=== PATIENT | female | born 1945 | race Caucasian/White ===

== ENCOUNTER 2017-03-12 02:10 | Emergency (ER) | payer MEDICARE ==
[2017-03-12 02:19] VITALS: TEMP 96.9
--- NOTE | 2017-03-12 03:18 | ED ---
Recheck HPI - General Chief Complaint: Recheck/Abnormal Lab/Rx Stated Complaint: poss accidental overdose Time Seen by Provider: 03/12/17 02:31 Source: patient, RN notes reviewed Mode of arrival: ambulatory Limitations: no limitations - History of Present Illness Initial Comments: patient is a 71-year-old female presents to the emergency room for evaluation. Patient states she takes nortriptyline 100 mg at night. Patient states she thinks she might have taken double her dose. Patient states about 15 minutes after she realized this, she made herself vomit. Patient states about an hour later she started feeling nauseous with queasiness. Patient states that she does not feel good. Patient denies abdominal pain or chest pain. Patient denies headache. Patient denies fevers or chills. Patient denies taking extra of any of her other medications. - Related Data Home Medications Medication Instructions Recorded Confirmed ALPRAZolam [Xanax] 0.5 mg PO BID PRN 12/01/15 03/12/17 Ergocalciferol [Vitamin D2] 50,000 unit PO Q7D 12/01/15 03/12/17 Estradiol 0.5 mg PO DAILY 12/01/15 03/12/17 Fluticasone/Salmeterol [Advair 1 inhalation PO BID 12/01/15 03/12/17 250-50 Diskus] Levothyroxine Sodium [Synthroid] 112 mcg PO DAILY 12/01/15 03/12/17 Nortriptyline HCl [Pamelor] 100 mg PO HS 12/01/15 03/12/17 Omeprazole 20 mg PO DAILY 12/01/15 03/12/17 Pravastatin Sodium [Pravachol] 20 mg PO DAILY 12/01/15 03/12/17 Primidone [Mysoline] 50 mg PO DAILY 12/01/15 03/12/17 Zafirlukast 20 mg PO BID 12/01/15 03/12/17 busPIRone HCL 15 mg PO BID 12/01/15 03/12/17 lamoTRIgine [LaMICtal] 200 mg PO DAILY 12/01/15 03/12/17 Previous Rx's Medication Instructions Recorded Lidocaine 5% Patch [Lidoderm] 1 patch TOPICAL DAILY #10 patch 12/01/15 Naproxen [Naprosyn] 500 mg PO Q12HR #30 tab 12/01/15 Allergies Allergy/AdvReac Type Severity Reaction Status Date / Time codeine AdvReac Nausea Verified 03/12/17 02:19 Review of Systems ROS Statement: Those systems with pertinent positive or pertinent negative responses have been documented in the HPI. ROS Other: All systems not noted in ROS Statement are negative. Past Medical History Past Medical History: Asthma, GERD/Reflux, Thyroid Disorder History of Any Multi-Drug Resistant Organisms: MRSA Date of last positivie culture/infection: 2012/MRSA MDRO Source:: Lungs Past Surgical History: Hysterectomy, Orthopedic Surgery, Tonsillectomy Additional Past Surgical History / Comment(s): abd sx Past Psychological History: Anxiety, Depression Smoking Status: Never smoker Past Alcohol Use History: None Reported Past Drug Use History: None Reported General Exam - General Exam Comments Initial Comments: sitting in exam room, no acute distress. Limitations: no limitations General appearance: alert, in no apparent distress Head exam: Present: atraumatic, normocephalic, normal inspection Eye exam: Present: normal appearance ENT exam: Present: normal exam Neck exam: Present: normal inspection Respiratory exam: Present: normal lung sounds bilaterally. Absent: respiratory distress Cardiovascular Exam: Present: regular rate, normal rhythm, normal heart sounds Extremities exam: Present: normal inspection Back exam: Present: normal inspection Neurological exam: Present: alert, oriented X3, CN II-XII intact, normal gait Psychiatric exam: Present: normal affect, normal mood Skin exam: Present: warm, dry, intact, normal color. Absent: rash Course Vital Signs 03/12/17 02:15 Temperature 96.9 F L Pulse Rate 84 Respiratory 18 Rate Blood Pressure 135/84 O2 Sat by Pulse 97 Oximetry Medical Decision Making - Medical Decision Making patient is a 71-year-old female presents emergency room for evaluation of possibly taking 1 extra dose of her nortriptyline. No concerning findings noted on lab work. Patient is noted to have urinary tract infection. Patient is already aware of this and currently is on antibiotics at home for it. Patient states she's on day 3 of her antibiotic. Patient states she's not sure what antibiotic she is on. Advised patient to follow-up with primary care provider. Patient states she's feeling better. Return parameters discussed. Case discussed Dr. García. - Lab Data Result diagrams: 03/12/17 03:15 03/12/17 03:15 Lab Results 03/12/17 03/12/17 03/12/17 Range/Units 03:15 03:15 03:15 WBC 8.1 (3.8-10.6) k/uL RBC 5.42 H (3.80-5.40) m/uL Hgb 16.5 H (11.4-16.0) gm/dL Hct 50.4 H (34.0-46.0) % MCV 93.0 (80.0-100.0) fL MCH 30.4 (25.0-35.0) pg MCHC 32.7 (31.0-37.0) g/dL RDW 14.7 (11.5-15.5) % Plt Count 237 (150-450) k/uL Neutrophils % 71 % Lymphocytes % 18 % Monocytes % 6 % Eosinophils % 2 % Basophils % 1 % Neutrophils # 5.8 (1.3-7.7) k/uL Lymphocytes # 1.5 (1.0-4.8) k/uL Monocytes # 0.5 (0-1.0) k/uL Eosinophils # 0.2 (0-0.7) k/uL Basophils # 0.1 (0-0.2) k/uL Sodium 131 L (137-145) mmol/L Potassium 4.5 (3.5-5.1) mmol/L Chloride 98 (98-107) mmol/L Carbon Dioxide 20 L (22-30) mmol/L Anion Gap 13 mmol/L BUN 14 (7-17) mg/dL Creatinine 0.90 (0.52-1.04) mg/dL Est GFR (MDRD) Af Amer >60 (>60 ml/min/1.73 sqM) Est GFR (MDRD) Non-Af >60 (>60 ml/min/1.73 sqM) Glucose 101 H (74-99) mg/dL Calcium 9.5 (8.4-10.2) mg/dL Total Bilirubin 0.7 (0.2-1.3) mg/dL AST 46 H (14-36) U/L ALT 31 (9-52) U/L Alkaline Phosphatase 103 (38-126) U/L Total Creatine Kinase (30-135) U/L CK-MB (CK-2) (0.0-2.4) ng/mL CK-MB (CK-2) Rel Index Troponin I (0.000-0.034) ng/mL Total Protein 7.0 (6.3-8.2) g/dL Albumin 4.5 (3.5-5.0) g/dL Urine Color Urine Appearance (Clear) Urine pH (5.0-8.0) Ur Specific Glen (1.001-1.035) Urine Protein (Negative) Urine Glucose (UA) (Negative) Urine Ketones (Negative) Urine Blood (Negative) Urine Nitrite (Negative) Urine Bilirubin (Negative) Urine Urobilinogen (<2.0) mg/dL Ur Leukocyte Esterase (Negative) Urine WBC (0-5) /hpf Ur Squamous Epith Cells (0-4) /hpf Urine Bacteria (None) /hpf Urine Mucus (None) /hpf Urine Yeast (Budding) (None) /hpf Salicylates <1.0 mg/dL Urine Opiates Screen Detected H (NotDetected) Ur Oxycodone Screen Not Detected (NotDetected) Urine Methadone Screen Not Detected (NotDetected) Ur Propoxyphene Screen Not Detected (NotDetected) Acetaminophen <10.0 ug/mL Ur Barbiturates Screen Detected H (NotDetected) U Tricyclic Antidepress Detected H (NotDetected) Ur Phencyclidine Scrn Not Detected (NotDetected) Ur Amphetamines Screen Not Detected (NotDetected) U Methamphetamines Scrn Not Detected (NotDetected) U Benzodiazepines Scrn Detected H (NotDetected) Urine Cocaine Screen Not Detected (NotDetected) U Marijuana (THC) Screen Not Detected (NotDetected) Serum Alcohol <10 mg/dL 03/12/17 03/12/17 Range/Units 03:15 03:18 WBC (3.8-10.6) k/uL RBC (3.80-5.40) m/uL Hgb (11.4-16.0) gm/dL Hct (34.0-46.0) % MCV (80.0-100.0) fL MCH (25.0-35.0) pg MCHC (31.0-37.0) g/dL RDW (11.5-15.5) % Plt Count (150-450) k/uL Neutrophils % % Lymphocytes % % Monocytes % % Eosinophils % % Basophils % % Neutrophils # (1.3-7.7) k/uL Lymphocytes # (1.0-4.8) k/uL Monocytes # (0-1.0) k/uL Eosinophils # (0-0.7) k/uL Basophils # (0-0.2) k/uL Sodium (137-145) mmol/L Potassium (3.5-5.1) mmol/L Chloride (98-107) mmol/L Carbon Dioxide (22-30) mmol/L Anion Gap mmol/L BUN (7-17) mg/dL Creatinine (0.52-1.04) mg/dL Est GFR (MDRD) Af Amer (>60 ml/min/1.73 sqM) Est GFR (MDRD) Non-Af (>60 ml/min/1.73 sqM) Glucose (74-99) mg/dL Calcium (8.4-10.2) mg/dL Total Bilirubin (0.2-1.3) mg/dL AST (14-36) U/L ALT (9-52) U/L Alkaline Phosphatase (38-126) U/L Total Creatine Kinase 146 H (30-135) U/L CK-MB (CK-2) 6.1 H* (0.0-2.4) ng/mL CK-MB (CK-2) Rel Index 4.2 Troponin I <0.012 (0.000-0.034) ng/mL Total Protein (6.3-8.2) g/dL Albumin (3.5-5.0) g/dL Urine Color Light Yellow Urine Appearance Cloudy H (Clear) Urine pH 6.0 (5.0-8.0) Ur Specific Glen 1.007 (1.001-1.035) Urine Protein Negative (Negative) Urine Glucose (UA) Negative (Negative) Urine Ketones Negative (Negative) Urine Blood Negative (Negative) Urine Nitrite Negative (Negative) Urine Bilirubin Negative (Negative) Urine Urobilinogen <2.0 (<2.0) mg/dL Ur Leukocyte Esterase Large H (Negative) Urine WBC 91 H (0-5) /hpf Ur Squamous Epith Cells 2 (0-4) /hpf Urine Bacteria Rare H (None) /hpf Urine Mucus Rare H (None) /hpf Urine Yeast (Budding) Few H (None) /hpf Salicylates mg/dL Urine Opiates Screen (NotDetected) Ur Oxycodone Screen (NotDetected) Urine Methadone Screen (NotDetected) Ur Propoxyphene Screen (NotDetected) Acetaminophen ug/mL Ur Barbiturates Screen (NotDetected) U Tricyclic Antidepress (NotDetected) Ur Phencyclidine Scrn (NotDetected) Ur Amphetamines Screen (NotDetected) U Methamphetamines Scrn (NotDetected) U Benzodiazepines Scrn (NotDetected) Urine Cocaine Screen (NotDetected) U Marijuana (THC) Screen (NotDetected) Serum Alcohol mg/dL 03/12/17 04:32 normal sinus rhythm, ventricular rate 76 bpm, NV interval 128 ms, QRS duration 100 ms, QT/QTc 428/481 Disposition Clinical Impression: Accidental medication overdose, Urinary tract infection Disposition: HOME SELF-CARE Condition: Good Instructions: Urinary Tract Infection in Women (ED) Additional Instructions: Take antibiotics as directed. Please follow up with primary care provider in 1- 2 days. If any new symptom arises or symptoms worsen, return to ER as soon as possible. Referrals: Donald Coto MD [Primary Care Provider] - 1-2 days Time of Disposition: 04:22
[2017-03-12 03:42] LABS: Appearance,Urine Cloudy (Clear); Bacteria,Urine Rare /hpf; Bilirubin,Urine Negative (Negative); Glucose,Urine (UA) Negative (Negative); Ketones,Urine Negative (Negative); Leukocyte Esterase,Urine Large (Negative); Mucus,Urine Rare /hpf; Nitrite,Urine Negative (Negative); Particle Count 38791; Protein,Urine Negative (Negative); Specific Gravity,Urine 1.007 (1.001-1.035); Squamous Epithelial Cell,Urine 2 /hpf (0-4); UA Billing (MACRO vs. MICRO) MICRO; Urobilinogen,Urine <2.0 mg/dL (<2.0); WBC,Urine 91 /hpf (0-5)
[2017-03-12 03:49] LABS: Basophils # (A) 0.1 k/uL (0-0.2); Basophils % (A) 1 %; CHCM 33.6; Eosinophils # (A) 0.2 k/uL (0-0.7); Eosinophils % (A) 2 %; HCT 50.4 % (34.0-46.0); HDW 2.35; HGB 16.5 gm/dL (11.4-16.0); Luc # (Auto) 0.16; Luc % (Auto) 2; Lymphocytes # (A) 1.5 k/uL (1.0-4.8); Lymphocytes % (A) 18 %; MCH 30.4 pg (25.0-35.0); MCHC 32.7 g/dL (31.0-37.0); Monocytes # (A) 0.5 k/uL (0-1.0); Monocytes % (A) 6 %; Neutrophils # (A) 5.8 k/uL (1.3-7.7); Neutrophils % (A) 71 %; RBC 5.42 m/uL (3.80-5.40); RDW 14.7 % (11.5-15.5); WBC 8.1 k/uL (3.8-10.6); WBC (Perox) 8.03
[2017-03-12 03:57] LABS: Acetaminophen <10.0 ug/mL; Alcohol <10 mg/dL; Anion Gap 13 mmol/L; Calcium 9.5 mg/dL (8.4-10.2); Carbon Dioxide 20 mmol/L (22-30); Chloride 98 mmol/L (98-107); Creatine Kinase 146 U/L (30-135); Glucose 101 mg/dL (74-99); Non-African American GFR(MDRD) >60 (>60 ml/min/1.73 sqM); Salicylate <1.0 mg/dL; Sodium 131 mmol/L (137-145); Total Bilirubin 0.7 mg/dL (0.2-1.3)
[2017-03-12 03:58] LABS: Potassium 4.5 mmol/L (3.5-5.1)
[2017-03-12 03:59] LABS: ALT 31 U/L (9-52); AST 46 U/L (14-36); Alkaline Phosphatase 103 U/L (38-126); Blood Urea Nitrogen 14 mg/dL (7-17)
[2017-03-12 04:09] LABS: Creatine Kinase MB 6.1 ng/mL (0.0-2.4)
[2017-03-12 04:10] LABS: Troponin I <0.012 ng/mL (0.000-0.034)
[2017-03-12] MEDS ORDERED: METOCLOPRAMIDE 5 MG/ML 2 ML VIAL IVP STA (04:22)
[2017-03-12] MEDS: NITROFURANTOIN MONOHYD/M-CRYST 100 MG CAP PO STA ×2 (04:28→04:30)
[2017-03-12 04:46] VITALS: BP 146/78; PULSE 73; RESP 20
== END 2017-03-12 04:37 | disposition home or self-care (01) ==
LOC: EC 02:10
DX: T43.011A Poisoning by tricyclic antidepressants, accidental (unintentional), initial encounter (principal); N39.0 Urinary tract infection, site not specified; K21.9 Gastro-esophageal reflux disease without esophagitis; J45.909 Unspecified asthma, uncomplicated; E07.9 Disorder of thyroid, unspecified; F32.9 Major depressive disorder, single episode, unspecified; F41.9 Anxiety disorder, unspecified; Z79.890 Hormone replacement therapy; Z88.5 Allergy status to narcotic agent; Z79.51 Long term (current) use of inhaled steroids; Z79.899 Other long term (current) drug therapy
CPT/HCPCS: 82075; 36415; 93005; 80053; 82550; 82553; 84484; 85025; 81001; 80306; 83520 ×2; 80320; 99283; 96374; J2765

== ENCOUNTER 2017-04-14 16:28 | Emergency (ER) | payer MEDICARE ==
[2017-04-14] MEDS ORDERED: SODIUM CHLORIDE 0.9% 1,000 ML IV STA (16:54)
[2017-04-14] MEDS ORDERED: LORazepam 2 MG/ML SYRINGE IV STA (16:54)
[2017-04-14 16:56] LABS: Glucose,Whole Blood 110 mg/dL (75-99)
--- NOTE | 2017-04-14 16:57 | ED ---
General Adult HPI - General Chief complaint: Neuro Symptoms/Deficit Stated complaint: Arms numbness Time Seen by Provider: 04/14/17 16:46 Source: patient, RN notes reviewed Mode of arrival: wheelchair Limitations: no limitations - History of Present Illness Initial comments: Patient is a pleasant 71-year-old female presenting to the emergency department feeling funny in her arms and legs. Symptoms have been present for a couple of weeks. Patient feels lightheaded. Patient feels tingling in her arms and legs , more so in the hands and feet. Patient did have 2 episodes where she kind of slid out of bed without acute fall. Patient denies feeling off balance. Patient denies a true spinning type sensation. Patient states she did see her doctor recently who diagnosed her with vertigo. No isolated area of weakness. Patient does feel shaky however this is chronic. No confusion. - Related Data Home Medications Medication Instructions Recorded Confirmed Ergocalciferol [Vitamin D2] 50,000 unit PO FIELDS 12/01/15 04/14/17 Estradiol 0.5 mg PO DAILY 12/01/15 04/14/17 Nortriptyline HCl [Pamelor] 100 mg PO HS 12/01/15 04/14/17 Omeprazole 20 mg PO DAILY 12/01/15 04/14/17 Pravastatin Sodium [Pravachol] 20 mg PO DAILY 12/01/15 04/14/17 Primidone [Mysoline] 50 mg PO BID 12/01/15 04/14/17 Zafirlukast 20 mg PO BID 12/01/15 04/14/17 busPIRone HCL 15 mg PO BID 12/01/15 04/14/17 lamoTRIgine [LaMICtal] 200 mg PO HS 12/01/15 04/14/17 ALPRAZolam [Xanax] 0.5 mg PO QAM 04/14/17 04/14/17 ALPRAZolam [Xanax] 1 mg PO HS 04/14/17 04/14/17 Aspirin EC [Ecotrin Low Dose] 81 mg PO DAILY 04/14/17 04/14/17 Diphenox-Atrop 2.5-0.025 mg 1 tab PO TID PRN 04/14/17 04/14/17 [Lomotil] Levothyroxine Sodium 112 mcg PO DAILY 04/14/17 04/14/17 Meclizine [Antivert] 12.5 mg PO TID PRN 04/14/17 04/14/17 amLODIPine [Norvasc] 2.5 mg PO DAILY 04/14/17 04/14/17 Previous Rx's Medication Instructions Recorded Levothyroxine Sodium 150 mcg PO DAILY #30 tablet 04/14/17 Allergies Allergy/AdvReac Type Severity Reaction Status Date / Time Penicillins Allergy Swelling Verified 04/14/17 17:31 codeine AdvReac Nausea & Verified 04/14/17 17:31 Vomiting Review of Systems ROS Statement: Those systems with pertinent positive or pertinent negative responses have been documented in the HPI. ROS Other: All systems not noted in ROS Statement are negative. Constitutional: Denies: fever Eyes: Denies: eye pain ENT: Denies: ear pain Respiratory: Denies: cough Cardiovascular: Denies: chest pain Endocrine: Denies: fatigue Gastrointestinal: Denies: abdominal pain Genitourinary: Denies: dysuria Musculoskeletal: Denies: back pain Skin: Denies: rash Neurological: Reports: paresthesias. Denies: headache, weakness, confusion Past Medical History Past Medical History: Asthma, GERD/Reflux, Thyroid Disorder History of Any Multi-Drug Resistant Organisms: MRSA Date of last positivie culture/infection: 2012/MRSA MDRO Source:: Lungs Past Surgical History: Hysterectomy, Orthopedic Surgery, Tonsillectomy Additional Past Surgical History / Comment(s): abd sx Past Psychological History: Anxiety, Depression Smoking Status: Never smoker Past Alcohol Use History: None Reported Past Drug Use History: None Reported General Exam Limitations: no limitations General appearance: alert, in no apparent distress Head exam: Present: atraumatic Eye exam: Present: normal appearance, PERRL, EOMI. Absent: nystagmus ENT exam: Present: normal oropharynx Neck exam: Present: normal inspection Respiratory exam: Present: normal lung sounds bilaterally Cardiovascular Exam: Present: regular rate, normal rhythm GI/Abdominal exam: Present: soft. Absent: tenderness Extremities exam: Present: normal inspection Neurological exam: Present: alert, CN II-XII intact. Absent: motor sensory deficit Expanded Patient oriented to: Present: person, place, time Speech: Present: fluid speech Cranial nerves: EOM's Intact: Normal, Facial Sensation: Normal Cerebellar function: Finger to Nose: Normal Sensory exam: Upper Extremity Light Touch: Normal, Lower Extremity Light Touch: Normal Motor strength exam: RUE: 5, LUE: 5, RLE: 5, LLE: 5 Eye Response: (4) open spontaneously Motor Response: (6) obeys commands Verbal Response: (5) oriented Psychiatric exam: Present: normal affect, normal mood Skin exam: Present: normal color Course Vital Signs 04/14/17 04/14/17 04/14/17 16:32 17:29 18:23 Temperature 97.0 F L Pulse Rate 64 60 57 L Respiratory 20 18 18 Rate Blood Pressure 128/60 132/69 150/63 O2 Sat by Pulse 97 98 98 Oximetry - Reevaluation(s) Reevaluation #1: 04/14/17 18:52 Sinus bradycardia 58. LA 202. QRS 98. QT 394. QTC 386. Normal axis. Normal QRS. Nonspecific T waves. EKG Findings - EKG Comments: EKG Findings:: Artifact is present. Regular rhythm. Rate 60. QRS 94. QT 352. QTC 52. Normal axis. Low QRS voltage. Poor R-wave progression. No acute ST change. Medical Decision Making - Medical Decision Making Patient reevaluated and resting comfortably in bed. Symptoms have improved. Patient feels comfortable with discharge. Patient states she actually is on levothyroxine at 112 g daily and did take this morning. Case was discussed in detail with Dr. Coto who does recommend increased to 150 daily and will follow -up. - Lab Data Result diagrams: 04/14/17 17:08 04/14/17 17:08 Lab Results 04/14/17 04/14/17 04/14/17 Range/Units 16:46 17:08 17:08 WBC 5.6 (3.8-10.6) k/uL RBC 4.89 (3.80-5.40) m/uL Hgb 15.3 (11.4-16.0) gm/dL Hct 44.7 (34.0-46.0) % MCV 91.4 (80.0-100.0) fL MCH 31.3 (25.0-35.0) pg MCHC 34.3 (31.0-37.0) g/dL RDW 14.3 (11.5-15.5) % Plt Count 211 (150-450) k/uL Neutrophils % 67 % Lymphocytes % 22 % Monocytes % 5 % Eosinophils % 3 % Basophils % 1 % Neutrophils # 3.8 (1.3-7.7) k/uL Lymphocytes # 1.2 (1.0-4.8) k/uL Monocytes # 0.3 (0-1.0) k/uL Eosinophils # 0.2 (0-0.7) k/uL Basophils # 0.0 (0-0.2) k/uL PT (9.0-12.0) sec INR (<1.2) APTT (22.0-30.0) sec Sodium (137-145) mmol/L Potassium (3.5-5.1) mmol/L Chloride (98-107) mmol/L Carbon Dioxide (22-30) mmol/L Anion Gap mmol/L BUN (7-17) mg/dL Creatinine (0.52-1.04) mg/dL Est GFR (MDRD) Af Amer (>60 ml/min/1.73 sqM) Est GFR (MDRD) Non-Af (>60 ml/min/1.73 sqM) Glucose (74-99) mg/dL POC Glucose (mg/dL) 110 H (75-99) mg/dL POC Glu It Security Engineer ID Emily Hansen Calcium (8.4-10.2) mg/dL Phosphorus (2.5-4.5) mg/dL Magnesium (1.6-2.3) mg/dL Total Bilirubin (0.2-1.3) mg/dL AST (14-36) U/L ALT (9-52) U/L Alkaline Phosphatase (38-126) U/L Total Creatine Kinase 564 H (30-135) U/L CK-MB (CK-2) 17.1 H* (0.0-2.4) ng/mL CK-MB (CK-2) Rel Index 3.0 Troponin I <0.012 (0.000-0.034) ng/mL Total Protein (6.3-8.2) g/dL Albumin (3.5-5.0) g/dL TSH (0.465-4.680) mIU/L Free T4 (0.78-2.19) ng/dL Free T3 pg/mL (2.8-5.3) pg/ml 04/14/17 04/14/17 Range/Units 17:08 17:08 WBC (3.8-10.6) k/uL RBC (3.80-5.40) m/uL Hgb (11.4-16.0) gm/dL Hct (34.0-46.0) % MCV (80.0-100.0) fL MCH (25.0-35.0) pg MCHC (31.0-37.0) g/dL RDW (11.5-15.5) % Plt Count (150-450) k/uL Neutrophils % % Lymphocytes % % Monocytes % % Eosinophils % % Basophils % % Neutrophils # (1.3-7.7) k/uL Lymphocytes # (1.0-4.8) k/uL Monocytes # (0-1.0) k/uL Eosinophils # (0-0.7) k/uL Basophils # (0-0.2) k/uL PT 10.5 (9.0-12.0) sec INR 1.0 (<1.2) APTT 26.8 (22.0-30.0) sec Sodium 131 L (137-145) mmol/L Potassium 3.9 (3.5-5.1) mmol/L Chloride 99 (98-107) mmol/L Carbon Dioxide 22 (22-30) mmol/L Anion Gap 10 mmol/L BUN 8 (7-17) mg/dL Creatinine 0.90 (0.52-1.04) mg/dL Est GFR (MDRD) Af Amer >60 (>60 ml/min/1.73 sqM) Est GFR (MDRD) Non-Af >60 (>60 ml/min/1.73 sqM) Glucose 108 H (74-99) mg/dL POC Glucose (mg/dL) (75-99) mg/dL POC Glu It Security Engineer ID Calcium 9.5 (8.4-10.2) mg/dL Phosphorus 3.3 (2.5-4.5) mg/dL Magnesium 1.8 (1.6-2.3) mg/dL Total Bilirubin 0.4 (0.2-1.3) mg/dL AST 43 H (14-36) U/L ALT 48 (9-52) U/L Alkaline Phosphatase 87 (38-126) U/L Total Creatine Kinase (30-135) U/L CK-MB (CK-2) (0.0-2.4) ng/mL CK-MB (CK-2) Rel Index Troponin I (0.000-0.034) ng/mL Total Protein 6.3 (6.3-8.2) g/dL Albumin 4.2 (3.5-5.0) g/dL TSH >100.000 H (0.465-4.680) mIU/L Free T4 <0.07 L (0.78-2.19) ng/dL Free T3 pg/mL 0.9 L (2.8-5.3) pg/ml - Radiology Data Radiology results: report reviewed (Computed tomography scan of the brain shows no acute process), image reviewed (Chest x-ray shows no acute process) Disposition Clinical Impression: Hypothyroidism, Paresthesias Disposition: HOME SELF-CARE Condition: Stable Instructions: Hypothyroidism (ED), Paresthesia (ED) Additional Instructions: Please follow-up with Dr. Coto in the next couple days for recheck. He will need to have her thyroid levels rechecked in the near future. Return for weakness, confusion, worsening or changing symptoms or other concerns. Prescriptions: Levothyroxine Sodium 150 mcg PO DAILY #30 tablet Referrals: Donald Coto MD [Primary Care Provider] - 1-2 days Time of Disposition: 18:59
[2017-04-14 17:29] VITALS: RESP 18
[2017-04-14 17:38] LABS: Partial Thromboplastin Time 26.8 sec (22.0-30.0); Prothrombin Time 10.5 sec (9.0-12.0)
[2017-04-14 17:48] LABS: ALT 48 U/L (9-52); AST 43 U/L (14-36); Alkaline Phosphatase 87 U/L (38-126); Anion Gap 10 mmol/L; Basophils % (A) 1 %; Blood Urea Nitrogen 8 mg/dL (7-17); CH 30.8; CHCM 33.9; Calcium 9.5 mg/dL (8.4-10.2); Carbon Dioxide 22 mmol/L (22-30); Chloride 99 mmol/L (98-107); Eosinophils # (A) 0.2 k/uL (0-0.7); Eosinophils % (A) 3 %; Glucose 108 mg/dL (74-99); HCT 44.7 % (34.0-46.0); HDW 2.34; HGB 15.3 gm/dL (11.4-16.0); Luc # (Auto) 0.14; Luc % (Auto) 3; Lymphocytes # (A) 1.2 k/uL (1.0-4.8); Lymphocytes % (A) 22 %; MCH 31.3 pg (25.0-35.0); MCHC 34.3 g/dL (31.0-37.0); MCV 91.4 fL (80.0-100.0); Magnesium 1.8 mg/dL (1.6-2.3); Mean Platelet Volume 6.4; Monocytes # (A) 0.3 k/uL (0-1.0); Monocytes % (A) 5 %; Neutrophils # (A) 3.8 k/uL (1.3-7.7); Neutrophils % (A) 67 %; Non-African American GFR(MDRD) >60 (>60 ml/min/1.73 sqM); Phosphorous 3.3 mg/dL (2.5-4.5); Potassium 3.9 mmol/L (3.5-5.1); RBC 4.89 m/uL (3.80-5.40); RDW 14.3 % (11.5-15.5); Sodium 131 mmol/L (137-145); Total Bilirubin 0.4 mg/dL (0.2-1.3); Total Protein 6.3 g/dL (6.3-8.2); WBC 5.6 k/uL (3.8-10.6); WBC (Perox) 5.53
[2017-04-14 17:51] LABS: Creatine Kinase 564 U/L (30-135)
[2017-04-14 18:04] LABS: Troponin I <0.012 ng/mL (0.000-0.034)
[2017-04-14 18:08] LABS: Creatine Kinase MB 17.1 ng/mL (0.0-2.4)
--- NOTE | 2017-04-14 18:35 | CT ---
EXAMINATION TYPE: CT brain wo con DATE OF EXAM: 04/14/2017 COMPARISON: 05/16/2010 HISTORY: Weakness, history of vertigo. CT DLP: 912.30 mGycm. Automated exposure control for dose reduction was used. FINDINGS: There is no acute intracranial hemorrhage, mass effect, or midline shift identified. The v entricles and sulci are within normal limits in size. Prominent CSF spaces over the convexities are again noted. The orbits are intact. The calvarium is unremarkable. The paranasal sinuses and mastoid sinus air cells and middle ear cavities are clear bilaterally. Prom inent cerumen is incidentally noted within the right external auditory canal - the left external clovis tory canal is clear. IMPRESSION: 1. NO ACUTE PROCESS. 2. Prominent right-sided external auditory canal cerumen.
--- NOTE | 2017-04-14 18:49 | XR ---
EXAMINATION TYPE: XR chest 2V DATE OF EXAM: 04/14/2017 COMPARISON: 12/01/2015 HISTORY: Weakness slurred speech arm numbness TECHNIQUE: Frontal and lateral views of the chest are obtained. FINDINGS: There are prominent overlying soft tissues which obscures detailed imaging of the lung pare nchyma. Given that factor, the lungs appear to be clear bilaterally. Pleural spaces are negative. Cardiac silhouette is mildly enlarged, stable in appearance. Mediastinal silhouette and bones and soft tissues are unremarkable. IMPRESSION: NO DEFINITE ACUTE PROCESS.
[2017-04-14] MEDS ORDERED: LEVOTHYROXINE 75 MCG TAB PO ONE (18:57)
[2017-04-14 19:04] VITALS: BP 156/71; PULSE 56; TEMP 97.7
== END 2017-04-14 19:25 | disposition home or self-care (01) ==
LOC: EC 16:28
DX: E03.9 Hypothyroidism, unspecified (principal); R42 Dizziness and giddiness; R25.9 Unspecified abnormal involuntary movements; J45.909 Unspecified asthma, uncomplicated; K21.9 Gastro-esophageal reflux disease without esophagitis; F32.9 Major depressive disorder, single episode, unspecified; F41.9 Anxiety disorder, unspecified; Z79.82 Long term (current) use of aspirin; Z79.899 Other long term (current) drug therapy; Z88.0 Allergy status to penicillin; Z88.5 Allergy status to narcotic agent
CPT/HCPCS: 36415; 93005; 84439; 84481; 80053; 82550; 82553; 83735; 84100; 84443; 84484; 85025; 85610; 85730; 71020; 70450; 99284; 96374; 96361 ×2; J2060

== ENCOUNTER → 2017-05-12 | Outpatient (CLI) | payer MEDICARE ==
--- NOTE | 2017-05-12 15:26 | CT ---
EXAMINATION TYPE: CT abdomen pelvis wo con DATE OF EXAM: 05/12/2017 HISTORY: Left flank pain. CT DLP: 912.40 mGycm. Automated Exposure Control for Dose Reduction was Utilized. TECHNIQUE: CT scan of the abdomen and pelvis is performed without oral and without IV contrast. COMPARISON: CT abdomen and pelvis October 31, 2013 FINDINGS: Within the limitations of a non-contrast study, the following observations are made. LUNG BASES: There is central patchy bibasilar linear scarring redemonstrated. Some pericardial calcif ication right aspect on axial image 5 is redemonstrated. LIVER/GB: Cholecystectomy clips are redemonstrated. PANCREAS: Some increased fat replaced atrophy of pancreas is noted. SPLEEN: No significant abnormality is seen. ADRENALS: No significant abnormality is seen. KIDNEYS: No renal stones or hydronephrosis is evident bilaterally. BOWEL: There is persistent moderate size hiatal hernia. Surgical clips near diaphragmatic hiatus are redemonstrated. No suspicious small or large bowel dilatation is seen. Diverticula in the left and si gmoid colon are redemonstrated. There is no CT evidence for acute diverticulitis. GENITAL ORGANS: Uterus is surgically absent. LYMPH NODES: No greater than 1cm abdominal or pelvic lymph nodes are appreciated. OSSEOUS STRUCTURES: No significant abnormality is seen. OTHER: There is persistent moderate to large size ventral wall hernia or 2 adjacent hernias near umbi licus on axial image 80 containing fat and small mesenteric vessels not significantly changed from pr ior. IMPRESSION: No renal stones or hydronephrosis is seen bilaterally. No significant new finding is seen to account for patient's symptoms.
== END | disposition home or self-care (01) ==
LOC: RADCTMAIN 14:48
PROVIDERS: ATTEND Internal Medicine
DX: R10.9 Unspecified abdominal pain (principal)
CPT/HCPCS: 74176

== ENCOUNTER → 2017-08-11 | Outpatient (CLI) | payer MEDICARE ==
--- NOTE | 2017-08-11 12:52 | XR ---
EXAMINATION TYPE: XR chest 2V DATE OF EXAM: 08/11/2017 COMPARISON: 04/14/2017 TECHNIQUE: PA and lateral views submitted. HISTORY: Weakness FINDINGS: The lungs are clear and there is no pneumothorax, pleural effusion, or focal pneumonia. Linear bird ges in the right upper lobe. There is a large hiatal hernia and surgical clips in the epigastric desmond on. Degenerative change of the spine. IMPRESSION: 1. No acute process. Vague irregular nodular density right upper lobe. Most likely related to scar or atelectasis could be correlated with a short-term follow-up CT of the chest. 2. Large hiatal hernia.
== END | disposition home or self-care (01) ==
LOC: RADXRMAIN 12:23
PROVIDERS: ATTEND Internal Medicine
DX: R91.8 Other nonspecific abnormal finding of lung field (principal); R05 Cough
CPT/HCPCS: 71046

== ENCOUNTER → 2017-09-30 | Outpatient (CLI) | payer MEDICARE ==
--- NOTE | 2017-09-30 14:55 | MM ---
Reason for exam: clinical finding. Last mammogram was performed 1 year and 9 months ago. History: Patient is postmenopausal. Family history of premenopausal breast cancer in sister and premenopausal breast cancer in maternal grandmother. Taking estrogen for 10 years beginning at age 57. Physical Findings: Nurse did not find any significant physical abnormalities on exam. MG Diagnostic Mammo w CAD ELIZABETH Bilateral CC and MLO view(s) were taken. Spot compression MLO, spot compression CC, and ML view(s) were taken of the right breast. Prior study comparison: January 02, 2016, bilateral MG screening mammo w CAD. November 30, 2014, bilateral MG screening mammo w CAD. There are scattered fibroglandular densities. Finding: There are typically benign round calcifications in both breasts. Asymmetric breast tissue in the right upper quadrant is stable from 2016. There is no distinct new lesion. These results were verbally communicated with the patient and result sheet given to the patient on 09/30/17. ASSESSMENT: Benign, BI-RAD 2 RECOMMENDATION: Routine screening mammogram of both breasts in 1 year. Manage on a clinical basis with regard to bilateral nipple discharge.
== END | disposition home or self-care (01) ==
LOC: RADMAMWWP 13:42
PROVIDERS: ATTEND Internal Medicine
DX: N64.52 Nipple discharge (principal)
CPT/HCPCS: 77066

== ENCOUNTER 2018-03-08 01:03 | Emergency (ER) | payer MEDICARE ==
[2018-03-08 01:09] VITALS: RESP 18
[2018-03-08] MEDS ORDERED: SODIUM CHLORIDE 0.9% 1,000 ML IV STA (01:31)
[2018-03-08] MEDS ORDERED: ONDANSETRON 4 MG/2 ML VIAL IVP STA (01:31)
[2018-03-08] MEDS ORDERED: MORPHINE SULFATE 2 MG/ML SYRINGE IVP STA (01:31)
--- NOTE | 2018-03-08 01:48 | ED ---
General Adult HPI - General Chief complaint: Abdominal Pain Stated complaint: Flank Pain Time Seen by Provider: 03/08/18 01:11 Source: patient, EMS, RN notes reviewed Mode of arrival: EMS Limitations: no limitations - History of Present Illness Initial comments: 72-year-old female since to the emergency department for a chief complaint of right lower back pain times 6 hours. Patient states the pain started when she bent down to pick something up. She states that she felt the pain in her right lower back. Patient states she has had similar pain before with urinary tract infections. Patient states she also has history of kidney stones which has felt like this before. Patient denies dysuria or increased frequency of urination. Patient has tried a [place] for pain which has not helped much. Patient states that moving makes the pain worse and laying still makes the pain better. Patient describes the pain as a sharp pain when she moves. Patient has no other complaints at this time including shortness of breath, chest pain, abdominal pain, nausea or vomiting, headache, or visual changes. - Related Data Home Medications Medication Instructions Recorded Confirmed Ergocalciferol [Vitamin D2] 50,000 unit PO FIELDS 12/01/15 04/14/17 Estradiol 0.5 mg PO DAILY 12/01/15 04/14/17 Nortriptyline HCl [Pamelor] 100 mg PO HS 12/01/15 04/14/17 Omeprazole 20 mg PO DAILY 12/01/15 04/14/17 Pravastatin Sodium [Pravachol] 20 mg PO DAILY 12/01/15 04/14/17 Primidone [Mysoline] 50 mg PO BID 12/01/15 04/14/17 Zafirlukast 20 mg PO BID 12/01/15 04/14/17 busPIRone HCL 15 mg PO BID 12/01/15 04/14/17 lamoTRIgine [LaMICtal] 200 mg PO HS 12/01/15 04/14/17 ALPRAZolam [Xanax] 0.5 mg PO QAM 04/14/17 04/14/17 ALPRAZolam [Xanax] 1 mg PO HS 04/14/17 04/14/17 Aspirin EC [Ecotrin Low Dose] 81 mg PO DAILY 04/14/17 04/14/17 Diphenox-Atrop 2.5-0.025 mg 1 tab PO TID PRN 04/14/17 04/14/17 [Lomotil] Levothyroxine Sodium 112 mcg PO DAILY 04/14/17 04/14/17 Meclizine [Antivert] 12.5 mg PO TID PRN 04/14/17 04/14/17 amLODIPine [Norvasc] 2.5 mg PO DAILY 04/14/17 04/14/17 Previous Rx's Medication Instructions Recorded Levothyroxine Sodium 150 mcg PO DAILY #30 tablet 04/14/17 Levofloxacin [Levaquin] 500 mg PO DAILY 7 Days #7 tab 03/08/18 diphenhydrAMINE HCL [Benadryl] 25 mg PO Q6H PRN #20 tab 03/08/18 Allergies Allergy/AdvReac Type Severity Reaction Status Date / Time Penicillins Allergy Swelling Verified 03/08/18 01:09 Review of Systems ROS Statement: Those systems with pertinent positive or pertinent negative responses have been documented in the HPI. ROS Other: All systems not noted in ROS Statement are negative. Past Medical History Past Medical History: Asthma, GERD/Reflux, Thyroid Disorder History of Any Multi-Drug Resistant Organisms: MRSA Date of last positivie culture/infection: 2012/MRSA MDRO Source:: Lungs Past Surgical History: Hysterectomy, Orthopedic Surgery, Tonsillectomy Additional Past Surgical History / Comment(s): abd sx Past Psychological History: Anxiety, Depression Smoking Status: Never smoker Past Alcohol Use History: None Reported Past Drug Use History: None Reported General Exam Limitations: no limitations General appearance: alert, in no apparent distress Head exam: Present: atraumatic, normocephalic, normal inspection Eye exam: Present: normal appearance. Absent: scleral icterus, conjunctival injection ENT exam: Present: normal exam, mucous membranes moist Neck exam: Present: normal inspection, full ROM. Absent: tenderness, meningismus, lymphadenopathy Respiratory exam: Present: normal lung sounds bilaterally. Absent: respiratory distress, wheezes, rales, rhonchi, stridor Cardiovascular Exam: Present: regular rate, normal rhythm, normal heart sounds. Absent: systolic murmur, diastolic murmur, rubs, gallop, clicks GI/Abdominal exam: Present: soft, normal bowel sounds. Absent: distended, tenderness, guarding, rebound, rigid Extremities exam: Present: tenderness (Tenderness to the right lateral hip.), normal capillary refill (Capillary refill less than 2 seconds and pedal pulse 2 + in the right lower extremity). Absent: full ROM (patient has passive flexion of hip to about 90 degrees), joint swelling, calf tenderness (No tenderness in the calf and no redness, swelling, or bruising.) Back exam: Present: tenderness (Tenderness of the right lower back around the SI joint), CVA tenderness (R). Absent: full ROM (Patient has pain with sitting up in bed and is not able to sit up without help), CVA tenderness (L) Neurological exam: Present: alert, oriented X3, CN II-XII intact. Absent: motor sensory deficit (Sensation intact in right lower extremity) Course Vital Signs 03/08/18 03/08/18 03/08/18 01:07 01:23 03:09 Temperature 97.5 F L Pulse Rate 68 66 70 Respiratory 18 18 18 Rate Blood Pressure 136/65 136/64 116/58 O2 Sat by Pulse 96 97 96 Oximetry Medical Decision Making - Medical Decision Making 72-year-old female with a history of urinary tract infections and kidney stones presents to the emergency determine for chief right lower back pain. Patient states that the back pain started when she bent down to pick something up. When she stood up it was worse. On exam movement of the right hip makes the pain worse. Patient has tenderness of the right SI joint area. Neurovasc intact in RLE. CBC and CMP unremarkable. Computed tomography scan shows a new infiltrate and atelectasis at the posterior lung bases compared to old exam. Mild bilateral hydronephrosis. Mild right-sided hydroureter could relate to recently passed stone or nonopaque stone. This appears new compared to old exam. Bony structures unremarkable including right hip. avionics test technician called to state hip would be imaged on CT abd pelvis. Urine also shows mild UTI. Patient states the symptoms are consistent with past urinary tract infection. Patient will be treated with Levaquin to cover her urinary tract infection as well as possible pulmonary infiltrate. Patient denies cough or shortness of breath or fever. Patient likely also experiencing muscular pain from bending over earlier. She is to follow-up with primary care in 1-2 days. Patient aware to return to the emergency Department if she has any worsening symptoms. - Lab Data Result diagrams: 03/08/18 01:44 03/08/18 01:44 Lab Results 03/08/18 03/08/18 03/08/18 Range/Units 01:44 01:44 01:59 WBC 6.0 (3.8-10.6) k/uL RBC 4.85 (3.80-5.40) m/uL Hgb 13.9 (11.4-16.0) gm/dL Hct 43.8 (34.0-46.0) % MCV 90.2 (80.0-100.0) fL MCH 28.7 (25.0-35.0) pg MCHC 31.8 (31.0-37.0) g/dL RDW 13.2 (11.5-15.5) % Plt Count 245 (150-450) k/uL Neutrophils % 55 % Lymphocytes % 28 % Monocytes % 7 % Eosinophils % 6 % Basophils % 1 % Neutrophils # 3.3 (1.3-7.7) k/uL Lymphocytes # 1.7 (1.0-4.8) k/uL Monocytes # 0.4 (0-1.0) k/uL Eosinophils # 0.4 (0-0.7) k/uL Basophils # 0.1 (0-0.2) k/uL Sodium 137 (137-145) mmol/L Potassium 4.2 (3.5-5.1) mmol/L Chloride 109 H (98-107) mmol/L Carbon Dioxide 23 (22-30) mmol/L Anion Gap 5 mmol/L BUN 15 (7-17) mg/dL Creatinine 0.70 (0.52-1.04) mg/dL Est GFR (CKD-EPI)AfAm >90 (>60 ml/min/1.73 sqM) Est GFR (CKD-EPI)NonAf 86 (>60 ml/min/1.73 sqM) Glucose 87 (74-99) mg/dL Calcium 8.8 (8.4-10.2) mg/dL Total Bilirubin 0.3 (0.2-1.3) mg/dL AST 21 (14-36) U/L ALT 44 (9-52) U/L Alkaline Phosphatase 92 (38-126) U/L Total Protein 5.2 L (6.3-8.2) g/dL Albumin 3.4 L (3.5-5.0) g/dL Amylase <30 L (30-110) U/L Lipase <10 L (23-300) U/L Urine Color Yellow Urine Appearance Clear (Clear) Urine pH 5.5 (5.0-8.0) Ur Specific [place] 1.009 (1.001-1.035) Urine Protein Negative (Negative) Urine Glucose (UA) Negative (Negative) Urine Ketones Negative (Negative) Urine Blood Negative (Negative) Urine Nitrite Positive H (Negative) Urine Bilirubin Negative (Negative) Urine Urobilinogen <2.0 (<2.0) mg/dL Ur Leukocyte Esterase Moderate H (Negative) Urine RBC 1 (0-5) /hpf Urine WBC 9 H (0-5) /hpf Urine Bacteria Occasional H (None) /hpf Hyaline Casts 1 (0-2) /lpf Urine Mucus Rare H (None) /hpf Disposition Clinical Impression: Urinary tract infection, Back pain Disposition: HOME SELF-CARE Condition: Good Instructions: Urinary Tract Infection in Women (ED), Back Pain (ED) Additional Instructions: Please take antibiotic as directed. Take Motrin and Tylenol for pain. Please follow-up with primary care in 1-2 days. Return to the emergency department if you have any worsening symptoms including increased pain or fevers. Prescriptions: diphenhydrAMINE HCL [Benadryl] 25 mg PO Q6H PRN #20 tab PRN Reason: Allergic Reaction Levofloxacin [Levaquin] 500 mg PO DAILY 7 Days #7 tab Is patient prescribed a controlled substance at d/c from ED?: No Referrals: Donald Coto MD [Primary Care Provider] - 1-2 days Time of Disposition: 04:08
[2018-03-08 02:08] LABS: Basophils # (A) 0.1 k/uL (0-0.2); Basophils % (A) 1 %; Eosinophils # (A) 0.4 k/uL (0-0.7); Eosinophils % (A) 6 %; HCT 43.8 % (34.0-46.0); HGB 13.9 gm/dL (11.4-16.0); Lymphocytes # (A) 1.7 k/uL (1.0-4.8); Lymphocytes % (A) 28 %; MCH 28.7 pg (25.0-35.0); MCHC 31.8 g/dL (31.0-37.0); MCV 90.2 fL (80.0-100.0); Mean Platelet Volume 6.5; Monocytes # (A) 0.4 k/uL (0-1.0); Monocytes % (A) 7 %; Neutrophils # (A) 3.3 k/uL (1.3-7.7); Neutrophils % (A) 55 %; Platelet Count 245 k/uL (150-450); RBC 4.85 m/uL (3.80-5.40); RDW 13.2 % (11.5-15.5)
[2018-03-08 02:10] LABS: ALT 44 U/L (9-52); AST 21 U/L (14-36); Albumin 3.4 g/dL (3.5-5.0); Alkaline Phosphatase 92 U/L (38-126); Amylase <30 U/L (30-110); Anion Gap 5 mmol/L; Blood Urea Nitrogen 15 mg/dL (7-17); Calcium 8.8 mg/dL (8.4-10.2); Carbon Dioxide 23 mmol/L (22-30); Chloride 109 mmol/L (98-107); Glucose 87 mg/dL (74-99); Lipase <10 U/L (23-300); Potassium 4.2 mmol/L (3.5-5.1); Sodium 137 mmol/L (137-145); Total Bilirubin 0.3 mg/dL (0.2-1.3); Total Protein 5.2 g/dL (6.3-8.2)
[2018-03-08 02:14] LABS: Appearance,Urine Clear (Clear); Bacteria,Urine Occasional /hpf; Bilirubin,Urine Negative (Negative); Blood,Urine Negative (Negative); Color,Urine Yellow; Glucose,Urine (UA) Negative (Negative); Hyaline Casts,Urine 1 /lpf (0-2); Ketones,Urine Negative (Negative); Leukocyte Esterase,Urine Moderate (Negative); Mucus,Urine Rare /hpf; Nitrite,Urine Positive (Negative); PH, Urine 5.5 (5.0-8.0); Protein,Urine Negative (Negative); RBC,Urine 1 /hpf (0-5); Specific Gravity,Urine 1.009 (1.001-1.035); Urobilinogen,Urine <2.0 mg/dL (<2.0); WBC,Urine 9 /hpf (0-5)
[2018-03-08] MEDS ORDERED: METOCLOPRAMIDE 5 MG/ML 2 ML VIAL IVP STA (02:49)
--- NOTE | 2018-03-08 02:52 | CT ---
EXAMINATION TYPE: CT abdomen pelvis wo con DATE OF EXAM: 03/08/2018 COMPARISON: 05/12/2017 HISTORY: RIGHT FLANK PAIN CT DLP: 1186.00 mGycm Automated exposure control for dose reduction was used. TECHNIQUE: Helical acquisition of images was performed from the lung bases through the pelvis. FINDINGS: There is some patchy infiltrate and atelectasis at the lung bases. There is moderate hiatal hernia. T here are clips in the upper abdomen. There is apparent bariatric surgery. Liver shows no focal defect. Bile ducts are not dilated. There is cholecystectomy. Spleen appears nor mal. There is no pancreatic mass. There is mild right-sided hydronephrosis and hydroureter. Bladder distends smoothly. I see no definit e ureteral calculus. There is small umbilical hernia that contains fat. There is no intestinal wall thickening. There are no dilated loops. There is no sign of free air. The re is no ascites. There is mild enlargement of the left renal pelvis but the left ureter is not dilat ed. There is no retroperitoneal adenopathy. I see no definite renal calculus. The bony structures miguel ángel ear intact. IMPRESSION: THERE IS NEW INFILTRATE AND ATELECTASIS AT THE POSTERIOR LUNG BASES COMPARED TO OLD EXAM. MILD BILATERAL HYDRONEPHROSIS. MILD RIGHT-SIDED HYDROURETER COULD RELATE TO RECENTLY PASSED STONE OR NONOPAQUE STONE. THIS APPEARS NEW COMPARED TO OLD EXAM. NO URETERAL CALCULUS IDENTIFIED.
[2018-03-08] MEDS ORDERED: MORPHINE SULFATE 4 MG/ML SYRINGE IVP STA (04:08)
[2018-03-08 04:40] VITALS: BP 145/67; PULSE 65; TEMP 98
== END 2018-03-08 04:37 | disposition home or self-care (01) ==
LOC: EC 01:03
DX: N13.6 Pyonephrosis (principal); K21.9 Gastro-esophageal reflux disease without esophagitis; J45.909 Unspecified asthma, uncomplicated; E07.9 Disorder of thyroid, unspecified; F41.9 Anxiety disorder, unspecified; F32.9 Major depressive disorder, single episode, unspecified; Z86.14 Personal history of Methicillin resistant Staphylococcus aureus infection; Z90.710 Acquired absence of both cervix and uterus; Z98.890 Other specified postprocedural states; Z79.82 Long term (current) use of aspirin; Z79.899 Other long term (current) drug therapy; Z88.0 Allergy status to penicillin
CPT/HCPCS: 36415; 80053; 82150; 83690; 85025; 81001; 87086; 74176; 99285; 96374; 96375 ×2; 96376; 96361; J2270 ×2; J2765; J2405; 87077; 87186

== ENCOUNTER 2018-05-17 07:45 | Emergency (ER) | payer MEDICARE ==
[2018-05-17 07:51] VITALS: RESP 18
[2018-05-17] MEDS ORDERED: ASPIRIN 81 MG PO STA (08:00)
--- NOTE | 2018-05-17 08:11 | ED ---
General Adult HPI <Pj Fowler - Last Filed: 05/17/18 10:52> - General Source: patient, RN notes reviewed Mode of arrival: ambulatory Limitations: no limitations <Zeyad Raman - Last Filed: 05/17/18 12:24> - General Chief complaint: Extremity Injury, Upper Stated complaint: Arm Pain Time Seen by Provider: 05/17/18 07:53 - History of Present Illness Initial comments: Patient 73-year-old female presents emergency room today with a chief complaint of left arm pain that started approximately 2-1/2 hours ago. She states it did wake her up in the middle of night. She states that it was a sharp type pain and now is currently just achy on the left side. She states it is present when she is not moving the arm but does seem to be worse with certain movements at times. Patient does admit that she felt like she was having to take deeper breaths. She denies any chest pain. Denies any injury. She denies any other complaints or symptoms. She states she did take 2 low dose aspirins this morning. Patient denies any recent fever, chills, shortness of breath, chest pain, back pain, abdominal pain, nausea or vomiting, numbness or tingling, headaches or visual changes, or any other complaints. (Zeyad Raman) - Related Data Home Medications Medication Instructions Recorded Confirmed Ergocalciferol [Vitamin D2] 50,000 unit PO FIELDS 12/01/15 05/17/18 Estradiol 0.5 mg PO DAILY 12/01/15 05/17/18 Nortriptyline HCl [Pamelor] 100 mg PO 12/01/15 05/17/18 Omeprazole 20 mg PO BID 12/01/15 05/17/18 Pravastatin Sodium [Pravachol] 20 mg PO DAILY 12/01/15 05/17/18 Primidone [Mysoline] 50 mg PO BID 12/01/15 05/17/18 Zafirlukast 20 mg PO BID 12/01/15 05/17/18 busPIRone HCL 15 mg PO BID 12/01/15 05/17/18 lamoTRIgine [LaMICtal] 200 mg PO 12/01/15 05/17/18 ALPRAZolam [Xanax] 0.5 mg PO QA 04/14/17 05/17/18 ALPRAZolam [Xanax] 1 mg PO HS 04/14/17 05/17/18 Aspirin EC [Ecotrin Low Dose] 81 mg PO DAILY 04/14/17 05/17/18 amLODIPine [Norvasc] 2.5 mg PO DAILY 04/14/17 05/17/18 Multivitamins, Thera [Multivitamin 1 tab PO DAILY 05/17/18 05/17/18 (formulary)] Previous Rx's Medication Instructions Recorded Levothyroxine Sodium 150 mcg PO DAILY #30 tablet 04/14/17 Allergies Allergy/AdvReac Type Severity Reaction Status Date / Time Penicillins Allergy Swelling Verified 05/17/18 08:55 Review of Systems ROS Other: All systems not noted in ROS Statement are negative. <Pj Fowler - Last Filed: 05/17/18 10:52> ROS Other: All systems not noted in ROS Statement are negative. <Zeyad Raman - Last Filed: 05/17/18 12:24> ROS Statement: Those systems with pertinent positive or pertinent negative responses have been documented in the HPI. Past Medical History Past Medical History: Asthma, GERD/Reflux, Thyroid Disorder History of Any Multi-Drug Resistant Organisms: MRSA Date of last positivie culture/infection: 2012/MRSA MDRO Source:: Lungs Past Surgical History: Hysterectomy, Orthopedic Surgery, Tonsillectomy Additional Past Surgical History / Comment(s): abd sx Past Psychological History: Anxiety, Depression Smoking Status: Never smoker Past Alcohol Use History: None Reported Past Drug Use History: None Reported <Zeyad Raman - Last Filed: 05/17/18 12:24> General Exam <Pj Fowler - Last Filed: 05/17/18 10:52> Limitations: no limitations <Zeyad Raman - Last Filed: 05/17/18 12:24> - General Exam Comments Initial Comments: General: The patient is awake and alert, in no distress, and does not appear acutely ill. Eye: Pupils are equal, round and reactive to light. Extra-ocular movements are intact. No nystagmus. There is normal conjunctiva bilaterally. No signs of icterus. Ears, nose, mouth and throat: There are moist mucous membranes and no oral lesions. Neck: The neck is supple, there is no tenderness or JVD. Cardiovascular: There is a regular rate and rhythm. No murmur, rub or gallop is appreciated. Respiratory: Lungs are clear to auscultation, respirations are non-labored, breath sounds are equal. No wheezes, stridor, rales, or rhonchi Musculoskeletal: Normal ROM, no tenderness. No tenderness to the cervical or thoracic spine. Mild tenderness to the posterior aspect of left shoulder. Sensation intact. Strength 5/5. Pulses equal bilaterally 2+. Neurological: A&O x 3. CN II-XII intact, There are no obvious motor or sensory deficits. Coordination appears grossly intact. Speech is normal. Skin: Skin is warm and dry and no rashes or lesions are noted. Psychiatric: Cooperative, appropriate mood & affect, normal judgment. (Zeyad Raman) Course <Pj Fowler - Last Filed: 05/17/18 10:52> <Zeyad Raman - Last Filed: 05/17/18 12:24> Vital Signs 05/17/18 07:48 Temperature 98.0 F Pulse Rate 85 Respiratory 18 Rate Blood Pressure 138/74 O2 Sat by Pulse 96 Oximetry - Reevaluation(s) Reevaluation #1: 05/17/18 10:52 PA supervision: I personally saw and examined the patient. I have reviewed and agree with the PA findings including all diagnostic interpretations treatment plans is written unless otherwise stated. Patient was offered admission she did have atypical left arm pain EKGs were unremarkable however. Patient states she cannot stay. She was offered admission or also offered reevaluation at a time. I did encourage her follow-up with her doctor as soon as she could. I also encouraged her take a baby aspirin every day. She did have some reproducibility to pain in her left upper extremity palpation no neck pain chest lungs nontender to palpation lung sounds are clear. Heart rate was regular. (Pj Fowler) EKG Findings - EKG Comments: EKG Findings:: EKG performed at 0820: Shows a normal sinus rhythm at 69 beats per minute. ME interval 158. QRS 82. QT/QTc 428/458. No acute ST changes. Compared to previous EKG on 04/14/2017. Patient's second EKG was performed on 1114: Shows normal sinus rhythm at 65 bpm. ME interval 174. QRS 82. QT/QTc 432/449. Shows no change from previous. <Zeyad Raman - Last Filed: 10/08/18 12:24> Medical Decision Making - Lab Data Result diagrams: 05/17/18 08:13 05/17/18 08:13 <Pj Fowler - Last Filed: 05/17/18 10:52> - Lab Data Result diagrams: 05/17/18 08:13 05/17/18 08:13 <Zeyad Raman - Last Filed: 05/17/18 12:24> - Medical Decision Making 73-year-old female presenting for left arm pain. Pain is somewhat reproducible on range of motion. Patient reexamined shows no signs of distress she is resting comfortable. She does admit to improvement after aspirin here in emergency room. Patient's EKG first and second showing no changes in no acute ST change. Patient's labs reviewed are negative. Was discussed with patient about admission to the hospital for serial enzymes and cardiology consult. She states she is unable to stand the hospital. She states there is no one at home that we'll be able to let her dogs out and watch them. Patient strongly advised that she should follow-up the family doctor as soon as possible. She is advised that she should return to emergency room if any symptoms increase or worsen. Advised to use aspirin daily. Patient states understanding and is in agreement. (Zeyad Raman) - Lab Data Lab Results 05/17/18 05/17/18 05/17/18 Range/Units 08:13 08:13 08:13 WBC 5.3 (3.8-10.6) k/uL RBC 5.04 (3.80-5.40) m/uL Hgb 15.1 (11.4-16.0) gm/dL Hct 46.1 H (34.0-46.0) % MCV 91.5 (80.0-100.0) fL MCH 29.9 (25.0-35.0) pg MCHC 32.6 (31.0-37.0) g/dL RDW 13.0 (11.5-15.5) % Plt Count 249 (150-450) k/uL Neutrophils % 46 % Lymphocytes % 37 % Monocytes % 6 % Eosinophils % 7 % Basophils % 1 % Neutrophils # 2.4 (1.3-7.7) k/uL Lymphocytes # 2.0 (1.0-4.8) k/uL Monocytes # 0.3 (0-1.0) k/uL Eosinophils # 0.4 (0-0.7) k/uL Basophils # 0.1 (0-0.2) k/uL PT (9.0-12.0) sec INR (<1.2) APTT (22.0-30.0) sec Sodium 139 (137-145) mmol/L Potassium 3.8 (3.5-5.1) mmol/L Chloride 109 H (98-107) mmol/L Carbon Dioxide 24 (22-30) mmol/L Anion Gap 6 mmol/L BUN 12 (7-17) mg/dL Creatinine 0.68 (0.52-1.04) mg/dL Est GFR (CKD-EPI)AfAm >90 (>60 ml/min/1.73 sqM) Est GFR (CKD-EPI)NonAf 86 (>60 ml/min/1.73 sqM) Glucose 105 H (74-99) mg/dL Calcium 9.0 (8.4-10.2) mg/dL Magnesium 1.7 (1.6-2.3) mg/dL Total Bilirubin 0.5 (0.2-1.3) mg/dL AST 18 (14-36) U/L ALT 17 (9-52) U/L Alkaline Phosphatase 95 (38-126) U/L Total Creatine Kinase 49 (30-135) U/L CK-MB (CK-2) 2.7 H (0.0-2.4) ng/mL CK-MB (CK-2) Rel Index 5.5 Troponin I <0.012 (0.000-0.034) ng/mL Total Protein 5.9 L (6.3-8.2) g/dL Albumin 3.5 (3.5-5.0) g/dL 05/17/18 Range/Units 08:13 WBC (3.8-10.6) k/uL RBC (3.80-5.40) m/uL Hgb (11.4-16.0) gm/dL Hct (34.0-46.0) % MCV (80.0-100.0) fL MCH (25.0-35.0) pg MCHC (31.0-37.0) g/dL RDW (11.5-15.5) % Plt Count (150-450) k/uL Neutrophils % % Lymphocytes % % Monocytes % % Eosinophils % % Basophils % % Neutrophils # (1.3-7.7) k/uL Lymphocytes # (1.0-4.8) k/uL Monocytes # (0-1.0) k/uL Eosinophils # (0-0.7) k/uL Basophils # (0-0.2) k/uL PT 10.0 (9.0-12.0) sec INR 1.0 (<1.2) APTT 24.0 (22.0-30.0) sec Sodium (137-145) mmol/L Potassium (3.5-5.1) mmol/L Chloride (98-107) mmol/L Carbon Dioxide (22-30) mmol/L Anion Gap mmol/L BUN (7-17) mg/dL Creatinine (0.52-1.04) mg/dL Est GFR (CKD-EPI)AfAm (>60 ml/min/1.73 sqM) Est GFR (CKD-EPI)NonAf (>60 ml/min/1.73 sqM) Glucose (74-99) mg/dL Calcium (8.4-10.2) mg/dL Magnesium (1.6-2.3) mg/dL Total Bilirubin (0.2-1.3) mg/dL AST (14-36) U/L ALT (9-52) U/L Alkaline Phosphatase (38-126) U/L Total Creatine Kinase (30-135) U/L CK-MB (CK-2) (0.0-2.4) ng/mL CK-MB (CK-2) Rel Index Troponin I (0.000-0.034) ng/mL Total Protein (6.3-8.2) g/dL Albumin (3.5-5.0) g/dL Disposition <Pj Fowler - Last Filed: 05/17/18 10:52> Is patient prescribed a controlled substance at d/c from ED?: No Time of Disposition: 12:24 <Zeyad Raman - Last Filed: 05/17/18 12:24> Clinical Impression: Left arm pain Disposition: HOME SELF-CARE Condition: Good Instructions: Arm Pain (ED) Additional Instructions: Please use aspirin daily as discussed and follow-up the family doctor in the next 1-2 days. Please return here to the emergency room for any symptoms increase worsen or for any other concerns. Referrals: Donald Coto MD [Primary Care Provider] - 1-2 days
[2018-05-17 08:42] LABS: Basophils # (A) 0.1 k/uL (0-0.2); Basophils % (A) 1 %; Eosinophils # (A) 0.4 k/uL (0-0.7); Eosinophils % (A) 7 %; HCT 46.1 % (34.0-46.0); HGB 15.1 gm/dL (11.4-16.0); Lymphocytes % (A) 37 %; MCH 29.9 pg (25.0-35.0); MCHC 32.6 g/dL (31.0-37.0); MCV 91.5 fL (80.0-100.0); Mean Platelet Volume 6.6; Monocytes # (A) 0.3 k/uL (0-1.0); Monocytes % (A) 6 %; Neutrophils # (A) 2.4 k/uL (1.3-7.7); Neutrophils % (A) 46 %; Platelet Count 249 k/uL (150-450); RBC 5.04 m/uL (3.80-5.40); WBC 5.3 k/uL (3.8-10.6)
[2018-05-17 08:49] LABS: ALT 17 U/L (9-52); AST 18 U/L (14-36); Albumin 3.5 g/dL (3.5-5.0); Alkaline Phosphatase 95 U/L (38-126); Anion Gap 6 mmol/L; Blood Urea Nitrogen 12 mg/dL (7-17); Carbon Dioxide 24 mmol/L (22-30); Chloride 109 mmol/L (98-107); Glucose 105 mg/dL (74-99); Magnesium 1.7 mg/dL (1.6-2.3); Potassium 3.8 mmol/L (3.5-5.1); Sodium 139 mmol/L (137-145); Total Bilirubin 0.5 mg/dL (0.2-1.3); Total Protein 5.9 g/dL (6.3-8.2)
--- NOTE | 2018-05-17 08:53 | XR ---
EXAMINATION TYPE: XR chest 2V DATE OF EXAM: 05/17/2018 COMPARISON: 04/19/2018 HISTORY: Right-sided numbness. Asthma. TECHNIQUE: Frontal and lateral views of the chest are obtained. FINDINGS: There is no focal air space opacity, pleural effusion, or pneumothorax seen. The cardiac silhouette size is mildly enlarged. The osseous structures are intact. Slight flattening of the haven phragms on the lateral image suggests underlying COPD. Postsurgical changes of the epigastric region and right upper quadrant are seen. Mild multilevel degenerative changes of the spine are present. IMPRESSION: No acute cardiopulmonary process.
[2018-05-17 09:04] LABS: Creatine Kinase 49 U/L (30-135)
[2018-05-17 09:16] LABS: Creatine Kinase MB 2.7 ng/mL (0.0-2.4); Troponin I <0.012 ng/mL (0.000-0.034)
[2018-05-17 12:40] VITALS: BP 153/72; PULSE 83; TEMP 96.8
== END 2018-05-17 12:40 | disposition home or self-care (01) ==
LOC: EC 07:45
DX: M79.602 Pain in left arm (principal); J45.909 Unspecified asthma, uncomplicated; K21.9 Gastro-esophageal reflux disease without esophagitis; F41.9 Anxiety disorder, unspecified; F32.9 Major depressive disorder, single episode, unspecified; Z86.14 Personal history of Methicillin resistant Staphylococcus aureus infection; Z79.890 Hormone replacement therapy; Z79.82 Long term (current) use of aspirin; Z79.899 Other long term (current) drug therapy; Z88.0 Allergy status to penicillin
CPT/HCPCS: 36415; 71046; 80053; 82550; 82553; 83735; 84484; 85025; 85610; 85730; 93005; 99284

== ENCOUNTER → 2018-05-31 | Outpatient (CLI) | payer MEDICARE ==
--- NOTE | 2018-05-31 12:58 | US ---
EXAMINATION TYPE: US venous doppler duplex LE RT DATE OF EXAM: 05/31/2018 12:35 PM COMPARISON: NONE CLINICAL HISTORY: M79.661 R lower leg pain, R22.41 swelling R leg. SIDE PERFORMED: Right TECHNIQUE: The lower extremity deep venous system is examined utilizing real time linear array sonog jona with graded compression, doppler sonography and color-flow sonography. VESSELS IMAGED: External Iliac Vein (EIV) Common Femoral Vein Deep Femoral Vein Greater Saphenous Vein * Femoral Vein Popliteal Vein Small Saphenous Vein * Proximal Calf Veins (* superficial vessels) Grayscale, color doppler, spectral doppler imaging performed of the deep veins of the right lower ext remity. There is normal flow, compressibility, vascular waveforms. Right Leg: Negative for DVT IMPRESSION: No sonographic evidence of deep venous thrombosis within the right lower extremity.
== END | disposition home or self-care (01) ==
LOC: RADUSWWP 12:07
PROVIDERS: ATTEND Internal Medicine
DX: M79.661 Pain in right lower leg (principal); R22.41 Localized swelling, mass and lump, right lower limb

== ENCOUNTER → 2018-07-09 | Outpatient (CLI) | payer MEDICARE ==
--- NOTE | 2018-07-09 14:15 | XR ---
EXAMINATION TYPE: XR chest 2V DATE OF EXAM: 07/09/2018 COMPARISON: 06/25/2018 HISTORY: Shortness of breath TECHNIQUE: Frontal and lateral views of the chest are obtained. FINDINGS: Scattered senescent parenchymal changes noted. Patchy density left lower lobe may reflect underlying pneumonia. Correlate clinically. Heart size is stable. Mediastinal structures are stable and grossly unremarkable. No evidence for hilar prominence. Degenerative changes dorsal spine. IMPRESSION: 1. Patchy density left lower lobe may reflect underlying pneumonia. Correlate clinically.
--- NOTE | 2018-07-09 14:16 | XR ---
EXAMINATION TYPE: XR Hip Complete RT DATE OF EXAM: 07/09/2018 COMPARISON: NONE HISTORY: Pain TECHNIQUE: 2 views submitted FINDINGS: There is no evidence of erosive change or acute fracture. There is moderate to severe axial narrowing of the joint space. IMPRESSION: 1. No evidence of acute fracture or dislocation. 2. Arthropathy correlate for femoral acetabular impingement.
--- NOTE | 2018-07-09 14:20 | XR ---
EXAMINATION TYPE: XR ribs bilateral DATE OF EXAM: 07/09/2018 COMPARISON: NONE HISTORY: Pain TECHNIQUE: 4 views are submitted FINDINGS: Bilateral consolidation and pleural effusion seen. Surgical clips are noted. No acute displ aced rib fracture arthropathy of the shoulders assessment of the lower rib cage is limited. IMPRESSION: No acute displaced rib fracture as visualized. Bilateral consolidation and pleural effusi ons
== END | disposition home or self-care (01) ==
LOC: RADXRMAIN 13:40
PROVIDERS: ATTEND Internal Medicine
DX: M16.11 Unilateral primary osteoarthritis, right hip (principal); J90 Pleural effusion, not elsewhere classified; R91.8 Other nonspecific abnormal finding of lung field
CPT/HCPCS: 71046; 71110; 73502

== ENCOUNTER → 2018-11-02 | Outpatient (CLI) | payer MEDICARE ==
--- NOTE | 2018-11-04 10:06 | MM ---
Reason for exam: screening (asymptomatic). Last mammogram was performed 1 year and 1 month ago. History: Patient is postmenopausal. Family history of premenopausal breast cancer in sister and premenopausal breast cancer in maternal grandmother. Taking estrogen beginning at age 57. Physical Findings: A clinical breast exam by your physician is recommended on an annual basis and results should be correlated with mammographic findings. MG 3D Screening Mammo W/Cad Bilateral CC and MLO view(s) were taken. XCCL view(s) were taken of the left breast. Prior study comparison: September 30, 2017, bilateral MG diagnostic mammo w CAD [facility]. January 02, 2016, bilateral MG screening mammo w CAD. There are scattered fibroglandular densities. No significant changes when compared with prior studies. ASSESSMENT: Negative, BI-RAD 1 RECOMMENDATION: Routine screening mammogram of both breasts in 1 year.
== END | disposition home or self-care (01) ==
LOC: RADMAMWWP 14:00
PROVIDERS: ATTEND Internal Medicine
DX: Z12.31 Encounter for screening mammogram for malignant neoplasm of breast (principal)
CPT/HCPCS: 77063; 77067

== ENCOUNTER 2018-11-18 00:23 | Inpatient (IN) | payer MEDICARE ==
[2018-11-18] MEDS ORDERED: MORPHINE SULFATE 4 MG/ML SYRINGE IV STA ×2 (01:51→03:53)
[2018-11-18] MEDS ORDERED: ONDANSETRON 4 MG/2 ML VIAL IVP STA ×2 (01:51→03:53)
[2018-11-18] MEDS ORDERED: SODIUM CHLORIDE 0.9% 500 ML 500 ML IV STA (01:51)
--- NOTE | 2018-11-18 02:02 | ED ---
Nausea/Vomiting/Diarrhea HPI - General Chief complaint: Nausea/Vomiting/Diarrhea Stated complaint: Abdominal Pain, vomiting Time Seen by Provider: 11/18/18 01:41 Source: patient Mode of arrival: ambulatory Limitations: no limitations - History of Present Illness Initial comments: This patient is 73-year-old woman who presents to be evaluated for multiple rounds of nausea and vomiting accompanied by epigastric abdominal pain. The patient states that symptoms started proximally 6-7 hours ago. She states that at the time she had just been seated. She indicates the epigastric area and states that the pain feels "like a ball" just sitting there. Symptoms are moderate intensity, constant. She has not noted worsening or relieving factors. Patient is more bothered by the multiple rounds of vomiting and nausea that is going on. She states that she has not seen any blood in the emesis. She states that she has had this couple times before including one time when she had have surgery for "my stomach was upside down." The patient states her last bowel movement was yesterday and was more or less normal. No change in urination. She is not having any chest symptoms. MD complaint: nausea, vomiting, abdominal pain Onset/Timin -: hour(s) Description of Vomiting: food contents Associated Abdominal Pain: Yes Location: epigastric Radiation: none Severity: mild Quality: other (Like a ball) Consistency: constant Improves with: none Worsens with: none Associated Symptoms: nausea/vomiting - Related Data Home Medications Medication Instructions Recorded Confirmed Ergocalciferol [Vitamin D2 50,000 unit PO FIELDS 12/01/15 11/18/18 (DRISDOL)] Estradiol 0.5 mg PO DAILY 12/01/15 11/18/18 Nortriptyline HCl [Pamelor] 100 mg PO HS 12/01/15 11/18/18 Omeprazole 20 mg PO BID 12/01/15 11/18/18 Pravastatin Sodium [Pravachol] 20 mg PO DAILY 12/01/15 11/18/18 Primidone [Mysoline] 50 mg PO BID 12/01/15 11/18/18 Zafirlukast 20 mg PO BID 12/01/15 11/18/18 busPIRone HCL 15 mg PO BID 12/01/15 11/18/18 lamoTRIgine [LaMICtal] 200 mg PO 12/01/15 11/18/18 ALPRAZolam [Xanax] 0.5 mg PO QAM 04/14/17 11/18/18 ALPRAZolam [Xanax] 1 mg PO HS 04/14/17 11/18/18 Aspirin EC [Ecotrin Low Dose] 81 mg PO DAILY 04/14/17 11/18/18 amLODIPine [Norvasc] 2.5 mg PO DAILY 04/14/17 11/18/18 Multivitamins, Thera [Multivitamin 1 tab PO DAILY 05/17/18 11/18/18 (formulary)] Previous Rx's Medication Instructions Recorded Levothyroxine Sodium 150 mcg PO DAILY #30 tablet 04/14/17 Doxycycline [Vibramycin] 100 mg PO BID cap 06/27/18 diphenhydrAMINE [Benadryl] 25 mg PO BID cap 06/27/18 guaiFENesin-Coden 100-10MG/5ML 5 ml PO Q6H PRN #0 ml 06/27/18 [Robitussin AC] predniSONE 10 mg PO DIRECTED #30 tab 06/27/18 Allergies Allergy/AdvReac Type Severity Reaction Status Date / Time Penicillins Allergy Swelling Verified 06/25/18 08:37 Review of Systems ROS Statement: Those systems with pertinent positive or pertinent negative responses have been documented in the HPI. ROS Other: All systems not noted in ROS Statement are negative. Constitutional: Denies: fever, chills Respiratory: Denies: cough, dyspnea Cardiovascular: Denies: chest pain, palpitations, orthopnea Gastrointestinal: Reports: abdominal pain, nausea, vomiting. Denies: diarrhea, melena, hematochezia Genitourinary: Denies: dysuria, frequency, hematuria Musculoskeletal: Denies: back pain Skin: Denies: rash Neurological: Denies: headache, weakness, numbness Past Medical History Past Medical History: Asthma, GERD/Reflux, Hearing Disorder / Deafness, Liver Disease, Osteoarthritis (OA), Pneumonia, Thyroid Disorder Additional Past Medical History / Comment(s): Vertigo, bronchitis, hiatal hernia , IBS, SBO in 2013 thought d/t viral enteritis and had hepatitis at that time thought possibly d/t viral infection, pancreatitis, , arthritis occasional pain in legs/hips, past shingelles History of Any Multi-Drug Resistant Organisms: MRSA Date of last positivie culture/infection: 2013/MRSA MDRO Source:: Lungs Past Surgical History: Cholecystectomy, Hysterectomy, Joint Replacement, Tonsillectomy Additional Past Surgical History / Comment(s): Abdominal surgery for "twisted stomach", sinus surgery, bilateral total knee arthroplasties, colonoscopy, bilateral cataract removals Past Psychological History: Anxiety, Depression Smoking Status: Never smoker - Past Family History Father Additional Family Medical History / Comment(s): Father had heart disease and at the age of 85 yrs. Mother Additional Family Medical History / Comment(s): Mother at the age of 87yrs from either a PA or a stroke-pt unsure. General Exam Limitations: no limitations General appearance: alert, in no apparent distress Head exam: Present: atraumatic, normocephalic Eye exam: Present: normal appearance ENT exam: Present: normal oropharynx Neck exam: Present: normal inspection Respiratory exam: Present: normal lung sounds bilaterally. Absent: respiratory distress, wheezes, rales, rhonchi, stridor Cardiovascular Exam: Present: regular rate, normal rhythm, normal heart sounds. Absent: systolic murmur, diastolic murmur, rubs, gallop GI/Abdominal exam: Present: soft, tenderness (Epigastric). Absent: distended, guarding, rebound, rigid, mass, pulsatile mass, hernia Extremities exam: Present: normal inspection, normal capillary refill. Absent: pedal edema, calf tenderness Back exam: Present: normal inspection. Absent: CVA tenderness (R), CVA tender ness (L) Neurological exam: Present: alert Skin exam: Present: warm, dry, intact, normal color. Absent: rash Course Vital Signs 11/18/18 11/18/18 00:42 04:05 Temperature 97.8 F Pulse Rate 77 64 Respiratory 18 18 Rate Blood Pressure 138/84 124/62 O2 Sat by Pulse 98 97 Oximetry Medical Decision Making - Medical Decision Making Patient is 73-year-old woman with nausea vomiting and abdominal pain. Workup shows that she may have an ileus developing versus early small bowel obstruction. Were not able to control her symptoms well in the emergency department. Case discussed with Dr. Coto, who will admit for further symptom management and also to have consultation with Dr. French. - Lab Data Result diagrams: 11/18/18 02:07 11/18/18 02:07 Lab Results 11/18/18 11/18/18 Range/Units 02:07 02:07 WBC 14.0 H (3.8-10.6) k/uL RBC 6.17 H (3.80-5.40) m/uL Hgb 18.8 H (11.4-16.0) gm/dL Hct 56.3 H (34.0-46.0) % MCV 91.3 (80.0-100.0) fL MCH 30.5 (25.0-35.0) pg MCHC 33.4 (31.0-37.0) g/dL RDW 14.4 (11.5-15.5) % Plt Count 293 (150-450) k/uL Neutrophils % 79 % Lymphocytes % 13 % Monocytes % 6 % Eosinophils % 1 % Basophils % 0 % Neutrophils # 11.0 H (1.3-7.7) k/uL Lymphocytes # 1.9 (1.0-4.8) k/uL Monocytes # 0.8 (0-1.0) k/uL Eosinophils # 0.1 (0-0.7) k/uL Basophils # 0.0 (0-0.2) k/uL Sodium 135 L (137-145) mmol/L Potassium 5.6 H (3.5-5.1) mmol/L Chloride 104 (98-107) mmol/L Carbon Dioxide 20 L (22-30) mmol/L Anion Gap 11 mmol/L BUN 29 H (7-17) mg/dL Creatinine 0.73 (0.52-1.04) mg/dL Est GFR (CKD-EPI)AfAm >90 (>60 ml/min/1.73 sqM) Est GFR (CKD-EPI)NonAf 82 (>60 ml/min/1.73 sqM) Glucose 118 H (74-99) mg/dL Calcium 10.2 (8.4-10.2) mg/dL Total Bilirubin 1.3 (0.2-1.3) mg/dL AST 36 (14-36) U/L ALT 20 (9-52) U/L Alkaline Phosphatase 112 (38-126) U/L Total Protein 7.0 (6.3-8.2) g/dL Albumin 4.5 (3.5-5.0) g/dL Amylase 40 (30-110) U/L Lipase 10 L (23-300) U/L Disposition Clinical Impression: Intractable vomiting with nausea, Abdominal pain Disposition: ADMITTED IP TO THIS HOSP Condition: Fair
[2018-11-18 02:16] LABS: Basophils % (A) 0 %; Eosinophils # (A) 0.1 k/uL (0-0.7); Eosinophils % (A) 1 %; HGB 18.8 gm/dL (11.4-16.0); Lymphocytes # (A) 1.9 k/uL (1.0-4.8); Lymphocytes % (A) 13 %; MCH 30.5 pg (25.0-35.0); MCHC 33.4 g/dL (31.0-37.0); MCV 91.3 fL (80.0-100.0); Mean Platelet Volume 7.5; Monocytes # (A) 0.8 k/uL (0-1.0); Monocytes % (A) 6 %; Neutrophils % (A) 79 %; Platelet Count 293 k/uL (150-450); RBC 6.17 m/uL (3.80-5.40); RDW 14.4 % (11.5-15.5)
[2018-11-18 02:18] LABS: HCT 56.3 % (34.0-46.0)
[2018-11-18 02:24] LABS: Albumin 4.5 g/dL (3.5-5.0); Amylase 40 U/L (30-110); Anion Gap 11 mmol/L; Calcium 10.2 mg/dL (8.4-10.2); Carbon Dioxide 20 mmol/L (22-30); Chloride 104 mmol/L (98-107); Glucose 118 mg/dL (74-99); Lipase 10 U/L (23-300); Sodium 135 mmol/L (137-145); Total Bilirubin 1.3 mg/dL (0.2-1.3)
--- NOTE | 2018-11-18 02:32 | CT ---
EXAM: CT Abdomen and Pelvis Without Intravenous Contrast CLINICAL HISTORY: ITS.REASON CT Reason: Pain TECHNIQUE: Axial computed tomography images of the abdomen and pelvis without intravenous contrast. CTDI is 17 mGy and DLP is 974 mGy-cm. This CT exam was performed using one or more of the following dose reduction techniques: automated exposure control, adjustment of the mA and/or kV according to patient size, and/or use of iterative reconstruction technique. COMPARISON: CT abdomen 03/08/18 FINDINGS: Lung bases: No mass. No consolidation. ABDOMEN: Liver: Unremarkable. Gallbladder and bile ducts: Removed. Pancreas: No ductal dilation. Spleen: Unremarkable. Adrenals: Unremarkable. Kidneys and ureters: No obstructing stones. No hydronephrosis. Stomach and bowel: Mildly distended loops of small bowel with gradual transition into normal bowel in the ileum. Colonic diverticulosis. Large hiatal hernia. Fatty infiltration/lipoma at the ileocecal valve. PELVIS: Appendix: No evidence of appendicitis. Bladder: No stones. Reproductive: Unremarkable. ABDOMEN and PELVIS: Intraperitoneal space: Unremarkable. Bones/joints: No acute fractures. Mild degenerative changes. Soft tissues: Fat containing umbilical hernia. Vasculature: No abdominal aortic aneurysm. Mild atherosclerosis. Lymph nodes: No enlarged lymph nodes. IMPRESSION: 1. Mildly distended loops of small bowel with gradual transition into normal caliber at the ileum. This may represent gastroenteritis versus ileus. 2. Large hiatal hernia. 3. Colonic diverticulosis.
[2018-11-18 02:41] LABS: ALT 20 U/L (9-52); AST 36 U/L (14-36); Alkaline Phosphatase 112 U/L (38-126); Blood Urea Nitrogen 29 mg/dL (7-17); Potassium 5.6 mmol/L (3.5-5.1)
[2018-11-18] MEDS ORDERED: MORPHINE SULFATE 4 MG/ML SYRINGE IV PRN (05:53)
[2018-11-18] MEDS ORDERED: ONDANSETRON 4 MG/2 ML VIAL IVP PRN (05:53)
[2018-11-18] MEDS ORDERED: NALOXONE 0.4 MG/ML 1 ML VIAL IV PRN (05:53)
[2018-11-18] MEDS ORDERED: METOCLOPRAMIDE 5 MG/ML 2 ML VIAL IVP STA (06:04)
[2018-11-18] MEDS: SODIUM CHLORIDE 0.9% 1,000 ML IV SCH ×2 (06:07→16:44)
[2018-11-18 07:27] VITALS: RESP 16
[2018-11-18 12:07] LABS: ALT 117 U/L (9-52); AST 216 U/L (14-36); Albumin 3.6 g/dL (3.5-5.0); Alkaline Phosphatase 91 U/L (38-126); Anion Gap 6 mmol/L; Blood Urea Nitrogen 29 mg/dL (7-17); Carbon Dioxide 26 mmol/L (22-30); Chloride 104 mmol/L (98-107); Glucose 90 mg/dL (74-99); Potassium 4.7 mmol/L (3.5-5.1); Sodium 136 mmol/L (137-145); Total Bilirubin 1.3 mg/dL (0.2-1.3); Total Protein 5.8 g/dL (6.3-8.2)
[2018-11-18] MEDS ORDERED: guaiFENesin-Coden 100-10MG/5ML 10 ML CUP PO PRN (12:19)
--- NOTE | 2018-11-18 12:33 | P.GSCN ---
<Vilma Regalado - Last Filed: 11/18/18 12:32> History of Present Illness Consult date: 11/18/18 Reason for Consult: abdominal pain, vomiting Requesting physician: Ashutosh García History of present illness: CHIEF COMPLAINT: abdominal pain, vomiting HISTORY OF PRESENT ILLNESS: 73-year-old female presented to the emergency room with a chief complaint of abdominal pain, nausea, and vomiting. The patient states her pain started yesterday and is mostly near the epigastric region. She reports nausea and multiple episodes of nonbloody bilious vomiting. She denies diarrhea or constipation. She states it feels "like a ball of popcorn sitting in my stomach". She reports she had a similiar episode happen about 2 weeks ago and required antiemetics prescribed by her PCP. She does report improved pain today but continues to feel nauseous. No emesis since she has been receiving Zofran. She reports a history of hernia repair approximately 16 years ago. Patient does not remember the name of the surgeon or what hospital she had it performed at. 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 PAST MEDICAL HISTORY: See list. PAST SURGICAL HISTORY: See list. SOCIAL HISTORY: No illicit drug use. REVIEW OF SYSTEMS: CONSTITUTIONAL: Denies fever or chills. HEENT: Denies blurred vision, vision changes, or eye pain. Denies hemoptysis CARDIOVASCULAR: Denies chest pain or pressure. RESPIRATORY: No shortness of breath. GASTROINTESTINAL: Refer to HPI for pertinent findings HEMATOLOGIC: Denies bleeding disorders. GENITOURINARY: Denies any blood in urine. SKIN: Denies pruitis. Denies rash. PHYSICAL EXAM: VITAL SIGNS: Reviewed. GENERAL: Well-developed in no acute distress. HEENT: No sclera icterus. Extraocular movements grossly intact. Moist buccal mucosa. Head is atraumatic, normocephalic. ABDOMEN: Soft. Nondistended. Mild tenderness with palpation. Positive bowel sounds. NEUROLOGIC: Alert and oriented. Cranial nerves II through XII grossly intact. IMAGING: CT abdomen and pelvis: Mildly distended loops of small bowel with gradual transition into normal caliber at the ileum. This may represent gastroenteritis versus ileus. Large hiatal hernia. Colonic diverticulosis. ASSESSMENT: 1. Abdominal pain, nausea, vomiting x 1 day 2. Large hiatal hernia 3. History of Buster fundoplication 4. History of hernia repair 5. Diverticulosis, no evidence of acute diverticulitis PLAN: 1. Clear liquids as tolerated 2. Continue antiemetics 3. Continue IV fluids 4. Perform esophagogram. Await results Nurse practitioner note has been reviewed by physician. Signing provider agrees with the documented findings, assessment, and plan of care. 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 History of Any Multi-Drug Resistant Organisms: MRSA Year Discovered:: 2012/MRSA MDRO Source:: Lungs Past Surgical History: Cholecystectomy, Hysterectomy, Joint Replacement, Tonsillectomy Additional Past Surgical History / Comment(s): Recent L elbow lump with drainage, abdominal surgery for "twisted stomach" found during buster fundloplasty, sinus surgery, bilateral total knee arthroplasties, colonoscopy, bilateral cataract removals, past benign tumors removed for RFA and R face- anterior to ear Past Anesthesia/Blood Transfusion Reactions: Motion Sickness Smoking Status: Never smoker - Past Family History Father Additional Family Medical History / Comment(s): Father had heart disease and at the age of 85 yrs. Mother Additional Family Medical History / Comment(s): Mother at the age of 87yrs from either a PR or a stroke-pt unsure. Medications and Allergies Home Medications Medication Instructions Recorded Confirmed Type Ergocalciferol [Vitamin D2 50,000 unit PO FIELDS 12/01/15 11/18/18 History (DRISDOL)] Estradiol 0.5 mg PO DAILY 12/01/15 11/18/18 History Nortriptyline HCl [Pamelor] 100 mg PO HS 12/01/15 11/18/18 History Omeprazole 20 mg PO BID 12/01/15 11/18/18 History Pravastatin Sodium [Pravachol] 20 mg PO DAILY 12/01/15 11/18/18 History Primidone [Mysoline] 50 mg PO BID 12/01/15 11/18/18 History Zafirlukast 20 mg PO BID 12/01/15 11/18/18 History busPIRone HCL 15 mg PO BID 12/01/15 11/18/18 History lamoTRIgine [LaMICtal] 200 mg PO HS 12/01/15 11/18/18 History ALPRAZolam [Xanax] 0.5 mg PO QAM 04/14/17 11/18/18 History ALPRAZolam [Xanax] 1 mg PO HS 04/14/17 11/18/18 History Aspirin EC [Ecotrin Low Dose] 81 mg PO DAILY 04/14/17 11/18/18 History Levothyroxine Sodium 150 mcg PO DAILY #30 tablet 04/14/17 11/18/18 Rx amLODIPine [Norvasc] 2.5 mg PO DAILY 04/14/17 11/18/18 History Multivitamins, Thera [Multivitamin 1 tab PO DAILY 05/17/18 11/18/18 History (formulary)] Doxycycline [Vibramycin] 100 mg PO BID cap 06/27/18 11/18/18 Rx diphenhydrAMINE [Benadryl] 25 mg PO BID cap 06/27/18 11/18/18 Rx guaiFENesin-Coden 100-10MG/5ML 5 ml PO Q6H PRN #0 ml 06/27/18 11/18/18 Rx [Robitussin AC] predniSONE 10 mg PO DIRECTED #30 tab 06/27/18 11/18/18 Rx Allergies Allergy/AdvReac Type Severity Reaction Status Date / Time Penicillins Allergy Swelling Verified 11/18/18 08:34 Surgical - Exam Vital Signs Temp Pulse Resp BP Pulse Ox 97.8 F 77 18 138/84 98 11/18/18 00:42 11/18/18 00:42 11/18/18 00:42 11/18/18 00:42 11/18/18 00:42 Results - Labs 11/18/18 02:07 11/18/18 11:03 Abnormal Lab Results - Last 24 Hours (Table) 11/18/18 11/18/18 11/18/18 Range/Units 02:07 02:07 11:03 WBC 14.0 H (3.8-10.6) k/uL RBC 6.17 H (3.80-5.40) m/uL Hgb 18.8 H (11.4-16.0) gm/dL Hct 56.3 H (34.0-46.0) % Neutrophils # 11.0 H (1.3-7.7) k/uL Sodium 135 L 136 L (137-145) mmol/L Potassium 5.6 H (3.5-5.1) mmol/L Carbon Dioxide 20 L (22-30) mmol/L BUN 29 H 29 H (7-17) mg/dL Glucose 118 H (74-99) mg/dL AST 216 H (14-36) U/L ALT 117 H (9-52) U/L Total Protein 5.8 L (6.3-8.2) g/dL Lipase 10 L (23-300) U/L Diabetes panel 11/18/18 11/18/18 Range/Units 02:07 11:03 Sodium 135 L 136 L (137-145) mmol/L Potassium 5.6 H 4.7 (3.5-5.1) mmol/L Chloride 104 104 (98-107) mmol/L Carbon Dioxide 20 L 26 (22-30) mmol/L BUN 29 H 29 H (7-17) mg/dL Creatinine 0.73 0.70 (0.52-1.04) mg/dL Glucose 118 H 90 (74-99) mg/dL Calcium 10.2 9.0 (8.4-10.2) mg/dL AST 36 216 H (14-36) U/L ALT 20 117 H (9-52) U/L Alkaline Phosphatase 112 91 (38-126) U/L Total Protein 7.0 5.8 L (6.3-8.2) g/dL Albumin 4.5 3.6 (3.5-5.0) g/dL Calcium panel 11/18/18 11/18/18 Range/Units 02:07 11:03 Calcium 10.2 9.0 (8.4-10.2) mg/dL Albumin 4.5 3.6 (3.5-5.0) g/dL Pituitary panel 11/18/18 11/18/18 Range/Units 02:07 11:03 Sodium 135 L 136 L (137-145) mmol/L Potassium 5.6 H 4.7 (3.5-5.1) mmol/L Chloride 104 104 (98-107) mmol/L Carbon Dioxide 20 L 26 (22-30) mmol/L BUN 29 H 29 H (7-17) mg/dL Creatinine 0.73 0.70 (0.52-1.04) mg/dL Glucose 118 H 90 (74-99) mg/dL Calcium 10.2 9.0 (8.4-10.2) mg/dL Adrenal panel 11/18/18 11/18/18 Range/Units 02:07 11:03 Sodium 135 L 136 L (137-145) mmol/L Potassium 5.6 H 4.7 (3.5-5.1) mmol/L Chloride 104 104 (98-107) mmol/L Carbon Dioxide 20 L 26 (22-30) mmol/L BUN 29 H 29 H (7-17) mg/dL Creatinine 0.73 0.70 (0.52-1.04) mg/dL Glucose 118 H 90 (74-99) mg/dL Calcium 10.2 9.0 (8.4-10.2) mg/dL Total Bilirubin 1.3 1.3 (0.2-1.3) mg/dL AST 36 216 H (14-36) U/L ALT 20 117 H (9-52) U/L Alkaline Phosphatase 112 91 (38-126) U/L Total Protein 7.0 5.8 L (6.3-8.2) g/dL Albumin 4.5 3.6 (3.5-5.0) g/dL <Zeyad French - Last Filed: 11/18/18 15:11> History of Present Illness History of present illness: As above. Patient with hiatal hernia that is recurrent in nature. We'll proceed with upper endoscopy to further evaluate the degree of obstruction. Surgical - Exam Vital Signs Temp Pulse Resp BP Pulse Ox 97.8 F 77 18 138/84 98 11/18/18 00:42 11/18/18 00:42 11/18/18 00:42 11/18/18 00:42 11/18/18 00:42 Results - Labs 11/18/18 02:07 11/18/18 11:03 Abnormal Lab Results - Last 24 Hours (Table) 11/18/18 11/18/18 11/18/18 Range/Units 02:07 02:07 11:03 WBC 14.0 H (3.8-10.6) k/uL RBC 6.17 H (3.80-5.40) m/uL Hgb 18.8 H (11.4-16.0) gm/dL Hct 56.3 H (34.0-46.0) % Neutrophils # 11.0 H (1.3-7.7) k/uL Sodium 135 L 136 L (137-145) mmol/L Potassium 5.6 H (3.5-5.1) mmol/L Carbon Dioxide 20 L (22-30) mmol/L BUN 29 H 29 H (7-17) mg/dL Glucose 118 H (74-99) mg/dL AST 216 H (14-36) U/L ALT 117 H (9-52) U/L Total Protein 5.8 L (6.3-8.2) g/dL Lipase 10 L (23-300) U/L Diabetes panel 11/18/18 11/18/18 Range/Units 02:07 11:03 Sodium 135 L 136 L (137-145) mmol/L Potassium 5.6 H 4.7 (3.5-5.1) mmol/L Chloride 104 104 (98-107) mmol/L Carbon Dioxide 20 L 26 (22-30) mmol/L BUN 29 H 29 H (7-17) mg/dL Creatinine 0.73 0.70 (0.52-1.04) mg/dL Glucose 118 H 90 (74-99) mg/dL Calcium 10.2 9.0 (8.4-10.2) mg/dL AST 36 216 H (14-36) U/L ALT 20 117 H (9-52) U/L Alkaline Phosphatase 112 91 (38-126) U/L Total Protein 7.0 5.8 L (6.3-8.2) g/dL Albumin 4.5 3.6 (3.5-5.0) g/dL Calcium panel 11/18/18 11/18/18 Range/Units 02:07 11:03 Calcium 10.2 9.0 (8.4-10.2) mg/dL Albumin 4.5 3.6 (3.5-5.0) g/dL Pituitary panel 11/18/18 11/18/18 Range/Units 02:07 11:03 Sodium 135 L 136 L (137-145) mmol/L Potassium 5.6 H 4.7 (3.5-5.1) mmol/L Chloride 104 104 (98-107) mmol/L Carbon Dioxide 20 L 26 (22-30) mmol/L BUN 29 H 29 H (7-17) mg/dL Creatinine 0.73 0.70 (0.52-1.04) mg/dL Glucose 118 H 90 (74-99) mg/dL Calcium 10.2 9.0 (8.4-10.2) mg/dL Adrenal panel 11/18/18 11/18/18 Range/Units 02:07 11:03 Sodium 135 L 136 L (137-145) mmol/L Potassium 5.6 H 4.7 (3.5-5.1) mmol/L Chloride 104 104 (98-107) mmol/L Carbon Dioxide 20 L 26 (22-30) mmol/L BUN 29 H 29 H (7-17) mg/dL Creatinine 0.73 0.70 (0.52-1.04) mg/dL Glucose 118 H 90 (74-99) mg/dL Calcium 10.2 9.0 (8.4-10.2) mg/dL Total Bilirubin 1.3 1.3 (0.2-1.3) mg/dL AST 36 216 H (14-36) U/L ALT 20 117 H (9-52) U/L Alkaline Phosphatase 112 91 (38-126) U/L Total Protein 7.0 5.8 L (6.3-8.2) g/dL Albumin 4.5 3.6 (3.5-5.0) g/dL
--- NOTE | 2018-11-18 12:35 | P.HPIM ---
History of Present Illness H&P Date: 11/18/18 Chief Complaint: Nausea and vomiting This is a 73-year-old female, with a known history of asthma, hypothyroidism, irritable bowel syndrome, small bowel obstruction, viral hepatitis, anxiety, depression. Patient's had previous surgery on her abdomen due to a twisted stomach as well as a cholecystectomy. Patient reports her nausea and vomiting started yesterday afternoon. She had multiple episodes of vomiting. Mostly bile. Denies any hematemesis. She became concerned and presented to the ER for further evaluation. She had a similar episode a couple weeks ago that did resolve on its own. Patient reports abdominal pain in the center of her stomach. She says it feels like a knot is sitting there. In the ER she received morphine and Zofran. She's had no further episodes of vomiting since around 2:00 in the morning. She had a computed tomography scan of the abdomen and pelvis showing mildly distended loops of small bowel with a gradual transition into normal caliber at the ileum. This may represent a gastroenteritis versus ileus. Also a large hiatal hernia and colonic diverticulosis. Surgical service has been consulted. Patient is scheduled for an upper GI series. She admits to some chills and sweats. But denies any fever. Denies any constipation. She reports having regular bowel movements. Last bowel movement was yesterday. Denies any chest pain or shortness of breath. Denies any burning with urination. White count 14. AST elevated at 216 and ALT 117. Lipase low at 10. Patient does report having an EGD and colonoscopy within the last few years. She reports them as normal. Review of Systems Please refer to HPI otherwise unremarkable Past Medical History Past Medical History: Asthma, GERD/Reflux, Hearing Disorder / Deafness, Hyperlipidemia, Hypertension, Liver Disease, Osteoarthritis (OA), Pneumonia, Thyroid Disorder Additional Past Medical History / Comment(s): Vertigo, bronchitis and pt states she is currently on antibiotic for bronchitis, hiatal hernia, IBS, SBO in 2013 thought d/t viral enteritis and had hepatitis at that time thought possibly d/t viral infection, 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 History of Any Multi-Drug Resistant Organisms: MRSA Date of last positivie culture/infection: 2013/MRSA MDRO Source:: Lungs Past Surgical History: Cholecystectomy, Hysterectomy, Joint Replacement, Tonsillectomy Additional Past Surgical History / Comment(s): Recent L elbow lump with drainage, abdominal surgery for "twisted stomach" found during artie fundloplasty, sinus surgery, bilateral total knee arthroplasties, colonoscopy, bilateral cataract removals, past benign tumors removed for RFA and R face- anterior to ear Past Anesthesia/Blood Transfusion Reactions: Motion Sickness Smoking Status: Never smoker - Past Family History Father Additional Family Medical History / Comment(s): Father had heart disease and at the age of 85 yrs. Mother Additional Family Medical History / Comment(s): Mother at the age of 87yrs from either a OH or a stroke-pt unsure. Medications and Allergies Home Medications Medication Instructions Recorded Confirmed Type Ergocalciferol [Vitamin D2 50,000 unit PO FIELDS 12/01/15 11/18/18 History (DRISDOL)] Estradiol 0.5 mg PO DAILY 12/01/15 11/18/18 History Nortriptyline HCl [Pamelor] 100 mg PO HS 12/01/15 11/18/18 History Omeprazole 20 mg PO BID 12/01/15 11/18/18 History Pravastatin Sodium [Pravachol] 20 mg PO DAILY 12/01/15 11/18/18 History Primidone [Mysoline] 50 mg PO BID 12/01/15 11/18/18 History Zafirlukast 20 mg PO BID 12/01/15 11/18/18 History busPIRone HCL 15 mg PO BID 12/01/15 11/18/18 History lamoTRIgine [LaMICtal] 200 mg PO HS 12/01/15 11/18/18 History ALPRAZolam [Xanax] 0.5 mg PO QAM 04/14/17 11/18/18 History ALPRAZolam [Xanax] 1 mg PO HS 04/14/17 11/18/18 History Aspirin EC [Ecotrin Low Dose] 81 mg PO DAILY 04/14/17 11/18/18 History Levothyroxine Sodium 150 mcg PO DAILY #30 tablet 04/14/17 11/18/18 Rx amLODIPine [Norvasc] 2.5 mg PO DAILY 04/14/17 11/18/18 History Multivitamins, Thera [Multivitamin 1 tab PO DAILY 05/17/18 11/18/18 History (formulary)] Doxycycline [Vibramycin] 100 mg PO BID cap 06/27/18 11/18/18 Rx diphenhydrAMINE [Benadryl] 25 mg PO BID cap 06/27/18 11/18/18 Rx guaiFENesin-Coden 100-10MG/5ML 5 ml PO Q6H PRN #0 ml 06/27/18 11/18/18 Rx [Robitussin AC] predniSONE 10 mg PO DIRECTED #30 tab 06/27/18 11/18/18 Rx Allergies Allergy/AdvReac Type Severity Reaction Status Date / Time Penicillins Allergy Swelling Verified 11/18/18 08:34 Physical Exam Vitals: Vital Signs Temp Pulse Pulse Resp BP BP Pulse Ox 11/18/18 07:24 97.6 F 104 H 16 134/75 98 11/18/18 06:40 97.9 F 69 18 120/50 97 11/18/18 04:05 64 18 124/62 97 11/18/18 00:42 97.8 F 77 18 138/84 98 Intake and Output 11/17/18 11/18/18 11/18/18 22:59 06:59 14:59 Other: Weight 88.451 kg Head normocephalic Neck supple Lungs clear to auscultation bilaterally no wheezing or crackles Heart regular rate and rhythm S1-S2, no rub or gallop Abdomen is soft tender above the umbilicus and just below the epigastric area. nondistended positive bowel sounds no hepatosplenomegaly Extremities no edema Neuro alert and orientated to 3 Results CBC & Chem 7: 11/18/18 02:07 11/18/18 11:03 Labs: Abnormal Lab Results - Last 24 Hours (Table) 11/18/18 11/18/18 11/18/18 Range/Units 02:07 02:07 11:03 WBC 14.0 H (3.8-10.6) k/uL RBC 6.17 H (3.80-5.40) m/uL Hgb 18.8 H (11.4-16.0) gm/dL Hct 56.3 H (34.0-46.0) % Neutrophils # 11.0 H (1.3-7.7) k/uL Sodium 135 L 136 L (137-145) mmol/L Potassium 5.6 H (3.5-5.1) mmol/L Carbon Dioxide 20 L (22-30) mmol/L BUN 29 H 29 H (7-17) mg/dL Glucose 118 H (74-99) mg/dL AST 216 H (14-36) U/L ALT 117 H (9-52) U/L Total Protein 5.8 L (6.3-8.2) g/dL Lipase 10 L (23-300) U/L Thrombosis Risk Factor Assmnt - Choose All That Apply Any of the Below Risk Factors Present?: Yes Each Factor Represents 1 point: Obesity (BMI >25) Other Risk Factors: Yes Each Risk Factor Represents 2 Points: Age 61-74 years Other congenital or acquired thrombophilia - If yes, enter type in comment: No Thrombosis Risk Factor Assessment Total Risk Factor Score: 3 Thrombosis Risk Factor Assessment Level: Moderate Risk Assessment and Plan Assessment: 1. Abdominal pain with nausea and vomiting: Computed tomography scan showing a large hiatal hernia as well as a mildly distended loops of small bowel with gradual transition into normal caliber at the ileum. This may represent gastroenteritis versus ileus. Surgery is on consult. They've ordered an upper GI service for further evaluation. At this time continue with IV fluids, Zofran as needed and IV Protonix. 2. Elevated LFTs: Discontinue patient's statin. Repeat levels in a.m. Patient does report previous history of viral hepatitis. Denies any alcohol use. Gallbladder is removed. Check hepatitis panel 3. History of asthma stable continue with current medications 4. Hypothyroidism 5. Hyperkalemia hemolyzed on first blood work. Repeat potassium normalized 6. History of irritable bowel syndrome 7. History of anxiety and depression GI prophylaxis Protonix and DVT prophylaxis lovenox Time with Patient: Greater than 30 (Greater than 50% of the total time spent in counseling and coordination of care.I performed an examination of the patient and discussed their management with the physician Preschool Disability Teacher. I have reviewed the Physician Preschool Disability Teacher's notes and agree with the documented findings and plan of care)
--- NOTE | 2018-11-18 12:55 | FL ---
EXAMINATION TYPE: FL UGI w esophagus DATE OF EXAM: 11/18/2018 COMPARISON: NONE HISTORY: Pain TECHNIQUE: A single contrast UGI study is performed. Approximately 1.12 minutes of fluoroscopy and a pproximately 18 image submitted. FINDINGS: The patient could only tolerate single contrast upper GI. There appear to be dilation of the esophagu s to the level the GE junction with a large hernia. Compared to be significant constriction of the geremias dy of the stomach at the level the diaphragm. Contrast did pass from the esophagus into the stomach w ith mild delay. As noted above the esophagus appears to be dilated with tertiary contractions. Degree of obstructive suspected. Contrast does pass into the distal gastric body and within the duodenal bu lb and sweep. A fold thickening in the esophagus may be related to degree of esophagitis. Mucosal les ion involving the distal GE junction not excluded. Report called to referring clinician. IMPRESSION: 1. There appears to be a large hiatal hernia with constriction of the junction of the fundus and body of the stomach and appears to result in partial obstructive pattern with the esophagus appearing mar kedly distended. Direct visualization and surgical consultation are suggested.
[2018-11-18] MEDS: ALPRAZolam 0.5 MG TAB PO SCH (13:15)
[2018-11-18] MEDS: amLODIPine 2.5 MG TAB PO SCH (13:15)
[2018-11-18] MEDS: busPIRone HCl 5 MG TAB PO SCH ×2 (13:15→20:57)
[2018-11-18] MEDS: PANTOPRAZOLE 40 MG/10 ML VIAL IVP SCH (13:16)
[2018-11-18] MEDS ORDERED: PROPOFOL 10 MG/ML 20 ML VIAL IV ONE (15:02)
[2018-11-18] MEDS ORDERED: LIDOCAINE 1% INJ 10MG/ML (20 ML MDV) ONE (15:02)
[2018-11-18] MEDS ORDERED: SODIUM CHLORIDE 0.9% 500 ML 500 ML IV ONE (15:09)
--- NOTE | 2018-11-18 16:32 | P.PCN ---
Date of Procedure: 11/18/18 Procedure(s) Performed: Preoperative Dx: Intractable vomiting Postoperative Dx: Recurrent hiatal hernia, gastritis Procedure: EGD with Bx Anesthesia: Sedation Endoscopist: Dr. French Specimens: Antrum Endoscopic Procedure: The patient was on the endoscopy table in the left decubitus position. The Olympus gastroscope was inserted into the oropharynx and passed under direct visualization to the region of the third portion of the duodenum. From that point the scope was slowly withdrawn inspecting all baker rfaces carefully. There were no neoplastic inflammatory or polypoid lesions throughout the duodenum. The pylorus was widely patent. The stomach was carefully inspected. There was mild gastritis present. A biopsy of the antrum took place to rule out H. pylori. Retroflexion revealed a recurrent hiatal hernia. Approximately 15-20% of the stomach was present above the diaphragm. The Z line was present at 36 cm and the diaphragmatic hiatus was present at approximately 40 cm. There was no obstruction to the passage of the scope through that section. The bowel appeared healthy with no evidence of ischemia or Austin's ulcerations. The esophagus was then carefully examined. There were no neoplastic inflammatory or polypoid lesions throughout the visualized esophagus. The patient was then taken to the recovery room in stable condition per anesthesia guidelines. Recommendations: Patient's symptoms possibly on the basis of intermittent volvulus at the site of the recurrent hernia. Options reviewed with the patient and her family. Recommend discharge if tolerating liquids and will arrange tertiary care evaluation for repair recurrent hiatal hernia.
[2018-11-18 19:52] LABS: Appearance,Urine Clear (Clear); Bilirubin,Urine Negative (Negative); Blood,Urine Negative (Negative); Color,Urine Yellow; Glucose,Urine (UA) Negative (Negative); Ketones,Urine Negative (Negative); Leukocyte Esterase,Urine Negative (Negative); Nitrite,Urine Negative (Negative); PH, Urine 6.5 (5.0-8.0); Protein,Urine Negative (Negative); Specific Gravity,Urine 1.009 (1.001-1.035); Urobilinogen,Urine <2.0 mg/dL (<2.0)
[2018-11-18 20:51] LABS: Hepatitis A Antibody IgM Non-Reactive (Non-Reactive); Hepatitis B Core IgM Non-Reactive (Non-Reactive)
[2018-11-18] MEDS: PRIMIDONE 50 MG TAB PO SCH (20:57)
[2018-11-18] MEDS ORDERED: ALPRAZolam 1 MG TAB PO SCH (21:00)
[2018-11-18] MEDS ORDERED: lamoTRIgine 100 MG TAB PO SCH (21:00)
[2018-11-18] MEDS ORDERED: NORTRIPTYLINE 25 MG CAP PO SCH (21:00)
[2018-11-18] MEDS ORDERED: MONTELUKAST 10 MG TAB PO SCH (21:00)
[2018-11-18] MEDS ORDERED: ZOLPIDEM 10 MG TAB PO PRN (21:23)
[2018-11-19] MEDS: SODIUM CHLORIDE 0.9% 1,000 ML IV SCH ×2 (03:09→08:04)
[2018-11-19] MEDS ORDERED: LEVOTHYROXINE 75 MCG TAB PO SCH (06:30)
[2018-11-19 07:23] VITALS: BP 135/76; PULSE 65; TEMP 97.7
[2018-11-19] MEDS: amLODIPine 2.5 MG TAB PO SCH (07:49)
[2018-11-19] MEDS: busPIRone HCl 5 MG TAB PO SCH (07:49)
[2018-11-19] MEDS: ALPRAZolam 0.5 MG TAB PO SCH (07:49)
[2018-11-19] MEDS: PRIMIDONE 50 MG TAB PO SCH (07:49)
[2018-11-19] MEDS: PANTOPRAZOLE 40 MG/10 ML VIAL IVP SCH (07:50)
[2018-11-19 08:32] LABS: ALT 90 U/L (9-52); AST 69 U/L (14-36); Albumin 3.1 g/dL (3.5-5.0); Alkaline Phosphatase 70 U/L (38-126); Anion Gap 4 mmol/L; Blood Urea Nitrogen 16 mg/dL (7-17); Calcium 8.6 mg/dL (8.4-10.2); Carbon Dioxide 23 mmol/L (22-30); Chloride 109 mmol/L (98-107); Glucose 78 mg/dL (74-99); Potassium 4.7 mmol/L (3.5-5.1); Sodium 136 mmol/L (137-145); Total Bilirubin 1.1 mg/dL (0.2-1.3)
[2018-11-19] MEDS ORDERED: ENOXAPARIN 40 MG/0.4 ML SYRINGE SQ SCH (09:00)
[2018-11-19] MEDS ORDERED: ESTRADIOL 0.5 MG TAB PO SCH (09:00)
[2018-11-19] MEDS ORDERED: PRAVASTATIN SODIUM 20 MG TAB PO SCH (09:00)
[2018-11-19] MEDS ORDERED: ASPIRIN 81 MG PO SCH (09:00)
[2018-11-19 11:09] LABS: Basophils # (A) 0.1 k/uL (0-0.2); Basophils % (A) 1 %; Eosinophils # (A) 0.2 k/uL (0-0.7); Eosinophils % (A) 4 %; HCT 47.5 % (34.0-46.0); Lymphocytes % (A) 34 %; MCH 29.7 pg (25.0-35.0); MCHC 31.4 g/dL (31.0-37.0); MCV 94.7 fL (80.0-100.0); Mean Platelet Volume 7.4; Monocytes # (A) 0.4 k/uL (0-1.0); Monocytes % (A) 7 %; Neutrophils # (A) 3.1 k/uL (1.3-7.7); Neutrophils % (A) 52 %; Platelet Count 204 k/uL (150-450); RBC 5.02 m/uL (3.80-5.40); RDW 14.1 % (11.5-15.5)
[2018-11-19 11:29] LABS: HGB 14.9 gm/dL (11.4-16.0)
[2018-11-19] MEDS ORDERED: MULTIVITAMINS, THERA 1 EACH TAB PO SCH (12:00)
--- NOTE | 2018-11-19 14:14 | P.PN ---
<Vilma Regalado - Last Filed: 11/19/18 14:11> Subjective Progress Note Date: 11/19/18 CHIEF COMPLAINT: abdominal pain, vomiting HISTORY OF PRESENT ILLNESS: Patient seen and examined at the bedside. Patient underwent EGD yesterday revealing recurrent hiatal hernia and gastritis. Patient states her nausea has improved. Denies abdominal pain at this time. She is tolerating clear liquid diet. No further episodes of vomiting. Reports BM this morning. PHYSICAL EXAM: VITAL SIGNS: Reviewed. GENERAL: Well-developed in no acute distress. HEENT: No sclera icterus. Extraocular movements grossly intact. Moist buccal mucosa. Head is atraumatic, normocephalic. ABDOMEN: Soft. Nondistended. Nontender. Positive bowel sounds. NEUROLOGIC: Alert and oriented. Cranial nerves II through XII grossly intact. ASSESSMENT: 1. Abdominal pain, nausea, vomiting x 1 day 2. Large hiatal hernia 3. History of Buster fundoplication 4. History of hernia repair 5. Diverticulosis, no evidence of acute diverticulitis PLAN: Patient is stable for discharge home today from a surgical standpoint. Dr. French's office in the process of arranging appointment for evaluation with surgeon at a tertiary center. Dr. French's office will contact the patient with further information. Nurse practitioner note has been reviewed by physician. Signing provider agrees with the documented findings, assessment, and plan of care. Objective - Vital Signs Vital signs: Vital Signs Temp 97.7 F 11/19/18 07:00 Pulse 65 11/19/18 07:00 Resp 16 11/19/18 07:00 BP 135/76 11/19/18 07:00 Pulse Ox 95 11/19/18 07:00 Intake & Output 11/18/18 11/19/18 11/19/18 18:59 06:59 18:59 Intake Total 1186 400 Balance 1186 400 Intake: IV 150 Intake, IV Titration 800 Amount Sodium Chloride 0.9% 1, 800 000 ml @ 100 mls/hr IV . Q10H DANA Rx#:[id number] Oral 236 400 Other: # Voids 1 - Labs CBC & Chem 7: 11/19/18 07:24 11/19/18 07:24 Labs: Abnormal Lab Results - Last 24 Hours (Table) 11/19/18 11/19/18 Range/Units 07:24 07:24 Hct 47.5 H (34.0-46.0) % Sodium 136 L (137-145) mmol/L Chloride 109 H (98-107) mmol/L AST 69 H (14-36) U/L ALT 90 H (9-52) U/L Total Protein 5.0 L (6.3-8.2) g/dL Albumin 3.1 L (3.5-5.0) g/dL <Zeyad French - Last Filed: 11/19/18 15:18> Subjective As above. Patient doing well. Tolerating liquids. We'll make arrangements for tertiary care referral regarding recurrent large hiatal hernia. Objective - Vital Signs Vital signs: Vital Signs Temp 97.7 F 11/19/18 07:00 Pulse 65 11/19/18 07:00 Resp 16 11/19/18 07:00 BP 135/76 11/19/18 07:00 Pulse Ox 95 11/19/18 07:00 Intake & Output 11/18/18 11/19/18 11/19/18 18:59 06:59 18:59 Intake Total 1186 400 Balance 1186 400 Intake: IV 150 Intake, IV Titration 800 Amount Sodium Chloride 0.9% 1, 800 000 ml @ 100 mls/hr IV . Q10H DANA Rx#:[id number] Oral 236 400 Other: # Voids 1 3 - Labs CBC & Chem 7: 11/19/18 07:24 11/19/18 07:24 Labs: Abnormal Lab Results - Last 24 Hours (Table) 11/19/18 11/19/18 Range/Units 07:24 07:24 Hct 47.5 H (34.0-46.0) % Sodium 136 L (137-145) mmol/L Chloride 109 H (98-107) mmol/L AST 69 H (14-36) U/L ALT 90 H (9-52) U/L Total Protein 5.0 L (6.3-8.2) g/dL Albumin 3.1 L (3.5-5.0) g/dL
--- NOTE | 2018-11-19 14:37 | P.DS ---
Providers Date of admission: 11/18/18 05:53 Expected date of discharge: 11/19/18 Attending physician: Donald Coto Consults: 11/18/18 05:58 Consult Physician Urgent Consulting Provider: Zeyad French Consult Reason/Comments: Intractable abdominal pain, vomiting Do you want consulting provider notified?: Yes Primary care physician: Donald Coto [facility] Course: Discharge diagnosis 1. Abdominal pain with nausea and vomiting: Likely secondary to intermittent volvulus at site of recurrent hernia. Patient had EGD with biopsy with Dr. French showing a recurrent hiatal hernia and gastritis. Dr. Elias is recommending that patient follows up with a tertiary care center for this repair of recurrent hiatal hernia. Patient has tolerated diet. She is stable for discharge. Dr. Elias's office will contact patient with information regarding the tertiary care center. Patient will continue Protonix and Zofran as needed for symptoms. At this time patient tolerating diet has had no further episodes of vomiting. 2. Elevated LFTs: Discontinue patient's statin. Repeat levels in a.m. hepatitis panel negative. Patient has had history of cholecystectomy. LFTs trending down with discontinuing the statin 3. History of mild intermittent asthma 4. Hypothyroidism 5. Hyperkalemia hemolyzed on first blood work. Repeat potassium normalized 6. History of irritable bowel syndrome 7. History of anxiety and depression Hospital course This is a 73-year-old female, with a known history of asthma, hypothyroidism, irritable bowel syndrome, small bowel obstruction, viral hepatitis, anxiety, depression. Patient's had previous surgery on her abdomen due to a twisted stomach as well as a cholecystectomy. Patient reports her nausea and vomiting started yesterday afternoon. She had multiple episodes of vomiting. Mostly bile. Denies any hematemesis. She became concerned and presented to the ER for further evaluation. She had a similar episode a couple weeks ago that did resolve on its own. Patient reports abdominal pain in the center of her stomach. She says it feels like a knot is sitting there. In the ER she received morphine and Zofran. She's had no further episodes of vomiting since around 2:00 in the morning. She had a computed tomography scan of the abdomen and pelvis showing mildly distended loops of small bowel with a gradual transit ion into normal caliber at the ileum. This may represent a gastroenteritis versus ileus. Also a large hiatal hernia and colonic diverticulosis. Surgical service has been consulted. Patient is scheduled for an upper GI series. She admits to some chills and sweats. But denies any fever. Denies any constipation. She reports having regular bowel movements. Last bowel movement was yesterday. Denies any chest pain or shortness of breath. Denies any burning with urination. White count 14. AST elevated at 216 and ALT 117. Lipase low at 10. Patient does report having an EGD and colonoscopy within the last few years. She reports them as normal. 11/19/2018 patient is medically stable for discharge. She has been cleared by surgical service. As stated above she will need further workup to be completed in the outpatient setting a tertiary care center for repair of this recurrent hiatal hernia. There are concerns that symptoms are possibly related to an intermittent volvulus at the site of the recurrent hernia per surgical service. Patient is tolerating diet. She is stable for discharge. We'll continue with the Protonix daily and Zofran as needed if symptoms recur. Patient did have elevated LFTs. They are trending down. Hepatitis panel was negative. Her cholesterol medication has been discontinued. We'll have her follow-up in the office in one week for repeat labs and at that time we can discuss if cholesterol medication can be restarted. I performed an examination of the patient and discussed their management with the physician Clinical Data Management Director. I have reviewed the Physician Clinical Data Management Director's notes and agree with the documented findings and plan of care Patient Condition at Discharge: Stable Plan - Discharge Summary Discharge Rx Participant: No New Discharge Prescriptions: New Pantoprazole Sodium [Protonix] 40 mg PO DAILY #30 tablet. Ondansetron HCl [Zofran] 4 mg PO Q8H PRN #21 tablet PRN Reason: Nausea Continue Nortriptyline HCl [Pamelor] 100 mg PO HS busPIRone HCL 15 mg PO BID lamoTRIgine [LaMICtal] 200 mg PO HS Zafirlukast 20 mg PO BID Estradiol 0.5 mg PO DAILY Ergocalciferol [Vitamin D2 (DRISDOL)] 50,000 unit PO FIELDS Primidone [Mysoline] 50 mg PO BID Aspirin EC [Ecotrin Low Dose] 81 mg PO DAILY ALPRAZolam [Xanax] 1 mg PO HS ALPRAZolam [Xanax] 0.5 mg PO QAM amLODIPine [Norvasc] 2.5 mg PO DAILY Levothyroxine Sodium 150 mcg PO DAILY #30 tablet Multivitamins, Thera [Multivitamin (formulary)] 1 tab PO DAILY guaiFENesin-Coden 100-10MG/5ML [Robitussin AC] 5 ml PO Q6H PRN #0 ml PRN Reason: Cough Discontinued Pravastatin Sodium [Pravachol] 20 mg PO DAILY Omeprazole 20 mg PO BID diphenhydrAMINE [Benadryl] 25 mg PO BID cap Doxycycline [Vibramycin] 100 mg PO BID cap predniSONE 10 mg PO DIRECTED #30 tab Discharge Medication List Ergocalciferol [Vitamin D2 (DRISDOL)] 50,000 unit PO FIELDS 12/01/15 [History] Estradiol 0.5 mg PO DAILY 12/01/15 [History] Nortriptyline HCl [Pamelor] 100 mg PO HS 12/01/15 [History] Primidone [Mysoline] 50 mg PO BID 12/01/15 [History] Zafirlukast 20 mg PO BID 12/01/15 [History] busPIRone HCL 15 mg PO BID 12/01/15 [History] lamoTRIgine [LaMICtal] 200 mg PO HS 12/01/15 [History] ALPRAZolam [Xanax] 0.5 mg PO QAM 04/14/17 [History] ALPRAZolam [Xanax] 1 mg PO HS 04/14/17 [History] Aspirin EC [Ecotrin Low Dose] 81 mg PO DAILY 04/14/17 [History] Levothyroxine Sodium 150 mcg PO DAILY #30 tablet 04/14/17 [Rx] amLODIPine [Norvasc] 2.5 mg PO DAILY 04/14/17 [History] Multivitamins, Thera [Multivitamin (formulary)] 1 tab PO DAILY 05/17/18 [History] guaiFENesin-Coden 100-10MG/5ML [Robitussin AC] 5 ml PO Q6H PRN #0 ml 06/27/18 [Rx] Ondansetron HCl [Zofran] 4 mg PO Q8H PRN #21 tablet 11/19/18 [Rx] Pantoprazole Sodium [Protonix] 40 mg PO DAILY #30 tablet.dr 11/19/18 [Rx] Follow up Appointment(s)/Referral(s): Donald Coto MD [Primary Care Provider] - 1 Week Ambulatory/Diagnostic Orders: Comprehensive Metabolic Panel [LAB.AMB] Time Frame: 1 Week, Location: None Selected Activity/Diet/Wound Care/Special Instructions: Diet: bland. small frequent meals Activity: as tolerated Dr. French's office will contact patient regarding information about surgeon in [place] for her hernia surgery
[2018-11-21] MEDS ORDERED: ERGOCALCIFEROL 50,000 UNIT CAP PO SCH (12:00)
== END 2018-11-19 16:31 | disposition home or self-care (01) | DRG 389 ==
LOC: EC 00:23 → 4SSUR 05:53
PROVIDERS: ADMIT Internal Medicine; ATTEND Internal Medicine
PROC: 0DB78ZX Excision of Stomach, Pylorus, Via Natural or Artificial Opening Endoscopic, Diagnostic (ICD-10-PCS; principal; 2018-11-18 14:55)
DX: K56.2 Volvulus (principal); K44.0 Diaphragmatic hernia with obstruction, without gangrene; E03.9 Hypothyroidism, unspecified; E78.5 Hyperlipidemia, unspecified; E87.5 Hyperkalemia; H91.90 Unspecified hearing loss, unspecified ear; I10 Essential (primary) hypertension; J45.20 Mild intermittent asthma, uncomplicated; K21.9 Gastro-esophageal reflux disease without esophagitis; K29.70 Gastritis, unspecified, without bleeding; K57.30 Diverticulosis of large intestine without perforation or abscess without bleeding; K58.9 Irritable bowel syndrome, unspecified; Z79.82 Long term (current) use of aspirin; Z79.890 Hormone replacement therapy; Z79.899 Other long term (current) drug therapy; Z82.3 Family history of stroke; Z82.49 Family history of ischemic heart disease and other diseases of the circulatory system; Z90.710 Acquired absence of both cervix and uterus; Z96.653 Presence of artificial knee joint, bilateral; Z98.42 Cataract extraction status, left eye; Z98.41 Cataract extraction status, right eye; Z86.19 Personal history of other infectious and parasitic diseases; J40 Bronchitis, not specified as acute or chronic; Z88.0 Allergy status to penicillin; R94.5 Abnormal results of liver function studies; T46.6X5A Adverse effect of antihyperlipidemic and antiarteriosclerotic drugs, initial encounter; Z91.81 History of falling; M19.90 Unspecified osteoarthritis, unspecified site; Z87.01 Personal history of pneumonia (recurrent); Z86.14 Personal history of Methicillin resistant Staphylococcus aureus infection; Z79.2 Long term (current) use of antibiotics; Z79.52 Long term (current) use of systemic steroids
CPT/HCPCS: 36415; 43239; 74176; 74240; 80053; 80074; 81003; 82150; 83690; 85025; 88305; 96374; 96375; 96376; 99285

== ENCOUNTER → 2018-12-28 | Outpatient (CLI) | payer MEDICARE | END | disposition home or self-care (01) | LOC: RADNMMAIN 06:46 | PROVIDERS: ATTEND Thoracic Surgery (Cardiothoracic Vascular Surgery) | DX: Z53.9 Procedure and treatment not carried out, unspecified reason (principal) ==

== ENCOUNTER → 2018-12-28 | Outpatient (CLI) | payer MEDICARE | LOC: CPPFTMAIN 12:50 | PROVIDERS: ATTEND Thoracic Surgery (Cardiothoracic Vascular Surgery) | DX: K44.9 Diaphragmatic hernia without obstruction or gangrene (principal) | CPT/HCPCS: 94060; 94726; 94729 ==

== ENCOUNTER → 2019-06-03 | Outpatient (CLI) | payer MEDICARE ==
--- NOTE | 2019-06-03 16:05 | CT ---
EXAMINATION TYPE: CT brain wo con DATE OF EXAM: 06/03/2019 COMPARISON: 04/14/2017 HISTORY: fall. pain and bruising around right eye. CT DLP: 1054.[address] of the brain was performed. The ventricles, basal cisterns and sulci overlying the cerebral convexities demonstrate mild enlargem ent. There is no evidence for intracranial hemorrhage or sulcal effacement. There is decreased attenuation about the periventricular white matter and deep white matter of both c erebral hemispheres, compatible with chronic small vessel ischemia. Differential diagnosis does inclu de demyelination. No mass effects are seen.No midline shift. Osseous calvarium is intact. If symptoms persist consider MRI. IMPRESSION: 1. Age related atrophic and chronic small vessel ischemic change without acute intracranial process s een at this time.
--- NOTE | 2019-06-03 16:08 | CT ---
EXAMINATION TYPE: CT facial bones wo con DATE OF EXAM: 06/03/2019 COMPARISON: None HISTORY: fall. pain and bruising around right eye. CT DLP: [address] of the facial bones was performed in the axial and coronal planes. Bone and soft tissu e window settings are submitted. No significant soft tissue swelling is appreciated. I do not see evidence for displaced facial bone fracture or depressed facial bone fracture. The globes are intact. Since of postsurgical change of the medial maxillary antrectomy and near total ethmoidectomy. Mucosal thickening persists. IMPRESSION: 1. No evidence for depressed or displaced facial bone fracture.
== END | disposition home or self-care (01) ==
LOC: RADCTMAIN 15:31
PROVIDERS: ATTEND Internal Medicine
DX: S09.93XA Unspecified injury of face, initial encounter (principal); I67.82 Cerebral ischemia; G31.1 Senile degeneration of brain, not elsewhere classified
CPT/HCPCS: 70450; 70486

== ENCOUNTER → 2019-07-11 | Outpatient (CLI) | payer MEDICARE ==
--- NOTE | 2019-07-11 22:43 | XR ---
EXAM TYPE: LUMBAR SPINE X RAY SERIES COMPARISON: NONE HISTORY: Pain TECHNIQUE: 3 views are submitted. FINDINGS: Alignment is anatomic. The pedicles are intact. The transverse processes are intact. There is no s pondylolisthesis. Postsurgical change right upper quadrant. Diffuse osteopenia. Vascular calcificati ons noted. There is severe degenerative disc disease at all levels with multilevel severe facet arthr opathy. Suspect foraminal encroachment at L5-S1. IMPRESSION: 1. Severe multilevel degenerative disc disease and facet arthropathy. Foraminal encroachment L5-S1 baker spected recommend MRI. 2. Diffuse osteopenia..
--- NOTE | 2019-07-11 22:47 | XR ---
EXAMINATION TYPE: XR thoracic spine complete DATE OF EXAM: 07/11/2019 COMPARISON: NONE HISTORY: Pain Alignment is anatomic. There is no compression deformities. Vertebral body height and disc interspa freeman narrowed with hypertrophic changes. Suggestion of a hiatal hernia postsurgical changes in the epi gastric region and right upper quadrant of the abdomen. IMPRESSION: 1. Multilevel moderate degenerative disc disease.
== END | disposition home or self-care (01) ==
LOC: RADXRMAIN 16:03
PROVIDERS: ATTEND Internal Medicine
DX: M51.36 Other intervertebral disc degeneration, lumbar region (principal); M46.96 Unspecified inflammatory spondylopathy, lumbar region; M51.34 Other intervertebral disc degeneration, thoracic region
CPT/HCPCS: 72072; 72100

== ENCOUNTER → 2019-07-26 | Outpatient (CLI) | payer MEDICARE ==
--- NOTE | 2019-07-27 07:18 | BD ---
EXAMINATION TYPE: Axial Bone Density DATE OF EXAM: 07/26/2019 COMPARISON: 05/15/2004 bone scan report. CLINICAL HISTORY: Postmenopausal female, disorder of bone. Height: 62.7 IN Weight: 177 LBS FRAX RISK QUESTIONS: RISK FACTORS HISTORY OF: History of Wrist Fracture: YES RT WRIST AGE 48 Active: MODERATE Diet low in dairy products/other sources of calcium: YES Postmenopausal woman: AGE 51 Lost more than 2 inches in height since high school: YES 4" MEDICATIONS: Thyroid Medications: YES Which medication: Levothyroxine How Lon+ YEARS Additional Medications: MULTI VIT, LEVOTHYROXINE, LOW DOSE ASPIRIN, ACCOLATE, NORVASC, PROTONIX, PRIM IDONE, XANAX, BUSPIRONE BUSPAR, LAMOTRIGINE EXAM MEASUREMENTS: Bone mineral densitometry was performed using the ZUGGI System. Bone mineral density as measured about the Lumbar spine is: ----- L1-L4(G/cm2): 1.051 T Score Values are as follows: ----- L2: -1.1 ----- L3: -1.3 ----- L4: -1.5 ----- L1-L4: -1.1 Bone mineral density has: Decreased -12.5% since study of: 05/15/2004 Bone mineral density about the R hip (g/cm2): 0.873 Bone mineral density about the L hip (g/cm2): 0.770 T Score values are as follows: -----R Neck: -1.2 -----L Neck: -1.9 -----R Total: -0.9 -----L Total: -1.2 Bone mineral density has: Decreased -12.1% since study of: 05/15/2004 IMPRESSION: Osteopenia (T Score between -2.5 and -1). There is slightly increased risk of fracture and the patient may be considered for treatment. Re-Screen 2-5 years. NOTE: T-SCORE=SD OF THE YOUNG ADULT MEAN.
== END | disposition home or self-care (01) ==
LOC: RADBDWWP 16:03
PROVIDERS: ATTEND Internal Medicine
DX: M85.80 Other specified disorders of bone density and structure, unspecified site (principal); N95.1 Menopausal and female climacteric states
CPT/HCPCS: 77080

== ENCOUNTER → 2020-02-22 | Outpatient (CLI) | payer MEDICARE ==
--- NOTE | 2020-02-23 11:09 | MM ---
Reason for exam: screening (asymptomatic). Last mammogram was performed 1 year and 4 months ago. History: Patient is postmenopausal. Family history of premenopausal breast cancer in sister and premenopausal breast cancer in maternal grandmother. Taking estrogen beginning at age 57. Physical Findings: A clinical breast exam by your physician is recommended on an annual basis and results should be correlated with mammographic findings. MG 3D Screening Mammo W/Cad Bilateral CC, MLO, and XCCL view(s) were taken. Prior study comparison: November 02, 2018, bilateral MG 3d screening mammo w/cad. September 30, 2017, bilateral MG diagnostic mammo w CAD [facility]. There are scattered fibroglandular densities. Stable scattered benign oil cyst calcifications. No significant changes when compared with prior studies. ASSESSMENT: Negative, BI-RAD 1 RECOMMENDATION: Routine screening mammogram of both breasts in 1 year.
== END | disposition home or self-care (01) ==
LOC: RADMAMWWP 16:17
PROVIDERS: ATTEND Internal Medicine
DX: Z12.31 Encounter for screening mammogram for malignant neoplasm of breast (principal)
CPT/HCPCS: 77063; 77067

== ENCOUNTER 2021-02-08 15:51 | Observation (INO) | payer MEDICARE ==
[2021-02-08] MEDS ORDERED: diphenhydrAMINE 50 MG/ML 1 ML VIAL IVP STA (16:43)
[2021-02-08] MEDS ORDERED: FAMOTIDINE 20 MG/2 ML VIAL IV STA (16:43)
[2021-02-08] MEDS ORDERED: METOCLOPRAMIDE 5 MG/ML 2 ML VIAL IVP STA (16:43)
--- NOTE | 2021-02-08 16:44 | ED ---
Nausea/Vomiting/Diarrhea HPI - General Chief complaint: Nausea/Vomiting/Diarrhea Stated complaint: vomiting Time Seen by Provider: 02/08/21 15:57 Source: patient Mode of arrival: ambulatory Limitations: no limitations - History of Present Illness Initial comments: Stephanie is a very pleasant 75-year-old female who is brought to the emergency department today for evaluation of nausea and vomiting. Patient has a long history of persistent nausea and episodes of vomiting. She is on Zofran daily at home. Patient reports that yesterday evening she became nauseated and throughout the night and this morning she has had vomiting, nonbloody nonbilious. - Related Data Home Medications Medication Instructions Recorded Confirmed Estradiol 0.5 mg PO DAILY 12/01/15 02/08/21 Nortriptyline HCl [Pamelor] 100 mg PO HS 12/01/15 02/08/21 Primidone [Mysoline] 50 mg PO BID 12/01/15 02/08/21 Zafirlukast 20 mg PO BID 12/01/15 02/08/21 busPIRone HCL 15 mg PO BID 12/01/15 02/08/21 lamoTRIgine [LaMICtal] 200 mg PO DAILY 12/01/15 02/08/21 ALPRAZolam [Xanax] 0.5 - 1 mg PO BID PRN 04/14/17 02/08/21 Aspirin EC [Ecotrin Low Dose] 81 mg PO DAILY 04/14/17 02/08/21 amLODIPine [Norvasc] 2.5 mg PO DAILY 04/14/17 02/08/21 Multivitamins, Thera [Multivitamin 1 tab PO DAILY 05/17/18 02/08/21 (formulary)] Diphenoxylate HCl/Atropine 1 tab PO TID PRN 02/08/21 02/08/21 [Lomotil 2.5-0.025 mg Tablet] Levothyroxine Sodium 125 mcg PO DAILY 02/08/21 02/08/21 Pravastatin Sodium [Pravachol] 20 mg PO DAILY 02/08/21 02/08/21 diphenhydrAMINE HCL [Benadryl] 25 mg PO BID PRN 02/08/21 02/08/21 Previous Rx's Medication Instructions Recorded guaiFENesin-Coden 100-10MG/5ML 5 ml PO Q6H PRN #0 ml 06/27/18 [Robitussin AC] Ondansetron HCl [Zofran] 4 mg PO Q8H PRN #21 tablet 11/19/18 Pantoprazole Sodium [Protonix] 40 mg PO DAILY #30 tablet. 11/19/18 Allergies Allergy/AdvReac Type Severity Reaction Status Date / Time Penicillins Allergy Swelling Verified 02/08/21 20:06 Review of Systems ROS Statement: Those systems with pertinent positive or pertinent negative responses have been documented in the HPI. ROS Other: All systems not noted in ROS Statement are negative. Past Medical History Past Medical History: Asthma, GERD/Reflux, Hearing Disorder / Deafness, Hyperlipidemia, Hypertension, Liver Disease, Osteoarthritis (OA), Pneumonia, Thyroid Disorder Additional Past Medical History / Comment(s): Vertigo, bronchitis and pt states she is currently on antibiotic for bronchitis, hiatal hernia, IBS, SBO in 2013 thought d/t viral enteritis and had hepatitis at that time thought possibly d/t viral infection, 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 Mother Additional Family Medical History / Comment(s): Mother at the age of 87yrs from either a [place] or a stroke-pt unsure. General Exam - General Exam Comments Initial Comments: Physical Exam GENERAL: Patient is well-developed and well-nourished. Patient is nontoxic and well-hydrated and is in no distress. HENT: Normocephalic, Atraumatic. EYES: PERRL, EOMI PULMONARY: Unlabored respirations. CARDIOVASCULAR: RRR Warm and well perfused extremities ABDOMEN: Non-distended SKIN: No rashes or bruising : Deferred NEUROLOGIC: Alert and oriented Normal speech Normal gait MUSCULOSKELETAL: Moving all extremities with no apparent injury PSYCHIATRIC: No SI/HI Limitations: no limitations Course Vital Signs 02/08/21 02/08/21 15:52 18:33 Temperature 96.3 F L 97.8 F Pulse Rate 62 75 Respiratory 16 18 Rate Blood Pressure 139/67 135/71 O2 Sat by Pulse 100 96 Oximetry Medical Decision Making - Medical Decision Making The patient was seen and evaluated history is obtained from the patient and review of medical record, pleasant elderly female with persistent nausea and vomiting she was treated with Reglan and Benadryl had transient improvement in her symptoms but then symptoms returned. Patient does not feel comfortable being home at this time. She does feel she did stay in the hospital for medications and fluids. This plan was discussed with her primary care Dr. Coto who accepted the admission. - Lab Data Result diagrams: 02/08/21 18:26 02/08/21 18:26 Lab Results 02/08/21 02/08/21 Range/Units 18:26 18:26 WBC 9.8 (3.8-10.6) k/uL RBC 5.40 (3.80-5.40) m/uL Hgb 17.0 H (11.4-16.0) gm/dL Hct 49.5 H (34.0-46.0) % MCV 91.6 (80.0-100.0) fL MCH 31.5 (25.0-35.0) pg MCHC 34.3 (31.0-37.0) g/dL RDW 13.3 (11.5-15.5) % Plt Count 267 (150-450) k/uL MPV 7.7 Neutrophils % 87 % Lymphocytes % 6 % Monocytes % 5 % Eosinophils % 1 % Basophils % 0 % Neutrophils # 8.6 H (1.3-7.7) k/uL Lymphocytes # 0.6 L (1.0-4.8) k/uL Monocytes # 0.5 (0-1.0) k/uL Eosinophils # 0.1 (0-0.7) k/uL Basophils # 0.0 (0-0.2) k/uL Sodium 132 L (137-145) mmol/L Potassium 6.0 H (3.5-5.1) mmol/L Chloride 100 (98-107) mmol/L Carbon Dioxide 20 L (22-30) mmol/L Anion Gap 12 mmol/L BUN 16 (7-17) mg/dL Creatinine 0.63 (0.52-1.04) mg/dL Est GFR (CKD-EPI)AfAm >90 (>60 ml/min/1.73 sqM) Est GFR (CKD-EPI)NonAf 87 (>60 ml/min/1.73 sqM) Glucose 134 H (74-99) mg/dL Calcium 9.8 (8.4-10.2) mg/dL Total Bilirubin 1.3 (0.2-1.3) mg/dL AST 92 H (14-36) U/L ALT 125 H (4-34) U/L Alkaline Phosphatase 151 H (38-126) U/L Total Protein 7.2 (6.3-8.2) g/dL Albumin 4.8 (3.5-5.0) g/dL Disposition Clinical Impression: Intractable vomiting with nausea, Abdominal pain Disposition: ADMITTED IP TO THIS [facility] Condition: Stable Is patient prescribed a controlled substance at d/c from ED?: No Referrals: Donald Coto MD [Primary Care Provider] - 1-2 days
[2021-02-08 19:02] LABS: Basophils % (A) 0 %; Eosinophils # (A) 0.1 k/uL (0-0.7); Eosinophils % (A) 1 %; HCT 49.5 % (34.0-46.0); Lymphocytes # (A) 0.6 k/uL (1.0-4.8); Lymphocytes % (A) 6 %; MCH 31.5 pg (25.0-35.0); MCHC 34.3 g/dL (31.0-37.0); MCV 91.6 fL (80.0-100.0); Mean Platelet Volume 7.7; Monocytes # (A) 0.5 k/uL (0-1.0); Monocytes % (A) 5 %; Neutrophils # (A) 8.6 k/uL (1.3-7.7); Neutrophils % (A) 87 %; Platelet Count 267 k/uL (150-450); RDW 13.3 % (11.5-15.5); WBC 9.8 k/uL (3.8-10.6)
[2021-02-08 19:14] LABS: ALT 125 U/L (4-34); AST 92 U/L (14-36); African American GFR (CKD) >90 (>60 ml/min/1.73 sqM); Albumin 4.8 g/dL (3.5-5.0); Alkaline Phosphatase 151 U/L (38-126); Anion Gap 12 mmol/L; Blood Urea Nitrogen 16 mg/dL (7-17); Calcium 9.8 mg/dL (8.4-10.2); Carbon Dioxide 20 mmol/L (22-30); Chloride 100 mmol/L (98-107); Glucose 134 mg/dL (74-99); Non-African American GFR(CKD) 87 (>60 ml/min/1.73 sqM); Sodium 132 mmol/L (137-145); Total Bilirubin 1.3 mg/dL (0.2-1.3); Total Protein 7.2 g/dL (6.3-8.2)
[2021-02-08] MEDS ORDERED: ONDANSETRON 4 MG/2 ML VIAL IVP STA (20:09)
[2021-02-08] MEDS ORDERED: SODIUM CHLORIDE 0.9% 1,000 ML IV ONE (20:09)
[2021-02-08] MEDS ORDERED: NALOXONE 0.4 MG/ML 1 ML VIAL IV PRN (20:21)
--- NOTE | 2021-02-08 20:39 | XR ---
EXAMINATION TYPE: XR abdomen acute w cxr DATE OF EXAM: 02/08/2021 COMPARISON: NONE HISTORY: 75-year-old female vomiting and abdominal pain TECHNIQUE: Supine, upright, and left side down lateral decubitus views of the abdomen are obtained. FINDINGS: Heart normal size. Mild interstitial prominence. Surgical clips left upper quadrant. Questi onable tiny nodularity versus nipple shadow at the right base measuring 5 mm. No evidence for free intraperitoneal air. A few small air-fluid levels in the mid and lower abdomen. Cholecystectomy clips. No dilated small geremias wel. No significant stool burden. IMPRESSION: 1. Tiny 5 mm nodular density at the right base, possible summation artifact or nipple shadow. Recomme nd 4-6 week x-ray follow-up to reassess. 2. No evidence for free air or bowel obstruction. 3. There are a few small air-fluid levels in the mid to lower abdomen could represent ileus or enteri tis. No significant stool burden. A
[2021-02-08] MEDS: SODIUM CHLORIDE 0.9% 1,000 ML IV SCH (20:46)
[2021-02-08] MEDS ORDERED: ALPRAZolam 0.5 MG TAB PO PRN (22:16)
[2021-02-08] MEDS ORDERED: ONDANSETRON 4 MG TAB PO PRN (22:16)
[2021-02-08] MEDS ORDERED: DIPHENOX-ATROP 2.5-0.025 MG 1 EACH TAB PO PRN (22:16)
[2021-02-08] MEDS ORDERED: SODIUM POLYSTYRENE SULFONATE 15 GM/60 ML BOTTLE PO STA (22:29)
[2021-02-08 22:57] LABS: Amylase 63 U/L (30-110); Lipase 19 U/L (23-300)
[2021-02-09 02:49] LABS: Amorphous Sediment,Urine Rare /hpf; Appearance,Urine Cloudy (Clear); Bacteria,Urine Occasional /hpf; Bilirubin,Urine Negative (Negative); Blood,Urine Moderate (Negative); Color,Urine Yellow; Glucose,Urine (UA) Negative (Negative); Ketones,Urine Negative (Negative); Leukocyte Esterase,Urine Moderate (Negative); Mucus,Urine Rare /hpf; Nitrite,Urine Negative (Negative); Protein,Urine Negative (Negative); RBC,Urine 4 /hpf (0-5); Specific Gravity,Urine 1.015 (1.001-1.035); Squamous Epithelial Cell,Urine 2 /hpf (0-4); WBC,Urine 64 /hpf (0-5)
[2021-02-09] MEDS: ONDANSETRON 4 MG/2 ML VIAL IVP PRN ×3 (02:51→22:15)
[2021-02-09] MEDS: SODIUM CHLORIDE 0.9% 1,000 ML IV SCH ×3 (04:48→20:38)
[2021-02-09 05:47] LABS: Glucose,Whole Blood 83 mg/dL (75-99)
[2021-02-09] MEDS: LEVOTHYROXINE 125 MCG TAB PO SCH (06:06)
[2021-02-09] MEDS: busPIRone HCl 5 MG TAB PO SCH ×2 (08:00→20:36)
[2021-02-09] MEDS: lamoTRIgine 100 MG TAB PO SCH (08:00)
[2021-02-09] MEDS: amLODIPine 2.5 MG TAB PO SCH (08:00)
[2021-02-09] MEDS: PRIMIDONE 50 MG TAB PO SCH ×2 (08:00→20:36)
[2021-02-09] MEDS: MULTIVITAMINS, THERA 1 EACH TAB PO SCH (08:00)
[2021-02-09] MEDS: PANTOPRAZOLE 40 MG TABLET PO SCH (08:00)
[2021-02-09] MEDS: ASPIRIN 81 MG PO SCH (08:00)
[2021-02-09] MEDS ORDERED: PRAVASTATIN SODIUM 20 MG TAB PO SCH (09:00)
[2021-02-09 09:19] LABS: Basophils # (A) 0.07 X 10*3/uL (0.00-0.10); Basophils % (A) 0.8 %; Eosinophils % (A) 3.4 %; HCT 44.6 % (37.2-46.3); HGB 14.5 g/dL (12.0-15.0); Lymphocytes # (A) 2.47 X 10*3/uL (0.90-5.00); Lymphocytes % (A) 28.1 %; MCH 30.3 pg (27.0-32.0); MCHC 32.5 g/dL (32.0-37.0); MCV 93.1 fL (80.0-97.0); Mean Platelet Volume 9.3 fL (9.5-12.2); Monocytes # (A) 0.73 X 10*3/uL (0.20-1.00); Monocytes % (A) 8.3 %; Neutrophils # (A) 5.21 X 10*3/uL (1.80-7.70); Neutrophils % (A) 59.2 %; Platelet Count 250 X 10*3/uL (140-440); RBC 4.79 X 10*6/uL (4.10-5.20); RDW 13.6 % (11.5-14.5)
[2021-02-09 10:17] LABS: African American GFR (CKD) 102.6 (60.0-200.0); Albumin 3.8 g/dL (3.80-4.90); Albumin/Globulin Ratio 2.38 (1.60-3.17); Anion Gap 8.7 mmol/L (4.00-12.00); BUN/Creat Ratio 23.33 Ratio (12.00-20.00); Calcium 8.1 mg/dL (8.7-10.3); Carbon Dioxide 22.3 mmol/L (21.6-31.8); Globulin 1.6 g/dL (1.6-3.3); Non-African American GFR(CKD) 88.5 (60.0-200.0); Potassium 4.3 mmol/L (3.5-5.5); Total Bilirubin 0.7 mg/dL (0.3-1.2); Total Protein 5.4 g/dL (6.2-8.2)
[2021-02-09] MEDS: guaiFENesin-Coden 100-10MG/5ML 10 ML CUP PO PRN (12:00)
--- NOTE | 2021-02-09 13:15 | P.HPIM ---
History of Present Illness H&P Date: 02/08/21 Chief Complaint: nausea Stephanie Estevez, is a 75 year old female who presented to [facility] emergency room with a chief complaint of nausea and vomiting He was evaluated in the emergency room vital examination on presentation revealed a temperature of 96.3 pulse 62 respirations 16 blood pressure 139/67 pulse ox 100% on room air Laboratory data reveals a white blood count of 9.8 hemoglobin 17.0 platelet count 267 sodium 132 potassium 6.0 chloride 100 CO2 20 BUN 16 creatinine 0.63 liver enzymes were elevated with AST at 92 a LT 125 and alkaline phosphatase 151 Testing in the emergency room revealed acute abdominal series revealed no evidence of free air or bowel obstruction there are few small air-fluid levels in the mid and lower abdomen that could represent ileus or enteritis Patient was admitted to medical floor for further evaluation and treatment Past medical history is significant for history of hiatal hernia with previous gastric surgery, patient is followed by Dr. French and a surgeon at [facility], previous history of pneumonia, previous history of osteoarthritis, history of hypothyroidism, history of transient ischemic attack, and history of vitamin D deficiency On review of systems at this time she denies any complaints there is no fever or chills no headache or dizziness no chest pain no shortness of breath no palpitation no cough no nausea or vomiting no abdominal pain no diarrhea no bl ood in the stools no burning with urination no frequency or urgency and no hematuria, there is no weakness or numbness in any of the extremities no change in vision speech or gait. 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 She uses no assistive devices. She drives. Smoking Status: Never smoker Past Alcohol Use History: None Reported Past Drug Use History: None Reported - Past Family History Father Additional Family Medical History / Comment(s): Father had heart disease and at the age of 85 yrs. Mother Additional Family Medical History / Comment(s): Mother at the age of 87yrs from either a [place] or a stroke-pt unsure. Medications and Allergies Home Medications Medication Instructions Recorded Confirmed Type Estradiol 0.5 mg PO DAILY 12/01/15 02/08/21 History Nortriptyline HCl [Pamelor] 100 mg PO HS 12/01/15 02/08/21 History Primidone [Mysoline] 50 mg PO BID 12/01/15 02/08/21 History Zafirlukast 20 mg PO BID 12/01/15 02/08/21 History busPIRone HCL 15 mg PO BID 12/01/15 02/08/21 History lamoTRIgine [LaMICtal] 200 mg PO DAILY 12/01/15 02/08/21 History ALPRAZolam [Xanax] 0.5 - 1 mg PO BID PRN 04/14/17 02/08/21 History Aspirin EC [Ecotrin Low Dose] 81 mg PO DAILY 04/14/17 02/08/21 History amLODIPine [Norvasc] 2.5 mg PO DAILY 04/14/17 02/08/21 History Multivitamins, Thera [Multivitamin 1 tab PO DAILY 05/17/18 02/08/21 History (formulary)] guaiFENesin-Coden 100-10MG/5ML 5 ml PO Q6H PRN #0 ml 06/27/18 02/08/21 Rx [Robitussin AC] Ondansetron HCl [Zofran] 4 mg PO Q8H PRN #21 tablet 11/19/18 02/08/21 Rx Pantoprazole Sodium [Protonix] 40 mg PO DAILY #30 tablet. 11/19/18 02/08/21 Rx Diphenoxylate HCl/Atropine 1 tab PO TID PRN 02/08/21 02/08/21 History [Lomotil 2.5-0.025 mg Tablet] Levothyroxine Sodium 125 mcg PO DAILY 02/08/21 02/08/21 History Pravastatin Sodium [Pravachol] 20 mg PO DAILY 02/08/21 02/08/21 History diphenhydrAMINE HCL [Benadryl] 25 mg PO BID PRN 02/08/21 02/08/21 History Allergies Allergy/AdvReac Type Severity Reaction Status Date / Time Penicillins Allergy Swelling Verified 02/08/21 20:06 Physical Exam Vitals: Vital Signs Temp Pulse Pulse Resp BP BP Pulse Ox 02/08/21 21:30 98.0 F 74 16 136/69 98 02/08/21 20:00 98.6 F 78 18 150/71 96 02/08/21 19:00 77 16 149/72 02/08/21 18:33 97.8 F 75 18 135/71 96 02/08/21 15:52 96.3 F L 62 16 139/67 100 Intake and Output 02/08/21 02/08/21 02/08/21 06:59 14:59 22:59 Other: Weight 77.111 kg In general patient is alert and oriented x 3 in no distress HEENT head normocephalic and atraumatic Neck is supple no JVD no goiter no lymphadenopathy no carotid bruit Chest examination is clear to auscultation no crackles no wheezing Cardiac exam reveals regular heart sounds S1 and S2 no gallops no murmurs Abdomen is soft nontender no organomegaly with normal bowel sounds Extremity exam reveals no edema no cyanosis or clubbing Neurological examination reveals no gross focal deficits Results CBC & Chem 7: 02/09/21 05:35 02/09/21 05:35 Labs: Abnormal Lab Results - Last 24 Hours (Table) 02/08/21 02/08/21 Range/Units 18:26 18:26 Hgb 17.0 H (11.4-16.0) gm/dL Hct 49.5 H (34.0-46.0) % Neutrophils # 8.6 H (1.3-7.7) k/uL Lymphocytes # 0.6 L (1.0-4.8) k/uL Sodium 132 L (137-145) mmol/L Potassium 6.0 H (3.5-5.1) mmol/L Carbon Dioxide 20 L (22-30) mmol/L Glucose 134 H (74-99) mg/dL AST 92 H (14-36) U/L ALT 125 H (4-34) U/L Alkaline Phosphatase 151 H (38-126) U/L Thrombosis Risk Factor Assmnt - Choose All That Apply Each Factor Represents 1 point: Obesity (BMI >25) Other Risk Factors: Yes Each Risk Factor Represents 2 Points: Age 61-74 years Other congenital or acquired thrombophilia - If yes, enter type in comment: No Thrombosis Risk Factor Assessment Total Risk Factor Score: 3 Thrombosis Risk Factor Assessment Level: Moderate Risk Assessment and Plan Plan: 1. Episodes of nausea and vomiting that started 1 day prior to admission, patient has chronic nausea related to hiatal hernia, however this episode was worse than usual, patient also had vomiting 2. Electrolyte imbalance with hyponatremia and hyperkalemia, correcting, patient is receiving IV fluid she received 1 dose of Kayexalate 15 g by mouth 3. Elevated liver enzymes, cause is not clear, at this time will hold pravastatin, will check abdomen ultrasound and monitor liver enzymes 4. Evidence of urinary tract infection patient will be started on IV Levaquin, awaiting urine culture results 6. Underlying history of hyperlipidemia, will check fasting lipid profile, at this time will hold pravastatin due to elevated liver enzymes 7. Underlying history of hypothyroidism Will resume levothyroxine 125 g daily 8. History of chronic tremor maintained on Mysoline continue For DVT prophylaxis we will use subcu Lovenox For GI prophylaxis patient is on Protonix Gastroenterology consultation was requested, however there is no gastroenterology coverage this weekend Further treatment plan will depend on testing results and clinical course At this time we are waiting for abdomen ultrasound and urine culture results
--- NOTE | 2021-02-09 13:18 | P.PN ---
Subjective Progress Note Date: 02/09/21 Stephanie Estevez, is a 75 year old female who presented to [facility] emergency room with a chief complaint of nausea and vomiting He was evaluated in the emergency room vital examination on presentation revealed a temperature of 96.3 pulse 62 respirations 16 blood pressure 139/67 pulse ox 100% on room air Laboratory data reveals a white blood count of 9.8 hemoglobin 17.0 platelet count 267 sodium 132 potassium 6.0 chloride 100 CO2 20 BUN 16 creatinine 0.63 liver enzymes were elevated with AST at 92 a LT 125 and alkaline phosphatase 151 Testing in the emergency room revealed acute abdominal series revealed no evidence of free air or bowel obstruction there are few small air-fluid levels in the mid and lower abdomen that could represent ileus or enteritis Patient was admitted to medical floor for further evaluation and treatment Past medical history is significant for history of hiatal hernia with previous gastric surgery, patient is followed by Dr. French and a surgeon at [facility], previous history of pneumonia, previous history of osteoarthritis, history of hypothyroidism, history of transient ischemic attack, and history of vitamin D deficiency On review of systems at this time she denies any complaints there is no fever or chills no headache or dizziness no chest pain no shortness of breath no palpitation no cough no nausea or vomiting no abdominal pain no diarrhea no blood in the stools no burning with urination no frequency or urgency and no hematuria, there is no weakness or numbness in any of the extremities no change in vision speech or gait. On 02/09/2021 patient was seen and examined on the medical floor, she is alert and oriented 3 in no apparent distress, she is still having some nausea but no vomiting, otherwise she denies any complaints at this time there is no fever or chills no headache or dizziness no chest pain no shortness of breath no cough no vomiting no abdominal pain no diarrhea no blood in the stools no burning with urination no frequency or urgency and no hematuria, no weakness or numbness in any of the extremities no change in vision speech or gait. Patient had an abdominal ultrasound this morning results are still pending, she will be started on cardiac diet, urine analysis revealed evidence of urinary tract infection will be started on IV Levaquin, liver enzymes are still elevated but improved since yesterday, electrolyte imbalance improved since yesterday. Objective - Vital Signs Vital signs: Vital Signs Temp 98 F 02/09/21 07:00 Pulse 58 L 02/09/21 07:00 Resp 17 02/09/21 07:00 BP 124/71 02/09/21 07:00 Pulse Ox 97 02/09/21 07:00 Intake & Output 02/08/21 02/09/21 02/09/21 18:59 06:59 18:59 Intake Total 720 Output Total 3 Balance 717 Weight 77.111 kg 77.111 kg Intake: Oral 720 Output: Urine 3 Other: # Voids 1 # Bowel Movements 1 - Exam In general patient is alert and oriented x 3 in no distress HEENT head normocephalic and atraumatic Neck is supple no JVD no goiter no lymphadenopathy no carotid bruit Chest examination is clear to auscultation no crackles no wheezing Cardiac exam reveals regular heart sounds S1 and S2 no gallops no murmurs Abdomen is soft nontender no organomegaly with normal bowel sounds Extremity exam reveals no edema no cyanosis or clubbing Neurological examination reveals no gross focal deficits - Labs CBC & Chem 7: 02/09/21 05:35 02/09/21 05:35 Labs: Abnormal Lab Results - Last 24 Hours (Table) 02/08/21 02/08/21 02/08/21 Range/Units 18:26 18:26 18:26 Hgb 17.0 H (11.4-16.0) gm/dL Hct 49.5 H (34.0-46.0) % MPV (9.5-12.2) fL Neutrophils # 8.6 H (1.3-7.7) k/uL Lymphocytes # 0.6 L (1.0-4.8) k/uL Sodium 132 L (137-145) mmol/L Potassium 6.0 H (3.5-5.1) mmol/L Carbon Dioxide 20 L (22-30) mmol/L BUN/Creatinine Ratio (12.00-20.00) Ratio Glucose 134 H (74-99) mg/dL Calcium (8.7-10.3) mg/dL AST 92 H (14-36) U/L ALT 125 H (4-34) U/L Alkaline Phosphatase 151 H (38-126) U/L Total Protein (6.2-8.2) g/dL Cholesterol (0-200) mg/dL HDL Cholesterol (40.0-60.0) mg/dL Lipase 19 L (23-300) U/L Urine Appearance (Clear) Urine Blood (Negative) Ur Leukocyte Esterase (Negative) Urine WBC (0-5) /hpf Amorphous Sediment (None) /hpf Urine Bacteria (None) /hpf Urine Mucus (None) /hpf 02/08/21 02/09/21 02/09/21 Range/Units 23:59 05:35 05:35 Hgb (11.4-16.0) gm/dL Hct (34.0-46.0) % MPV 9.3 L (9.5-12.2) fL Neutrophils # (1.3-7.7) k/uL Lymphocytes # (1.0-4.8) k/uL Sodium (137-145) mmol/L Potassium (3.5-5.1) mmol/L Carbon Dioxide (22-30) mmol/L BUN/Creatinine Ratio 23.33 H (12.00-20.00) Ratio Glucose (74-99) mg/dL Calcium 8.1 L (8.7-10.3) mg/dL AST 41 H (14-36) U/L ALT 89 H (4-34) U/L Alkaline Phosphatase (38-126) U/L Total Protein 5.4 L (6.2-8.2) g/dL Cholesterol 204 H (0-200) mg/dL HDL Cholesterol 102.0 H (40.0-60.0) mg/dL Lipase (23-300) U/L Urine Appearance Cloudy H (Clear) Urine Blood Moderate H (Negative) Ur Leukocyte Esterase Moderate H (Negative) Urine WBC 64 H (0-5) /hpf Amorphous Sediment Rare H (None) /hpf Urine Bacteria Occasional H (None) /hpf Urine Mucus Rare H (None) /hpf Assessment and Plan Plan: 1. Episodes of nausea and vomiting that started 1 day prior to admission, patient has chronic nausea related to hiatal hernia, however this episode was worse than usual, patient also had vomiting 2. Electrolyte imbalance with hyponatremia and hyperkalemia, correcting, patient is receiving IV fluid she received 1 dose of Kayexalate 15 g by mouth 3. Elevated liver enzymes, cause is not clear, at this time will hold pravastatin, will check abdomen ultrasound and monitor liver enzymes 4. Evidence of urinary tract infection patient will be started on IV Levaquin, awaiting urine culture results 6. Underlying history of hyperlipidemia, will check fasting lipid profile, at this time will hold pravastatin due to elevated liver enzymes 7. Underlying history of hypothyroidism Will resume levothyroxine 125 g daily 8. History of chronic tremor maintained on Mysoline continue For DVT prophylaxis we will use subcu Lovenox For GI prophylaxis patient is on Protonix Gastroenterology consultation was requested, however there is no gastroenterology coverage this weekend Further treatment plan will depend on testing results and clinical course At this time we are waiting for abdomen ultrasound and urine culture results
--- NOTE | 2021-02-09 13:25 | P.PN ---
Progress Note - Text Progress Note Date: 02/09/21 The patient has complaints of nausea. She is thirsty though wishes to try clear liquids. On exam her vital signs are stable. Abdomen soft. Improving nausea. Patient will try clear liquids.
[2021-02-09] MEDS: ENOXAPARIN 40 MG/0.4 ML SYRINGE SQ SCH (14:03)
[2021-02-09] MEDS: LEVOFLOXACIN 500MG-D5W PMX 500 MG in DEXTROSE/WATER 1 100ML.BAG IVPB SCH (14:03)
[2021-02-09] MEDS: diphenhydrAMINE 25 MG CAP PO PRN (14:06)
--- NOTE | 2021-02-09 15:53 | US ---
EXAMINATION TYPE: US abdomen complete DATE OF EXAM: 02/09/2021 COMPARISON: CT 11/18/2018 CLINICAL HISTORY: 75-year-old female nausea, elevated liver enzymes. TECHNIQUE: Multiple sonographic images of the abdomen are obtained. FINDINGS: EXAM MEASUREMENTS: Liver Length: 13.1 cm Gallbladder: Surgically absent CBD: 1.3 cm Spleen: 9.8 cm Right Kidney: 9.7 x 4.7 x 4.4 cm Left Kidney: 10.2 x 4.9 x 5.4 cm Pancreas: Obscured by bowel gas Liver: only imaged intercostally, intrahepatic dilatation of ducts noted at the hilum. Gallbladder: Surgically absent CBD: dilated at 1.3 cm (versus 1.0 cm in 2016) Spleen: wnl Kidneys: No hydronephrosis. Upper IVC: wnl Abd Aorta: not seen proximally, otherwise wnl IMPRESSION: Bile duct is dilated at 1.3 cm versus 1.0 cm in 2016. This may in part relate to cholecystectomy stat us. Further correlation with alkaline phosphatase and bilirubin levels is recommended.
[2021-02-09] MEDS: MONTELUKAST 10 MG TAB PO SCH (20:36)
[2021-02-09] MEDS: NORTRIPTYLINE 25 MG CAP PO SCH (20:37)
[2021-02-09] MEDS ORDERED: diphenhydrAMINE 25 MG CAP PO PRN (21:18)
[2021-02-10] MEDS: ZOLPIDEM 10 MG TAB PO SCH ×2 (00:03→23:42)
[2021-02-10] MEDS: guaiFENesin-Coden 100-10MG/5ML 10 ML CUP PO PRN ×2 (00:11→08:21)
[2021-02-10] MEDS: LEVOTHYROXINE 125 MCG TAB PO SCH ×2 (05:55→08:14)
[2021-02-10] MEDS: SODIUM CHLORIDE 0.9% 1,000 ML IV SCH ×3 (05:56→23:42)
[2021-02-10] MEDS: busPIRone HCl 5 MG TAB PO SCH ×2 (08:13→23:42)
[2021-02-10] MEDS: ASPIRIN 81 MG PO SCH (08:13)
[2021-02-10] MEDS: PANTOPRAZOLE 40 MG TABLET PO SCH (08:13)
[2021-02-10] MEDS: amLODIPine 2.5 MG TAB PO SCH (08:13)
[2021-02-10] MEDS: MULTIVITAMINS, THERA 1 EACH TAB PO SCH (08:14)
[2021-02-10] MEDS: PRIMIDONE 50 MG TAB PO SCH ×2 (08:14→23:42)
[2021-02-10] MEDS: lamoTRIgine 100 MG TAB PO SCH (08:14)
[2021-02-10] MEDS: ENOXAPARIN 40 MG/0.4 ML SYRINGE SQ SCH (08:15)
[2021-02-10 09:31] LABS: Basophils # (A) 0.07 X 10*3/uL (0.00-0.10); Basophils % (A) 1.5 %; Eosinophils # (A) 0.34 X 10*3/uL (0.04-0.35); Eosinophils % (A) 7.2 %; HCT 40.8 % (37.2-46.3); Lymphocytes # (A) 1.46 X 10*3/uL (0.90-5.00); Lymphocytes % (A) 30.8 %; MCH 30.3 pg (27.0-32.0); MCHC 31.9 g/dL (32.0-37.0); MCV 95.1 fL (80.0-97.0); Mean Platelet Volume 9.3 fL (9.5-12.2); Monocytes # (A) 0.48 X 10*3/uL (0.20-1.00); Monocytes % (A) 10.1 %; Neutrophils # (A) 2.38 X 10*3/uL (1.80-7.70); Neutrophils % (A) 50.2 %; Platelet Count 196 X 10*3/uL (140-440); RBC 4.29 X 10*6/uL (4.10-5.20); RDW 13.8 % (11.5-14.5); WBC 4.74 X 10*3/uL (4.50-10.00)
--- NOTE | 2021-02-10 09:47 | P.PN ---
Subjective Progress Note Date: 02/10/21 Stephanie Estevez, is a 75 year old female who presented to [facility] emergency room with a chief complaint of nausea and vomiting He was evaluated in the emergency room vital examination on presentation revealed a temperature of 96.3 pulse 62 respirations 16 blood pressure 139/67 pulse ox 100% on room air Laboratory data reveals a white blood count of 9.8 hemoglobin 17.0 platelet count 267 sodium 132 potassium 6.0 chloride 100 CO2 20 BUN 16 creatinine 0.63 liver enzymes were elevated with AST at 92 a LT 125 and alkaline phosphatase 151 Testing in the emergency room revealed acute abdominal series revealed no evidence of free air or bowel obstruction there are few small air-fluid levels in the mid and lower abdomen that could represent ileus or enteritis Patient was admitted to medical floor for further evaluation and treatment Past medical history is significant for history of hiatal hernia with previous gastric surgery, patient is followed by Dr. French and a surgeon at [facility], previous history of pneumonia, previous history of osteoarthritis, history of hypothyroidism, history of transient ischemic attack, and history of vitamin D deficiency On review of systems at this time she denies any complaints there is no fever or chills no headache or dizziness no chest pain no shortness of breath no palpitation no cough no nausea or vomiting no abdominal pain no diarrhea no blood in the stools no burning with urination no frequency or urgency and no hematuria, there is no weakness or numbness in any of the extremities no change in vision speech or gait. On 02/09/2021 patient was seen and examined on the medical floor, she is alert and oriented 3 in no apparent distress, she is still having some nausea but no vomiting, otherwise she denies any complaints at this time there is no fever or chills no headache or dizziness no chest pain no shortness of breath no cough no vomiting no abdominal pain no diarrhea no blood in the stools no burning with urination no frequency or urgency and no hematuria, no weakness or numbness in any of the extremities no change in vision speech or gait. Patient had an abdominal ultrasound this morning results are still pending, she will be started on cardiac diet, urine analysis revealed evidence of urinary tract infection will be started on IV Levaquin, liver enzymes are still elevated but improved since yesterday, electrolyte imbalance improved since yesterday. On 02/10/2021 she is alert and oriented 3. Patient reports that she has improved. Patient has had no further episodes throughout the night of nausea and vomiting. Patient has been maintained on clear liquid diet but requesting increase in diet to assess how she does. Will advance patient to heart healthy diet. Repeat labs currently pending. At this time patient denies chest pain or shortness of breath. Patient denies nausea vomiting or diarrhea. Patient denies any urinary burning or frequency. Patient remains on IV Levaquin urine culture pending Objective - Vital Signs Vital signs: Vital Signs Temp 97.8 F 02/10/21 07:00 Pulse 58 L 02/10/21 07:00 Resp 16 02/10/21 07:00 BP 158/81 02/10/21 07:00 Pulse Ox 96 02/10/21 07:00 Intake & Output 02/09/21 02/10/21 02/10/21 18:59 06:59 18:59 Intake Total 910 Output Total 2 Balance 910 -2 Intake: Intake, IV Titration 910 Amount Sodium Chloride 0.9% 1, 910 000 ml @ 130 mls/hr IV . [id number] [facility] Rx#:[id number] Output: Urine 2 Other: Voiding Method Toilet # Voids 1 - Exam In general patient is alert and oriented x 3 in no distress HEENT head normocephalic and atraumatic Neck is supple no JVD no goiter no lymphadenopathy no carotid bruit Chest examination is clear to auscultation no crackles no wheezing Cardiac exam reveals regular heart sounds S1 and S2 no gallops no murmurs Abdomen is soft nontender no organomegaly with normal bowel sounds Extremity exam reveals no edema no cyanosis or clubbing Neurological examination reveals no gross focal deficits - Labs CBC & Chem 7: 02/10/21 05:56 02/09/21 05:35 Labs: Abnormal Lab Results - Last 24 Hours (Table) 02/09/21 02/10/21 Range/Units 05:35 05:56 MCHC 31.9 L (32.0-37.0) g/dL MPV 9.3 L (9.5-12.2) fL BUN/Creatinine Ratio 23.33 H (12.00-20.00) Ratio Calcium 8.1 L (8.7-10.3) mg/dL AST 41 H (13-35) U/L ALT 89 H (8-44) U/L Total Protein 5.4 L (6.2-8.2) g/dL Cholesterol 204 H (0-200) mg/dL HDL Cholesterol 102.0 H (40.0-60.0) mg/dL Microbiology - Last 24 Hours (Table) 02/09/21 13:50 Urine Culture - Preliminary Urine,Clean Catch Assessment and Plan Plan: 1. Episodes of nausea and vomiting that started 1 day prior to admission, patient has chronic nausea related to hiatal hernia, however this episode was worse than usual, patient also had vomiting 2. Electrolyte imbalance with hyponatremia and hyperkalemia, correcting, patient is receiving IV fluid she received 1 dose of Kayexalate 15 g by mouth 3. Elevated liver enzymes, cause is not clear, at this time will hold prava statin, will check abdomen ultrasound and monitor liver enzymes 4. Evidence of urinary tract infection patient will be started on IV Levaquin, awaiting urine culture results 6. Underlying history of hyperlipidemia, will check fasting lipid profile, at this time will hold pravastatin due to elevated liver enzymes 7. Underlying history of hypothyroidism Will resume levothyroxine 125 g daily 8. History of chronic tremor maintained on Mysoline continue For DVT prophylaxis we will use subcu Lovenox For GI prophylaxis patient is on Protonix Gastroenterology consultation was requested, however there is no gastroenterology coverage this weekend Diet advance to heart healthy diet. Will assess over the next 24-48 hours how patient tolerates diet At this time we are waiting for abdomen ultrasound and urine culture results
[2021-02-10 09:57] LABS: African American GFR (CKD) 102.6 (60.0-200.0); Albumin 3.3 g/dL (3.80-4.90); Albumin/Globulin Ratio 2.36 (1.60-3.17); BUN/Creat Ratio 13.33 Ratio (12.00-20.00); Calcium 7.9 mg/dL (8.7-10.3); Globulin 1.4 g/dL (1.6-3.3); Non-African American GFR(CKD) 88.5 (60.0-200.0); Potassium 3.7 mmol/L (3.5-5.5); Total Bilirubin 0.5 mg/dL (0.3-1.2); Total Protein 4.7 g/dL (6.2-8.2)
[2021-02-10] MEDS: ONDANSETRON 4 MG/2 ML VIAL IVP PRN (11:04)
[2021-02-10] MEDS: diphenhydrAMINE 25 MG CAP PO PRN (13:52)
[2021-02-10] MEDS: LEVOFLOXACIN 500MG-D5W PMX 500 MG in DEXTROSE/WATER 1 100ML.BAG IVPB SCH (14:03)
[2021-02-10] MEDS ORDERED: ZOLPIDEM 10 MG TAB PO SCH (21:00)
[2021-02-10] MEDS: NORTRIPTYLINE 25 MG CAP PO SCH (23:41)
[2021-02-10] MEDS: MONTELUKAST 10 MG TAB PO SCH (23:42)
[2021-02-11] MEDS: SODIUM CHLORIDE 0.9% 1,000 ML IV SCH ×2 (03:09→08:57)
[2021-02-11 07:24] VITALS: BP 148/73; PULSE 63; RESP 18; TEMP 97.8
[2021-02-11] MEDS: PANTOPRAZOLE 40 MG TABLET PO SCH (08:52)
[2021-02-11] MEDS: busPIRone HCl 5 MG TAB PO SCH (08:53)
[2021-02-11] MEDS: ASPIRIN 81 MG PO SCH (08:54)
[2021-02-11] MEDS: lamoTRIgine 100 MG TAB PO SCH (08:55)
[2021-02-11] MEDS: MULTIVITAMINS, THERA 1 EACH TAB PO SCH (08:55)
[2021-02-11] MEDS: PRIMIDONE 50 MG TAB PO SCH (08:55)
[2021-02-11] MEDS: amLODIPine 2.5 MG TAB PO SCH (08:55)
[2021-02-11] MEDS: ENOXAPARIN 40 MG/0.4 ML SYRINGE SQ SCH (08:56)
[2021-02-11 09:23] LABS: Basophils # (A) 0.06 X 10*3/uL (0.00-0.10); Basophils % (A) 1.2 %; Eosinophils # (A) 0.28 X 10*3/uL (0.04-0.35); Eosinophils % (A) 5.5 %; HCT 44.2 % (37.2-46.3); HGB 14.1 g/dL (12.0-15.0); Lymphocytes # (A) 1.63 X 10*3/uL (0.90-5.00); Lymphocytes % (A) 31.8 %; MCH 30.1 pg (27.0-32.0); MCHC 31.9 g/dL (32.0-37.0); MCV 94.2 fL (80.0-97.0); Mean Platelet Volume 9.3 fL (9.5-12.2); Monocytes # (A) 0.48 X 10*3/uL (0.20-1.00); Monocytes % (A) 9.4 %; Neutrophils # (A) 2.67 X 10*3/uL (1.80-7.70); Neutrophils % (A) 51.9 %; Platelet Count 190 X 10*3/uL (140-440); RBC 4.69 X 10*6/uL (4.10-5.20); RDW 13.5 % (11.5-14.5); WBC 5.13 X 10*3/uL (4.50-10.00)
[2021-02-11 09:26] LABS: African American GFR (CKD) 97.5 (60.0-200.0); Albumin 3.8 g/dL (3.80-4.90); Albumin/Globulin Ratio 2.11 (1.60-3.17); Anion Gap 11.6 mmol/L (4.00-12.00); BUN/Creat Ratio 14.29 Ratio (12.00-20.00); Calcium 8.7 mg/dL (8.7-10.3); Carbon Dioxide 18.4 mmol/L (21.6-31.8); Globulin 1.8 g/dL (1.6-3.3); Non-African American GFR(CKD) 84.2 (60.0-200.0); Potassium 3.9 mmol/L (3.5-5.5); Total Bilirubin 0.4 mg/dL (0.3-1.2); Total Protein 5.6 g/dL (6.2-8.2)
[2021-02-11] MEDS ORDERED: LEVOFLOXACIN 500 MG TAB PO SCH (12:00)
--- NOTE | 2021-02-11 12:30 | P.CONS ---
History of Present Illness - Reason for Consult Consult date: 02/11/21 Nausea and vomiting Requesting physician: Donald Coto - Chief Complaint Nausea and vomiting - History of Present Illness 75-year-old female with medical history significant for hiatal hernia with prior gastric surgery, hypothyroidism, vitamin D deficiency, prior TIA and prior pneumonia who presented to the hospital with symptoms of intractable nausea and vomiting. X-ray of the abdomen on presentation negative for any acute intra- abdominal process with possible ileus or enteritis. Patient reports long- standing history of nausea and follows up with Dr. Arce at [facility]. Previously the patient had EGD on 11/[address] joe of the surgical service with findings of gastritis and a large hiatal hernia with 15- 20% of the patient's stomach above the diaphragm. She reports developing symptoms after eating chocolate. Previously she was on a different PPI but had been switched to Protonix therapy. Since presentation symptoms have improved greatly. No further nausea or vomiting. She is tolerating her diet. She doesn't history of irritable bowel syndrome diarrhea predominant but reports that she has not been having bowel movements which she attributes to her decreased oral intake. She is passing flatus. Review of Systems REVIEW OF SYSTEMS: CONSTITUTIONAL: Denies any fevers, chills, weight change or fatigue. CARDIOVASCULAR: Denies any chest pain, palpitations high or low blood pressures RESPIRATORY: Denies any shortness of breath, hemoptysis or cough. GENITOURINARY: No dysuria or hematuria. MUSCULOSKELETAL: No weakness reported. SKIN: Denies any new rashes or lesions, jaundice or pallor. PSYCHIATRIC: Denies any depression or anxiety. NEUROLOGY: Denies headache, denies any new focal deficits. EARS/NOSE/THROAT: No recent hearing change, congestion, nasal discharge or sore throat. EYES: No pain in eyes, discharge or change in vision. GASTROINTESTINAL: As per HPI. 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 She uses no assistive devices. She drives. Smoking Status: Never smoker Past Alcohol Use History: None Reported Past Drug Use History: None Reported - Past Family History Father Additional Family Medical History / Comment(s): Father had heart disease and at the age of 85 yrs. Mother Additional Family Medical History / Comment(s): Mother at the age of 87yrs from either a [place] or a stroke-pt unsure. Medications and Allergies Home Medications Medication Instructions Recorded Confirmed Type Estradiol 0.5 mg PO DAILY 12/01/15 02/08/21 History Nortriptyline HCl [Pamelor] 100 mg PO HS 12/01/15 02/08/21 History Primidone [Mysoline] 50 mg PO BID 12/01/15 02/08/21 History Zafirlukast 20 mg PO BID 12/01/15 02/08/21 History busPIRone HCL 15 mg PO BID 12/01/15 02/08/21 History lamoTRIgine [LaMICtal] 200 mg PO DAILY 12/01/15 02/08/21 History ALPRAZolam [Xanax] 0.5 - 1 mg PO BID PRN 04/14/17 02/08/21 History Aspirin EC [Ecotrin Low Dose] 81 mg PO DAILY 04/14/17 02/08/21 History amLODIPine [Norvasc] 2.5 mg PO DAILY 04/14/17 02/08/21 History Multivitamins, Thera [Multivitamin 1 tab PO DAILY 05/17/18 02/08/21 History (formulary)] guaiFENesin-Coden 100-10MG/5ML 5 ml PO Q6H PRN #0 ml 06/27/18 02/08/21 Rx [Robitussin AC] Ondansetron HCl [Zofran] 4 mg PO Q8H PRN #21 tablet 11/19/18 02/08/21 Rx Pantoprazole Sodium [Protonix] 40 mg PO DAILY #30 tablet. 11/19/18 02/08/21 Rx Diphenoxylate HCl/Atropine 1 tab PO TID PRN 02/08/21 02/08/21 History [Lomotil 2.5-0.025 mg Tablet] Levothyroxine Sodium 125 mcg PO DAILY 02/08/21 02/08/21 History Pravastatin Sodium [Pravachol] 20 mg PO DAILY 02/08/21 02/08/21 History diphenhydrAMINE HCL [Benadryl] 25 mg PO BID PRN 02/08/21 02/08/21 History Allergies Allergy/AdvReac Type Severity Reaction Status Date / Time Penicillins Allergy Swelling Verified 02/08/21 20:06 Physical Exam Vitals: Vital Signs Temp Pulse Resp BP Pulse Ox 02/11/21 07:00 97.8 F 63 18 148/73 95 02/11/21 02:00 98.0 F 62 17 147/80 98 02/10/21 20:00 97.9 F 64 18 135/76 96 02/10/21 14:19 98.0 F 60 18 129/66 98 Intake and Output 02/10/21 02/11/21 02/11/21 22:59 06:59 14:59 Intake Total 540 240 Balance 540 240 Intake: Oral 540 240 Other: Voiding Method Toilet Toilet # Voids 1 1 On physical examination, patient appears comfortable in no apparent distress. HEAD: Normocephalic, atraumatic. EYES: No scleral icterus. No conjunctival injection. MOUTH: No lesions, tongue midline. NECK: Trachea midline, no gross abnormalities. CHEST: Clear to auscultation with no wheezing or rhonchi appreciated. HEART: Regular rate and rhythm. ABDOMEN: Soft, obese. Bowel sounds are positive. No organomegaly. No guarding or rigidity. EXTREMITIES: No pedal edema. SKIN: No rashes, no jaundice. NEUROLOGIC: Alert and oriented x3. No focal deficits. Results CBC & Chem 7: 02/11/21 04:38 02/11/21 04:38 Labs: Abnormal Lab Results - Last 24 Hours (Table) 02/11/21 02/11/21 Range/Units 04:38 04:38 MCHC 31.9 L (32.0-37.0) g/dL MPV 9.3 L (9.5-12.2) fL Chloride 110 H (96-109) mmol/L Carbon Dioxide 18.4 L (21.6-31.8) mmol/L AST 39 H (13-35) U/L ALT 65 H (8-44) U/L Alkaline Phosphatase 134 H (41-126) U/L Total Protein 5.6 L (6.2-8.2) g/dL Microbiology - Last 24 Hours (Table) 02/09/21 13:50 Urine Culture - Preliminary Urine,Clean Catch Gram Neg Bacilli US - abdomen: report reviewed (Ultrasound of the abdomen with 1.3 cm CBD and evidence of prior cholecystectomy.) Assessment and Plan (1) Intractable vomiting with nausea Narrative/Plan: 75-year-old female with multiple medical comorbidities including irritable bowel syndrome diarrhea predominant, hiatal hernia and GERD who presented with intractable nausea and vomiting. Patient treated for urinary tract infection. Currently on Protonix daily at home. She reports symptoms beginning after eating chocolate. Last EGD in 11/2018 with gastritis and large hiatal hernia noted. Overall symptomatically improving. Unclear etiology, may be related to gastroenteritis, uncontrolled reflux, urinary tract infection or other etiology. Current Visit: Yes Status: Acute Code(s): R11.2 - NAUSEA WITH VOMITING, UNSPECIFIED SNOMED Code(s): 295008248 (2) Abdominal pain Current Visit: Yes Status: Acute Code(s): R10.9 - UNSPECIFIED ABDOMINAL PAIN SNOMED Code(s): 45540044 (3) Hiatal hernia Current Visit: Yes Status: Acute Code(s): K44.9 - DIAPHRAGMATIC HERNIA WITHOUT OBSTRUCTION OR GANGRENE SNOMED Code(s): 09487574 Plan: Supportive care Okay for diet as tolerated Continue Protonix Continue antiemetics as needed No plans for endoscopic evaluation at this time Follow-up with [facility] as previously scheduled Ultrasound of the abdomen reviewed Thank you for allowing us to participate in the care of the patient
--- NOTE | 2021-02-11 12:39 | P.PN ---
Progress Note - Text Progress Note Date: 02/11/21 The patient is resting comfortably bed. She is talking to her family were performed. She states that her nausea is improved. She denies any significant abdominal pain. On exam vitals are stable. End soft. Resolving ileus. Patient will be dense by the medical service
--- NOTE | 2021-02-11 13:48 | P.DS ---
Providers Date of admission: 02/08/21 20:21 Expected date of discharge: 02/11/21 Attending physician: Donald Coto Consults: 02/08/21 22:19 Consult Physician Routine Consulting Provider: Jenelle Major Consult Reason/Comments: nausea Do you want consulting provider notified?: Yes Primary care physician: [facility] Course: Diagnoses on discharge: 1. Episodes of nausea and vomiting that started 1 day prior to admission, patient has chronic nausea related to hiatal hernia, however this episode was worse than usual, patient also had vomiting. 2. Electrolyte imbalance with hyponatremia and hyperkalemia, correcting, patient is receiving IV fluid she received 1 dose of Kayexalate 15 g by mouth 3. Elevated liver enzymes, cause is not clear, at this time will hold pravastatin, will check abdomen ultrasound and monitor liver enzymes, liver enzymes improved after discontinuation of Pravachol 4. Evidence of urinary tract infection patient will be started on IV Levaquin, awaiting urine culture results, urine culture results positive for E. coli sensitive to all antibiotics 6. Underlying history of hyperlipidemia, will check fasting lipid profile, at this time will hold pravastatin due to elevated liver enzymes 7. Underlying history of hypothyroidism Will resume levothyroxine 125 g daily 8. History of chronic tremor maintained on Mysoline continue Hospital course : Stephanie Estevez, is a 75 year old female who presented to [facility] emergency room with a chief complaint of nausea and vomiting He was evaluated in the emergency room vital examination on presentation revealed a temperature of 96.3 pulse 62 respirations 16 blood pressure 139/67 pulse ox 100% on room air Laboratory data reveals a white blood count of 9.8 hemoglobin 17.0 platelet count 267 sodium 132 potassium 6.0 chloride 100 CO2 20 BUN 16 creatinine 0.63 liver enzymes were elevated with AST at 92 a LT 125 and alkaline phosphatase 151 Testing in the emergency room revealed acute abdominal series revealed no evidence of free air or bowel obstruction there are few small air-fluid levels in the mid and lower abdomen that could represent ileus or enteritis Patient was admitted to medical floor for further evaluation and treatment Past medical history is significant for history of hiatal hernia with previous gastric surgery, patient is followed by Dr. French and a surgeon at [facility], previous history of pneumonia, previous history of osteoarthritis, history of hypothyroidism, history of transient ischemic attack, and history of vitamin D deficiency On review of systems at this time she denies any complaints there is no fever or chills no headache or dizziness no chest pain no shortness of breath no palpitation no cough no nausea or vomiting no abdominal pain no diarrhea no blood in the stools no burning with urination no frequency or urgency and no hematuria, there is no weakness or numbness in any of the extremities no change in vision speech or gait. On 02/09/2021 patient was seen and examined on the medical floor, she is alert and oriented 3 in no apparent distress, she is still having some nausea but no vomiting, otherwise she denies any complaints at this time there is no fever or chills no headache or dizziness no chest pain no shortness of breath no cough no vomiting no abdominal pain no diarrhea no blood in the stools no burning with urination no frequency or urgency and no hematuria, no weakness or numbness in any of the extremities no change in vision speech or gait. Patient had an abdominal ultrasound this morning results are still pending, she will be started on cardiac diet, urine analysis revealed evidence of urinary tract infection will be started on IV Levaquin, liver enzymes are still elevated but improved since yesterday, electrolyte imbalance improved since yesterday. On 02/10/2021 she is alert and oriented 3. Patient reports that she has improved. Patient has had no further episodes throughout the night of nausea and vomiting. Patient has been maintained on clear liquid diet but requesting increase in diet to assess how she does. Will advance patient to heart healthy diet. Repeat labs currently pending. At this time patient denies chest pain or shortness of breath. Patient denies nausea vomiting or diarrhea. Patient denies any urinary burning or frequency. Patient remains on IV Levaquin urine culture pending On 02/11/2021 Patient was seen and examined on the medical floor, he is alert and oriented x 3 in no distress, he denies any complaints there is no fever or chills no headache or dizziness no chest pain no shortness of breath no palpitation no cough no nausea or vomiting no abdominal pain no diarrhea no blood in the stools no burning with urination no frequency or urgency and no hematuria, there is no weakness or numbness in any of the extremities no change in vision speech or gait. Patient is improving she will be discharged to home today she was told to discontinue taking Pravachol at this time she will also be given a prescription for Levaquin 500 mg once daily for 5 more days she will be followed in our office within one week for further evaluation and treatment Patient Condition at Discharge: Stable Plan - Discharge Summary New Discharge Prescriptions: New Levofloxacin [Levaquin] 500 mg PO Q24H tab Continue Nortriptyline HCl [Pamelor] 100 mg PO HS busPIRone HCL 15 mg PO BID lamoTRIgine [LaMICtal] 200 mg PO DAILY Zafirlukast 20 mg PO BID Estradiol 0.5 mg PO DAILY Primidone [Mysoline] 50 mg PO BID Aspirin EC [Ecotrin Low Dose] 81 mg PO DAILY ALPRAZolam [Xanax] 0.5 - 1 mg PO BID PRN PRN Reason: Anxiety amLODIPine [Norvasc] 2.5 mg PO DAILY Multivitamins, Thera [Multivitamin (formulary)] 1 tab PO DAILY guaiFENesin-Coden 100-10MG/5ML [Robitussin AC] 5 ml PO Q6H PRN #0 ml PRN Reason: Cough Pantoprazole Sodium [Protonix] 40 mg PO DAILY #30 tablet. Ondansetron HCl [Zofran] 4 mg PO Q8H PRN #21 tablet PRN Reason: Nausea Diphenoxylate HCl/Atropine [Lomotil 2.5-0.025 mg Tablet] 1 tab PO TID PRN PRN Reason: Diarrhea Levothyroxine Sodium 125 mcg PO DAILY diphenhydrAMINE HCL [Benadryl] 25 mg PO BID PRN PRN Reason: W/ANTIBIOTICS Discontinued Pravastatin Sodium [Pravachol] 20 mg PO DAILY Discharge Medication List Estradiol 0.5 mg PO DAILY 12/01/15 [History] Nortriptyline HCl [Pamelor] 100 mg PO HS 12/01/15 [History] Primidone [Mysoline] 50 mg PO BID 12/01/15 [History] Zafirlukast 20 mg PO BID 12/01/15 [History] busPIRone HCL 15 mg PO BID 12/01/15 [History] lamoTRIgine [LaMICtal] 200 mg PO DAILY 12/01/15 [History] ALPRAZolam [Xanax] 0.5 - 1 mg PO BID PRN 04/14/17 [History] Aspirin EC [Ecotrin Low Dose] 81 mg PO DAILY 04/14/17 [History] amLODIPine [Norvasc] 2.5 mg PO DAILY 04/14/17 [History] Multivitamins, Thera [Multivitamin (formulary)] 1 tab PO DAILY 05/17/18 [History] guaiFENesin-Coden 100-10MG/5ML [Robitussin AC] 5 ml PO Q6H PRN #0 ml 06/27/18 [Rx] Ondansetron HCl [Zofran] 4 mg PO Q8H PRN #21 tablet 11/19/18 [Rx] Pantoprazole Sodium [Protonix] 40 mg PO DAILY #30 tablet. 11/19/18 [Rx] Diphenoxylate HCl/Atropine [Lomotil 2.5-0.025 mg Tablet] 1 tab PO TID PRN 02/08/21 [History] Levothyroxine Sodium 125 mcg PO DAILY 02/08/21 [History] diphenhydrAMINE HCL [Benadryl] 25 mg PO BID PRN 02/08/21 [History] Levofloxacin [Levaquin] 500 mg PO Q24H tab 02/11/21 [Rx] Follow up Appointment(s)/Referral(s): Donald Coto MD [Primary Care Provider] - 1-2 days (Please call tomorrow and set up an appointment with Dr. Coto. ) Patient Instructions/Handouts: Acute Nausea and Vomiting (DC)
== END 2021-02-11 13:50 | disposition home or self-care (01) ==
LOC: EC 15:51 → 6NMEDSUR 20:21
PROVIDERS: ADMIT Internal Medicine; ATTEND Internal Medicine
DX: K44.9 Diaphragmatic hernia without obstruction or gangrene (principal); E78.5 Hyperlipidemia, unspecified; E87.1 Hypo-osmolality and hyponatremia; E87.5 Hyperkalemia; N39.0 Urinary tract infection, site not specified; B96.20 Unspecified Escherichia coli [E. coli] as the cause of diseases classified elsewhere; E03.9 Hypothyroidism, unspecified; R25.1 Tremor, unspecified; E55.9 Vitamin D deficiency, unspecified; K56.7 Ileus, unspecified; K75.9 Inflammatory liver disease, unspecified; M19.90 Unspecified osteoarthritis, unspecified site; I10 Essential (primary) hypertension; J45.909 Unspecified asthma, uncomplicated; K21.9 Gastro-esophageal reflux disease without esophagitis; K58.0 Irritable bowel syndrome with diarrhea; Z79.82 Long term (current) use of aspirin; Z79.890 Hormone replacement therapy; Z79.899 Other long term (current) drug therapy; Z88.0 Allergy status to penicillin; Z98.41 Cataract extraction status, right eye; Z98.42 Cataract extraction status, left eye; F32.9 Major depressive disorder, single episode, unspecified; F41.9 Anxiety disorder, unspecified; H91.90 Unspecified hearing loss, unspecified ear; Z90.710 Acquired absence of both cervix and uterus; Z96.653 Presence of artificial knee joint, bilateral; Z87.01 Personal history of pneumonia (recurrent); Z90.49 Acquired absence of other specified parts of digestive tract; Z86.73 Personal history of transient ischemic attack (TIA), and cerebral infarction without residual deficits; Z87.19 Personal history of other diseases of the digestive system; Z98.84 Bariatric surgery status; Z86.14 Personal history of Methicillin resistant Staphylococcus aureus infection; Z86.19 Personal history of other infectious and parasitic diseases; Z82.3 Family history of stroke; Z82.49 Family history of ischemic heart disease and other diseases of the circulatory system
CPT/HCPCS: 96376 ×2; 96361 ×3; 96365; 96366; 96372 ×3; 96375 ×2; 99285; 36415; 80061; 80053 ×4; 82150; 83690; 85025 ×4; 81001; 87086; 87077; 87186; 74022; 76700; G0378 ×5; J1200; J2765; J2405 ×3; J1956 ×2; J1650 ×3

== ENCOUNTER → 2021-03-19 | Outpatient (CLI) | payer MEDICARE ==
--- NOTE | 2021-03-21 11:29 | MM ---
Reason for exam: screening (asymptomatic). Last mammogram was performed 1 year and 1 month ago. History: Patient is postmenopausal. Family history of premenopausal breast cancer in sister and premenopausal breast cancer in maternal grandmother. Taking estrogen beginning at age 57. Physical Findings: A clinical breast exam by your physician is recommended on an annual basis and results should be correlated with mammographic findings. MG 3D Screening Mammo W/Cad Bilateral CC and MLO view(s) were taken. Prior study comparison: February 22, 2020, bilateral MG 3d screening mammo w/cad. November 02, 2018, bilateral MG 3d screening mammo w/cad. There are scattered fibroglandular densities. No significant changes when compared with prior studies. ASSESSMENT: Benign, BI-RAD 2 RECOMMENDATION: Routine screening mammogram of both breasts in 1 year.
== END | disposition home or self-care (01) ==
LOC: RADMAMWWP 14:07
PROVIDERS: ATTEND Internal Medicine
DX: Z12.31 Encounter for screening mammogram for malignant neoplasm of breast (principal); Z78.0 Asymptomatic menopausal state; Z80.3 Family history of malignant neoplasm of breast; Z79.818 Long term (current) use of other agents affecting estrogen receptors and estrogen levels
CPT/HCPCS: 77063; 77067

== ENCOUNTER 2021-04-11 03:29 | Observation (INO) | payer MEDICARE ==
[2021-04-11] MEDS ORDERED: ONDANSETRON 4 MG/2 ML VIAL IVP STA (03:38)
[2021-04-11] MEDS ORDERED: MORPHINE SULFATE 4 MG/ML SYRINGE IV STA (03:38)
[2021-04-11] MEDS ORDERED: SODIUM CHLORIDE 0.9% 1,000 ML IV STA (03:38)
--- NOTE | 2021-04-11 03:38 | ED ---
Nausea/Vomiting/Diarrhea HPI - General Chief complaint: Nausea/Vomiting/Diarrhea Stated complaint: Vomiting Time Seen by Provider: 04/11/21 03:32 Source: patient, RN notes reviewed, old records reviewed Mode of arrival: ambulatory Limitations: no limitations - History of Present Illness Initial comments: This is a 75-year-old female to the ER for evaluation of abdominal pain. Patient has history of surgery for hiatal hernia. Patient has history of severe reflux versus tenseness as well as nausea actively Tyler vomiting. Patient is presenting with nausea vomiting tonight. Her hiatal hernia with no pain. Patient does not need anything for pain. No fevers. No other complaints. MD complaint: nausea, abdominal pain -: days(s) Description of Vomiting: food contents Description of Diarrhea: water Associated Abdominal Pain: Yes Location: diffuse Radiation: none Severity: moderate Quality: cramping Consistency: constant Improves with: none Worsens with: none Context: other (none) Associated Symptoms: nausea/vomiting - Related Data Home Medications Medication Instructions Recorded Confirmed Estradiol 0.5 mg PO DAILY 12/01/15 04/11/21 Nortriptyline HCl [Pamelor] 100 mg PO HS 12/01/15 04/11/21 Primidone [Mysoline] 50 mg PO BID 12/01/15 04/11/21 Zafirlukast 20 mg PO BID 12/01/15 04/11/21 busPIRone HCL 15 mg PO BID 12/01/15 04/11/21 lamoTRIgine [LaMICtal] 200 mg PO DAILY 12/01/15 04/11/21 ALPRAZolam [Xanax] 0.5 - 1 mg PO BID PRN 04/14/17 04/11/21 Aspirin EC [Ecotrin Low Dose] 81 mg PO DAILY 04/14/17 04/11/21 amLODIPine [Norvasc] 2.5 mg PO DAILY 04/14/17 04/11/21 Multivitamins, Thera [Multivitamin 1 tab PO DAILY 05/17/18 04/11/21 (formulary)] Diphenoxylate HCl/Atropine 1 tab PO TID PRN 02/08/21 04/11/21 [Lomotil 2.5-0.025 mg Tablet] Levothyroxine Sodium 125 mcg PO DAILY 02/08/21 04/11/21 diphenhydrAMINE HCL [Benadryl] 25 mg PO BID PRN 02/08/21 04/11/21 Zolpidem Tartrate [Ambien] 10 mg PO HS PRN 04/11/21 04/11/21 Previous Rx's Medication Instructions Recorded guaiFENesin-Coden 100-10MG/5ML 5 ml PO Q6H PRN #0 ml 06/27/18 [Robitussin AC] Ondansetron HCl [Zofran] 4 mg PO Q8H PRN #21 tablet 11/19/18 Pantoprazole Sodium [Protonix] 40 mg PO DAILY #30 tablet. 11/19/18 Allergies Allergy/AdvReac Type Severity Reaction Status Date / Time Penicillins Allergy Swelling Verified 04/11/21 07:44 Review of Systems ROS Statement: Those systems with pertinent positive or pertinent negative responses have been documented in the HPI. ROS Other: All systems not noted in ROS Statement are negative. 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 Mother Additional Family Medical History / Comment(s): Mother at the age of 87yrs from either a NE or a stroke-pt unsure. General Exam Limitations: no limitations General appearance: alert, in no apparent distress Head exam: Present: atraumatic, normocephalic, normal inspection Eye exam: Present: normal appearance, PERRL, EOMI. Absent: scleral icterus, conjunctival injection, periorbital swelling ENT exam: Present: normal exam, mucous membranes moist Neck exam: Present: normal inspection. Absent: tenderness, meningismus, lymp hadenopathy Respiratory exam: Present: normal lung sounds bilaterally. Absent: respiratory distress, wheezes, rales, rhonchi, stridor Cardiovascular Exam: Present: regular rate, normal rhythm, normal heart sounds. Absent: systolic murmur, diastolic murmur, rubs, gallop, clicks GI/Abdominal exam: Present: soft, normal bowel sounds. Absent: distended, tenderness, guarding, rebound, rigid Extremities exam: Present: normal inspection, full ROM, normal capillary refill. Absent: tenderness, pedal edema, joint swelling, calf tenderness Back exam: Present: normal inspection Neurological exam: Present: alert, oriented X3, CN II-XII intact Psychiatric exam: Present: normal affect, normal mood Skin exam: Present: warm, dry, intact, normal color. Absent: rash Course Vital Signs 04/11/21 04/11/21 04/11/21 03:32 08:14 11:00 Temperature 98 F 98 F Pulse Rate 62 55 L 63 Respiratory 18 18 16 Rate Blood Pressure 131/65 137/61 147/62 O2 Sat by Pulse 97 98 95 Oximetry 04/11/21 12:14 Temperature 98 F Pulse Rate 63 Respiratory 16 Rate Blood Pressure 147/62 O2 Sat by Pulse 95 Oximetry - Reevaluation(s) Reevaluation #1: 04/11/21 04:27 Medical records reviewed Reevaluation #2: 04/11/21 Patient's pain is significantly improved here in the ER Patient informed results and questions answered Upon discharge patient doesn't fill comfortable going home secondary to persistent nausea - Consultations Consultation #1: Spoke with Dr. Coto who agrees to admit this patient Medical Decision Making - Medical Decision Making 75 female to the emergency department for evaluation of significant nausea vomiting chest pain. Patient will be admitted for symptom management hydration - Lab Data Result diagrams: 04/11/21 03:45 04/11/21 03:45 Lab Results 04/11/21 04/11/21 04/11/21 Range/Units 03:45 03:45 03:45 WBC 6.4 (3.8-10.6) k/uL RBC 4.99 (3.80-5.40) m/uL Hgb 15.9 (11.4-16.0) gm/dL Hct 47.2 H (34.0-46.0) % MCV 94.6 (80.0-100.0) fL MCH 31.9 (25.0-35.0) pg MCHC 33.7 (31.0-37.0) g/dL RDW 13.6 (11.5-15.5) % Plt Count 250 (150-450) k/uL MPV 7.0 Neutrophils % 70 % Lymphocytes % 19 % Monocytes % 5 % Eosinophils % 2 % Basophils % 1 % Neutrophils # 4.5 (1.3-7.7) k/uL Lymphocytes # 1.2 (1.0-4.8) k/uL Monocytes # 0.3 (0-1.0) k/uL Eosinophils # 0.1 (0-0.7) k/uL Basophils # 0.0 (0-0.2) k/uL Sodium 130 L (137-145) mmol/L Potassium 4.5 (3.5-5.1) mmol/L Chloride 103 (98-107) mmol/L Carbon Dioxide 19 L (22-30) mmol/L Anion Gap 8 mmol/L BUN 25 H (7-17) mg/dL Creatinine 0.74 (0.52-1.04) mg/dL Est GFR (CKD-EPI)AfAm >90 (>60 ml/min/1.73 sqM) Est GFR (CKD-EPI)NonAf 80 (>60 ml/min/1.73 sqM) Glucose 131 H (74-99) mg/dL Plasma Lactic Acid Ramiro (0.7-2.0) mmol/L Calcium 9.4 (8.4-10.2) mg/dL Phosphorus 4.0 (2.5-4.5) mg/dL Magnesium 1.8 (1.6-2.3) mg/dL Total Bilirubin 1.0 (0.2-1.3) mg/dL AST 370 H (14-36) U/L ALT 140 H (4-34) U/L Alkaline Phosphatase 183 H (38-126) U/L Troponin I (0.000-0.034) ng/mL Total Protein 6.4 (6.3-8.2) g/dL Albumin 4.2 (3.5-5.0) g/dL Lipase 17 L (23-300) U/L Urine Color Yellow Urine Appearance Cloudy H (Clear) Urine pH 5.5 (5.0-8.0) Ur Specific Ozone 1.028 (1.001-1.035) Urine Protein 1+ H (Negative) Urine Glucose (UA) Negative (Negative) Urine Ketones Trace H (Negative) Urine Blood Negative (Negative) Urine Nitrite Negative (Negative) Urine Bilirubin Negative (Negative) Urine Urobilinogen 2.0 (<2.0) mg/dL Ur Leukocyte Esterase Trace H (Negative) Urine RBC 5 (0-5) /hpf Urine WBC 3 (0-5) /hpf Ur Squamous Epith Cells 17 H (0-4) /hpf Urine Bacteria Moderate H (None) /hpf Hyaline Casts 25 H (0-2) /lpf Urine Mucus Many H (None) /hpf 04/11/21 04/11/21 Range/Units 03:45 03:45 WBC (3.8-10.6) k/uL RBC (3.80-5.40) m/uL Hgb (11.4-16.0) gm/dL Hct (34.0-46.0) % MCV (80.0-100.0) fL MCH (25.0-35.0) pg MCHC (31.0-37.0) g/dL RDW (11.5-15.5) % Plt Count (150-450) k/uL MPV Neutrophils % % Lymphocytes % % Monocytes % % Eosinophils % % Basophils % % Neutrophils # (1.3-7.7) k/uL Lymphocytes # (1.0-4.8) k/uL Monocytes # (0-1.0) k/uL Eosinophils # (0-0.7) k/uL Basophils # (0-0.2) k/uL Sodium (137-145) mmol/L Potassium (3.5-5.1) mmol/L Chloride (98-107) mmol/L Carbon Dioxide (22-30) mmol/L Anion Gap mmol/L BUN (7-17) mg/dL Creatinine (0.52-1.04) mg/dL Est GFR (CKD-EPI)AfAm (>60 ml/min/1.73 sqM) Est GFR (CKD-EPI)NonAf (>60 ml/min/1.73 sqM) Glucose (74-99) mg/dL Plasma Lactic Acid Ramiro 0.7 (0.7-2.0) mmol/L Calcium (8.4-10.2) mg/dL Phosphorus (2.5-4.5) mg/dL Magnesium (1.6-2.3) mg/dL Total Bilirubin (0.2-1.3) mg/dL AST (14-36) U/L ALT (4-34) U/L Alkaline Phosphatase (38-126) U/L Troponin I <0.012 (0.000-0.034) ng/mL Total Protein (6.3-8.2) g/dL Albumin (3.5-5.0) g/dL Lipase (23-300) U/L Urine Color Urine Appearance (Clear) Urine pH (5.0-8.0) Ur Specific Ozone (1.001-1.035) Urine Protein (Negative) Urine Glucose (UA) (Negative) Urine Ketones (Negative) Urine Blood (Negative) Urine Nitrite (Negative) Urine Bilirubin (Negative) Urine Urobilinogen (<2.0) mg/dL Ur Leukocyte Esterase (Negative) Urine RBC (0-5) /hpf Urine WBC (0-5) /hpf Ur Squamous Epith Cells (0-4) /hpf Urine Bacteria (None) /hpf Hyaline Casts (0-2) /lpf Urine Mucus (None) /hpf - EKG Data -: EKG Interpreted by Me (PG shows sinus bradycardia 59 SD 136 QRS 90 QTC 455) Disposition Clinical Impression: Intractable vomiting with nausea, Hiatal hernia Disposition: ADMITTED IP TO THIS HOSP Condition: Fair Is patient prescribed a controlled substance at d/c from ED?: No
[2021-04-11 03:58] LABS: Basophils % (A) 1 %; Eosinophils # (A) 0.1 k/uL (0-0.7); Eosinophils % (A) 2 %; HCT 47.2 % (34.0-46.0); HGB 15.9 gm/dL (11.4-16.0); Lymphocytes # (A) 1.2 k/uL (1.0-4.8); Lymphocytes % (A) 19 %; MCH 31.9 pg (25.0-35.0); MCHC 33.7 g/dL (31.0-37.0); MCV 94.6 fL (80.0-100.0); Monocytes # (A) 0.3 k/uL (0-1.0); Monocytes % (A) 5 %; Neutrophils # (A) 4.5 k/uL (1.3-7.7); Neutrophils % (A) 70 %; Platelet Count 250 k/uL (150-450); RBC 4.99 m/uL (3.80-5.40); RDW 13.6 % (11.5-15.5); WBC 6.4 k/uL (3.8-10.6)
[2021-04-11] MEDS ORDERED: FAMOTIDINE 20 MG/2 ML VIAL IV STA (04:29)
[2021-04-11] MEDS ORDERED: METOCLOPRAMIDE 5 MG/ML 2 ML VIAL IVP STA (04:29)
[2021-04-11] MEDS ORDERED: diphenhydrAMINE 50 MG/ML 1 ML VIAL IVP STA (04:29)
[2021-04-11 04:40] LABS: ALT 140 U/L (4-34); AST 370 U/L (14-36); African American GFR (CKD) >90 (>60 ml/min/1.73 sqM); Albumin 4.2 g/dL (3.5-5.0); Alkaline Phosphatase 183 U/L (38-126); Anion Gap 8 mmol/L; Blood Urea Nitrogen 25 mg/dL (7-17); Calcium 9.4 mg/dL (8.4-10.2); Carbon Dioxide 19 mmol/L (22-30); Chloride 103 mmol/L (98-107); Glucose 131 mg/dL (74-99); Lipase 17 U/L (23-300); Magnesium 1.8 mg/dL (1.6-2.3); Non-African American GFR(CKD) 80 (>60 ml/min/1.73 sqM); Potassium 4.5 mmol/L (3.5-5.1); Sodium 130 mmol/L (137-145); Total Protein 6.4 g/dL (6.3-8.2)
[2021-04-11] MEDS ORDERED: PROCHLORPERAZINE INJ 10 MG/2 ML VIAL IVP STA (05:23)
[2021-04-11 06:10] LABS: Appearance,Urine Cloudy (Clear); Bacteria,Urine Moderate /hpf; Bilirubin,Urine Negative (Negative); Blood,Urine Negative (Negative); Color,Urine Yellow; Glucose,Urine (UA) Negative (Negative); Hyaline Casts,Urine 25 /lpf (0-2); Ketones,Urine Trace (Negative); Leukocyte Esterase,Urine Trace (Negative); Mucus,Urine Many /hpf; Nitrite,Urine Negative (Negative); PH, Urine 5.5 (5.0-8.0); Protein,Urine 1+ (Negative); RBC,Urine 5 /hpf (0-5); Specific Gravity,Urine 1.028 (1.001-1.035); Squamous Epithelial Cell,Urine 17 /hpf (0-4); WBC,Urine 3 /hpf (0-5)
--- NOTE | 2021-04-11 06:10 | XR ---
EXAMINATION TYPE: XR chest 1V portable DATE OF EXAM: 04/11/2021 COMPARISON: February 08, 2021 HISTORY: Nausea and vomiting TECHNIQUE: FINDINGS: Heart is normal. Lungs are clear of consolidation. There are no hilar masses. Thoracic aort a is intact. There is no pleural effusion. There is no heart failure. There is 4 mm granuloma in the right lower lobe. IMPRESSION: No active cardiopulmonary disease. No change.
[2021-04-11] MEDS ORDERED: NALOXONE 0.4 MG/ML 1 ML VIAL IV PRN (07:06)
[2021-04-11] MEDS ORDERED: MORPHINE SULFATE 4 MG/ML SYRINGE IV PRN (07:06)
[2021-04-11] MEDS: ONDANSETRON 4 MG/2 ML VIAL IVP PRN ×2 (08:18→18:28)
[2021-04-11] MEDS: PANTOPRAZOLE 40 MG/10 ML VIAL IV SCH (08:19)
[2021-04-11] MEDS: DEXTROSE 5%-0.45% NACL 1,000 ML IV SCH ×2 (09:49→21:13)
[2021-04-11] MEDS ORDERED: ONDANSETRON 4 MG TAB PO PRN (10:56)
[2021-04-11] MEDS ORDERED: guaiFENesin-Coden 100-10MG/5ML 10 ML CUP PO PRN (10:56)
[2021-04-11] MEDS ORDERED: ALPRAZolam 0.5 MG TAB PO PRN (10:56)
[2021-04-11] MEDS ORDERED: diphenhydrAMINE 25 MG CAP PO PRN (10:56)
[2021-04-11] MEDS ORDERED: DIPHENOX-ATROP 2.5-0.025 MG 1 EACH TAB PO PRN (10:56)
[2021-04-11] MEDS: amLODIPine 2.5 MG TAB PO SCH (12:09)
[2021-04-11] MEDS: ASPIRIN 81 MG PO SCH (12:09)
--- NOTE | 2021-04-11 13:05 | US ---
EXAMINATION TYPE: US abdomen complete DATE OF EXAM: 04/11/2021 COMPARISON: NONE CLINICAL HISTORY: vomiting, elevated liver enzymes. vomiting, h.o stomach surgery where that "twisted it upside down", has episodes of vomiting that are increasing, h/o cholecystectomy and hiatal hernia EXAM MEASUREMENTS: Liver Length: 16.5 cm Gallbladder Wall: Surgically absent CBD: 1.4 cm Spleen: not seen Right Kidney: 8.2 x 3.4 x 4.3 cm Left Kidney: 10.0 x 4.5 x 4.7 cm *overlying bowel gas obscured area Pancreas: not seen Liver: limited assessment, unable to image left lobe due to gas, intercostal images of right lobe ap pear wnl Gallbladder: Surgically absent Evidence for sonographic Cronin's sign: no CBD: dilated with no focal obstruction, 1.3cm in February 2021 Spleen: not seen Right Kidney: smaller in size Left Kidney: wnl Upper IVC: wnl Abd Aorta: epigastric area completely gassed out. IMPRESSION: 1. Normal abdomen ultrasound as visualized. 2. There is limitation due to bowel gas and body habitus
[2021-04-11] MEDS: lamoTRIgine 100 MG TAB PO SCH (13:16)
[2021-04-11] MEDS: MONTELUKAST 10 MG TAB PO SCH (21:15)
[2021-04-11] MEDS: PRIMIDONE 50 MG TAB PO SCH (21:16)
[2021-04-11] MEDS: busPIRone HCl 5 MG TAB PO SCH (21:17)
[2021-04-11] MEDS: NORTRIPTYLINE 25 MG CAP PO SCH (21:18)
[2021-04-11] MEDS: ZOLPIDEM 10 MG TAB PO PRN (23:30)
[2021-04-12] MEDS: LEVOTHYROXINE 125 MCG TAB PO SCH (05:36)
[2021-04-12] MEDS: ONDANSETRON 4 MG/2 ML VIAL IVP PRN ×2 (05:36→20:29)
[2021-04-12 09:00] LABS: ALT 123 U/L (4-34); AST 117 U/L (14-36); African American GFR (CKD) >90 (>60 ml/min/1.73 sqM); Albumin 3.9 g/dL (3.5-5.0); Albumin/Globulin Ratio 1.7; Alkaline Phosphatase 127 U/L (38-126); Anion Gap 6 mmol/L; Blood Urea Nitrogen 7 mg/dL (7-17); Calcium 9.2 mg/dL (8.4-10.2); Carbon Dioxide 22 mmol/L (22-30); Chloride 107 mmol/L (98-107); Globulin 2.3 g/dL; Glucose 109 mg/dL (74-99); Magnesium 1.8 mg/dL (1.6-2.3); Non-African American GFR(CKD) 89 (>60 ml/min/1.73 sqM); Phosphorus 3.1 mg/dL (2.5-4.5); Sodium 135 mmol/L (137-145); Total Bilirubin 0.7 mg/dL (0.2-1.3); Total Protein 6.2 g/dL (6.3-8.2)
[2021-04-12] MEDS ORDERED: PANTOPRAZOLE 40 MG TABLET PO SCH (09:00)
[2021-04-12 09:01] LABS: Potassium 4.9 mmol/L (3.5-5.1)
[2021-04-12] MEDS: PANTOPRAZOLE 40 MG/10 ML VIAL IV SCH (09:01)
[2021-04-12] MEDS: lamoTRIgine 100 MG TAB PO SCH (09:02)
[2021-04-12] MEDS: ASPIRIN 81 MG PO SCH (09:02)
[2021-04-12] MEDS: busPIRone HCl 5 MG TAB PO SCH ×2 (09:02→20:27)
[2021-04-12] MEDS: MULTIVITAMINS, THERA 1 EACH TAB PO SCH (09:02)
[2021-04-12] MEDS: PRIMIDONE 50 MG TAB PO SCH ×2 (09:02→20:30)
[2021-04-12] MEDS: amLODIPine 2.5 MG TAB PO SCH (09:03)
[2021-04-12 09:42] LABS: Basophils # (A) 0.06 X 10*3/uL (0.00-0.10); Basophils % (A) 1.4 %; Eosinophils # (A) 0.34 X 10*3/uL (0.04-0.35); Eosinophils % (A) 7.8 %; HCT 42.3 % (37.2-46.3); HGB 13.8 g/dL (12.0-15.0); Lymphocytes # (A) 1.53 X 10*3/uL (0.90-5.00); Lymphocytes % (A) 35.3 %; MCH 30.6 pg (27.0-32.0); MCHC 32.6 g/dL (32.0-37.0); MCV 93.8 fL (80.0-97.0); Monocytes # (A) 0.41 X 10*3/uL (0.20-1.00); Monocytes % (A) 9.4 %; Neutrophils % (A) 46.1 %; Platelet Count 298 X 10*3/uL (140-440); RBC 4.51 X 10*6/uL (4.10-5.20); RDW 13.1 % (11.5-14.5); WBC 4.34 X 10*3/uL (4.50-10.00)
--- NOTE | 2021-04-12 10:14 | P.HPIM ---
History of Present Illness H&P Date: 04/11/21 Stephanie Estevez, he is a 75-year-old female who presented to [facility] emergency room with a chief complaint of abdominal pain nausea and vomiting He was evaluated in the emergency room vital examination on presentation revealed a temperature of 98 pulse 62 respiration 18 blood pressure 131/65 pulse ox 97% on room air Laboratory data revealed a white blood count of 6.4 hemoglobin 15.9 platelet count 250 sodium 130 potassium 4.5 chloride 103 CO2 19 BUN 25 creatinine 0.74 T was elevated at 370 ALT 140 and alkaline phosphatase 183 Testing in the emergency room revealed chest x-ray revealed no active cardiopulmonary disease, EKG revealed sinus bradycardia with nonspecific ST and T wave abnormalities. Patient was admitted to medical floor for further evaluation and treatment, abdominal ultrasound was requested to due to elevated liver enzymes. Past medical history is significant for history of hiatal hernia was previous surgery, history of hypertension, history of hyperlipidemia, history of hypothyroidism, and history of depression with anxiety Review of Systems please refer to HPI otherwise unremarkable Past Medical History Past Medical History: Asthma, GERD/Reflux, Hearing Disorder / Deafness, Hyperlipidemia, Hypertension, Liver Disease, Osteoarthritis (OA), Pneumonia, Thyroid Disorder Additional Past Medical History / Comment(s): Vertigo, bronchitis , hiatal h ernia, IBS, SBO in 2013 thought d/t viral enteritis and had hepatitis at that time thought possibly d/t viral infection, 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 Mother Additional Family Medical History / Comment(s): Mother at the age of 87yrs from either a [place] or a stroke-pt unsure. Medications and Allergies Home Medications Medication Instructions Recorded Confirmed Type Estradiol 0.5 mg PO DAILY 12/01/15 04/11/21 History Nortriptyline HCl [Pamelor] 100 mg PO HS 12/01/15 04/11/21 History Primidone [Mysoline] 50 mg PO BID 12/01/15 04/11/21 History Zafirlukast 20 mg PO BID 12/01/15 04/11/21 History busPIRone HCL 15 mg PO BID 12/01/15 04/11/21 History lamoTRIgine [LaMICtal] 200 mg PO DAILY 12/01/15 04/11/21 History ALPRAZolam [Xanax] 0.5 - 1 mg PO BID PRN 04/14/17 04/11/21 History Aspirin EC [Ecotrin Low Dose] 81 mg PO DAILY 04/14/17 04/11/21 History amLODIPine [Norvasc] 2.5 mg PO DAILY 04/14/17 04/11/21 History Multivitamins, Thera [Multivitamin 1 tab PO DAILY 05/17/18 04/11/21 History (formulary)] guaiFENesin-Coden 100-10MG/5ML 5 ml PO Q6H PRN #0 ml 06/27/18 04/11/21 Rx [Robitussin AC] Ondansetron HCl [Zofran] 4 mg PO Q8H PRN #21 tablet 11/19/18 04/11/21 Rx Pantoprazole Sodium [Protonix] 40 mg PO DAILY #30 tablet. 11/19/18 04/11/21 Rx Diphenoxylate HCl/Atropine 1 tab PO TID PRN 02/08/21 04/11/21 History [Lomotil 2.5-0.025 mg Tablet] Levothyroxine Sodium 125 mcg PO DAILY 02/08/21 04/11/21 History diphenhydrAMINE HCL [Benadryl] 25 mg PO BID PRN 02/08/21 04/11/21 History Zolpidem Tartrate [Ambien] 10 mg PO HS PRN 04/11/21 04/11/21 History Allergies Allergy/AdvReac Type Severity Reaction Status Date / Time Penicillins Allergy Swelling Verified 04/11/21 07:44 Physical Exam Vitals: Vital Signs Temp Pulse Pulse Resp BP BP Pulse Ox 04/11/21 12:54 97.6 F 60 18 148/77 97 04/11/21 12:14 98 F 63 16 147/62 95 04/11/21 11:00 63 16 147/62 95 04/11/21 08:14 98 F 55 L 18 137/61 98 04/11/21 03:32 98 F 62 18 131/65 97 Intake and Output 04/10/21 04/11/21 04/11/21 22:59 06:59 14:59 Other: Weight 77.111 kg In general patient is alert and oriented x 3 in no distress HEENT head normocephalic and atraumatic Neck is supple no JVD no goiter no lymphadenopathy no carotid bruit Chest examination is clear to auscultation no crackles no wheezing Cardiac exam reveals regular heart sounds S1 and S2 no gallops no murmurs Abdomen is soft nontender no organomegaly with normal bowel sounds Extremity exam reveals no edema no cyanosis or clubbing Neurological examination reveals no gross focal deficits Results CBC & Chem 7: 04/12/21 06:43 04/12/21 07:51 Labs: Abnormal Lab Results - Last 24 Hours (Table) 04/11/21 04/11/21 04/11/21 Range/Units 03:45 03:45 03:45 Hct 47.2 H (34.0-46.0) % Sodium 130 L (137-145) mmol/L Carbon Dioxide 19 L (22-30) mmol/L BUN 25 H (7-17) mg/dL Glucose 131 H (74-99) mg/dL AST 370 H (14-36) U/L ALT 140 H (4-34) U/L Alkaline Phosphatase 183 H (38-126) U/L Lipase 17 L (23-300) U/L Urine Appearance Cloudy H (Clear) Urine Protein 1+ H (Negative) Urine Ketones Trace H (Negative) Ur Leukocyte Esterase Trace H (Negative) Ur Squamous Epith Cells 17 H (0-4) /hpf Urine Bacteria Moderate H (None) /hpf Hyaline Casts 25 H (0-2) /lpf Urine Mucus Many H (None) /hpf Assessment and Plan Plan: Abdominal pain nausea and vomiting Known history of hiatal hernia, with history of surgery in the past Elevated liver enzymes including AST ALT and alkaline phosphatase Urination tract infection. Patient started on Cipro. Urine culture ordered Underlying history of hypertension Underlying history of hyperlipidemia Underlying history of asthma Underlying history of hypothyroidism Mild dehydration was elevated BUN to 25 At this time patient is admitted to medical floor Abdomen ultrasound was ordered to assess cause of elevated liver enzymes Symptomatic treatment for abdominal pain nausea and vomiting Will consult Dr. French patient is well known to him
--- NOTE | 2021-04-12 10:16 | P.PN ---
Subjective Progress Note Date: 04/12/21 Stephanie Estevez, jennyfer is a 75-year-old female who presented to [facility] emergency room with a chief complaint of abdominal pain nausea and vomiting He was evaluated in the emergency room vital examination on presentation revealed a temperature of 98 pulse 62 respiration 18 blood pressure 131/65 pulse ox 97% on room air Laboratory data revealed a white blood count of 6.4 hemoglobin 15.9 platelet count 250 sodium 130 potassium 4.5 chloride 103 CO2 19 BUN 25 creatinine 0.74 AST was elevated at 370 ALT 140 and alkaline phosphatase 183 Testing in the emergency room revealed chest x-ray revealed no active cardiopulmonary disease, EKG revealed sinus bradycardia with nonspecific ST and T wave abnormalities. Patient was admitted to medical floor for further evaluation and treatment, abdominal ultrasound was requested to due to elevated liver enzymes. Past medical history is significant for history of hiatal hernia was previous surgery, history of hypertension, history of hyperlipidemia, history of hypothyroidism, and history of depression with anxiety On 04/12/2021 patient's alert and oriented 3. Patient reports slight improvement with nausea and vomiting. Liver enzymes are trending down. Veronica clear liquid diet. GI service is consulted. Patient denies any chest pain or shortness of breath. Patient denies any further episodes of nausea vomiting or diarrhea. Patient denies any urinary burning or frequency. Objective - Vital Signs Vital signs: Vital Signs Temp 98.4 F 04/12/21 08:59 Pulse 56 L 04/12/21 08:59 Resp 18 04/12/21 08:59 BP 122/67 04/12/21 08:59 Pulse Ox 95 04/12/21 08:59 Intake & Output 04/11/21 04/12/21 04/12/21 18:59 06:59 18:59 Weight 77.111 kg Other: Voiding Method Toilet Toilet # Voids 1 3 - Exam In general patient is alert and oriented x 3 in no distress HEENT head normocephalic and atraumatic Neck is supple no JVD no goiter no lymphadenopathy no carotid bruit Chest examination is clear to auscultation no crackles no wheezing Cardiac exam reveals regular heart sounds S1 and S2 no gallops no murmurs Abdomen is soft nontender no organomegaly with normal bowel sounds Extremity exam reveals no edema no cyanosis or clubbing Neurological examination reveals no gross focal deficits - Labs CBC & Chem 7: 04/12/21 06:43 04/12/21 07:51 Labs: Abnormal Lab Results - Last 24 Hours (Table) 04/12/21 04/12/21 Range/Units 06:43 07:51 WBC 4.34 L (4.50-10.00) X 10*3/uL Sodium 135 L (137-145) mmol/L Glucose 109 H (74-99) mg/dL AST 117 H (14-36) U/L ALT 123 H (4-34) U/L Alkaline Phosphatase 127 H (38-126) U/L Total Protein 6.2 L (6.3-8.2) g/dL Assessment and Plan Plan: Abdominal pain nausea and vomiting Known history of hiatal hernia, with history of surgery in the past Elevated liver enzymes including AST ALT and alkaline phosphatase Urination tract infection. Patient started on Cipro. Urine culture ordered Underlying history of hypertension Underlying history of hyperlipidemia Underlying history of asthma Underlying history of hypothyroidism Mild dehydration was elevated BUN to 25 At this time patient is admitted to medical floor Abdomen ultrasound completed showing normal abdomen ultrasound Symptomatic treatment for abdominal pain nausea and vomiting Will consult Dr. French patient is well known to him
[2021-04-12] MEDS: DEXTROSE 5%-0.45% NACL 1,000 ML IV SCH (13:25)
[2021-04-12] MEDS: MONTELUKAST 10 MG TAB PO SCH (20:30)
[2021-04-12] MEDS: CIPROFLOXACIN HCL 250 MG TAB PO SCH (20:30)
[2021-04-12] MEDS: NORTRIPTYLINE 25 MG CAP PO SCH (20:30)
[2021-04-12 21:18] VITALS: RESP 18
[2021-04-13] MEDS: ZOLPIDEM 10 MG TAB PO PRN (00:46)
[2021-04-13] MEDS: DEXTROSE 5%-0.45% NACL 1,000 ML IV SCH (01:02)
[2021-04-13] MEDS: LEVOTHYROXINE 125 MCG TAB PO SCH (06:06)
[2021-04-13] MEDS: lamoTRIgine 100 MG TAB PO SCH (07:20)
[2021-04-13] MEDS: MULTIVITAMINS, THERA 1 EACH TAB PO SCH (07:20)
[2021-04-13] MEDS: amLODIPine 2.5 MG TAB PO SCH (07:20)
[2021-04-13] MEDS: CIPROFLOXACIN HCL 250 MG TAB PO SCH (07:20)
[2021-04-13] MEDS: busPIRone HCl 5 MG TAB PO SCH (07:20)
[2021-04-13] MEDS: PRIMIDONE 50 MG TAB PO SCH (07:21)
[2021-04-13] MEDS: ASPIRIN 81 MG PO SCH (07:21)
[2021-04-13] MEDS: PANTOPRAZOLE 40 MG/10 ML VIAL IV SCH (07:24)
[2021-04-13 08:45] VITALS: BP 134/67; PULSE 51; TEMP 97.5
[2021-04-13 08:54] LABS: Basophils # (A) 0.06 X 10*3/uL (0.00-0.10); Basophils % (A) 1.2 %; Eosinophils # (A) 0.29 X 10*3/uL (0.04-0.35); Eosinophils % (A) 5.9 %; HCT 43.6 % (37.2-46.3); HGB 14.1 g/dL (12.0-15.0); Lymphocytes # (A) 1.68 X 10*3/uL (0.90-5.00); Lymphocytes % (A) 34.2 %; MCH 30.3 pg (27.0-32.0); MCHC 32.3 g/dL (32.0-37.0); MCV 93.8 fL (80.0-97.0); Mean Platelet Volume 9.5 fL (9.5-12.2); Monocytes # (A) 0.44 X 10*3/uL (0.20-1.00); Neutrophils # (A) 2.42 X 10*3/uL (1.80-7.70); Neutrophils % (A) 49.3 %; Platelet Count 247 X 10*3/uL (140-440); RBC 4.65 X 10*6/uL (4.10-5.20); RDW 13.2 % (11.5-14.5); WBC 4.91 X 10*3/uL (4.50-10.00)
--- NOTE | 2021-04-13 12:17 | P.DS ---
Providers Date of admission: 04/11/21 07:06 Expected date of discharge: 04/13/21 Attending physician: Donald Coto Consults: 04/12/21 10:10 Consult Physician Routine Consulting Provider: Jenelle Major Consult Reason/Comments: Elevated liver enzymes Do you want consulting provider notified?: Yes Primary care physician: Donald [facility] Course: Diagnosis on discharge: Abdominal pain nausea and vomiting Known history of hiatal hernia, with history of surgery in the past Elevated liver enzymes including AST ALT and alkaline phosphatase Urination tract infection. Patient started on Cipro. Urine culture ordered, patient was given a prescription for Cipro at the time of discharge Underlying history of hypertension Underlying history of hyperlipidemia Underlying history of asthma Underlying history of hypothyroidism Mild dehydration was elevated BUN to 25 Hospital course: Stephanie Estevez, he is a 75-year-old female who presented to [facility] emergency room with a chief complaint of abdominal pain nausea and vomiting He was evaluated in the emergency room vital examination on presentation revealed a temperature of 98 pulse 62 respiration 18 blood pressure 131/65 pulse ox 97% on room air Laboratory data revealed a white blood count of 6.4 hemoglobin 15.9 platelet count 250 sodium 130 potassium 4.5 chloride 103 CO2 19 BUN 25 creatinine 0.74 AST was elevated at 370 ALT 140 and alkaline phosphatase 183 Testing in the emergency room revealed chest x-ray revealed no active cardiopulmonary disease, EKG revealed sinus bradycardia with nonspecific ST and T wave abnormalities. Patient was admitted to medical floor for further evaluation and treatment, abdominal ultrasound was requested to due to elevated liver enzymes. Past medical history is significant for history of hiatal hernia was previous surgery, history of hypertension, history of hyperlipidemia, history of hypothyroidism, and history of depression with anxiety On 04/12/2021 patient's alert and oriented 3. Patient reports slight improvement with nausea and vomiting. Liver enzymes are trending down. Veronica clear liquid diet. GI service is consulted. Patient denies any chest pain or shortness of breath. Patient denies any further episodes of nausea vomiting or diarrhea. Patient denies any urinary burning or frequency. On 04/13/2021, patient was seen and examined on the medical floor, she is alert and oriented 3 in no apparent distress, there is no fever or chills no headache or dizziness, no chest pain no shortness of breath no cough, nausea improved, there is no vomiting no abdominal pain no diarrhea no blood in the stools, and no urinary symptoms. Patient improved and is able to tolerate diet well, liver enzymes are trending down. At this time will discharge patient to home, will follow in the office in 2-3 days for further evaluation and treatment. Patient Condition at Discharge: Fair Plan - Discharge Summary Discharge Rx Participant: No New Discharge Prescriptions: New Ciprofloxacin HCl [Cipro] 250 mg PO BID tab Continue Nortriptyline HCl [Pamelor] 100 mg PO HS busPIRone HCL 15 mg PO BID lamoTRIgine [LaMICtal] 200 mg PO DAILY Zafirlukast 20 mg PO BID Estradiol 0.5 mg PO DAILY Primidone [Mysoline] 50 mg PO BID Aspirin EC [Ecotrin Low Dose] 81 mg PO DAILY ALPRAZolam [Xanax] 0.5 - 1 mg PO BID PRN PRN Reason: Anxiety amLODIPine [Norvasc] 2.5 mg PO DAILY Multivitamins, Thera [Multivitamin (formulary)] 1 tab PO DAILY guaiFENesin-Coden 100-10MG/5ML [Robitussin AC] 5 ml PO Q6H PRN #0 ml PRN Reason: Cough Pantoprazole Sodium [Protonix] 40 mg PO DAILY #30 tablet. Ondansetron HCl [Zofran] 4 mg PO Q8H PRN #21 tablet PRN Reason: Nausea Diphenoxylate HCl/Atropine [Lomotil 2.5-0.025 mg Tablet] 1 tab PO TID PRN PRN Reason: Diarrhea Zolpidem Tartrate [Ambien] 10 mg PO HS PRN PRN Reason: Insomnia Levothyroxine Sodium 125 mcg PO DAILY diphenhydrAMINE HCL [Benadryl] 25 mg PO BID PRN PRN Reason: W/ANTIBIOTICS Discharge Medication List Estradiol 0.5 mg PO DAILY 12/01/15 [History] Nortriptyline HCl [Pamelor] 100 mg PO HS 12/01/15 [History] Primidone [Mysoline] 50 mg PO BID 12/01/15 [History] Zafirlukast 20 mg PO BID 12/01/15 [History] busPIRone HCL 15 mg PO BID 12/01/15 [History] lamoTRIgine [LaMICtal] 200 mg PO DAILY 12/01/15 [History] ALPRAZolam [Xanax] 0.5 - 1 mg PO BID PRN 04/14/17 [History] Aspirin EC [Ecotrin Low Dose] 81 mg PO DAILY 04/14/17 [History] amLODIPine [Norvasc] 2.5 mg PO DAILY 04/14/17 [History] Multivitamins, Thera [Multivitamin (formulary)] 1 tab PO DAILY 05/17/18 [History] guaiFENesin-Coden 100-10MG/5ML [Robitussin AC] 5 ml PO Q6H PRN #0 ml 06/27/18 [Rx] Ondansetron HCl [Zofran] 4 mg PO Q8H PRN #21 tablet 11/19/18 [Rx] Pantoprazole Sodium [Protonix] 40 mg PO DAILY #30 tablet.dr 11/19/18 [Rx] Diphenoxylate HCl/Atropine [Lomotil 2.5-0.025 mg Tablet] 1 tab PO TID PRN 02/08/21 [History] Levothyroxine Sodium 125 mcg PO DAILY 02/08/21 [History] diphenhydrAMINE HCL [Benadryl] 25 mg PO BID PRN 02/08/21 [History] Zolpidem Tartrate [Ambien] 10 mg PO HS PRN 04/11/21 [History] Ciprofloxacin HCl [Cipro] 250 mg PO BID tab 04/13/21 [Rx] Follow up Appointment(s)/Referral(s): Donald Coto MD [Primary Care Provider] - 1-2 days Patient Instructions/Handouts: Acute Nausea and Vomiting (ED)
[2021-04-13 13:54] LABS: Albumin 4.1 g/dL (3.80-4.90); Albumin/Globulin Ratio 2.93 (1.60-3.17); Anion Gap 11.3 mmol/L (4.00-12.00); BUN/Creat Ratio 12.5 Ratio (12.00-20.00); Calcium 9.1 mg/dL (8.7-10.3); Carbon Dioxide 22.7 mmol/L (21.6-31.8); Globulin 1.4 g/dL (1.6-3.3); Non-African American GFR(CKD) 71.6 (60.0-200.0); Potassium 4.2 mmol/L (3.5-5.5); Total Bilirubin 0.4 mg/dL (0.3-1.2); Total Protein 5.5 g/dL (6.2-8.2)
== END 2021-04-13 13:09 | disposition home or self-care (01) ==
LOC: EC 03:29 → 6NMEDSUR 07:06
PROVIDERS: ADMIT Internal Medicine; ATTEND Internal Medicine
DX: R11.2 Nausea with vomiting, unspecified (principal); K44.9 Diaphragmatic hernia without obstruction or gangrene; R74.8 Abnormal levels of other serum enzymes; I10 Essential (primary) hypertension; E78.5 Hyperlipidemia, unspecified; J45.909 Unspecified asthma, uncomplicated; E03.9 Hypothyroidism, unspecified; E86.0 Dehydration; F41.8 Other specified anxiety disorders; H91.90 Unspecified hearing loss, unspecified ear; Z79.82 Long term (current) use of aspirin; Z79.890 Hormone replacement therapy; Z79.899 Other long term (current) drug therapy; Z88.0 Allergy status to penicillin; Z87.01 Personal history of pneumonia (recurrent); Z86.14 Personal history of Methicillin resistant Staphylococcus aureus infection; K21.9 Gastro-esophageal reflux disease without esophagitis; K58.9 Irritable bowel syndrome, unspecified; K75.9 Inflammatory liver disease, unspecified; M19.90 Unspecified osteoarthritis, unspecified site; Z90.710 Acquired absence of both cervix and uterus; Z98.41 Cataract extraction status, right eye; Z98.42 Cataract extraction status, left eye; Z96.653 Presence of artificial knee joint, bilateral; Z90.49 Acquired absence of other specified parts of digestive tract; Z87.19 Personal history of other diseases of the digestive system; Z82.3 Family history of stroke; Z82.49 Family history of ischemic heart disease and other diseases of the circulatory system
CPT/HCPCS: 99285; 96376 ×3; 96361 ×3; 96374; 96375; 36415; 93005; 80053 ×3; 83605; 83690; 83735 ×2; 84100 ×2; 84484; 85025 ×3; 81001; 87086; 71045; 76700; G0378 ×3; J1200; J0780; J2765; J2405 ×2; C9113 ×2

== ENCOUNTER 2022-05-03 02:43 | Emergency (ER) | payer MEDICARE ==
[2022-05-03] MEDS ORDERED: dexAMETHasone 2 MG TAB PO STA (03:12)
--- NOTE | 2022-05-03 03:30 | ED ---
General Adult HPI - General Chief complaint: Upper Respiratory Infection Stated complaint: SOB Time Seen by Provider: 05/03/22 03:06 Source: patient Mode of arrival: ambulatory Limitations: no limitations - History of Present Illness Initial comments: This patient is a 77-year-old woman who presents to have evaluation for cough and shortness of breath. She states the symptoms have been getting worse over past 2 days. She did have positive COVID-19 test. The patient states that cough is nonproductive. There is no chest pain. -: days(s) Consistency: constant Improves with: none Worsens with: none Associated Symptoms: cough, shortness of breath Treatments Prior to Arrival: none - Related Data Home Medications Medication Instructions Recorded Confirmed Nortriptyline HCl [Pamelor] 100 mg PO HS 12/01/15 04/11/21 Primidone [Mysoline] 50 mg PO BID 12/01/15 04/11/21 Zafirlukast 20 mg PO BID 12/01/15 04/11/21 busPIRone HCL 15 mg PO BID 12/01/15 04/11/21 estradioL [Estradiol] 0.5 mg PO DAILY 12/01/15 04/11/21 lamoTRIgine [LaMICtal] 200 mg PO DAILY 12/01/15 04/11/21 ALPRAZolam [Xanax] 0.5 - 1 mg PO BID PRN 04/14/17 04/11/21 Aspirin EC [Ecotrin Low Dose] 81 mg PO DAILY 04/14/17 04/11/21 amLODIPine [Norvasc] 2.5 mg PO DAILY 04/14/17 04/11/21 Multivitamins, Thera [Multivitamin 1 tab PO DAILY 05/17/18 04/11/21 (formulary)] Diphenoxylate HCl/Atropine 1 tab PO TID PRN 02/08/21 04/11/21 [Lomotil 2.5-0.025 mg Tablet] Levothyroxine Sodium 125 mcg PO DAILY 02/08/21 04/11/21 diphenhydrAMINE HCL [Benadryl] 25 mg PO BID PRN 02/08/21 04/11/21 Zolpidem Tartrate [Ambien] 10 mg PO HS PRN 04/11/21 04/11/21 Previous Rx's Medication Instructions Recorded guaiFENesin-Coden 100-10MG/5ML 5 ml PO Q6H PRN #0 ml 06/27/18 [Robitussin AC] Pantoprazole Sodium [Protonix] 40 mg PO DAILY #30 tablet. 11/19/18 ondansetron HCL [Zofran] 4 mg PO Q8H PRN #21 tablet 11/19/18 Ciprofloxacin HCl [Cipro] 250 mg PO BID tab 04/13/21 Allergies Allergy/AdvReac Type Severity Reaction Status Date / Time Penicillins Allergy Swelling Verified 05/03/22 02:52 Review of Systems ROS Statement: Those systems with pertinent positive or pertinent negative responses have been documented in the HPI. ROS Other: All systems not noted in ROS Statement are negative. Constitutional: Reports: fever, chills. Denies: weakness ENT: Reports: congestion. Denies: throat pain Respiratory: Reports: cough, dyspnea. Denies: hemoptysis Cardiovascular: Denies: chest pain, palpitations, orthopnea, edema, syncope Gastrointestinal: Denies: abdominal pain, vomiting, diarrhea Genitourinary: Denies: dysuria, hematuria Musculoskeletal: Denies: back pain Skin: Denies: rash Neurological: Denies: headache, weakness Past Medical History Past Medical History: Asthma, GERD/Reflux, Hearing Disorder / Deafness, Hyperlipidemia, Hypertension, Liver Disease, Osteoarthritis (OA), Pneumonia, Thyroid Disorder Additional Past Medical History / Comment(s): Vertigo, bronchitis , hiatal hernia, IBS, SBO in 2013 thought d/t viral enteritis and had hepatitis at that time thought possibly d/t viral infection, stomeach "flipped" and corrected dur ing Artie surgery, pancreatitis, , arthritis occasional pain in legs/hips, past shingelles, fall in June 2018 and had kidney bruised and L elbow lump recently drained. 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 Mother Additional Family Medical History / Comment(s): Mother at the age of 87yrs from either a [place] or a stroke-pt unsure. General Exam Limitations: no limitations General appearance: alert, in no apparent distress Head exam: Present: atraumatic, normocephalic Eye exam: Present: normal appearance. Absent: scleral icterus, conjunctival injection Neck exam: Present: normal inspection Respiratory exam: Present: rales. Absent: respiratory distress, wheezes, rhonchi, accessory muscle use Cardiovascular Exam: Present: regular rate, normal rhythm, normal heart sounds. Absent: systolic murmur, diastolic murmur, rubs, gallop GI/Abdominal exam: Present: soft. Absent: distended, tenderness, guarding, rebound, rigid, mass Extremities exam: Present: normal inspection, normal capillary refill. Absent: pedal edema, calf tenderness Back exam: Present: normal inspection Neurological exam: Present: alert Skin exam: Present: warm, dry, intact, normal color. Absent: rash Course Vital Signs 05/03/22 05/03/22 05/03/22 02:51 03:05 06:26 Temperature 97.8 F 98.7 F Pulse Rate 63 78 Respiratory 20 24 20 Rate Blood Pressure 150/86 132/74 O2 Sat by Pulse 94 L 97 Oximetry Medical Decision Making - Medical Decision Making Patient is 77-year-old woman here to have evaluation after positive Covid test. On reevaluation she is offered admission, but the patient feeling better and would like to go home with outpatient course of medication. Discussed appropriate further care and follow-up as well as return parameters. - Lab Data Result diagrams: 05/03/22 03:16 05/03/22 03:16 Lab Results 05/03/22 05/03/22 05/03/22 Range/Units 03:16 03:16 03:16 WBC 5.8 (3.8-10.6) k/uL RBC 4.52 (3.80-5.40) m/uL Hgb 13.8 (11.4-16.0) gm/dL Hct 42.0 (34.0-46.0) % MCV 92.8 (80.0-100.0) fL MCH 30.5 (25.0-35.0) pg MCHC 32.9 (31.0-37.0) g/dL RDW 13.7 (11.5-15.5) % Plt Count 232 (150-450) k/uL MPV 8.0 Neutrophils % 51 % Lymphocytes % 31 % Monocytes % 7 % Eosinophils % 8 % Basophils % 1 % Neutrophils # 3.0 (1.3-7.7) k/uL Lymphocytes # 1.8 (1.0-4.8) k/uL Monocytes # 0.4 (0-1.0) k/uL Eosinophils # 0.5 (0-0.7) k/uL Basophils # 0.1 (0-0.2) k/uL PT 9.7 (9.0-12.0) sec INR 0.9 (<1.2) APTT 23.6 (22.0-30.0) sec D-Dimer 0.37 (<0.60) mg/L FEU Sodium 136 L (137-145) mmol/L Potassium 4.2 (3.5-5.1) mmol/L Chloride 103 (98-107) mmol/L Carbon Dioxide 21 L (22-30) mmol/L Anion Gap 12 mmol/L BUN 17 (7-17) mg/dL Creatinine 0.70 (0.52-1.04) mg/dL Est GFR (CKD-EPI)AfAm >90 (>60 ml/min/1.73 sqM) Est GFR (CKD-EPI)NonAf 83 (>60 ml/min/1.73 sqM) Glucose 143 H (74-99) mg/dL Plasma Lactic Acid Ramiro (0.7-2.0) mmol/L Calcium 8.9 (8.4-10.2) mg/dL Total Bilirubin 0.2 (0.2-1.3) mg/dL AST 23 (14-36) U/L ALT 15 (4-34) U/L Alkaline Phosphatase 124 (38-126) U/L Troponin I (0.000-0.034) ng/mL NT-Pro-B Natriuret Pep pg/mL Total Protein 5.9 L (6.3-8.2) g/dL Albumin 4.0 (3.5-5.0) g/dL 05/03/22 05/03/22 05/03/22 Range/Units 03:16 03:16 03:16 WBC (3.8-10.6) k/uL RBC (3.80-5.40) m/uL Hgb (11.4-16.0) gm/dL Hct (34.0-46.0) % MCV (80.0-100.0) fL MCH (25.0-35.0) pg MCHC (31.0-37.0) g/dL RDW (11.5-15.5) % Plt Count (150-450) k/uL MPV Neutrophils % % Lymphocytes % % Monocytes % % Eosinophils % % Basophils % % Neutrophils # (1.3-7.7) k/uL Lymphocytes # (1.0-4.8) k/uL Monocytes # (0-1.0) k/uL Eosinophils # (0-0.7) k/uL Basophils # (0-0.2) k/uL PT (9.0-12.0) sec INR (<1.2) APTT (22.0-30.0) sec D-Dimer (<0.60) mg/L FEU Sodium (137-145) mmol/L Potassium (3.5-5.1) mmol/L Chloride (98-107) mmol/L Carbon Dioxide (22-30) mmol/L Anion Gap mmol/L BUN (7-17) mg/dL Creatinine (0.52-1.04) mg/dL Est GFR (CKD-EPI)AfAm (>60 ml/min/1.73 sqM) Est GFR (CKD-EPI)NonAf (>60 ml/min/1.73 sqM) Glucose (74-99) mg/dL Plasma Lactic Acid Ramiro 1.5 (0.7-2.0) mmol/L Calcium (8.4-10.2) mg/dL Total Bilirubin (0.2-1.3) mg/dL AST (14-36) U/L ALT (4-34) U/L Alkaline Phosphatase (38-126) U/L Troponin I <0.012 (0.000-0.034) ng/mL NT-Pro-B Natriuret Pep 88 pg/mL Total Protein (6.3-8.2) g/dL Albumin (3.5-5.0) g/dL Disposition Clinical Impression: COVID-19 Disposition: HOME SELF-CARE Condition: Good Instructions (If sedation given, give patient instructions): COVID-19 (Coronavirus Disease 2019) (ED) Is patient prescribed a controlled substance at d/c from ED?: No Referrals: Donald Coto MD [Primary Care Provider] - 1-2 days
[2022-05-03 03:35] LABS: Basophils # (A) 0.1 k/uL (0-0.2); Basophils % (A) 1 %; Eosinophils # (A) 0.5 k/uL (0-0.7); Eosinophils % (A) 8 %; HGB 13.8 gm/dL (11.4-16.0); Lymphocytes # (A) 1.8 k/uL (1.0-4.8); Lymphocytes % (A) 31 %; MCH 30.5 pg (25.0-35.0); MCHC 32.9 g/dL (31.0-37.0); MCV 92.8 fL (80.0-100.0); Monocytes # (A) 0.4 k/uL (0-1.0); Monocytes % (A) 7 %; Neutrophils % (A) 51 %; Platelet Count 232 k/uL (150-450); RBC 4.52 m/uL (3.80-5.40); RDW 13.7 % (11.5-15.5); WBC 5.8 k/uL (3.8-10.6)
[2022-05-03 03:41] LABS: INR 0.9 (<1.2); Partial Thromboplastin Time 23.6 sec (22.0-30.0); Prothrombin Time 9.7 sec (9.0-12.0)
[2022-05-03 03:45] LABS: ALT 15 U/L (4-34); AST 23 U/L (14-36); African American GFR (CKD) >90 (>60 ml/min/1.73 sqM); Alkaline Phosphatase 124 U/L (38-126); Anion Gap 12 mmol/L; Blood Urea Nitrogen 17 mg/dL (7-17); Calcium 8.9 mg/dL (8.4-10.2); Carbon Dioxide 21 mmol/L (22-30); Chloride 103 mmol/L (98-107); Glucose 143 mg/dL (74-99); Non-African American GFR(CKD) 83 (>60 ml/min/1.73 sqM); Potassium 4.2 mmol/L (3.5-5.1); Sodium 136 mmol/L (137-145); Total Bilirubin 0.2 mg/dL (0.2-1.3); Total Protein 5.9 g/dL (6.3-8.2)
--- NOTE | 2022-05-03 04:12 | XR ---
EXAMINATION TYPE: XR chest 1V portable DATE OF EXAM: 05/03/2022 COMPARISON: 04/11/2021 HISTORY: Short of breath TECHNIQUE: Single view FINDINGS: There is no heart failure nor confluent pneumonic infiltrate. There is slight blunting left costophrenic angle. There are chest leads. Heart size is normal. There are no hilar masses. IMPRESSION: There is some mild pleural reaction lateral left lung base without change. Normal heart
[2022-05-03] MEDS ORDERED: ALBUTEROL HFA INHALER INHALATION STA (04:59)
[2022-05-03 06:32] VITALS: BP 132/74; PULSE 78; RESP 20; TEMP 98.7
== END 2022-05-03 06:31 | disposition home or self-care (01) ==
LOC: EC 02:43
DX: U07.1 COVID-19 (principal); I10 Essential (primary) hypertension; J45.909 Unspecified asthma, uncomplicated; K21.9 Gastro-esophageal reflux disease without esophagitis; E78.5 Hyperlipidemia, unspecified; E07.9 Disorder of thyroid, unspecified; Z79.899 Other long term (current) drug therapy; Z79.890 Hormone replacement therapy; Z88.0 Allergy status to penicillin
CPT/HCPCS: 36415; 94640; 93005; 85379; 83880; 80053; 83605; 84484; 85025; 85610; 85730; 71045; 99285; J8540

== ENCOUNTER 2022-05-03 15:09 | Emergency (ER) | payer MEDICARE ==
[2022-05-03 15:25] VITALS: RESP 16
--- NOTE | 2022-05-03 15:48 | ED ---
General Adult HPI - General Chief complaint: Altered Mental Status Stated complaint: AMS Time Seen by Provider: 05/03/22 15:19 Source: patient Mode of arrival: EMS Limitations: no limitations - History of Present Illness Initial comments: Dictation was produced using [employer] dictation software. please excuse any grammatical, word or spelling errors. Chief Complaint: 77-year-old female presents emergency department for altered mental status History of Present Illness: This 69-year-old female she was seen in the emergency department earlier today. She was seen for chief complaint of cough and shortness of breath. Patient tested positive for COVID-19 recently. Patient had full workup done with normal labs. Patient was discharged home with instructions to follow-up with primary care doctor. Patient is allegedly sent back to the emergency department. EMS was called by patient's daughter. Patient states she felt confused and reports visual hallucinations of her daughter. She states that she was talking to what she thought was her daughter and became upset when she didn't get a response. Shortly after she realized th at she wasn't there. Patient has no complaints at this time. Patient has any numbness and paresthesias. The ROS documented in this emergency department record has been reviewed and confirmed by me. Those systems with pertinent positive or negative responses have been documented in the HPI. All other systems are other negative and/or noncontributory. PHYSICAL EXAM: General Impression: Alert and oriented x4/4, not in acute distress HEENT: Normocephalic atraumatic, extra-ocular movements intact, pupils equal and reactive to light bilaterally, mucous membranes moist. Cardiovascular: Heart regular rate and rhythm Chest: Able to complete full sentences, no retractions, no tachypnea Abdomen: abdomen soft, non-tender, non-distended, no organomegaly Musculoskeletal: Pulses present and equal in all extremities, no peripheral edema Motor: no focal deficits noted Neurological: CN II-XII grossly intact, no focal motor or sensory deficits noted Skin: Intact with no visualized rashes Psych: Normal affect and mood ED course: 69-year-old female presents emergency department for altered mental status. Patient is recently diagnosed with COVID-19. She was seen in the emergency department for cough and shortness of breath earlier today. She was discharge back to home in stable medical condition. Family member called EMS for episodes of confusion. As upon arrival are within acceptable limits. Patient's well-appearing. She is alert and 104. Neurologic symptoms unremarkable. Patient not showing any signs of altered mental status. More history obtained from nurses received report from family reports that patient has been having visual hallucinations. Is described as patient having conversations with people that aren't there. Chart review was performed from recent ER visit. She had normal labs. Patient's anal 4 not showing any signs of delirium at the moment she is completely coherent. Computed tomography scan of brain is unremarkable urinalysis is negative. Patient observed in emergency department for approximately 2 hours reevaluated bedside at 5:15 PM found to be stable medical condition. Disposition options were discussed with patient and she is agreeable for discharge back to home. Patient likely having some mild encephalopathy from COVID-19. Nonetheless she does appear to be stable. Advised follow-up with primary care doctor. - Related Data Home Medications Medication Instructions Recorded Confirmed Nortriptyline HCl [Pamelor] 100 mg PO HS 12/01/15 04/11/21 Primidone [Mysoline] 50 mg PO BID 12/01/15 04/11/21 Zafirlukast 20 mg PO BID 12/01/15 04/11/21 busPIRone HCL 15 mg PO BID 12/01/15 04/11/21 estradioL [Estradiol] 0.5 mg PO DAILY 12/01/15 04/11/21 lamoTRIgine [LaMICtal] 200 mg PO DAILY 12/01/15 04/11/21 ALPRAZolam [Xanax] 0.5 - 1 mg PO BID PRN 04/14/17 04/11/21 Aspirin EC [Ecotrin Low Dose] 81 mg PO DAILY 04/14/17 04/11/21 amLODIPine [Norvasc] 2.5 mg PO DAILY 04/14/17 04/11/21 Multivitamins, Thera [Multivitamin 1 tab PO DAILY 05/17/18 04/11/21 (formulary)] Diphenoxylate HCl/Atropine 1 tab PO TID PRN 02/08/21 04/11/21 [Lomotil 2.5-0.025 mg Tablet] Levothyroxine Sodium 125 mcg PO DAILY 02/08/21 04/11/21 diphenhydrAMINE HCL [Benadryl] 25 mg PO BID PRN 02/08/21 04/11/21 Zolpidem Tartrate [Ambien] 10 mg PO HS PRN 04/11/21 04/11/21 Previous Rx's Medication Instructions Recorded guaiFENesin-Coden 100-10MG/5ML 5 ml PO Q6H PRN #0 ml 06/27/18 [Robitussin AC] Pantoprazole Sodium [Protonix] 40 mg PO DAILY #30 tablet. 11/19/18 ondansetron HCL [Zofran] 4 mg PO Q8H PRN #21 tablet 11/19/18 Ciprofloxacin HCl [Cipro] 250 mg PO BID tab 04/13/21 Allergies Allergy/AdvReac Type Severity Reaction Status Date / Time Penicillins Allergy Swelling Verified 05/03/22 02:52 Review of Systems ROS Statement: Those systems with pertinent positive or pertinent negative responses have been documented in the HPI. ROS Other: All systems not noted in ROS Statement are negative. 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 Mother Additional Family Medical History / Comment(s): Mother at the age of 87yrs from either a [place] or a stroke-pt unsure. General Exam Limitations: no limitations Course Vital Signs 05/03/22 05/03/22 15:21 16:05 Temperature 98.9 F Pulse Rate 73 68 Respiratory 16 16 Rate Blood Pressure 145/68 145/68 O2 Sat by Pulse 95 98 Oximetry Medical Decision Making - Lab Data Lab Results 05/03/22 05/03/22 Range/Units 15:54 16:08 Urine Color Light Yellow Urine Appearance Clear (Clear) Urine pH 6.5 (5.0-8.0) Ur Specific [place] 1.011 (1.001-1.035) Urine Protein Negative (Negative) Urine Glucose (UA) Negative (Negative) Urine Ketones Negative (Negative) Urine Blood Trace H (Negative) Urine Nitrite Negative (Negative) Urine Bilirubin Negative (Negative) Urine Urobilinogen <2.0 (<2.0) mg/dL Ur Leukocyte Esterase Negative (Negative) Urine RBC 3 (0-5) /hpf Urine WBC 1 (0-5) /hpf Ur Squamous Epith Cells 3 (0-4) /hpf Urine Bacteria Occasional H (None) /hpf Urine Mucus Rare H (None) /hpf Coronavirus (PCR) Detected A (Not Detectd) Disposition Clinical Impression: Hallucination Disposition: HOME SELF-CARE Condition: Good Instructions (If sedation given, give patient instructions): Hallucinations (ED) Is patient prescribed a controlled substance at d/c from ED?: No Referrals: Donald Coto MD [Primary Care Provider] - 1-2 days Time of Disposition: 17:11
[2022-05-03 16:20] LABS: Appearance,Urine Clear (Clear); Bacteria,Urine Occasional /hpf; Bilirubin,Urine Negative (Negative); Blood,Urine Trace (Negative); Color,Urine Light Yellow; Glucose,Urine (UA) Negative (Negative); Ketones,Urine Negative (Negative); Leukocyte Esterase,Urine Negative (Negative); Mucus,Urine Rare /hpf; Nitrite,Urine Negative (Negative); PH, Urine 6.5 (5.0-8.0); Protein,Urine Negative (Negative); RBC,Urine 3 /hpf (0-5); Specific Gravity,Urine 1.011 (1.001-1.035); Squamous Epithelial Cell,Urine 3 /hpf (0-4); Urobilinogen,Urine <2.0 mg/dL (<2.0); WBC,Urine 1 /hpf (0-5)
--- NOTE | 2022-05-03 16:34 | CT ---
EXAMINATION TYPE: CT brain wo con DATE OF EXAM: 05/03/2022 COMPARISON: 06/03/2019 HISTORY: Hx Covid, experiencing confusion, seeing people that aren't there CT DLP: 1123.4 mGycm Automated exposure control for dose reduction was used. Ventricles of normal size. There is cerebral cortical atrophy. There is no mass effect or midline madhu ft. No sign of intracranial hemorrhage. The calvarium is intact. There is fairly normal aeration of t he mastoid sinuses. There is previous maxillary sinus surgery. IMPRESSION: Negative unenhanced head CT scan. No change. There is cerebral atrophy appropriate for age.
[2022-05-03 17:28] VITALS: TEMP 98.6
[2022-05-03 17:42] VITALS: BP 120/80; PULSE 65
== END 2022-05-03 17:42 | disposition home or self-care (01) ==
LOC: EC 15:09
DX: R44.1 Visual hallucinations (principal); R41.0 Disorientation, unspecified; U07.1 COVID-19; J45.909 Unspecified asthma, uncomplicated; E78.5 Hyperlipidemia, unspecified; I10 Essential (primary) hypertension; M19.90 Unspecified osteoarthritis, unspecified site; E07.9 Disorder of thyroid, unspecified; Z79.890 Hormone replacement therapy; Z79.899 Other long term (current) drug therapy; Z88.0 Allergy status to penicillin
CPT/HCPCS: 70450; 81001; 87635; 99285

== ENCOUNTER → 2022-07-23 | Outpatient (CLI) | payer MEDICARE ==
--- NOTE | 2022-07-24 13:16 | MM ---
Reason for Exam: Screening (asymptomatic). Last mammogram was performed 1 year(s) and 4 month(s) ago. Patient History: Menarche at age 11. First Full-Term at age 18. Left ovary removed at age 53. Right ovary removed at age 53. Hysterectomy at age 53. Postmenopausal. Currently using Estrogen, starting at age 57. Maternal grandmother had breast cancer. Sister had breast cancer. Risk Values: [place] 5 year model risk: 3.2%. NCI Lifetime model risk: 5.7%. Prior Study Comparison: 11/02/2018 Bilateral Screening Mammogram, [facility]. 02/22/2020 Bilateral Screening Mammogram, [facility]. 03/19/2021 Bilateral Screening Mammogram, [facility]. Tissue Density: There are scattered fibroglandular densities. Findings: Analyzed By CAD. Pattern appears symmetrical and stable. Benign spherical calcifications are present bilaterally. Focal asymmetries within the mid right breast. No suspicious groups of microcalcifications, spiculated or lobular masses, architectural distortion or other secondary signs of malignancy are mammographically apparent. Overall Assessment: Benign, BI-RAD 2 Management: Screening Mammogram of both breasts in 1 year. A negative mammogram report should not preclude additional follow up of suspicious palpable abnormalities. Patient should continue monthly self breast exam. A clinical breast exam by your physician is recommended on an annual basis and results should be correlated with mammographic findings. Electronically signed and approved by: Jose Armando Alvarado D.O. Radiologis
== END | disposition home or self-care (01) ==
LOC: RADMAMWWP 15:02
PROVIDERS: ATTEND Internal Medicine
DX: Z12.31 Encounter for screening mammogram for malignant neoplasm of breast (principal); Z78.0 Asymptomatic menopausal state; Z80.3 Family history of malignant neoplasm of breast
CPT/HCPCS: 77063; 77067

== ENCOUNTER 2022-12-25 13:34 | Emergency (ER) | payer MEDICARE ==
[2022-12-25 13:56] VITALS: TEMP 98.2
[2022-12-25 14:31] LABS: Basophils # (A) 0.1 k/uL (0-0.2); Basophils % (A) 2 %; Eosinophils # (A) 0.3 k/uL (0-0.7); Eosinophils % (A) 8 %; HCT 46.9 % (34.0-46.0); HGB 15.3 gm/dL (11.4-16.0); Lymphocytes # (A) 1.1 k/uL (1.0-4.8); Lymphocytes % (A) 30 %; MCH 30.3 pg (25.0-35.0); MCHC 32.6 g/dL (31.0-37.0); MCV 93.1 fL (80.0-100.0); Monocytes # (A) 0.2 k/uL (0-1.0); Monocytes % (A) 6 %; Neutrophils # (A) 1.9 k/uL (1.3-7.7); Neutrophils % (A) 52 %; Platelet Count 271 k/uL (150-450); RBC 5.04 m/uL (3.80-5.40); RDW 12.9 % (11.5-15.5); WBC 3.7 k/uL (3.8-10.6)
[2022-12-25 14:40] LABS: Albumin 3.8 g/dL (3.5-5.0); Calcium 8.7 mg/dL (8.4-10.2); Potassium 4.2 mmol/L (3.5-5.1); Total Bilirubin 0.5 mg/dL (0.2-1.3); Total Protein 5.9 g/dL (6.3-8.2)
--- NOTE | 2022-12-25 14:59 | ED ---
General Adult HPI - General Source: patient, family, RN notes reviewed Mode of arrival: wheelchair <Cassandra,Laura - Last Filed: 12/25/22 14:52> - General Source: RN notes reviewed, old records reviewed Limitations: no limitations - History of Present Illness -: unknown (Awoke with symptoms) Location: chest, left, upper extremity Radiation: non-radiation Severity scale (1-10): 3 Consistency: constant Improves with: none Worsens with: none Associated Symptoms: denies other symptoms <Germán Brandt - Last Filed: 12/25/22 16:57> - General Chief complaint: Extremity Injury, Upper Stated complaint: Painful, achy left arm Time Seen by Provider: 12/25/22 14:52 - History of Present Illness Initial comments: Patient is a 77-year-old female presenting to the emergency room for further evaluation of left lower arm numbness and tingling which has since resolved. She reports that she woke up during the night to severe pain in her left arm which began just above her elbow and radiated all the way to her fingertips she states that the pain changed over time to a prickliness and has now resolved. She states that at the time of the pain and prickliness the symptom was not affected by movement or elevation. She states that she took an aspirin to relieve her symptoms which was effective. At the time of the event and at this time she denies any chest pain, shortness of breath, abdominal pain, nausea, vomiting, lower extremity swelling, diaphoresis or headache. She does have a history of vertigo and took a meclizine consequently she is unsure if she would have developed any dizziness. She reports a significant family history for cardiovascular disease. (Jinny Trujillo) This is a 77-year-old female to the emergency department for evaluation of left arm numbness and tingling that she woke up with today. Patient was concern for cardiac issue and cardiac disease a strong family history of heart disease and that is why she presents to the ER with persistent and strong family history of heart disease, currently feeling well (Germán Brandt) - Related Data Home Medications Medication Instructions Recorded Confirmed Nortriptyline HCl [Pamelor] 100 mg PO HS 12/01/15 04/11/21 Primidone [Mysoline] 50 mg PO BID 12/01/15 04/11/21 Zafirlukast 20 mg PO BID 12/01/15 04/11/21 busPIRone HCL 15 mg PO BID 12/01/15 04/11/21 estradioL [Estradiol] 0.5 mg PO DAILY 12/01/15 04/11/21 lamoTRIgine [LaMICtal] 200 mg PO DAILY 12/01/15 04/11/21 ALPRAZolam [Xanax] 0.5 - 1 mg PO BID PRN 04/14/17 04/11/21 Aspirin EC [Ecotrin Low Dose] 81 mg PO DAILY 04/14/17 04/11/21 amLODIPine [Norvasc] 2.5 mg PO DAILY 04/14/17 04/11/21 Multivitamins, Thera [Multivitamin 1 tab PO DAILY 05/17/18 04/11/21 (formulary)] Diphenoxylate HCl/Atropine 1 tab PO TID PRN 02/08/21 04/11/21 [Lomotil 2.5-0.025 mg Tablet] Levothyroxine Sodium 125 mcg PO DAILY 02/08/21 04/11/21 diphenhydrAMINE HCL [Benadryl] 25 mg PO BID PRN 02/08/21 04/11/21 Zolpidem Tartrate [Ambien] 10 mg PO HS PRN 04/11/21 04/11/21 Previous Rx's Medication Instructions Recorded guaiFENesin-Coden 100-10MG/5ML 5 ml PO Q6H PRN #0 ml 06/27/18 [Robitussin AC] Pantoprazole Sodium [Protonix] 40 mg PO DAILY #30 tablet. 11/19/18 ondansetron HCL [Zofran] 4 mg PO Q8H PRN #21 tablet 11/19/18 Ciprofloxacin HCl [Cipro] 250 mg PO BID tab 04/13/21 Allergies Allergy/AdvReac Type Severity Reaction Status Date / Time Penicillins Allergy Swelling Verified 12/25/22 13:56 Review of Systems ROS Other: All systems not noted in ROS Statement are negative. <Jinny Trujillo - Last Filed: 12/25/22 14:52> ROS Other: All systems not noted in ROS Statement are negative. <Germán Brandt - Last Filed: 12/25/22 16:57> ROS Statement: Those systems with pertinent positive or pertinent negative responses have been documented in the HPI. Past Medical History Past Medical History: Asthma, GERD/Reflux, Hearing Disorder / Deafness, Hyperlipidemia, Hypertension, Liver Disease, Osteoarthritis (OA), Pneumonia, Thyroid Disorder Additional Past Medical History / Comment(s): Vertigo, bronchitis , hiatal h ernia, IBS, SBO in 2013 thought d/t viral enteritis and had hepatitis at that time thought possibly d/t viral infection, 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 Mother Additional Family Medical History / Comment(s): Mother at the age of 87yrs from either a [place] or a stroke-pt unsure. <Jinny Trujillo - Last Filed: 12/25/22 14:52> General Exam <Jinny Trujillo - Last Filed: 12/25/22 14:52> General appearance: alert, in no apparent distress Head exam: Present: atraumatic, normocephalic, normal inspection Eye exam: Present: normal appearance, PERRL, EOMI. Absent: scleral icterus, conjunctival injection, periorbital swelling ENT exam: Present: normal exam, mucous membranes moist Neck exam: Present: normal inspection. Absent: tenderness, meningismus, lymphadenopathy Respiratory exam: Present: normal lung sounds bilaterally. Absent: respiratory distress, wheezes, rales, rhonchi, stridor Cardiovascular Exam: Present: regular rate, normal rhythm, normal heart sounds. Absent: systolic murmur, diastolic murmur, rubs, gallop, clicks GI/Abdominal exam: Present: soft, normal bowel sounds. Absent: distended, tenderness, guarding, rebound, rigid Extremities exam: Present: normal inspection, full ROM, normal capillary refill. Absent: tenderness, pedal edema, joint swelling, calf tenderness Back exam: Present: normal inspection Neurological exam: Present: alert, oriented X3, CN II-XII intact Psychiatric exam: Present: normal affect, normal mood Skin exam: Present: warm, dry, intact, normal color. Absent: rash <Germán Brandt - Last Filed: 12/25/22 16:57> - General Exam Comments Initial Comments: Visual Physical Exam Vital signs reviewed General: Well-appearing, nontoxic, no acute distress. Head: Normocephalic, atraumatic Eyes: PERRLA, EOMI ENT: Airway patent Chest: Nonlabored breathing Skin: No visual rash, normal skin tone Neuro: Alert and oriented 3 Musculoskeletal/extremities: No gross abnormalities. Left arm full range of motion. Normal sensation. +2 radial pulse. (Jinny Trujillo) Course <Germán Brandt - Last Filed: 12/25/22 16:57> Vital Signs 12/25/22 13:52 Temperature 98.2 F Pulse Rate 79 Respiratory 18 Rate Blood Pressure 117/64 O2 Sat by Pulse 97 Oximetry - Reevaluation(s) Reevaluation #1: 12/25/22 16:55 Medical record is reviewed (Germán Brandt) Reevaluation #2: 12/25/22 16:55 Patient symptoms remain resolved (Germán Brandt) Reevaluation #3: 12/25/22 16:55 Patient informed results questions answered (Germán Brandt) Reevaluation #4: 12/25/22 16:55 Was pt. sent in by a medical professional or institution? @ -no Did you speak to anyone other than the patient for history? @ -no Did you review nursing and triage notes? @ -agree Were old charts reviewed? @ -no Differential Diagnosis? @ -prior EKG interpreted by me (3pts min.)? @ -yes X-rays interpreted by me (1pt min.)? @ -No CT interpreted by me (1pt min.)? @ -no U/S interpreted by me (1pt. min.)? @ -no What testing was considered but not performed? (CT, X-rays, U/S, labs)? Why? @ -no What meds were considered but not given? Why? @ -no Did you discuss the management of the patient with other professionals? @ -no Did you reconcile home meds? @ -no Was smoking cessation discussed for >3mins.? @ -no Was critical care preformed (if so, how long)? @ -no Were there social determinants of health that impacted care today? How? (Homelessness, low income, unemployed, alcoholism, drug addiction, transportation, low edu. Level, literacy, decrease access to med. care, care home, rehab)? @ -no Was there de-escalation of care discussed even if they declined? (Discuss DNR or withdrawal of care, Hospice)? @ -no What co-morbidities impacted this encounter? (DM, HTN, Smoking, COPD, CAD, Cancer, CVA, Hep., AIDS, mental health diagnosis, sleep apnea, morbid obesity)? @ -no Was patient admitted / discharged? @ -dc Undiagnosed new problem with uncertain prognosis? @ -no Drug Therapy requiring intensive monitoring for toxicity (Heparin, Nitro, Insulin, Cardizem)? @ -no Were any procedures done? @ -no Diagnosis/symptom? @ -Chest pain rule out, left arm paresthesia Acute, or Chronic, or Acute on Chronic? @ -acute Uncomplicated (without systemic symptoms) or Complicated (systemic symptoms)? @ -no Side effects of treatment? @ -no Exacerbation, Progression, or Severe Exacerbation] @ - Poses a threat to life or bodily function? @ -no (Germán Brandt) Reevaluation #5: 12/25/22 16:55 Differential Chest Pain: Stable Angina, Unstable Angina, STEMI, NSTEMI Aortic Dissection, Pneumothorax, Musculoskeletal, Esophageal Spasm GERD, Cholecystitis, Pancreatitis, Zoster, this is not meant to be an all-inclusive list. (Germán Brandt) Medical Decision Making - Lab Data Result diagrams: 12/25/22 14:07 12/25/22 14:07 <Cassandra,Laura - Last Filed: 12/25/22 14:52> - Lab Data Result diagrams: 12/25/22 14:07 12/25/22 14:07 - Radiology Data Radiology results: image reviewed <Germán Brandt - Last Filed: 12/25/22 16:57> - Medical Decision Making 77 female to the emergency department with left arm paresthesia and anxiety concern for heart disease. Patient currently feels well and can be discharged home testing here in the ER is normal (Germán Brandt) - Lab Data Lab Results 12/25/22 12/25/22 12/25/22 Range/Units 14:07 14:07 14:07 WBC 3.7 L (3.8-10.6) k/uL RBC 5.04 (3.80-5.40) m/uL Hgb 15.3 (11.4-16.0) gm/dL Hct 46.9 H (34.0-46.0) % MCV 93.1 (80.0-100.0) fL MCH 30.3 (25.0-35.0) pg MCHC 32.6 (31.0-37.0) g/dL RDW 12.9 (11.5-15.5) % Plt Count 271 (150-450) k/uL MPV 7.0 Neutrophils % 52 % Lymphocytes % 30 % Monocytes % 6 % Eosinophils % 8 % Basophils % 2 % Neutrophils # 1.9 (1.3-7.7) k/uL Lymphocytes # 1.1 (1.0-4.8) k/uL Monocytes # 0.2 (0-1.0) k/uL Eosinophils # 0.3 (0-0.7) k/uL Basophils # 0.1 (0-0.2) k/uL Sodium 135 L (137-145) mmol/L Potassium 4.2 (3.5-5.1) mmol/L Chloride 104 (98-107) mmol/L Carbon Dioxide 21 L (22-30) mmol/L Anion Gap 10 mmol/L BUN 13 (7-17) mg/dL Creatinine 0.82 (0.52-1.04) mg/dL Est GFR (CKD-EPI)AfAm 79 (>60 ml/min/1.73 sqM) Est GFR (CKD-EPI)NonAf 69 (>60 ml/min/1.73 sqM) Glucose 112 H (74-99) mg/dL Calcium 8.7 (8.4-10.2) mg/dL Total Bilirubin 0.5 (0.2-1.3) mg/dL AST 24 (14-36) U/L ALT 21 (4-34) U/L Alkaline Phosphatase 115 (38-126) U/L Troponin I <0.012 (0.000-0.034) ng/mL Total Protein 5.9 L (6.3-8.2) g/dL Albumin 3.8 (3.5-5.0) g/dL TSH (0.465-4.680) mIU/L Free T4 (0.78-2.19) ng/dL 12/25/22 Range/Units 14:56 WBC (3.8-10.6) k/uL RBC (3.80-5.40) m/uL Hgb (11.4-16.0) gm/dL Hct (34.0-46.0) % MCV (80.0-100.0) fL MCH (25.0-35.0) pg MCHC (31.0-37.0) g/dL RDW (11.5-15.5) % Plt Count (150-450) k/uL MPV Neutrophils % % Lymphocytes % % Monocytes % % Eosinophils % % Basophils % % Neutrophils # (1.3-7.7) k/uL Lymphocytes # (1.0-4.8) k/uL Monocytes # (0-1.0) k/uL Eosinophils # (0-0.7) k/uL Basophils # (0-0.2) k/uL Sodium (137-145) mmol/L Potassium (3.5-5.1) mmol/L Chloride (98-107) mmol/L Carbon Dioxide (22-30) mmol/L Anion Gap mmol/L BUN (7-17) mg/dL Creatinine (0.52-1.04) mg/dL Est GFR (CKD-EPI)AfAm (>60 ml/min/1.73 sqM) Est GFR (CKD-EPI)NonAf (>60 ml/min/1.73 sqM) Glucose (74-99) mg/dL Calcium (8.4-10.2) mg/dL Total Bilirubin (0.2-1.3) mg/dL AST (14-36) U/L ALT (4-34) U/L Alkaline Phosphatase (38-126) U/L Troponin I (0.000-0.034) ng/mL Total Protein (6.3-8.2) g/dL Albumin (3.5-5.0) g/dL TSH <0.015 L (0.465-4.680) mIU/L Free T4 2.02 (0.78-2.19) ng/dL Disposition <Jinny Trujillo - Last Filed: 12/25/22 14:52> Is patient prescribed a controlled substance at d/c from ED?: No Time of Disposition: 16:45 <Germán Brandt - Last Filed: 12/25/22 16:57> Clinical Impression: Arm paresthesia, left, Atypical chest pain Disposition: HOME SELF-CARE Condition: Good Instructions (If sedation given, give patient instructions): Paresthesia (ED) Referrals: Curt Gallego MD [STAFF PHYSICIAN] - 1-2 days
[2022-12-25 16:13] LABS: T4, Free (Free Thyroxine) 2.02 ng/dL (0.78-2.19)
[2022-12-25 17:06] VITALS: BP 106/69; PULSE 66; RESP 16
== END 2022-12-25 17:06 | disposition home or self-care (01) ==
LOC: EC 13:34
DX: R20.2 Paresthesia of skin (principal); R07.89 Other chest pain; I10 Essential (primary) hypertension; E78.5 Hyperlipidemia, unspecified; F32.A Depression, unspecified; F41.9 Anxiety disorder, unspecified; J45.909 Unspecified asthma, uncomplicated; K21.9 Gastro-esophageal reflux disease without esophagitis; M19.90 Unspecified osteoarthritis, unspecified site; Z79.82 Long term (current) use of aspirin; Z79.899 Other long term (current) drug therapy; Z88.0 Allergy status to penicillin; Z90.49 Acquired absence of other specified parts of digestive tract
CPT/HCPCS: 36415; 80053; 84439; 84443; 84484; 85025; 93005; 99283

== ENCOUNTER 2023-05-23 17:09 | Observation (INO) | payer MEDICARE ==
[2023-05-23] MEDS ORDERED: IPRATROPIUM-ALBUTEROL 3 ML NEB INHALATION STA ×2 (18:03→20:20)
[2023-05-23] MEDS ORDERED: methylPREDNISolone SOD SUCCI 125 MG/2 ML VIAL IV STA (18:03)
--- NOTE | 2023-05-23 19:08 | ED ---
General Adult HPI - General Chief complaint: Shortness of Breath Stated complaint: Cough Time Seen by Provider: 05/23/23 17:50 Source: patient Mode of arrival: ambulatory Limitations: no limitations - History of Present Illness Initial comments: 78-year-old female presenting with chief complaint of cough and difficulty breathing. Patient was diagnosed with bronchitis over a week ago, she finished her course of doxycycline and steroids about 4 days ago. She states that 2 days ago her cough and shortness of breath began worsening. She states that at times she has some chest discomfort from coughing. She takes albuterol at home as needed. She has never been a smoker. No lower extremity swelling. No palpitations. No lightheadedness. No weakness. - Related Data Home Medications Medication Instructions Recorded Confirmed Nortriptyline HCl [Pamelor] 100 mg PO HS 12/01/15 05/23/23 Primidone [Mysoline] 50 mg PO TID 12/01/15 05/23/23 Zafirlukast 20 mg PO BID 12/01/15 05/23/23 busPIRone HCL 15 mg PO BID 12/01/15 05/23/23 estradioL [Estradiol] 0.5 mg PO DAILY 12/01/15 05/23/23 lamoTRIgine [LaMICtal] 200 mg PO DAILY 12/01/15 05/23/23 ALPRAZolam [Xanax] 1 mg PO HS 04/14/17 05/23/23 Aspirin EC [Ecotrin Low Dose] 81 mg PO DAILY 04/14/17 05/23/23 amLODIPine [Norvasc] 2.5 mg PO DAILY 04/14/17 05/23/23 Multivitamins, Thera [Multivitamin 1 tab PO DAILY 05/17/18 05/23/23 (formulary)] Diphenoxylate HCl/Atropine 1 tab PO TID PRN 02/08/21 05/23/23 [Lomotil 2.5-0.025 mg Tablet] Zolpidem Tartrate [Ambien] 10 mg PO HS PRN 04/11/21 05/23/23 ALPRAZolam [Xanax] 0.5 mg PO DAILY 05/23/23 05/23/23 Albuterol Sulfate [Albuterol 1 - 2 puff PO RT-Q4H PRN 05/23/23 05/23/23 Sulfate Hfa] Cetirizine HCl [Zyrtec] 10 mg PO DAILY 05/23/23 05/23/23 Ergocalciferol (Vitamin D2) 1,250 mcg PO WEEKLY 05/23/23 05/23/23 [Drisdol (50,000 Iu)] Levothyroxine Sodium [Synthroid] 112 mcg PO DAILY 05/23/23 05/23/23 Pantoprazole Sodium [Protonix] 20 mg PO BID 05/23/23 05/23/23 guaiFENesin-Coden 100-10MG/5ML 10 ml PO Q4H PRN 05/23/23 05/23/23 [Robitussin AC] ondansetron HCL [Zofran] 4 mg PO BID PRN 05/23/23 05/23/23 Allergies Allergy/AdvReac Type Severity Reaction Status Date / Time Penicillins Allergy Facial Verified 05/23/23 20:57 Swelling Review of Systems ROS Statement: Those systems with pertinent positive or pertinent negative responses have been documented in the HPI. ROS Other: All systems not noted in ROS Statement are negative. 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 Mother Additional Family Medical History / Comment(s): Mother at the age of 87yrs from either a RI or a stroke-pt unsure. General Exam Limitations: no limitations General appearance: alert, in no apparent distress Head exam: Present: atraumatic, normocephalic, normal inspection Eye exam: Present: normal appearance, EOMI Neck exam: Present: normal inspection, full ROM Respiratory exam: Present: wheezes. Absent: respiratory distress, rales, rhonchi, stridor Cardiovascular Exam: Present: regular rate, normal rhythm, normal heart sounds. Absent: systolic murmur, diastolic murmur, rubs, gallop, clicks Extremities exam: Absent: pedal edema Neurological exam: Present: alert, oriented X3 Psychiatric exam: Present: normal affect, normal mood Skin exam: Present: warm, dry, intact, normal color. Absent: rash Course Vital Signs 05/23/23 05/23/23 05/23/23 17:20 18:27 18:36 Temperature 98.3 F Pulse Rate 75 80 84 Respiratory 18 Rate Blood Pressure 131/56 O2 Sat by Pulse 96 Oximetry 05/23/23 05/23/23 05/23/23 21:00 22:41 22:52 Temperature Pulse Rate 71 80 83 Respiratory 16 Rate Blood Pressure 145/59 O2 Sat by Pulse 97 Oximetry 05/23/23 22:59 Temperature Pulse Rate 80 Respiratory 20 Rate Blood Pressure 161/76 O2 Sat by Pulse 98 Oximetry Medical Decision Making - Medical Decision Making Was pt. sent in by a medical professional or institution (, PA, RESIDENTIAL FINISH CARPENTER, urgent care, hospital, or fpc...) When possible be specific @ -No Did you speak to anyone other than the patient for history (EMS, parent, family, police, friend...)? What history was obtained from this source @ -No Did you review nursing and triage notes (agree or disagree)? Why? @ -I reviewed and agree with nursing and triage notes Were old charts reviewed (outside hosp., previous admission, EMS record, old EKG, old radiological studies, urgent care reports/EKG's, fpc records)? Report findings @ -No old charts were reviewed Differential Diagnosis (chest pain, altered mental status, abdominal pain women, abdominal pain men, vaginal bleeding, weakness, fever, dyspnea, syncope, headache, dizziness, GI bleed, back pain, seizure, CVA, palpatations, mental health, musculoskeletal)? @ -MDM Differential Dyspnea: Coronary syndrome, arrhythmia, tamponade, asthma, COPD, pulmonary embolism, pneumonia, pneumothorax, pulmonary effusion, anaphylaxis, diabetic ketoacidosis, flailed chest, pulmonary contusion, diaphragmatic rupture, anemia, neuromuscular this is not meant to be an all-inclusive list. EKG interpreted by me (3pts min.). @ -As above X-rays interpreted by me (1pt min.). @ -None done CT interpreted by me (1pt min.). @ -None done U/S interpreted by me (1pt. min.). @ -None done What testing was considered but not performed or refused? (CT, X-rays, U/S, labs)? Why? @ -None What meds were considered but not given or refused? Why? @ -None Did you discuss the management of the patient with other professionals (florin lala i.e. , PA, RESIDENTIAL FINISH CARPENTER, lab, RT, psych nurse, social scientist, die caster, teacher, commissioned police officer, comp field case manager)? Give summary @ -I spoke with Dr. Coto who accepted admission Was smoking cessation discussed for >3mins.? @ -No Was critical care preformed (if so, how long)? @ -No Were there social determinants of health that impacted care today? How? (Homelessness, low income, unemployed, alcoholism, drug addiction, transportation, low edu. Level, literacy, decrease access to med. care, halfway, rehab)? @ -No Was there de-escalation of care discussed even if they declined (Discuss DNR or withdrawal of care, Hospice)? DNR status @ -No What co-morbidities impacted this encounter? (DM, HTN, Smoking, COPD, CAD, Cancer, CVA, ARF, Chemo, Hep., AIDS, mental health diagnosis, sleep apnea, morbid obesity)? @ -Asthma Was patient admitted / discharged? Hospital course, mention meds given and route, prescriptions, significant lab abnormalities, going to OR and other pertinent info. @ -78-year-old female with cough and shortness of breath. Symptoms have been ongoing for a few weeks. On physical examination there are diffuse inspiratory next 3 wheezes heard on auscultation. Lab work shows no leukocytosis or anemia. Negative troponin and BMP. Chest x-ray is clear and she is negative for Covid, influenza, RSV. Patient still wheezing after 2 nebs and Solu-Medrol, she'll be admitted for asthma exacerbation. She is agreeable with this plan. I discussed this case with my attending Dr. Mcgrath Undiagnosed new problem with uncertain prognosis? @ -No Drug Therapy requiring intensive monitoring for toxicity (Heparin, Nitro, Insulin, Cardizem)? @ -No Were any procedures done? @ -No Diagnosis/symptom? @ -Asthma exacerbation Acute, or Chronic, or Acute on Chronic? @ -Acute Uncomplicated (without systemic symptoms) or Complicated (systemic symptoms)? @ -Complicated Side effects of treatment? @ -No Exacerbation, Progression, or Severe Exacerbation? @ -Exacerbation Poses a threat to life or bodily function? How? (Chest pain, USA, RI, pneumonia, PE, COPD, DKA, ARF, appy, cholecystitis, CVA, Diverticulitis, Homicidal, Suic idal, threat to staff... and all critical care pts) @ -yes - Lab Data Result diagrams: 05/23/23 19:10 05/23/23 19:10 Lab Results 05/23/23 05/23/23 05/23/23 Range/Units 19:10 19:10 19:10 WBC 4.8 (3.8-10.6) k/uL RBC 4.92 (3.80-5.40) m/uL Hgb 15.0 (11.4-16.0) gm/dL Hct 45.5 (34.0-46.0) % MCV 92.5 (80.0-100.0) fL MCH 30.4 (25.0-35.0) pg MCHC 32.9 (31.0-37.0) g/dL RDW 13.2 (11.5-15.5) % Plt Count 171 (150-450) k/uL MPV 8.2 Neutrophils % 56 % Lymphocytes % 26 % Monocytes % 7 % Eosinophils % 8 % Basophils % 0 % Neutrophils # 2.7 (1.3-7.7) k/uL Lymphocytes # 1.2 (1.0-4.8) k/uL Monocytes # 0.3 (0-1.0) k/uL Eosinophils # 0.4 (0-0.7) k/uL Basophils # 0.0 (0-0.2) k/uL PT 10.2 (10.0-12.5) sec INR 0.9 (<1.2) APTT 21.2 L (22.0-30.0) sec Sodium 138 (137-145) mmol/L Potassium 4.0 (3.5-5.1) mmol/L Chloride 106 (98-107) mmol/L Carbon Dioxide 25 (22-30) mmol/L Anion Gap 7 mmol/L BUN 8 (7-17) mg/dL Creatinine 0.66 (0.52-1.04) mg/dL Est GFR (CKD-EPI)AfAm >90 (>60 ml/min/1.73 sqM) Est GFR (CKD-EPI)NonAf 84 (>60 ml/min/1.73 sqM) Glucose 98 (74-99) mg/dL Calcium 9.2 (8.4-10.2) mg/dL Total Bilirubin 0.5 (0.2-1.3) mg/dL AST 22 (14-36) U/L ALT 16 (4-34) U/L Alkaline Phosphatase 108 (38-126) U/L Troponin I (0.000-0.034) ng/mL NT-Pro-B Natriuret Pep 442 pg/mL Total Protein 5.9 L (6.3-8.2) g/dL Albumin 3.7 (3.5-5.0) g/dL 05/23/23 Range/Units 19:10 WBC (3.8-10.6) k/uL RBC (3.80-5.40) m/uL Hgb (11.4-16.0) gm/dL Hct (34.0-46.0) % MCV (80.0-100.0) fL MCH (25.0-35.0) pg MCHC (31.0-37.0) g/dL RDW (11.5-15.5) % Plt Count (150-450) k/uL MPV Neutrophils % % Lymphocytes % % Monocytes % % Eosinophils % % Basophils % % Neutrophils # (1.3-7.7) k/uL Lymphocytes # (1.0-4.8) k/uL Monocytes # (0-1.0) k/uL Eosinophils # (0-0.7) k/uL Basophils # (0-0.2) k/uL PT (10.0-12.5) sec INR (<1.2) APTT (22.0-30.0) sec Sodium (137-145) mmol/L Potassium (3.5-5.1) mmol/L Chloride (98-107) mmol/L Carbon Dioxide (22-30) mmol/L Anion Gap mmol/L BUN (7-17) mg/dL Creatinine (0.52-1.04) mg/dL Est GFR (CKD-EPI)AfAm (>60 ml/min/1.73 sqM) Est GFR (CKD-EPI)NonAf (>60 ml/min/1.73 sqM) Glucose (74-99) mg/dL Calcium (8.4-10.2) mg/dL Total Bilirubin (0.2-1.3) mg/dL AST (14-36) U/L ALT (4-34) U/L Alkaline Phosphatase (38-126) U/L Troponin I <0.012 (0.000-0.034) ng/mL NT-Pro-B Natriuret Pep pg/mL Total Protein (6.3-8.2) g/dL Albumin (3.5-5.0) g/dL Disposition Clinical Impression: Acute asthma exacerbation Disposition: ADMITTED IP TO THIS HOSP Condition: Fair Time of Disposition: 20:20
[2023-05-23 19:26] LABS: Basophils % (A) 0 %; Eosinophils # (A) 0.4 k/uL (0-0.7); Eosinophils % (A) 8 %; HCT 45.5 % (34.0-46.0); Lymphocytes # (A) 1.2 k/uL (1.0-4.8); Lymphocytes % (A) 26 %; MCH 30.4 pg (25.0-35.0); MCHC 32.9 g/dL (31.0-37.0); MCV 92.5 fL (80.0-100.0); Mean Platelet Volume 8.2; Monocytes # (A) 0.3 k/uL (0-1.0); Monocytes % (A) 7 %; Neutrophils # (A) 2.7 k/uL (1.3-7.7); Neutrophils % (A) 56 %; Platelet Count 171 k/uL (150-450); RBC 4.92 m/uL (3.80-5.40); RDW 13.2 % (11.5-15.5); WBC 4.8 k/uL (3.8-10.6)
[2023-05-23 19:35] LABS: ALT 16 U/L (4-34); AST 22 U/L (14-36); African American GFR (CKD) >90 (>60 ml/min/1.73 sqM); Albumin 3.7 g/dL (3.5-5.0); Alkaline Phosphatase 108 U/L (38-126); Anion Gap 7 mmol/L; Blood Urea Nitrogen 8 mg/dL (7-17); Calcium 9.2 mg/dL (8.4-10.2); Carbon Dioxide 25 mmol/L (22-30); Chloride 106 mmol/L (98-107); Glucose 98 mg/dL (74-99); Non-African American GFR(CKD) 84 (>60 ml/min/1.73 sqM); Sodium 138 mmol/L (137-145); Total Bilirubin 0.5 mg/dL (0.2-1.3); Total Protein 5.9 g/dL (6.3-8.2)
--- NOTE | 2023-05-23 19:35 | XR ---
EXAMINATION TYPE: XR chest 2V DATE OF EXAM: 05/23/2023 7:28 PM CLINICAL INDICATION:Female, 78 years old with history of difficulty breathing. COMPARISON: Chest radiograph 10/30/2022 TECHNIQUE: XR chest 2V Frontal and lateral views of the chest. FINDINGS: Lungs/Pleura: Bibasilar subsegmental atelectasis is identified. No evidence of pleural effusion or pn eumothorax. Pulmonary vascularity: Unremarkable. Heart/mediastinum: Cardiomediastinal silhouette is unremarkable. Musculoskeletal: No acute osseous pathology. Other findings: Postsurgical clips are noted in the left upper quadrant. IMPRESSION: No acute cardiopulmonary disease/process.
[2023-05-23 19:44] LABS: NT-Pro-B-Type Natriuretic Pept 442 pg/mL
[2023-05-23 19:46] LABS: INR 0.9 (<1.2); Prothrombin Time 10.2 sec (10.0-12.5)
[2023-05-23 19:59] LABS: Partial Thromboplastin Time 21.2 sec (22.0-30.0)
[2023-05-23] MEDS ORDERED: NALOXONE 0.4 MG/ML 1 ML VIAL IVP PRN (20:18)
[2023-05-23] MEDS ORDERED: IPRATROPIUM-ALBUTEROL 3 ML NEB INHALATION PRN (20:18)
[2023-05-23] MEDS: SODIUM CHLORIDE 0.9% 1,000 ML IV SCH (20:58)
[2023-05-23] MEDS ORDERED: ALPRAZolam 1 MG TAB PO SCH (23:45)
[2023-05-23] MEDS ORDERED: ZOLPIDEM 5 MG TAB PO PRN (23:53)
[2023-05-24] MEDS ORDERED: NORTRIPTYLINE 25 MG CAP PO SCH
[2023-05-24] MEDS ORDERED: guaiFENesin-Coden 100-10MG/5ML 10 ML CUP PO PRN (00:07)
[2023-05-24] MEDS: methylPREDNISolone SOD SUCCI 125 MG/2 ML VIAL IV SCH ×2 (00:50→06:45)
[2023-05-24] MEDS: busPIRone HCl 5 MG TAB PO SCH ×2 (00:51→09:21)
[2023-05-24] MEDS: PRIMIDONE 50 MG TAB PO SCH ×2 (00:51→10:08)
[2023-05-24] MEDS ORDERED: LEVOTHYROXINE 112 MCG TAB PO SCH (06:30)
[2023-05-24 08:12] VITALS: RESP 17
[2023-05-24] MEDS ORDERED: PANTOPRAZOLE 40 MG TABLET PO SCH (09:00)
[2023-05-24] MEDS ORDERED: ALPRAZolam 0.5 MG TAB PO SCH (09:00)
[2023-05-24] MEDS ORDERED: amLODIPine 2.5 MG TAB PO SCH (09:00)
[2023-05-24] MEDS ORDERED: lamoTRIgine 100 MG TAB PO SCH (09:00)
[2023-05-24] MEDS ORDERED: DIPHENOX-ATROP 2.5-0.025 MG 1 EACH TAB PO PRN (09:24)
[2023-05-24] MEDS ORDERED: ONDANSETRON 4 MG TAB PO PRN (09:24)
[2023-05-24] MEDS ORDERED: ALBUTEROL HFA INHALER INHALATION PRN (09:24)
[2023-05-24] MEDS: IPRATROPIUM-ALBUTEROL 3 ML NEB INHALATION SCH ×2 (09:27→12:37)
--- NOTE | 2023-05-24 09:28 | P.HPIM ---
History of Present Illness H&P Date: 05/24/23 Stephanie Estevez, is a 78-year-old female who presented to [facility] emergency room with a chief complaint of worsening shortness of breath and cough She was evaluated in the emergency room vital examination on presentation revealed a temperature of 98.3 pulse 75 respiration 18 blood pressure 131/56 pulse ox 96% on room air Laboratory data revealed a white blood count of 4.8 hemoglobin 15.0 platelet count 171 sodium 138 potassium 4.0 chloride 106 CO2 25 BUN 8 creatinine 0.66 influenza A and B RSV and COVID-19 testing were all negative Testing in the emergency room revealed chest x-ray revealed no evidence of acute infiltrate, EKG revealed normal sinus rhythm. Preliminary diagnosis was acute asthma exacerbation patient was started on IV Solu-Medrol and inhaled bronchodilators. Patient was admitted to medical floor for further evaluation and treatment Past Medical History Past Medical History: Asthma, GERD/Reflux, Hearing Disorder / Deafness, Hyperlipidemia, Hypertension, Liver Disease, Osteoarthritis (OA), Pneumonia, Thyroid Disorder Additional Past Medical History / Comment(s): Vertigo, bronchitis , hiatal hernia, IBS, SBO in 2013 thought d/t viral enteritis and had hepatitis at that time thought possibly d/t viral infection, 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 Mother Additional Family Medical History / Comment(s): Mother at the age of 87yrs from either a [place] or a stroke-pt unsure. Medications and Allergies Home Medications Medication Instructions Recorded Confirmed Type Nortriptyline HCl [Pamelor] 100 mg PO HS 12/01/15 05/23/23 History Primidone [Mysoline] 50 mg PO TID 12/01/15 05/23/23 History Zafirlukast 20 mg PO BID 12/01/15 05/23/23 History busPIRone HCL 15 mg PO BID 12/01/15 05/23/23 History estradioL [Estradiol] 0.5 mg PO DAILY 12/01/15 05/23/23 History lamoTRIgine [LaMICtal] 200 mg PO DAILY 12/01/15 05/23/23 History ALPRAZolam [Xanax] 1 mg PO HS 04/14/17 05/23/23 History Aspirin EC [Ecotrin Low Dose] 81 mg PO DAILY 04/14/17 05/23/23 History amLODIPine [Norvasc] 2.5 mg PO DAILY 04/14/17 05/23/23 History Multivitamins, Thera [Multivitamin 1 tab PO DAILY 05/17/18 05/23/23 History (formulary)] Diphenoxylate HCl/Atropine 1 tab PO TID PRN 02/08/21 05/23/23 History [Lomotil 2.5-0.025 mg Tablet] Zolpidem Tartrate [Ambien] 10 mg PO HS PRN 04/11/21 05/23/23 History ALPRAZolam [Xanax] 0.5 mg PO DAILY 05/23/23 05/23/23 History Albuterol Sulfate [Albuterol 1 - 2 puff PO RT-Q4H PRN 05/23/23 05/23/23 History Sulfate Hfa] Cetirizine HCl [Zyrtec] 10 mg PO DAILY 05/23/23 05/23/23 History Ergocalciferol (Vitamin D2) 1,250 mcg PO WEEKLY 05/23/23 05/23/23 History [Drisdol (50,000 Iu)] Levothyroxine Sodium [Synthroid] 112 mcg PO DAILY 05/23/23 05/23/23 History Pantoprazole Sodium [Protonix] 20 mg PO BID 05/23/23 05/23/23 History guaiFENesin-Coden 100-10MG/5ML 10 ml PO Q4H PRN 05/23/23 05/23/23 History [Robitussin AC] ondansetron HCL [Zofran] 4 mg PO BID PRN 05/23/23 05/23/23 History Allergies Allergy/AdvReac Type Severity Reaction Status Date / Time Penicillins Allergy Facial Verified 05/23/23 20:57 Swelling Physical Exam Vitals: Vital Signs Temp Pulse Pulse Resp BP BP Pulse Ox 05/24/23 07:55 97.4 F L 69 17 148/71 97 05/23/23 22:59 80 20 161/76 98 05/23/23 22:52 83 05/23/23 22:41 80 05/23/23 21:00 71 16 145/59 97 05/23/23 18:36 84 05/23/23 18:27 80 05/23/23 17:20 98.3 F 75 18 131/56 96 Intake and Output 05/23/23 05/24/23 05/24/23 22:59 06:59 14:59 Other: Weight 77.111 kg In general patient is alert and oriented x 3 in no distress HEENT head normocephalic and atraumatic Neck is supple no JVD no goiter no lymphadenopathy no carotid bruit Chest examination is clear to auscultation no crackles no wheezing Cardiac exam reveals regular heart sounds S1 and S2 no gallops no murmurs Abdomen is soft nontender no organomegaly with normal bowel sounds Extremity exam reveals no edema no cyanosis or clubbing Neurological examination reveals no gross focal deficits Results CBC & Chem 7: 05/23/23 19:10 05/23/23 19:10 Labs: Abnormal Lab Results - Last 24 Hours (Table) 05/23/23 05/23/23 Range/Units 19:10 19:10 APTT 21.2 L (22.0-30.0) sec Total Protein 5.9 L (6.3-8.2) g/dL Assessment and Plan Plan: Acute asthma exacerbation Acute purulent bronchitis but no evidence of pneumonia on chest x-ray Underlying history of hypertension Underlying history of chronic diarrhea Underlying history of hypothyroidism Underlying history of anxiety disorder Underlying history of gastroesophageal reflux disease Underlying history of essential tremor Previous history of stroke At this time patient was seen and examined on the medical floor She was started on IV Solu-Medrol and inhaled bronchodilators and has been improving No antibiotics were given in the emergency room, no need for antibiotics in view of normal chest x-ray Will follow closely
[2023-05-24] MEDS ORDERED: ASPIRIN 81 MG PO SCH (09:30)
[2023-05-24] MEDS ORDERED: MULTIVITAMINS, THERA 1 EACH TAB PO SCH (09:30)
[2023-05-24] MEDS ORDERED: LORATADINE 10 MG TAB PO SCH (09:30)
--- NOTE | 2023-05-24 09:38 | P.DS ---
Providers Date of admission: 05/23/23 20:09 Expected date of discharge: 05/24/23 Attending physician: Donald Coto Primary care physician: Donald Coto [facility] Course: Diagnosis on discharge: Acute asthma exacerbation Acute purulent bronchitis but no evidence of pneumonia on chest x-ray Underlying history of hypertension Underlying history of chronic diarrhea Underlying history of hypothyroidism Underlying history of anxiety disorder Underlying history of gastroesophageal reflux disease Underlying history of essential tremor Previous history of stroke Hospital course: Stephanie Estevez, is a 78-year-old female who presented to [facility] emergency room with a chief complaint of worsening shortness of breath and cough She was evaluated in the emergency room vital examination on presentation revealed a temperature of 98.3 pulse 75 respiration 18 blood pressure 131/56 pulse ox 96% on room air Laboratory data revealed a white blood count of 4.8 hemoglobin 15.0 platelet count 171 sodium 138 potassium 4.0 chloride 106 CO2 25 BUN 8 creatinine 0.66 influenza A and B RSV and COVID-19 testing were all negative Testing in the emergency room revealed chest x-ray revealed no evidence of acute infiltrate, EKG revealed normal sinus rhythm. Preliminary diagnosis was acute asthma exacerbation patient was started on IV Solu-Medrol and inhaled bronchodilators. Patient was admitted to medical floor for further evaluation and treatment On 05/24/2023 patient was seen and examined on the medical floor she is alert and oriented 3 in no apparent distress there is no fever or chills no headache or dizziness no chest pain, shortness of breath and cough has improved significantly, there is no nausea or vomiting no abdominal pain no diarrhea and no urinary symptoms. Patient improved she is ready to go home she was given a prescription for prednisone taper, she will be followed in our office within 1 week. Patient Condition at Discharge: Fair Plan - Discharge Summary New Discharge Prescriptions: New predniSONE 10 mg PO DIRECTED 12 Days #30 tab Continue Nortriptyline HCl [Pamelor] 100 mg PO HS busPIRone HCL 15 mg PO BID lamoTRIgine [LaMICtal] 200 mg PO DAILY Zafirlukast 20 mg PO BID estradioL [Estradiol] 0.5 mg PO DAILY Primidone [Mysoline] 50 mg PO TID Aspirin EC [Ecotrin Low Dose] 81 mg PO DAILY ALPRAZolam [Xanax] 1 mg PO HS amLODIPine [Norvasc] 2.5 mg PO DAILY Multivitamins, Thera [Multivitamin (formulary)] 1 tab PO DAILY Diphenoxylate HCl/Atropine [Lomotil 2.5-0.025 mg Tablet] 1 tab PO TID PRN PRN Reason: Diarrhea Zolpidem Tartrate [Ambien] 10 mg PO HS PRN PRN Reason: Insomnia Ergocalciferol (Vitamin D2) [Drisdol (50,000 Iu)] 1,250 mcg PO WEEKLY Pantoprazole Sodium [Protonix] 20 mg PO BID Cetirizine HCl [Zyrtec] 10 mg PO DAILY ALPRAZolam [Xanax] 0.5 mg PO DAILY guaiFENesin-Coden 100-10MG/5ML [Robitussin AC] 10 ml PO Q4H PRN PRN Reason: Cough Levothyroxine Sodium [Synthroid] 112 mcg PO DAILY ondansetron HCL [Zofran] 4 mg PO BID PRN PRN Reason: Nausea Albuterol Sulfate [Albuterol Sulfate Hfa] 1 - 2 puff PO RT-Q4H PRN PRN Reason: Shortness Of Breath Discharge Medication List Nortriptyline HCl [Pamelor] 100 mg PO HS 12/01/15 [History] Primidone [Mysoline] 50 mg PO TID 12/01/15 [History] Zafirlukast 20 mg PO BID 12/01/15 [History] busPIRone HCL 15 mg PO BID 12/01/15 [History] estradioL [Estradiol] 0.5 mg PO DAILY 12/01/15 [History] lamoTRIgine [LaMICtal] 200 mg PO DAILY 12/01/15 [History] ALPRAZolam [Xanax] 1 mg PO HS 04/14/17 [History] Aspirin EC [Ecotrin Low Dose] 81 mg PO DAILY 04/14/17 [History] amLODIPine [Norvasc] 2.5 mg PO DAILY 04/14/17 [History] Multivitamins, Thera [Multivitamin (formulary)] 1 tab PO DAILY 05/17/18 [History] Diphenoxylate HCl/Atropine [Lomotil 2.5-0.025 mg Tablet] 1 tab PO TID PRN 02/08/21 [History] Zolpidem Tartrate [Ambien] 10 mg PO HS PRN 04/11/21 [History] ALPRAZolam [Xanax] 0.5 mg PO DAILY 05/23/23 [History] Albuterol Sulfate [Albuterol Sulfate Hfa] 1 - 2 puff PO RT-Q4H PRN 05/23/23 [History] Cetirizine HCl [Zyrtec] 10 mg PO DAILY 05/23/23 [History] Ergocalciferol (Vitamin D2) [Drisdol (50,000 Iu)] 1,250 mcg PO WEEKLY 05/23/23 [History] Levothyroxine Sodium [Synthroid] 112 mcg PO DAILY 05/23/23 [History] Pantoprazole Sodium [Protonix] 20 mg PO BID 05/23/23 [History] guaiFENesin-Coden 100-10MG/5ML [Robitussin AC] 10 ml PO Q4H PRN 05/23/23 [History] ondansetron HCL [Zofran] 4 mg PO BID PRN 05/23/23 [History] predniSONE 10 mg PO DIRECTED 12 Days #30 tab 05/24/23 [Rx] Follow up Appointment(s)/Referral(s): Donald Coto MD [Primary Care Provider] - 1-2 days
[2023-05-24] MEDS: SODIUM CHLORIDE 0.9% 1,000 ML IV SCH (10:08)
[2023-05-24 14:52] VITALS: BP 121/63; PULSE 77; TEMP 97.9
[2023-05-24] MEDS ORDERED: MONTELUKAST 10 MG TAB PO SCH (21:00)
[2023-05-31] MEDS ORDERED: ERGOCALCIFEROL 1,250 MCG (50,000 IU) CAPSULE PO SCH (09:00)
== END 2023-05-24 15:34 | disposition home or self-care (01) ==
LOC: EC 17:09 → 6NMEDSUR 20:09
PROVIDERS: ADMIT Internal Medicine; ATTEND Internal Medicine
DX: J45.901 Unspecified asthma with (acute) exacerbation (principal); J20.9 Acute bronchitis, unspecified; I10 Essential (primary) hypertension; E78.5 Hyperlipidemia, unspecified; K21.9 Gastro-esophageal reflux disease without esophagitis; M19.90 Unspecified osteoarthritis, unspecified site; K75.9 Inflammatory liver disease, unspecified; K44.9 Diaphragmatic hernia without obstruction or gangrene; K58.9 Irritable bowel syndrome, unspecified; E03.9 Hypothyroidism, unspecified; G25.0 Essential tremor; H91.90 Unspecified hearing loss, unspecified ear; Z11.52 Encounter for screening for COVID-19; F32.A Depression, unspecified; F41.9 Anxiety disorder, unspecified; Z79.82 Long term (current) use of aspirin; Z79.890 Hormone replacement therapy; Z79.899 Other long term (current) drug therapy; Z88.0 Allergy status to penicillin; Z86.14 Personal history of Methicillin resistant Staphylococcus aureus infection; Z87.01 Personal history of pneumonia (recurrent); Z87.19 Personal history of other diseases of the digestive system; Z86.73 Personal history of transient ischemic attack (TIA), and cerebral infarction without residual deficits; Z86.19 Personal history of other infectious and parasitic diseases; Z90.49 Acquired absence of other specified parts of digestive tract; Z90.710 Acquired absence of both cervix and uterus; Z96.653 Presence of artificial knee joint, bilateral; Z98.42 Cataract extraction status, left eye; Z98.41 Cataract extraction status, right eye; Z98.890 Other specified postprocedural states; Z82.49 Family history of ischemic heart disease and other diseases of the circulatory system
CPT/HCPCS: 96376 ×2; 96374; 99285; 36415; 94640 ×3; 93005; 83880; 80053; 84484; 85025; 85610; 85730; 87636; 71046; G0378 ×2; J2930 ×2

== ENCOUNTER 2023-07-30 03:49 | Emergency (ER) | payer MEDICARE ==
[2023-07-30 04:40] VITALS: RESP 18
--- NOTE | 2023-07-30 04:55 | ED ---
General Adult HPI - General Source: EMS Mode of arrival: EMS <Abraham Rizo - Last Filed: 07/30/23 07:06> - General Source: EMS, RN notes reviewed, old records reviewed, Caregiver Mode of arrival: EMS Limitations: no limitations - History of Present Illness -: hour(s) Radiation: non-radiation Consistency: constant Improves with: none Worsens with: none Associated Symptoms: weakness Treatments Prior to Arrival: none <Germán Brandt - Last Filed: 07/30/23 08:48> - General Chief complaint: Fall Stated complaint: Fell R shoulder pain Time Seen by Provider: 07/30/23 04:11 - History of Present Illness Initial comments: Dictation was produced using [employer] dictation software. please excuse any grammatical, word or spelling errors. Chief Complaint: 78-year-old female presents emergency Department with right shoulder pain after fall History of Present Illness: Patient 78-year-old female she is been dealing with frequent bouts of vertigo and dizziness. Patient states she woke up with the development of the night to get some water. She starts to feel dizzy already. States that would've she stands up she feels like the room is spinning. Today she stood up quickly and fell to the ground landing on her right shoulder. She states she did hit her head but denies any loss of consciousness. Patient has any dizziness at the bedside. Her only complaint is right shoulder pain. She does not take any anticoagulation medications. Denies any recent medications but states she's been treated for bronchitis recently. The ROS documented in this emergency department record has been reviewed and confirmed by me. Those systems with pertinent positive or negative responses have been documented in the HPI. All other systems are other negative and/or noncontributory. (Abraham Rizo) This is a 78-year-old male DF for evaluation of weakness right shoulder pain and a fall. Dizziness occurring last night is persistent here in the emergency department although improved, patient denies chest pain or headache. (Germán Brandt) - Related Data Home Medications Medication Instructions Recorded Confirmed Nortriptyline HCl [Pamelor] 100 mg PO HS 12/01/15 05/23/23 Primidone [Mysoline] 50 mg PO TID 12/01/15 05/23/23 Zafirlukast 20 mg PO BID 12/01/15 05/23/23 busPIRone HCL 15 mg PO BID 12/01/15 05/23/23 estradioL [Estradiol] 0.5 mg PO DAILY 12/01/15 05/23/23 lamoTRIgine [LaMICtal] 200 mg PO DAILY 12/01/15 05/23/23 ALPRAZolam [Xanax] 1 mg PO HS 04/14/17 05/23/23 Aspirin EC [Ecotrin Low Dose] 81 mg PO DAILY 04/14/17 05/23/23 amLODIPine [Norvasc] 2.5 mg PO DAILY 04/14/17 05/23/23 Multivitamins, Thera [Multivitamin 1 tab PO DAILY 05/17/18 05/23/23 (formulary)] Diphenoxylate HCl/Atropine 1 tab PO TID PRN 02/08/21 05/23/23 [Lomotil 2.5-0.025 mg Tablet] Zolpidem Tartrate [Ambien] 10 mg PO HS PRN 04/11/21 05/23/23 ALPRAZolam [Xanax] 0.5 mg PO DAILY 05/23/23 05/23/23 Albuterol Sulfate [Albuterol 1 - 2 puff PO RT-Q4H PRN 05/23/23 05/23/23 Sulfate Hfa] Cetirizine HCl [Zyrtec] 10 mg PO DAILY 05/23/23 05/23/23 Ergocalciferol (Vitamin D2) 1,250 mcg PO WEEKLY 05/23/23 05/23/23 [Drisdol (50,000 Iu)] Levothyroxine Sodium [Synthroid] 112 mcg PO DAILY 05/23/23 05/23/23 Pantoprazole Sodium [Protonix] 20 mg PO BID 05/23/23 05/23/23 guaiFENesin-Coden 100-10MG/5ML 10 ml PO Q4H PRN 05/23/23 05/23/23 [Robitussin AC] ondansetron HCL [Zofran] 4 mg PO BID PRN 05/23/23 05/23/23 Previous Rx's Medication Instructions Recorded predniSONE 10 mg PO DIRECTED 12 Days #30 05/24/23 tab Allergies Allergy/AdvReac Type Severity Reaction Status Date / Time Penicillins Allergy Facial Verified 05/23/23 20:57 Swelling Review of Systems ROS Other: All systems not noted in ROS Statement are negative. <Abraham Rizo - Last Filed: 07/30/23 07:06> ROS Other: All systems not noted in ROS Statement are negative. <KarlyGermán Rip - Last Filed: 07/30/23 08:48> ROS Statement: Those systems with pertinent positive or pertinent negative responses have been documented in the HPI. 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 Mother Additional Family Medical History / Comment(s): Mother at the age of 87yrs from either a RI or a stroke-pt unsure. <Abraham Rizo - Last Filed: 07/30/23 07:06> General Exam <Abraham Rizo - Last Filed: 07/30/23 07:06> General appearance: alert, in no apparent distress Head exam: Present: atraumatic, normocephalic, normal inspection Eye exam: Present: normal appearance, PERRL, EOMI. Absent: scleral icterus, conjunctival injection, periorbital swelling ENT exam: Present: normal exam, mucous membranes moist Neck exam: Present: normal inspection. Absent: tenderness, meningismus, lymphadenopathy Respiratory exam: Present: normal lung sounds bilaterally. Absent: respiratory distress, wheezes, rales, rhonchi, stridor Cardiovascular Exam: Present: regular rate, normal rhythm, normal heart sounds. Absent: systolic murmur, diastolic murmur, rubs, gallop, clicks GI/Abdominal exam: Present: soft, normal bowel sounds. Absent: distended, tenderness, guarding, rebound, rigid Extremities exam: Present: normal inspection, full ROM, normal capillary refill. Absent: tenderness, pedal edema, joint swelling, calf tenderness Back exam: Present: normal inspection Neurological exam: Present: alert, oriented X3, CN II-XII intact Psychiatric exam: Present: normal affect, normal mood Skin exam: Present: warm, dry, intact, normal color. Absent: rash <Germán Brandt - Last Filed: 07/30/23 08:48> - General Exam Comments Initial Comments: PHYSICAL EXAM: General Impression: Alert and oriented x3, not in acute distress HEENT: Normocephalic atraumatic, extra-ocular movements intact, pupils equal and reactive to light bilaterally, mucous membranes moist. Cardiovascular: Heart regular rate and rhythm Chest: Able to complete full sentences, no retractions, no tachypnea Abdomen: abdomen soft, non-tender, non-distended, no organomegaly Musculoskeletal: Pulses present and equal in all extremities, no peripheral edema Motor: no focal deficits noted Neurological: CN II-XII grossly intact, no focal motor or sensory deficits noted Skin: Intact with no visualized rashes Psych: Normal affect and mood Right shoulder: Palpatory tenderness to the proximal humerus (Abraham Rizo) Course <Germán Brandt - Last Filed: 07/30/23 08:48> Vital Signs 07/30/23 07/30/23 04:21 07:30 Temperature 97.6 F 98.2 F Pulse Rate 62 64 Respiratory 18 18 Rate Blood Pressure 98/71 121/79 O2 Sat by Pulse 99 97 Oximetry - Reevaluation(s) Reevaluation #1: 07/30/23 07:47 Record is reviewed (Germán Brandt) Reevaluation #2: 07/30/23 07:47 Symptoms are improved (Germán Brandt) Reevaluation #3: 07/30/23 07:48 Patient symptoms are improving here in the ER (Germán Brandt) Reevaluation #4: 07/30/23 07:47 Was pt. sent in by a medical professional or institution ([facility], [employer], urgent care, hospital, or long-term...) When possible be specific @ -no Did you speak to anyone other than the patient for history (EMS, parent, family, police, friend...)? What history was obtained from this source @ -no Did you review nursing and triage notes (agree or disagree)? Why? @ -agree Are old charts reviewed (outside hosp., previous admission, EMS record, old EKG, old radiological studies, urgent care reports/EKG's, long-term records)? Report findings @ -yes Differential Diagnosis (chest pain, altered mental status, abdominal pain women, abdominal pain men, vaginal bleeding, weakness, fever, dyspnea, syncope, headache, dizziness, GI bleed, back pain, seizure, CVA, palpatations, mental health, musculoskeletal)? @ -prior EKG interpreted by me (3pts min.). @ -yes X-rays interpreted by me (1pt min.). @ -yes CT interpreted by me (1pt min.). @ -no U/S interpreted by me (1pt. min.). @ -no What testing was considered but not performed or refused? (CT, X-rays, U/S, labs)? Why? @ -none What meds were considered but not given or refused? Why? @ -none Did you discuss the management of the patient with other professionals (professionals i.e. [facility], [employer], lab, RT, psych nurse, social welfare administrator, business librarian, teacher, nursing officer, telehealth case manager)? Give summary @ -no Was smoking cessation discussed for >3mins.? @ -no Was critical care preformed (if so, how long)? @ -no Were there social determinants of health that impacted care today? How? (H omelessness, low income, unemployed, alcoholism, drug addiction, transportation, low edu. Level, literacy, decrease access to med. care, nursing home, rehab)? @ -none Was there de-escalation of care discussed even if they declined (Discuss DNR or withdrawal of care, Hospice)? DNR status @ -no What co-morbidities impacted this encounter? (DM, HTN, Smoking, COPD, CAD, Cancer, CVA, ARF, Chemo, Hep., AIDS, mental health diagnosis, sleep apnea, morbid obesity)? @ -none Was patient admitted / discharged? Hospital course, mention meds given and route, prescriptions, significant lab abnormalities, going to OR and other pertinent info. @ - Undiagnosed new problem with uncertain prognosis? @ -no Drug Therapy requiring intensive monitoring for toxicity (Heparin, Nitro, Insulin, Cardizem)? @ -no Were any procedures done? @ -no Diagnosis/symptom? @ - Acute, or Chronic, or Acute on Chronic? @ -Acute Uncomplicated (without systemic symptoms) or Complicated (systemic symptoms)? @ -Complicated Side effects of treatment? @ -no Exacerbation, Progression, or Severe Exacerbation? @ -exacerbation Poses a threat to life or bodily function? How? (Chest pain, USA, RI, pneumonia, PE, COPD, DKA, ARF, appy, cholecystitis, CVA, Diverticulitis, Homicidal, Suicidal, threat to staff... and all critical care pts) @ -yes (Germán Brandt) Reevaluation #5: 07/30/23 07:48 Differential Dizziness: Benign paroxysmal positional Vertigo, Menieres disease, otitis media, acoustic neuroma, vertebrobasilar insufficiency, cerebellar stroke, encephalitis, hypovolemic, arrhythmia, coronary artery syndrome, anemia, this is not meant to be an all-inclusive list (Germán Brandt) EKG Findings - EKG Comments: EKG Findings:: My EKG interpretation: Ventricular rate 61, sinus rhythm,. 199, QRS 70, QTc T3 92. No NH prolongation, no QTC prolongation, no ST or T-wave changes noted. EKG compared to 05/23/2023 showing no changes. Overall, this EKG is unremarkable <Abraham Rizo - Last Filed: 07/30/23 07:06> Medical Decision Making - Lab Data Result diagrams: 07/30/23 05:50 <Abraham Rizo - Last Filed: 07/30/23 07:06> - Lab Data Result diagrams: 07/30/23 05:50 07/30/23 05:50 - Radiology Data Radiology results: report reviewed (CT brain C-spine chest x-ray and shoulder x- ray are negative for acute disease or traumatic injury), image reviewed <Germán Brandt - Last Filed: 07/30/23 08:48> - Medical Decision Making Was pt. sent in by a medical professional or institution (, PA, [employer], urgent care, hospital, or long-term...) When possible be specific @ -No Did you speak to anyone other than the patient for history (EMS, parent, family, police, friend...)? What history was obtained from this source @ -No Did you review nursing and triage notes (agree or disagree)? Why? @ -I reviewed and agree with nursing and triage notes Were old charts reviewed (outside hosp., previous admission, EMS record, old EKG, old radiological studies, urgent care reports/EKG's, long-term records)? Report findings @ -No old charts were reviewed Differential Diagnosis (chest pain, altered mental status, abdominal pain women, abdominal pain men, vaginal bleeding, musculoskeletal, weakness, fever, dyspnea, syncope, headache, dizziness, GI bleed, back pain, seizure, CVA, palpatations, mental health)? @ -Differential Weakness: Hypoglycemia, shock, sepsis, hyponatremia, anemia, infection, RI, ETOH, adverse medicine reaction, overdose, stroke, this is not meant to be an all-inclusive list. EKG interpreted by me (3pts min.). @ -As above X-rays interpreted by me (1pt min.). @ -Shoulder x-ray shows no humerus fractures or before meals joint abnormalities. No shoulder dislocation CT interpreted by me (1pt min.). @ -None done U/S interpreted by me (1pt. min.). @ -None done What testing was considered but not performed or refused? (CT, X-rays, U/S, labs)? Why? @ -None What meds were considered but not given or refused? Why? @ -None Did you discuss the management of the patient with other professionals (professionals i.e. , PA, SK[employer]CH MAKER, lab, RT, psych nurse, social welfare administrator, business librarian, teacher, nursing officer, telehealth case manager)? Give summary @ -No Was smoking cessation discussed for >3mins.? @ -No Was critical care preformed (if so, how long)? @ -No Were there social determinants of health that impacted care today? How? (Homelessness, low income, unemployed, alcoholism, drug addiction, transportation, low edu. Level, literacy, decrease access to med. care, nursing home, rehab)? @ -No Was there de-escalation of care discussed even if they declined (Discuss DNR or withdrawal of care, Hospice)? DNR status @ -No What co-morbidities impacted this encounter? (DM, HTN, Smoking, COPD, CAD, Cancer, CVA, ARF, Chemo, Hep., AIDS, mental health diagnosis, sleep apnea, morbid obesity)? @ -None Was patient admitted / discharged? Hospital course, mention meds given and route, prescriptions, significant lab abnormalities, going to OR and other [facility] [place] info. @ -28-year-old female presents emergency department after fall. It is unclear whether patient syncopized. She does not have a history of cardiac disease. Vital signs upon arrival shows blood pressure 90/71, rest vital signs within acceptable limits. Patient complaining of shoulder pain. No other acute complaints at the bedside. Shoulder x-ray shows no acute processes. Computed tomography scan of the brain shows no traumatic issues. Pending lab studies and final radiology read. Reevaluated at bedside at 6:50 AM she is coughing states that she is diagnosis of bronchitis number she denies ever having had any chest x-rays for this diagnosis. Chest x-ray ordered. Patient's be signed out to oncoming physician, Dr. Brandt at 7 AM for follow-up of pending images and lab studies. (Abraham Rizo) 78 female to the emergency department after fall. Patient states she did not pass out she has no chest pain or shortness of breath does have right shoulder pain. Pain is well-controlled here in the ER, she thinks symptoms may be g etting worse to her bronchitis diagnosis which she is receiving treatment for. At this time patient can be discharged home she feels well (Germán Brandt - Lab Data Lab Results 07/30/23 07/30/23 07/30/23 Range/Units 05:50 05:50 05:50 WBC 4.5 (3.8-10.6) k/uL RBC 4.54 (3.80-5.40) m/uL Hgb 13.9 (11.4-16.0) gm/dL Hct 43.3 (34.0-46.0) % MCV 95.5 (80.0-100.0) fL MCH 30.5 (25.0-35.0) pg MCHC 32.0 (31.0-37.0) g/dL RDW 13.7 (11.5-15.5) % Plt Count 237 (150-450) k/uL MPV 7.9 Neutrophils % 61 % Lymphocytes % 18 % Monocytes % 8 % Eosinophils % 8 % Basophils % 1 % Neutrophils # 2.8 (1.3-7.7) k/uL Lymphocytes # 0.8 L (1.0-4.8) k/uL Monocytes # 0.4 (0-1.0) k/uL Eosinophils # 0.4 (0-0.7) k/uL Basophils # 0.0 (0-0.2) k/uL Sodium 132 L (137-145) mmol/L Potassium 4.4 (3.5-5.1) mmol/L Chloride 99 (98-107) mmol/L Carbon Dioxide 25 (22-30) mmol/L Anion Gap 8 mmol/L BUN 16 (7-17) mg/dL Creatinine 0.85 (0.52-1.04) mg/dL Est GFR (CKD-EPI)AfAm 76 (>60 ml/min/1.73 sqM) Est GFR (CKD-EPI)NonAf 66 (>60 ml/min/1.73 sqM) Glucose 83 (74-99) mg/dL Calcium 8.8 (8.4-10.2) mg/dL Total Bilirubin 0.7 (0.2-1.3) mg/dL AST 131 H (14-36) U/L ALT 63 H (4-34) U/L Alkaline Phosphatase 152 H (38-126) U/L Total Protein 6.0 L (6.3-8.2) g/dL Albumin 3.6 (3.5-5.0) g/dL Influenza Type A (PCR) Not Detected (Not Detectd) Influenza Type B (PCR) Not Detected (Not Detectd) RSV (PCR) Not Detected (Not Detectd) SARS-CoV-2 (PCR) Not Detected (Not Detectd) Disposition <Abraham Rizo - Last Filed: 07/30/23 07:06> Is patient prescribed a controlled substance at d/c from ED?: No Time of Disposition: 08:45 <Germán Brandt - Last Filed: 07/30/23 08:48> Clinical Impression: Fall, Bronchitis, Right shoulder pain, Weakness Disposition: HOME SELF-CARE Condition: Good Instructions (If sedation given, give patient instructions): Fall Prevention for Older Adults (ED), Shoulder Pain (ED) Referrals: Donald Coto MD [Primary Care Provider] - 1-2 days
[2023-07-30] MEDS ORDERED: SODIUM CHLORIDE 0.9% 1,000 ML IV STA (06:24)
[2023-07-30 06:42] LABS: Basophils % (A) 1 %; Eosinophils # (A) 0.4 k/uL (0-0.7); Eosinophils % (A) 8 %; HCT 43.3 % (34.0-46.0); HGB 13.9 gm/dL (11.4-16.0); Lymphocytes # (A) 0.8 k/uL (1.0-4.8); Lymphocytes % (A) 18 %; MCH 30.5 pg (25.0-35.0); MCV 95.5 fL (80.0-100.0); Mean Platelet Volume 7.9; Monocytes # (A) 0.4 k/uL (0-1.0); Monocytes % (A) 8 %; Neutrophils # (A) 2.8 k/uL (1.3-7.7); Neutrophils % (A) 61 %; Platelet Count 237 k/uL (150-450); RBC 4.54 m/uL (3.80-5.40); RDW 13.7 % (11.5-15.5); WBC 4.5 k/uL (3.8-10.6)
[2023-07-30 07:11] LABS: ALT 63 U/L (4-34); African American GFR (CKD) 76 (>60 ml/min/1.73 sqM); Albumin 3.6 g/dL (3.5-5.0); Anion Gap 8 mmol/L; Blood Urea Nitrogen 16 mg/dL (7-17); Calcium 8.8 mg/dL (8.4-10.2); Carbon Dioxide 25 mmol/L (22-30); Chloride 99 mmol/L (98-107); Glucose 83 mg/dL (74-99); Non-African American GFR(CKD) 66 (>60 ml/min/1.73 sqM); Sodium 132 mmol/L (137-145); Total Bilirubin 0.7 mg/dL (0.2-1.3)
[2023-07-30 07:29] LABS: AST 131 U/L (14-36); Alkaline Phosphatase 152 U/L (38-126); Potassium 4.4 mmol/L (3.5-5.1)
--- NOTE | 2023-07-30 07:32 | XR ---
EXAMINATION TYPE: XR chest 2V DATE OF EXAM: 07/30/2023 COMPARISON: 05/23/2023 HISTORY: 78-year-old female with coughing TECHNIQUE: PA and lateral views FINDINGS: Heart limits of normal in size. Mild hyperinflation mild interstitial prominence is unchanged. Some s urgical clips in the left upper quadrant. There is an air-fluid level seen at the os terminate chest in the expected region of the esophagus. IMPRESSION: 1. Borderline heart size and chronic appearing changes, possible underlying COPD. 2. An air-fluid level at the posterior mid chest in the expected region of the esophagus. Correlate f or significant gastroesophageal reflux, esophageal dysmotility, or distal stricture with fluid accumu lating in the esophagus.
--- NOTE | 2023-07-30 07:43 | CT ---
EXAMINATION TYPE: CT brain wo con DATE OF EXAM: 07/30/2023 COMPARISON: 05/03/2022 HISTORY: 78-year-old female with pain after fall TECHNIQUE: Examination was done in axial plane without intravenous contrast. Coronal and sagittal r econstructions performed. CT DLP: 1212.4 mGycm Automated exposure control for dose reduction was used. FINDINGS: There is no evidence of acute intracranial hemorrhage, acute ischemic changes, mass, mass-effect, or extra-axial fluid collection. There is no effacement of cerebral sulci or basal subarachnoid cister ns. There is no hydrocephalus. There is no midline shift. Salazar-white matter distinction is preserv ed. Efas-wu-antkhtjz volume loss overlying the bilateral cerebral convexities is unchanged. Evidence of prior FESS with residual scattered mild mucosal thickening throughout the paranasal sinus es. Mastoid air cells are well pneumatized. Orbits and globes are intact. IMPRESSION: Similar cerebral cortical atrophy. No acute intracranial abnormality seen.
--- NOTE | 2023-07-30 07:53 | XR ---
EXAMINATION TYPE: XR shoulder complete 3 views RT DATE OF EXAM: 07/30/2023 Comparison: 01/26/2015 Clinical History: 78-year-old female with pain after fall Findings: Severe degenerative joint space narrowing and moderate marginal spurring at the acromioclavicular edd nt with capsular atrophy, progressed from 2014. There is bony sclerosis at the greater tuberosity. Mi ld degenerative spurring glenohumeral joint. No acute fracture, subluxation, dislocation seen. Impression: 1. Moderate to severe AC joint OA, progressed from 2014. 2. Bony changes of the greater tuberosity suggests chronic rotator cuff tendinopathy. 3. Mild degenerative spurring has developed at the glenohumeral joint. 4. No acute osseous abnormality seen.
[2023-07-30 08:17] VITALS: PULSE 64
[2023-07-30] MEDS ORDERED: KETOROLAC 15 MG/ML 1 ML VIAL IVP STA (08:46)
[2023-07-30] MEDS ORDERED: traMADol 50 MG STARTER PACK 3 TAB BTL PO STA (08:46)
[2023-07-30] MEDS ORDERED: IBUPROFEN 600 MG STARTER PACK 4 TAB BTL PO STA (08:46)
[2023-07-30] MEDS ORDERED: traMADol 50 MG TAB PO STA (08:46)
[2023-07-30] MEDS ORDERED: KETOROLAC 15 MG/ML 1 ML VIAL IM STA (08:51)
[2023-07-30 09:14] VITALS: BP 144/73; TEMP 97.2
== END 2023-07-30 09:06 | disposition home or self-care (01) ==
LOC: EC 03:49
DX: J40 Bronchitis, not specified as acute or chronic (principal); M19.011 Primary osteoarthritis, right shoulder; R53.1 Weakness; K21.9 Gastro-esophageal reflux disease without esophagitis; I10 Essential (primary) hypertension; E07.9 Disorder of thyroid, unspecified; F41.9 Anxiety disorder, unspecified; F32.A Depression, unspecified; Z79.890 Hormone replacement therapy; Z79.899 Other long term (current) drug therapy; Z79.82 Long term (current) use of aspirin; Z88.0 Allergy status to penicillin; Z20.822 Contact with and (suspected) exposure to COVID-19
CPT/HCPCS: 36415; 93005; 80053; 85025; 87636; 73030; 71046; 70450; 99285; 96372; J1885

== ENCOUNTER 2023-07-31 07:20 | Emergency (ER) | payer MEDICARE ==
[2023-07-31] MEDS ORDERED: ASPIRIN 81 MG PO STA (07:39)
[2023-07-31] MEDS ORDERED: MORPHINE SULFATE 2 MG/ML SYRINGE IVP STA (07:40)
[2023-07-31] MEDS ORDERED: KETOROLAC 15 MG/ML 1 ML VIAL IVP STA (07:40)
[2023-07-31] MEDS ORDERED: SODIUM CHLORIDE 0.9% 1,000 ML IV STA (07:42)
--- NOTE | 2023-07-31 07:50 | ED ---
General Adult HPI - General Chief complaint: Extremity Injury, Upper Stated complaint: Pain in right arm Time Seen by Provider: 07/31/23 07:31 Source: patient, RN notes reviewed, old records reviewed Mode of arrival: ambulatory Limitations: no limitations - History of Present Illness Initial comments: Patient is a 78-year-old female who presents emergency Department complaining of left-sided pain. Patient's past medical history remarkable for hyperlipidemia, hypertension, asthma. Patient states she fell yesterday and injured her right shoulder. Was evaluated here and discharged home after negative workup. Had a brain CT at that time as well as chest x-ray and right shoulder x-ray all which were unremarkable. Presents today over concern for sudden onset left shoulder pain and numbness which and progressed to left-sided chest pain. Worse with movements of the left arm as well as torso. Worse on palpation over the left side of the chest with radiation along the ribs spaces towards her spine. No flail chest. Clear breath sounds bilaterally. Denies any nausea or vomiting. His no other acute complaints at this time. Presents for further evaluation at this time. - Related Data Home Medications Medication Instructions Recorded Confirmed Nortriptyline HCl [Pamelor] 100 mg PO HS 12/01/15 05/23/23 Primidone [Mysoline] 50 mg PO TID 12/01/15 05/23/23 Zafirlukast 20 mg PO BID 12/01/15 05/23/23 busPIRone HCL 15 mg PO BID 12/01/15 05/23/23 estradioL [Estradiol] 0.5 mg PO DAILY 12/01/15 05/23/23 lamoTRIgine [LaMICtal] 200 mg PO DAILY 12/01/15 05/23/23 ALPRAZolam [Xanax] 1 mg PO HS 04/14/17 05/23/23 Aspirin EC [Ecotrin Low Dose] 81 mg PO DAILY 04/14/17 05/23/23 amLODIPine [Norvasc] 2.5 mg PO DAILY 04/14/17 05/23/23 Multivitamins, Thera [Multivitamin 1 tab PO DAILY 05/17/18 05/23/23 (formulary)] Diphenoxylate HCl/Atropine 1 tab PO TID PRN 02/08/21 05/23/23 [Lomotil 2.5-0.025 mg Tablet] Zolpidem Tartrate [Ambien] 10 mg PO HS PRN 04/11/21 05/23/23 ALPRAZolam [Xanax] 0.5 mg PO DAILY 05/23/23 05/23/23 Albuterol Sulfate [Albuterol 1 - 2 puff PO RT-Q4H PRN 05/23/23 05/23/23 Sulfate Hfa] Cetirizine HCl [Zyrtec] 10 mg PO DAILY 05/23/23 05/23/23 Ergocalciferol (Vitamin D2) 1,250 mcg PO WEEKLY 05/23/23 05/23/23 [Drisdol (50,000 Iu)] Levothyroxine Sodium [Synthroid] 112 mcg PO DAILY 05/23/23 05/23/23 Pantoprazole Sodium [Protonix] 20 mg PO BID 05/23/23 05/23/23 guaiFENesin-Coden 100-10MG/5ML 10 ml PO Q4H PRN 05/23/23 05/23/23 [Robitussin AC] ondansetron HCL [Zofran] 4 mg PO BID PRN 05/23/23 05/23/23 Previous Rx's Medication Instructions Recorded predniSONE 10 mg PO DIRECTED 12 Days #30 05/24/23 tab Lidocaine 5% Patch [Lidoderm 5% 1 patch TOPICAL DAILY PRN 14 Days 07/31/23 Patch] #14 patch Allergies Allergy/AdvReac Type Severity Reaction Status Date / Time Penicillins Allergy Facial Verified 07/31/23 07:26 Swelling Review of Systems ROS Statement: Those systems with pertinent positive or pertinent negative responses have been documented in the HPI. Review of Systems: CONST: Denies fever EYES: Denies blurry vision ENT: Denies nasal congestion C/V: Denies Chest pain RESP: Denies shortness of breath GI: Denies abdominal pain : Denies dysuria SKIN: Denies rash. MSK: Endorses left rib pain, shoulder pain NEURO: Denies headache ROS Other: All systems not noted in ROS Statement are negative. 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 Mother Additional Family Medical History / Comment(s): Mother at the age of 87yrs from either a [place] or a stroke-pt unsure. General Exam - General Exam Comments Initial Comments: General: Appears in mild to moderate distress secondary to pain. HEAD: Normal with no signs of head trauma. EYES: PERRLA, EOMI, conjunctiva normal, no discharge. Pupils are 3 mm and equal bilaterally. ENT: Hearing grossly intact, normal oropharynx. RESPIRATORY: Clear breath sounds bilaterally. No wheezes, rales, or rhonchi. C/V: Regular rate and rhythm. S1 and S2 auscultated, no edema, peripheral pulses 2+ and intact throughout ABD: Abd is soft, nontender, nondistended EXT: Normal range of motion, no obvious deformity. Patient has tenderness palpation over the left-sided ribs along the ribs into the axilla. Also has some mild midline thoracic spine tenderness as well. Patient also has some left shoulder tenderness to palpation as well. No obvious deformities. Neurovascularly intact throughout. SKIN: No rashes or lesions observed on exposed skin. NEURO: Alert and oriented x 4. Cranial nerves II-XII intact. No focal sensory or strength deficits. Limitations: no limitations Course Vital Signs 12/22/23 12/22/23 12/22/23 07:23 09:09 09:10 Temperature 98 F 97.6 F Pulse Rate 57 L 64 Pulse Rate [ 64 Pulse Oximetery ] Respiratory 20 18 Rate Blood Pressure 112/63 164/71 O2 Sat by Pulse 97 98 Oximetry 07/31/23 07/31/23 12:00 13:56 Temperature 98 F 97.8 F Pulse Rate 67 65 Pulse Rate [ Pulse Oximetery ] Respiratory 18 18 Rate Blood Pressure 145/87 131/78 O2 Sat by Pulse 98 98 Oximetry Medical Decision Making - Medical Decision Making Was pt. sent in by a medical professional or institution (, PA, BLENDING OPERATOR, urgent care, hospital, or detention...) When possible be specific @ -No Did you speak to anyone other than the patient for history (EMS, parent, family, police, friend...)? What history was obtained from this source @ -No Did you review nursing and triage notes (agree or disagree)? Why? @ -I reviewed and agree with nursing and triage notes Were old charts reviewed (outside hosp., previous admission, EMS record, old EKG, old radiological studies, urgent care reports/EKG's, detention records)? Report findings @ -Old charts reviewed Differential Diagnosis (chest pain, altered mental status, abdominal pain women, abdominal pain men, vaginal bleeding, weakness, fever, dyspnea, syncope, headache, dizziness, GI bleed, back pain, seizure, CVA, palpatations, mental health, musculoskeletal)? @ -Differential Musculoskeletal Muscular strain, contusion, ligament sprain, fracture, arthritis, septic arthritis, bursitis, cellulitis, muscle spasm, nerve compression, DVT, arterial occlusion, herpes zoster, electrolyte abnormality, tumor.... This is not meant to be in all inclusive listDifferential Chest Pain: Stable Angina, Unstable Angina, STEMI, NSTEMI Aortic Dissection, Pneumothorax, Musculoskeletal, Esophageal Spasm GERD, Cholecystitis, Pancreatitis, Zoster, this is not meant to be an all-inclusive list. EKG interpreted by me (3pts min.). @ -As above X-rays interpreted by me (1pt min.). @ -Chest x-ray, shoulder x-ray showed no obvious acute cardio pulmonary process. CT interpreted by me (1pt min.). @ -CT PE, CT C-spine, CT thoracic spine shows no obvious acute process. Chronic degenerative changes in the spine. U/S interpreted by me (1pt. min.). @ -None done What testing was considered but not performed or refused? (CT, X-rays, U/S, labs)? Why? @ -None What meds were considered but not given or refused? Why? @ -None Did you discuss the management of the patient with other professionals (professionals i.e. DrGary, PA, BLENDING OPERATOR, lab, RT, psych nurse, social and human services assistant, grain unloader machine, teacher, chief sustainability officer, heel caser)? Give summary @ -No Was smoking cessation discussed for >3mins.? @ -No Was critical care preformed (if so, how long)? @ -No Were there social determinants of health that impacted care today? How? (Homelessness, low income, unemployed, alcoholism, drug addiction, transportation, low edu. Level, literacy, decrease access to med. care, senior care, rehab)? @ -No Was there de-escalation of care discussed even if they declined (Discuss DNR or withdrawal of care, Hospice)? DNR status @ -No What co-morbidities impacted this encounter? (DM, HTN, Smoking, COPD, CAD, Cancer, CVA, ARF, Chemo, Hep., AIDS, mental health diagnosis, sleep apnea, morbid obesity)? @ -None Was patient admitted / discharged? Hospital course, mention meds given and route, prescriptions, significant lab abnormalities, going to OR and other pertinent info. @ -Patient is a 78-year-old female presents emergency Department complaining of left-sided chest pain and left upper extremity pain. Appears to be chest wall pain as it is worse with palpation and with movements of the torso as well as the left arm. It began when she woke up. Was evaluated for right shoulder pain after fall yesterday. Presents for reevaluation at this time. Yesterday the fall was from standing, did not lose consciousness, and CT brain and workup are unremarkable. As stated above, appears to be chest wall pain. We will work patient up for cardiac disease but also for possible injury from the fall was undiagnosed. Patient was in agreement this plan. She states she originally did not have any pain on the left side. We will obtain EKG, CT of the chest, spine, as well as a left shoulder x-ray. She'll be given aspirin, IV morphine, Toradol, as well as a 1 L fluid bolus. Patient was in agreement this plan. EKG is unchanged and shows no obvious signs of acute ischemic process.Patient's imaging unremarkable. Patient's laboratory studies are remarkable for 2 negative troponins. On reevaluation, I discussed results with the patient. She is feeling improved following analgesia medications. I did offer admission for chest pain however she would like to go home. We both agreed is likely chest wall pain or muscle strain. She'll be given another prescription for starter pack Tylenol 3. She is discharged home at this time strict return precautions. I instructed the patient to follow up with their PCP in the next 1-3 days. I explained that the patient should return to the emergency department if they experience any worsening symptoms. Strict return precautions were discussed with the patient. The patient expressed understanding of these instructions. I an swered all questions that the patient had. The patient was discharged home in good condition with their prescriptions and follow up information. Undiagnosed new problem with uncertain prognosis? @ -No Drug Therapy requiring intensive monitoring for toxicity (Heparin, Nitro, Insulin, Cardizem)? @ -No Were any procedures done? @ -No Diagnosis/symptom? @ -Chest wall pain, Muscle strain Acute, or Chronic, or Acute on Chronic? @ -Acute Uncomplicated (without systemic symptoms) or Complicated (systemic symptoms)? @ -Uncomplicated Side effects of treatment? @ -none Exacerbation, Progression, or Severe Exacerbation] @ -no Poses a threat to life or bodily function? @ -Unlikely - Lab Data Result diagrams: 07/31/23 07:34 07/31/23 09:54 Lab Results 07/31/23 07/31/23 07/31/23 Range/Units 07:34 07:34 07:34 WBC 5.4 (3.8-10.6) k/uL RBC 4.60 (3.80-5.40) m/uL Hgb 14.2 (11.4-16.0) gm/dL Hct 43.6 (34.0-46.0) % MCV 94.7 (80.0-100.0) fL MCH 30.9 (25.0-35.0) pg MCHC 32.7 (31.0-37.0) g/dL RDW 13.8 (11.5-15.5) % Plt Count 254 (150-450) k/uL MPV 7.5 Neutrophils % 54 % Lymphocytes % 24 % Monocytes % 7 % Eosinophils % 11 % Basophils % 1 % Neutrophils # 2.9 (1.3-7.7) k/uL Lymphocytes # 1.3 (1.0-4.8) k/uL Monocytes # 0.4 (0-1.0) k/uL Eosinophils # 0.6 (0-0.7) k/uL Basophils # 0.0 (0-0.2) k/uL PT 10.5 (10.0-12.5) sec INR 1.0 (<1.2) APTT 25.2 (22.0-30.0) sec Sodium (137-145) mmol/L Potassium (3.5-5.1) mmol/L Chloride (98-107) mmol/L Carbon Dioxide (22-30) mmol/L Anion Gap mmol/L BUN (7-17) mg/dL Creatinine (0.52-1.04) mg/dL Est GFR (CKD-EPI)AfAm (>60 ml/min/1.73 sqM) Est GFR (CKD-EPI)NonAf (>60 ml/min/1.73 sqM) Glucose (74-99) mg/dL Calcium (8.4-10.2) mg/dL Magnesium (1.6-2.3) mg/dL Total Bilirubin (0.2-1.3) mg/dL AST (14-36) U/L ALT (4-34) U/L Alkaline Phosphatase (38-126) U/L Troponin I 0.013 (0.000-0.034) ng/mL Total Protein (6.3-8.2) g/dL Albumin (3.5-5.0) g/dL Lipase (23-300) U/L 07/31/23 07/31/23 Range/Units 09:54 11:13 WBC (3.8-10.6) k/uL RBC (3.80-5.40) m/uL Hgb (11.4-16.0) gm/dL Hct (34.0-46.0) % MCV (80.0-100.0) fL MCH (25.0-35.0) pg MCHC (31.0-37.0) g/dL RDW (11.5-15.5) % Plt Count (150-450) k/uL MPV Neutrophils % % Lymphocytes % % Monocytes % % Eosinophils % % Basophils % % Neutrophils # (1.3-7.7) k/uL Lymphocytes # (1.0-4.8) k/uL Monocytes # (0-1.0) k/uL Eosinophils # (0-0.7) k/uL Basophils # (0-0.2) k/uL PT (10.0-12.5) sec INR (<1.2) APTT (22.0-30.0) sec Sodium 132 L (137-145) mmol/L Potassium 4.3 (3.5-5.1) mmol/L Chloride 103 (98-107) mmol/L Carbon Dioxide 21 L (22-30) mmol/L Anion Gap 8 mmol/L BUN 12 (7-17) mg/dL Creatinine 0.74 (0.52-1.04) mg/dL Est GFR (CKD-EPI)AfAm 90 (>60 ml/min/1.73 sqM) Est GFR (CKD-EPI)NonAf 78 (>60 ml/min/1.73 sqM) Glucose 93 (74-99) mg/dL Calcium 8.4 (8.4-10.2) mg/dL Magnesium 1.7 (1.6-2.3) mg/dL Total Bilirubin 0.6 (0.2-1.3) mg/dL AST 49 H (14-36) U/L ALT 38 H (4-34) U/L Alkaline Phosphatase 125 (38-126) U/L Troponin I <0.012 (0.000-0.034) ng/mL Total Protein 5.5 L (6.3-8.2) g/dL Albumin 3.3 L (3.5-5.0) g/dL Lipase 18 L (23-300) U/L - EKG Data -: EKG Interpreted by Me EKG Comments: 12-lead Electrocardiogram Interpretation Note EKG was reviewed and interpreted by myself. 12-lead ECG performed at 0734 is interpreted by me as revealing normal sinus rhythm with an incomplete right bundle-branch block at a rate of 72 beats per minute. Right axis deviation. W[place] interval is 191 ms, QRS duration 72 ms, QTc is 410 ms.. There were no ST or T wave abnormalities to suggest myocardial ischemia or injury. R wave progression across the precordium was satisfactory. By my interpretation this EKG is non- diagnostic for acute ischemia. When compared with EKG from July 30, no significant change. Disposition Clinical Impression: Muscle strain, Chest wall pain Disposition: HOME SELF-CARE Condition: Good Instructions (If sedation given, give patient instructions): Chest Wall Pain (ED) Prescriptions: Lidocaine 5% Patch [Lidoderm 5% Patch] 1 patch TOPICAL DAILY PRN 14 Days #14 patch PRN Reason: Pain Is patient prescribed a controlled substance at d/c from ED?: No Referrals: Donald Coto MD [Primary Care Provider] - 1-2 days Time of Disposition: 13:25
[2023-07-31 08:02] LABS: Basophils % (A) 1 %; Eosinophils # (A) 0.6 k/uL (0-0.7); Eosinophils % (A) 11 %; HCT 43.6 % (34.0-46.0); HGB 14.2 gm/dL (11.4-16.0); Lymphocytes # (A) 1.3 k/uL (1.0-4.8); Lymphocytes % (A) 24 %; MCH 30.9 pg (25.0-35.0); MCHC 32.7 g/dL (31.0-37.0); MCV 94.7 fL (80.0-100.0); Mean Platelet Volume 7.5; Monocytes # (A) 0.4 k/uL (0-1.0); Monocytes % (A) 7 %; Neutrophils # (A) 2.9 k/uL (1.3-7.7); Neutrophils % (A) 54 %; Platelet Count 254 k/uL (150-450); RDW 13.8 % (11.5-15.5); WBC 5.4 k/uL (3.8-10.6)
[2023-07-31 08:22] LABS: Partial Thromboplastin Time 25.2 sec (22.0-30.0); Prothrombin Time 10.5 sec (10.0-12.5)
--- NOTE | 2023-07-31 08:47 | XR ---
EXAMINATION TYPE: XR shoulder complete LT DATE OF EXAM: 07/31/2023 8:43 AM CLINICAL INDICATION:Female, 78 years old with history of pain; PHH COMPARISON: None TECHNIQUE: XR shoulder complete LT; shoulder was examined in AP, internally rotated and scapular Y p rojections. FINDINGS: No evidence of acute osseous pathology, joint dislocation, or soft tissue swelling. The remaining po rtions of the visualized chest are unremarkable. Degeneration changes of the coracoclavicular joint. IMPRESSION: 1. No acute osseous pathology. 2. Mild left AC joint osteoarthrosis.
--- NOTE | 2023-07-31 08:51 | XR ---
EXAMINATION TYPE: XR chest 2V DATE OF EXAM: 07/31/2023 8:43 AM CLINICAL INDICATION:Female, 78 years old with history of Chest Pain; COMPARISON: Chest radiographs from 07/30/2023. TECHNIQUE: XR chest 2V Frontal and lateral views of the chest. FINDINGS: Lungs/Pleura: There is no evidence of pleural effusion, focal consolidation, or pneumothorax. Pulmonary vascularity: Unremarkable. Heart/mediastinum: Cardiomediastinal silhouette is enlarged and stable. Musculoskeletal: No acute osseous pathology. Postsurgical changes gastroesophageal junction. IMPRESSION: 1. No acute cardiopulmonary disease/process. 2. Stable cardiomegaly.
[2023-07-31 09:15] VITALS: RESP 18
--- NOTE | 2023-07-31 09:25 | CT ---
EXAMINATION TYPE: CT cervical spine wo con CT DLP: 421.1 mGycm, Automated exposure control for dose reduction was used. DATE OF EXAM: 07/31/2023 9:18 AM COMPARISON: None. CLINICAL INDICATION:Female, 78 years old with history of pain; PHH, Fall TECHNIQUE: Axial CT images from the skull base to the inferior aspect of T2 we obtained without intra venous contrast. Coronal and sagittal reformatted images were also reviewed. Contrast used: (if blank None) Oral contrast used: (if blank None) FINDINGS: Fracture: None. Osseous structures: Multilevel degenerative disc disease changes with endplate spurring and disc oste ophyte complex's. Vertebral alignment: Alignment within normal limits. Spinal canal/Neural Foramina: Disc osteophyte complexes at C4 C5 C6 with at least mild spinal canal s tenosis. No evidence for significant neural foraminal stenosis. Neck soft tissues: Prevertebral soft tissues are within normal limits. Other: The airway is patent. The lung apices are clear. IMPRESSION: 1. No evidence of cervical spine fracture. 2. Moderate multilevel degenerative disc disease.
--- NOTE | 2023-07-31 10:03 | CT ---
EXAMINATION TYPE: CT thoracic spine wo con CT DLP: 944.2 mGycm, Automated exposure control for dose reduction was used. DATE OF EXAM: 07/31/2023 9:19 AM COMPARISON: None. CLINICAL INDICATION:Female, 78 years old with history of pain; PHH, Fall TECHNIQUE: Axial images of the thoracic spine were obtained without contrast. Coronal and sagittal re formats were performed. 3-D reformats of the bones were created on a separate workstation and submitt ed for review. FINDINGS: Multilevel disc degeneration changes throughout the spine with disc space narrowing, osteop hyte formation is demonstrated and facet joint arthropathy. No evidence for significant spinal canal neural foraminal stenosis. There is preserved heights of the vertebral bodies. No evidence for verteb ral body fracture. There is slightly increased kyphosis noted throughout the spine. IMPRESSION: No evidence of fracture. Multilevel moderate degeneration changes without evidence for significant sp inal canal or neural foraminal stenosis
--- NOTE | 2023-07-31 10:03 | CT ---
EXAMINATION TYPE: CT chest angio for PE DATE OF EXAM: 07/31/2023 COMPARISON: None HISTORY: 78-year-old female chest pain, Pain Lt arm, fall TECHNIQUE: Contiguous axial scanning of the chest performed with IV Contrast, patient injected with 1 00 mL of Isovue 370. Coronal and sagittal MIP reconstructions performed. CT DLP: 442.7 mGycm Automated exposure control for dose reduction was used. FINDINGS: The heart is borderline enlarged without pericardial effusion. No flattening of the interventricular septum or reflux of contrast into the hepatic veins. LAD and circumflex coronary artery calcification s are present. Aorta normal caliber with mild atherosclerotic arch calcifications and conventional arch vessel branc ange anatomy. There is suboptimal contrast bolus with enhancement on the 174 Hounsfield units. Large caliber to the main right and left pulmonary arteries measuring up to 2.7 cm. No large central pulmonary embolus is seen. No definite lobar branch pulmonary embolus. Lobar, segmental, and more distal arterial branche s are limited due to nondiagnostic due to the degree of contrast enhancement and breathing motion. No thoracic lymphadenopathy by CT size criteria. Prominent patchy bibasilar opacities probably reflecting atelectasis. Slightly greater on the right s danyel. Clinical correlation to exclude an early infiltrate here. No pleural effusion. There is a moderate size hiatal hernia with postsurgical change noted at the GE junction. Additional surgical material left upper quadrant. Bones: Moderate degenerative disc disease lower thoracic spine. No osseous destructive process. IMPRESSION: 1. SUBOPTIMAL CONTRAST BOLUS AND BREATHING MOTION. NO LARGE CENTRAL PULMONARY EMBOLUS. LOBAR, SEGMENT AL, AND SUBSEGMENTAL BRANCHES ARE VERY LIMITED TO NONDIAGNOSTIC. NO DEFINITE EMBOLUS IN THE LOBAR BRA NCHES. UNABLE TO ADEQUATELY ASSESS FOR EMBOLI IN MANY OF THE SEGMENTAL AND SMALLER BRANCHES BASED ON THIS EXAM. 2. BORDERLINE CARDIOMEGALY. CORONARY ARTERY CALCIFICATIONS. PULMONARY ARTERIAL HYPERTENSION. 3. PATCHY BIBASILAR OPACITIES, RIGHT GREATER THAN LEFT PROBABLY REPRESENTING ATELECTASIS. CORRELATE W ITH SYMPTOMS TO EXCLUDE AN EARLY INFILTRATE AT THE RIGHT BASE. 4. MODERATE SIZED HIATAL HERNIA WITH POST SURGICAL CHANGE AT THE GE JUNCTION. CLINICALLY CORRELATE FO R POSSIBLE RECURRENT HERNIA AFTER PRIOR REPAIR.
[2023-07-31 10:12] LABS: ALT 38 U/L (4-34); AST 49 U/L (14-36); African American GFR (CKD) 90 (>60 ml/min/1.73 sqM); Albumin 3.3 g/dL (3.5-5.0); Alkaline Phosphatase 125 U/L (38-126); Anion Gap 8 mmol/L; Blood Urea Nitrogen 12 mg/dL (7-17); Calcium 8.4 mg/dL (8.4-10.2); Carbon Dioxide 21 mmol/L (22-30); Chloride 103 mmol/L (98-107); Glucose 93 mg/dL (74-99); Lipase 18 U/L (23-300); Magnesium 1.7 mg/dL (1.6-2.3); Non-African American GFR(CKD) 78 (>60 ml/min/1.73 sqM); Potassium 4.3 mmol/L (3.5-5.1); Sodium 132 mmol/L (137-145); Total Bilirubin 0.6 mg/dL (0.2-1.3); Total Protein 5.5 g/dL (6.3-8.2)
[2023-07-31] MEDS ORDERED: CYCLOBENZAPRINE 5 MG TAB PO STA (10:44)
[2023-07-31] MEDS ORDERED: Acetaminophen-Codeine 300-30mg TAB PO STA (10:44)
[2023-07-31] MEDS ORDERED: LIDOCAINE 4% PATCH TOPICAL STA (10:44)
[2023-07-31] MEDS ORDERED: ACET/COD 300 MG/30 MG STARTER PACK 6 TAB BTL PO STA (13:33)
[2023-07-31 14:16] VITALS: BP 131/78; PULSE 65; TEMP 97.8
== END 2023-07-31 13:57 | disposition home or self-care (01) ==
LOC: EC 07:20
DX: S46.911A Strain of unspecified muscle, fascia and tendon at shoulder and upper arm level, right arm, initial encounter (principal); I45.10 Unspecified right bundle-branch block; J45.909 Unspecified asthma, uncomplicated; K21.9 Gastro-esophageal reflux disease without esophagitis; E07.9 Disorder of thyroid, unspecified; I10 Essential (primary) hypertension; F41.9 Anxiety disorder, unspecified; F32.A Depression, unspecified; Z79.890 Hormone replacement therapy; Z79.899 Other long term (current) drug therapy; Z88.0 Allergy status to penicillin; W19.XXXA Unspecified fall, initial encounter
CPT/HCPCS: 96361 ×2; 96374 ×2; 96375 ×2; 99285 ×2; 36415; 93005; 80053; 83690; 83735; 84484; 85025; 85610; 85730; 73030; 71046; 72128; 72125; 71275; J2270; J1885; Q9967

== ENCOUNTER 2023-08-06 02:15 | Emergency (ER) | payer MEDICARE ==
[2023-08-06 03:03] VITALS: RESP 18
--- NOTE | 2023-08-06 07:41 | XR ---
EXAMINATION TYPE: XR ribs RT w pa chest xray, 5 views DATE OF EXAM: 08/06/2023 COMPARISON: 07/31/2023 HISTORY: 78-year-old female with multiple falls, right-sided injury, pain FINDINGS: The heart is borderline enlarged. Tortuous/ectatic thoracic aorta. Patient slightly rotated towards t he right. Mild patchy density at the periphery of the right base. No appreciable pneumothorax. No siz able pleural effusion. Surgical clips in the upper abdomen. There are nondisplaced to minimally displaced fractures of the right lateral fifth, sixth, and sevent h ribs. IMPRESSION: 1. Nondisplaced to minimally displaced fractures of the right lateral fifth, sixth, and seventh ribs. 2. Some underlying patchy atelectasis, possible trace effusion at the right base.
[2023-08-06] MEDS ORDERED: IBUPROFEN 800 MG TAB PO STA (09:23)
[2023-08-06] MEDS ORDERED: LIDOCAINE 4% PATCH TOPICAL ONE (09:23)
--- NOTE | 2023-08-06 09:50 | ED ---
General Adult HPI - General Chief complaint: Fall Stated complaint: Fall, rib pain Time Seen by Provider: 08/06/23 08:42 Source: family, RN notes reviewed Mode of arrival: wheelchair Limitations: no limitations - History of Present Illness Initial comments: 78-year-old female with no significant past medical history presents to the emergency department with a chief complaint of multiple falls. She reports multiple falls over the last 3 days. She denies hitting her head or loss of consciousness. She denies anticoagulant use. She is complaining of right upper rib pain. It is tender to touch. She has been taking Osseo sparingly at home. She denies any chest pain, dizziness or lightheadedness, chest pain nausea vomiting, abdominal pain. - Related Data Home Medications Medication Instructions Recorded Confirmed Nortriptyline HCl [Pamelor] 100 mg PO HS 12/01/15 05/23/23 Primidone [Mysoline] 50 mg PO TID 12/01/15 05/23/23 Zafirlukast 20 mg PO BID 12/01/15 05/23/23 busPIRone HCL 15 mg PO BID 12/01/15 05/23/23 estradioL [Estradiol] 0.5 mg PO DAILY 12/01/15 05/23/23 lamoTRIgine [LaMICtal] 200 mg PO DAILY 12/01/15 05/23/23 ALPRAZolam [Xanax] 1 mg PO HS 04/14/17 05/23/23 Aspirin EC [Ecotrin Low Dose] 81 mg PO DAILY 04/14/17 05/23/23 amLODIPine [Norvasc] 2.5 mg PO DAILY 04/14/17 05/23/23 Multivitamins, Thera [Multivitamin 1 tab PO DAILY 05/17/18 05/23/23 (formulary)] Diphenoxylate HCl/Atropine 1 tab PO TID PRN 02/08/21 05/23/23 [Lomotil 2.5-0.025 mg Tablet] Zolpidem Tartrate [Ambien] 10 mg PO HS PRN 04/11/21 05/23/23 ALPRAZolam [Xanax] 0.5 mg PO DAILY 05/23/23 05/23/23 Albuterol Sulfate [Albuterol 1 - 2 puff PO RT-Q4H PRN 05/23/23 05/23/23 Sulfate Hfa] Cetirizine HCl [Zyrtec] 10 mg PO DAILY 05/23/23 05/23/23 Ergocalciferol (Vitamin D2) 1,250 mcg PO WEEKLY 05/23/23 05/23/23 [Drisdol (50,000 Iu)] Levothyroxine Sodium [Synthroid] 112 mcg PO DAILY 05/23/23 05/23/23 Pantoprazole Sodium [Protonix] 20 mg PO BID 05/23/23 05/23/23 guaiFENesin-Coden 100-10MG/5ML 10 ml PO Q4H PRN 05/23/23 05/23/23 [Robitussin AC] ondansetron HCL [Zofran] 4 mg PO BID PRN 05/23/23 05/23/23 Previous Rx's Medication Instructions Recorded predniSONE 10 mg PO DIRECTED 12 Days #30 05/24/23 tab Lidocaine 5% Patch [Lidoderm 5% 1 patch TOPICAL DAILY PRN 14 Days 07/31/23 Patch] #14 patch HYDROcodone/APAP 5-325MG [Osseo 1 tab PO Q6HR PRN 3 Days #12 tab 08/06/23 5-325] Ibuprofen [Motrin] 800 mg PO Q6HR #30 tab 08/06/23 Allergies Allergy/AdvReac Type Severity Reaction Status Date / Time Penicillins Allergy Facial Verified 08/06/23 02:56 Swelling Review of Systems ROS Statement: Those systems with pertinent positive or pertinent negative responses have been documented in the HPI. ROS Other: All systems not noted in ROS Statement are negative. 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 History of Any Multi-Drug Resistant Organisms: MRSA Date of last positivie culture/infection: 2012/MRSA MDRO Source:: Lungs Past Surgical History: Cholecystectomy, Hysterectomy, Joint Replacement, Tonsillectomy Additional Past Surgical History / Comment(s): Recent L elbow lump with drainage, abdominal surgery for "twisted stomach" found during buster fundlop lasty, sinus surgery, bilateral total knee arthroplasties, colonoscopy, bilateral cataract removals, past benign tumors removed for RFA and R face- anterior to ear Past Anesthesia/Blood Transfusion Reactions: Motion Sickness Past Psychological History: Anxiety, Depression Smoking Status: Never smoker Past Alcohol Use History: None Reported Past Drug Use History: None Reported - Past Family History Father Additional Family Medical History / Comment(s): Father had heart disease and at the age of 85 yrs. Mother Additional Family Medical History / Comment(s): Mother at the age of 87yrs from either a MA or a stroke-pt unsure. General Exam - General Exam Comments Initial Comments: General: Alert, in no acute distress Head: atraumatic normocephalic. Eyes PERRL, EOMI intact, mucous membranes moist Respiratory: Lungs clear to auscultation bilaterally chest: Right upper flank with mild ecchymosis. No crepitus. Equal chest rise bilaterally Cardiovascular: Rate regular rate and rhythm Abdominal: Soft without guarding or rebound Extremities: Normal inspection with full range of motion and normal capillary refill Neuroogic: alert and oriented 3, CN II-XII intact, able to ambulate with steady gait Skin: warm dry and intact with normal color Limitations: no limitations Course Vital Signs 08/06/23 08/06/23 08/06/23 02:54 09:42 10:56 Temperature 97.9 F 98.1 F 98 F Pulse Rate 68 61 64 Respiratory 18 18 18 Rate Blood Pressure 126/74 167/78 142/81 O2 Sat by Pulse 96 100 100 Oximetry - Reevaluation(s) Reevaluation #1: 08/06/23 10:32 patient reevaluated and updated on results. Patient was offered admission in order to receive placement however she declined. Patient is requesting pain management and to be discharge home. Medical Decision Making - Medical Decision Making Was pt. sent in by a medical professional or institution (, PA, GRID MOLDER, urgent care, hospital, or long term...) When possible be specific @ -[No] Did you speak to anyone other than the patient for history (EMS, parent, family, police, friend...)? What history was obtained from this source @ -[No] Did you review nursing and triage notes (agree or disagree)? Why? @ -[I reviewed and agree with nursing and triage notes] Were old charts reviewed (outside hosp., previous admission, EMS record, old EKG, old radiological studies, urgent care reports/EKG's, long term records)? Report findings @ -[No old charts were reviewed] Differential Diagnosis (chest pain, altered mental status, abdominal pain women, abdominal pain men, vaginal bleeding, weakness, fever, dyspnea, syncope, headache, dizziness, GI bleed, back pain, seizure, CVA, palpatations, mental health, musculoskeletal)? @ -[not applicable] EKG interpreted by me (3pts min.). @ -[As above] X-rays interpreted by me (1pt min.). @ Right rib x-ray reveals fractures of ribs 5, 6 and 7. No evidence of pneumothorax. CT interpreted by me (1pt min.). @ -[None done] U/S interpreted by me (1pt. min.). @ -[None done] What testing was considered but not performed or refused? (CT, X-rays, U/S, labs)? Why? @ -[None] What meds were considered but not given or refused? Why? @ -[None] Did you discuss the management of the patient with other professionals (professionals i.e. , PA, GRID MOLDER, lab, RT, psych nurse, medical social worker, highway design engineer, teacher, affirmative action officer, employment case manager)? Give summary @ -[No] Was smoking cessation discussed for >3mins.? @ -[No] Was critical care preformed (if so, how long)? @ -[No] Were there social determinants of health that impacted care today? How? (Homelessness, low income, unemployed, alcoholism, drug addiction, transportation, low edu. Level, literacy, decrease access to med. care, alf, rehab)? @ -[No] Was there de-escalation of care discussed even if they declined (Discuss DNR or withdrawal of care, Hospice)? DNR status @ -[No] What co-morbidities impacted this encounter? (DM, HTN, Smoking, COPD, CAD, Cancer, CVA, ARF, Chemo, Hep., AIDS, mental health diagnosis, sleep apnea, morbid obesity)? @ -[None] Was patient admitted / discharged? Hospital course, mention meds given and route, prescriptions, significant lab abnormalities, going to OR and other pertinent info. @ -Discharged. This is a pleasant 78-year-old female who presents the emergency department with right rib pain and fall. Patient had a thorough history and physical exam performed. There is a small area of ecchymosis to the right upper flank. There is no crepitus noted. There is equal chest rise bilaterally. Audible lung sounds equal bilateral. Patient was offered admission in order to receive placement to rehab facility however she declined. Patient provided Motrin, and Lidoderm patches and prescription for Osseo. Notified that Stephanie employment case manager would be reaching out in regards to providing resources for setting up home care. Patient and patient's family member agreeable to this plan. They are agreeable with the plan for discharge at this time. Patient discharged in stable condition. Return precautions discussed at length. Case is discussed with , ED attending who agrees with plan of care Undiagnosed new problem with uncertain prognosis? @ -[No] Drug Therapy requiring intensive monitoring for toxicity (Heparin, Nitro, Insulin, Cardizem)? @ -[No] Were any procedures done? @ -[No] Diagnosis/symptom? @ -Fall - Fractures of 5th, 6th, 7th ribs Acute, or Chronic, or Acute on Chronic? @ -Acute Uncomplicated (without systemic symptoms) or Complicated (systemic symptoms)? @ -Uncomplicated Side effects of treatment? @ -[No] Exacerbation, Progression, or Severe Exacerbation? @ -[No] Poses a threat to life or bodily function? How? (Chest pain, USA, MA, pneumonia, PE, COPD, DKA, ARF, appy, cholecystitis, CVA, Diverticulitis, Homicidal, Suicidal, threat to staff... and all critical care pts) @ -Low likelihood Disposition Clinical Impression: Fall, Rib fractures Disposition: HOME SELF-CARE Condition: Stable Instructions (If sedation given, give patient instructions): Rib Fracture (ED), Fall Prevention for Older Adults (ED) Additional Instructions: Monitor symptoms closely Return if worsening pain or symptoms Prescriptions: Ibuprofen [Motrin] 800 mg PO Q6HR #30 tab HYDROcodone/APAP 5-325MG [Osseo 5-325] 1 tab PO Q6HR PRN 3 Days #12 tab PRN Reason: Pain Is patient prescribed a controlled substance at d/c from ED?: No [facility] - 1-2 days Kiko Scanlon DO [Doctor of Osteopathic Medicine] - 1-2 days Donald Coto MD [Primary Care Provider] - 1-2 days Time of Disposition: 09:50
[2023-08-06 11:02] VITALS: BP 142/81; PULSE 64; TEMP 98
== END 2023-08-06 13:21 | disposition home or self-care (01) ==
LOC: EC 02:15
DX: S22.41XA Multiple fractures of ribs, right side, initial encounter for closed fracture (principal); J45.909 Unspecified asthma, uncomplicated; K21.9 Gastro-esophageal reflux disease without esophagitis; E78.5 Hyperlipidemia, unspecified; M19.90 Unspecified osteoarthritis, unspecified site; I10 Essential (primary) hypertension; E07.9 Disorder of thyroid, unspecified; F41.9 Anxiety disorder, unspecified; F32.A Depression, unspecified; Z79.82 Long term (current) use of aspirin; Z79.890 Hormone replacement therapy; Z79.899 Other long term (current) drug therapy; Z88.0 Allergy status to penicillin; W18.30XA Fall on same level, unspecified, initial encounter
CPT/HCPCS: 99284

== ENCOUNTER → 2023-12-07 | Outpatient (CLI) | payer MEDICARE ==
--- NOTE | 2023-12-09 10:15 | MM ---
Reason for Exam: Screening (asymptomatic). Last mammogram was performed 1 year(s) and 4 month(s) ago. Patient History: Menarche at age 11. First Full-Term at age 18. Left ovary removed at age 53. Right ovary removed at age 53. Hysterectomy at age 53. Postmenopausal. Currently using Estrogen, starting at age 57. Maternal grandmother had breast cancer. Sister had breast cancer. Risk Values: Madison 5 year model risk: 3.1%. NCI Lifetime model risk: 5.2%. Prior Study Comparison: 02/22/2020 Bilateral Screening Mammogram, [facility]. 03/19/2021 Bilateral Screening Mammogram, [facility]. 07/23/2022 Bilateral MG 3D screening mammo w/cad, [facility]. Tissue Density: The breasts are almost entirely fatty. Findings: Analyzed By CAD. Right breast: There is no suspicious group of microcalcifications or new suspicious mass. Benign-appearing calcifications right breast. Left breast: There is no suspicious group of microcalcifications or new suspicious mass. Benign-appearing calcifications left breast. Overall Assessment: Benign, BI-RAD 2 Management: Screening Mammogram of both breasts in [address] [facility] will attempt to contact patient to return for supplemental views and ultrasound if indicated. Patient should continue monthly self-breast exams. A clinical breast exam by your physician is recommended on an annual basis. This exam should not preclude additional follow-up of suspicious palpable abnormalities. Note on Madison scores and lifetime risk: 1. A Madison score greater than 3% is considered moderate risk. If this is the case, consider specialist referral to assess eligibility for a risk reducing agent. 2. If overall lifetime risk for the development of breast cancer is 20% or higher, the patient may qualify for future screening with alternating mammogram and breast MRI. Electronically signed and approved by: Pj Olvera DO
== END | disposition home or self-care (01) ==
LOC: RADMAMWWP 16:07
PROVIDERS: ATTEND Internal Medicine
DX: Z12.31 Encounter for screening mammogram for malignant neoplasm of breast (principal); Z78.0 Asymptomatic menopausal state; Z80.3 Family history of malignant neoplasm of breast
CPT/HCPCS: 77063; 77067

== ENCOUNTER 2024-02-21 03:50 | Inpatient (IN) | payer MEDICARE ==
--- NOTE | 2024-02-21 04:19 | ED ---
Fall HPI - General Chief Complaint: Fall Stated Complaint: Fall Time Seen by Provider: 02/21/24 03:51 Source: patient, EMS Mode of arrival: EMS - History of Present Illness Initial Comments: Dictation was produced using [employer] dictation software. please excuse any grammatical, word or spelling errors. Chief Complaint: 78-year-old female presents after fall History of Present Illness: Patient 78-year-old debilitated female presents emergency department after fall. Patient lives by herself. She fell and could not get up. Patient states she was with her walker when she lost her balance and tripped. Patient states that she hurt her thighs bilaterally. She states she did hit her head. Patient is with chronic vertigo. EMS was called patient was brought to the ER after patient was able to call her daughter. Patient fell approximately an hour and half prior to arrival. The ROS documented in this emergency department record has been reviewed and confirmed by me. Those systems with pertinent positive or negative responses have been documented in the HPI. All other systems are other negative and/or noncontributory. - Related Data Home Medications Medication Instructions Recorded Confirmed Nortriptyline HCl [Pamelor] 100 mg PO HS 12/01/15 02/21/24 Primidone [Mysoline] 50 mg PO TID 12/01/15 02/21/24 Zafirlukast 20 mg PO BID 12/01/15 02/21/24 busPIRone HCL 15 mg PO BID 12/01/15 02/21/24 estradioL [Estradiol] 0.5 mg PO DAILY 12/01/15 02/21/24 lamoTRIgine [LaMICtal] 200 mg PO DAILY 12/01/15 02/21/24 ALPRAZolam [Xanax] 0.5 - 1 mg PO BID PRN 04/14/17 02/21/24 amLODIPine [Norvasc] 2.5 mg PO DAILY 04/14/17 02/21/24 Diphenoxylate HCl/Atropine 1 tab PO TID PRN 02/08/21 02/21/24 [Lomotil 2.5-0.025 mg Tablet] Albuterol Sulfate [Albuterol 2 puff PO RT-Q4H PRN 05/23/23 02/21/24 Sulfate Hfa] Ergocalciferol (Vitamin D2) 1,250 mcg PO WEEKLY 05/23/23 02/21/24 [Drisdol (50,000 Iu)] Levothyroxine Sodium [Synthroid] 112 mcg PO DAILY 05/23/23 02/21/24 guaiFENesin-Coden 100-10MG/5ML 10 ml PO Q4H PRN 05/23/23 02/21/24 [Robitussin AC] ondansetron HCL [Zofran] 4 mg PO TID 05/23/23 02/21/24 Acyclovir 400 mg PO BID 02/21/24 02/21/24 Fluticasone/Umeclidin/Vilanter 1 puff INHALATION RT-DAILY 02/21/24 02/21/24 [Trelegy Ellipta 200-62.5-25] Montelukast [Singulair] 10 mg PO HS 02/21/24 02/21/24 cefUROXime axetiL [Ceftin] 500 mg PO BID 02/21/24 02/21/24 Allergies Allergy/AdvReac Type Severity Reaction Status Date / Time Penicillins Allergy Facial Verified 02/21/24 04:01 Swelling Review of Systems ROS Statement: Those systems with pertinent positive or pertinent negative responses have been documented in the HPI. ROS Other: All systems not noted in ROS Statement are negative. 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 History of Any Multi-Drug Resistant Organisms: MRSA Date of last positivie culture/infection: 2012/MRSA MDRO Source:: Lungs Past Surgical History: Cholecystectomy, Hysterectomy, Joint Replacement, Tonsillectomy Additional Past Surgical History / Comment(s): Recent L elbow lump with vlema stephen, abdominal surgery for "twisted stomach" found during artie fundloplasty, sinus surgery, bilateral total knee arthroplasties, colonoscopy, bilateral cataract removals, past benign tumors removed for RFA and R face- anterior to ear Past Anesthesia/Blood Transfusion Reactions: Motion Sickness Past Psychological History: Anxiety, Depression Smoking Status: Never smoker Past Alcohol Use History: None Reported Past Drug Use History: None Reported - Past Family History Father Additional Family Medical History / Comment(s): Father had heart disease and at the age of 85 yrs. Mother Additional Family Medical History / Comment(s): Mother at the age of 87yrs from either a MA or a stroke-pt unsure. General Exam - General Exam Comments Initial Comments: PHYSICAL EXAM: General Impression: Alert and oriented x3, not in acute distress HEENT: Normocephalic atraumatic, extra-ocular movements intact, pupils equal and reactive to light bilaterally, mucous membranes moist. Cardiovascular: Heart regular rate and rhythm Chest: Able to complete full sentences, no retractions, no tachypnea Abdomen: abdomen soft, non-tender, non-distended, no organomegaly Musculoskeletal: Pulses present and equal in all extremities, no peripheral edema Motor: no focal deficits noted Neurological: CN II-XII grossly intact, no focal motor or sensory deficits noted Skin: Intact with no visualized rashes Psych: Normal affect and mood Limitations: no limitations Course Vital Signs 02/21/24 02/21/24 02/21/24 03:50 05:02 06:53 Temperature 97.7 F Pulse Rate 57 L 54 L 51 L Respiratory 16 18 18 Rate Blood Pressure 102/80 118/56 102/51 O2 Sat by Pulse 92 L 95 96 Oximetry 02/21/24 07:59 Temperature Pulse Rate 50 L Respiratory 18 Rate Blood Pressure 95/51 O2 Sat by Pulse 94 L Oximetry Medical Decision Making - Medical Decision Making My EKG interpretation: Ventricular rate 64, difficult to interpret rhythm due to significant artifact. QRS 110, QTc 445. Overall this EKG is nonspecific Was pt. sent in by a medical professional or institution (, PA, CARGO BROKER, urgent care, hospital, or alf...) When possible be specific @ -No Did you speak to anyone other than the patient for history (EMS, parent, family, police, friend...)? What history was obtained from this source @ -No Did you review nursing and triage notes (agree or disagree)? Why? @ -I reviewed and agree with nursing and triage notes Were old charts reviewed (outside hosp., previous admission, EMS record, old EKG, old radiological studies, urgent care reports/EKG's, alf records)? Report findings @ -No old charts were reviewed Differential Diagnosis (chest pain, altered mental status, abdominal pain women, abdominal pain men, vaginal bleeding, musculoskeletal, weakness, fever, dyspnea, syncope, headache, dizziness, GI bleed, back pain, seizure, CVA, palp atations, mental health)? @ -Syncope, mechanical fall, facial fracture, EKG interpreted by me (3pts min.). @ -See above X-rays interpreted by me (1pt min.). @ -Pelvis x-ray unremarkable. Bilateral knee x-rays are negative, chest x-ray is shows some pulmonary vascular congestion CT interpreted by me (1pt min.). @ -CT scan of the head and C-spine shows no acute processes U/S interpreted by me (1pt. min.). @ -None done What testing was considered but not performed or refused? (CT, X-rays, U/S, labs)? Why? @ -None What meds were considered but not given or refused? Why? @ -None Was smoking cessation discussed for >3mins.? @ -No Were there social determinants of health that impacted care today? How? (Homelessness, low income, unemployed, alcoholism, drug addiction, transportation, low edu. Level, literacy, decrease access to med. care, [facility], rehab)? @ -No Was there de-escalation of care discussed even if they declined (Discuss DNR or withdrawal of care, Hospice)? DNR status @ -No What co-morbidities impacted this encounter? (DM, HTN, Smoking, COPD, CAD, Cancer, CVA, ARF, Chemo, Hep., AIDS, mental health diagnosis, sleep apnea, morbid obesity)? @ -None Was patient admitted / discharged? Hospital course, mention meds given and route, prescriptions, significant lab abnormalities, going to OR and other pertinent info. @ -78-year-old female presents emergency department after fall. Patient history present illness consistent with mechanical fall. She is mildly debilitated and requires significant assistance with her activities of daily living at baseline. Vital signs upon arrival are within acceptable limits. Laboratory evaluation obtained. CBC unremarkable. Metabolic panel shows derangement with sodium 124, anion gap acidosis of 17 with elevated renal function likely secondary to dehydration. Patient given Reglan for reported symptoms of acute on chronic vertigo. Pending radiology reads per patient imaging studies. Did you discuss the management of the patient with other professionals (professionals i.e. , PA, CARGO BROKER, lab, RT, psych nurse, social worker school, production supervisor off shift, teacher, police officer crime prevention, disease case manager rn)? Give summary @ -Case discussed with hospitalist Dr. Coto for admission Was critical care preformed (if so, how long)? @ -No Undiagnosed new problem with uncertain prognosis? @ -No Drug Therapy requiring intensive monitoring for toxicity (Heparin, Nitro, Insulin, Cardizem)? @ -No Were any procedures done? @ -No Diagnosis/symptom? Acute, or Chronic, or Acute on Chronic? Uncomplicated (without systemic symptoms) or Complicated (systemic symptoms)? @ -Fall, hyponatremia Side effects of treatment? @ -No Exacerbation, Progression, or Severe Exacerbation? @ -No Poses a threat to life or bodily function? How? (Chest pain, USA, MA, pneumonia, PE, COPD, DKA, ARF, appy, cholecystitis, CVA, Diverticulitis, Homicidal, Suicidal, threat to staff... and all critical care pts) @ -yes - Lab Data Result diagrams: 02/21/24 04:23 02/21/24 14:08 Lab Results 02/21/24 02/21/24 02/21/24 Range/Units 04:23 04:23 04:23 WBC 8.7 (3.8-10.6) k/uL RBC 4.37 (3.80-5.40) m/uL Hgb 13.0 (11.4-16.0) gm/dL Hct 39.6 (34.0-46.0) % MCV 90.6 (80.0-100.0) fL MCH 29.8 (25.0-35.0) pg MCHC 32.9 (31.0-37.0) g/dL RDW 14.9 (11.5-15.5) % Plt Count 211 (150-450) k/uL MPV 7.5 Neutrophils % 91 % Lymphocytes % 3 % Monocytes % 4 % Eosinophils % 0 % Basophils % 0 % Neutrophils # 7.9 H (1.3-7.7) k/uL Lymphocytes # 0.3 L (1.0-4.8) k/uL Monocytes # 0.4 (0-1.0) k/uL Eosinophils # 0.0 (0-0.7) k/uL Basophils # 0.0 (0-0.2) k/uL Sodium 124 L (137-145) mmol/L Potassium 3.8 (3.5-5.1) mmol/L Chloride 96 L (98-107) mmol/L Carbon Dioxide 17 L (22-30) mmol/L Anion Gap 11 mmol/L BUN 25 H (7-17) mg/dL Creatinine 1.21 H (0.52-1.04) mg/dL Est GFR (CKD-EPI)AfAm 49 (>60 ml/min/1.73 sqM) Est GFR (CKD-EPI)NonAf 43 (>60 ml/min/1.73 sqM) Glucose 122 H (74-99) mg/dL Calcium 8.7 (8.4-10.2) mg/dL Creatine Kinase 407 H (30-135) U/L Disposition Clinical Impression: Fall, Hyponatremia Disposition: ADMITTED IP TO THIS HOSP Condition: Fair Decision Time: 06:54
[2024-02-21 04:33] LABS: Basophils % (A) 0 %; Eosinophils % (A) 0 %; HCT 39.6 % (34.0-46.0); Lymphocytes # (A) 0.3 k/uL (1.0-4.8); Lymphocytes % (A) 3 %; MCH 29.8 pg (25.0-35.0); MCHC 32.9 g/dL (31.0-37.0); MCV 90.6 fL (80.0-100.0); Mean Platelet Volume 7.5; Monocytes # (A) 0.4 k/uL (0-1.0); Monocytes % (A) 4 %; Neutrophils # (A) 7.9 k/uL (1.3-7.7); Neutrophils % (A) 91 %; Platelet Count 211 k/uL (150-450); RBC 4.37 m/uL (3.80-5.40); RDW 14.9 % (11.5-15.5); WBC 8.7 k/uL (3.8-10.6)
[2024-02-21 04:45] LABS: African American GFR (CKD) 49 (>60 ml/min/1.73 sqM); Anion Gap 11 mmol/L; Blood Urea Nitrogen 25 mg/dL (7-17); Calcium 8.7 mg/dL (8.4-10.2); Carbon Dioxide 17 mmol/L (22-30); Chloride 96 mmol/L (98-107); Glucose 122 mg/dL (74-99); Non-African American GFR(CKD) 43 (>60 ml/min/1.73 sqM); Potassium 3.8 mmol/L (3.5-5.1); Sodium 124 mmol/L (137-145)
[2024-02-21] MEDS: METOCLOPRAMIDE 5 MG/ML 2 ML VIAL IVP STA (05:09)
[2024-02-21] MEDS: SODIUM CHLORIDE 0.9% 1,000 ML IV STA ×2 (05:09→10:26)
--- NOTE | 2024-02-21 08:02 | CT ---
EXAMINATION TYPE: CT brain chitra ruiz DATE OF EXAM: 02/21/2024 COMPARISON: None HISTORY: pt fell from standing at home. per EMS pt was on floor for 2-[address] DLP: 1373.[address] of the brain was performed. The ventricles, basal cisterns and sulci overlying the cerebral convexities demonstrate enlargement. There is no evidence for intracranial hemorrhage or sulcal effacement. There is decreased attenuatio n about the periventricular white matter and deep white matter of both cerebral hemispheres, compatib le with chronic small vessel ischemia. No mass effects are seen. If symptoms persist consider MRI. Osseous calvarium is intact. IMPRESSION: 1. Age related atrophic and chronic small vessel ischemic change without acute intracranial process seen at this time. CT Cervical Spine: Unenhanced CT of the cervical spine was performed with bone and soft tissue window settings submitted . Coronal and sagittal reconstruction is obtained. There is normal alignment and prevertebral soft tissues. No evidence for acute cervical fracture . Scattered degenerative disc disease and spondylosis. Upper lobe infiltrates left greater than right. Correlate for pneumonia. IMPRESSION: 1. No evidence for acute fracture or subluxation of the cervical spine.
--- NOTE | 2024-02-21 08:02 | XR ---
EXAMINATION TYPE: XR chest 2V DATE OF EXAM: 02/21/2024 COMPARISON: 08/06/2023 HISTORY: Shortness of breath TECHNIQUE: Frontal and lateral views of the chest are obtained. FINDINGS: Scattered senescent parenchymal changes noted. Hyperinflation compatible with COPD. Patchy perihilar infiltrates could reflect pneumonia although pulmonary edema not excluded given card iomegaly. Correlate clinically. Mediastinal structures are stable and grossly unremarkable. No evidence for hilar prominence. Degenerative changes dorsal spine. IMPRESSION: 1. Patchy perihilar infiltrates could reflect pneumonia although pulmonary edema not excluded given c ardiomegaly. Correlate clinically.
--- NOTE | 2024-02-21 08:06 | XR ---
EXAMINATION TYPE: XR pelvis AP view DATE OF EXAM: 02/21/2024 CLINICAL HISTORY: pain TECHNIQUE: Three views of the bilateral knees are obtained. COMPARISON: None. FINDINGS: There is no acute fracture/dislocation. Bilateral total knee arthroplasty remains in place with femoral and tibial components well seated bilaterally. The overlying soft tissue appears unrema rkable. IMPRESSION: There is no acute fracture or dislocation.ICD 10 NO FRACTURE, INITIAL EVALUATION
--- NOTE | 2024-02-21 08:25 | XR ---
EXAM: XR Bilateral Knees, 3 Views CLINICAL HISTORY: ITS.REASON XR Reason: fall, thigh pain TECHNIQUE: Three views of the bilateral knees. COMPARISON: No relevant prior studies available. FINDINGS: Bones/joints: Bilateral total knee arthroplasty hardware in place. No acute fracture. No dislocation. Soft tissues: No knee effusion. IMPRESSION: No acute fracture or traumatic malalignment to the bilateral knees.
[2024-02-21] MEDS: AZITHROMYCIN 500 MG TAB PO SCH (11:45)
--- NOTE | 2024-02-21 11:48 | P.NPCON ---
History of Present Illness - Reason for Consult hyponatremia - History of Present Illness Reason for consultation: Hyponatremia History of present illness: Patient is a 78-year-old female seen in renal consultation for hyponatremia. Sodium level on admission today at 4:23 AM was 124. Patient received 1 L bolus of normal saline and is currently receiving normal saline at 75 cc an hour. Patient was brought to the hospital due to altered mental status. Patient also sustained a fall at home. Patient fell and was not able to get herself up. Patient denies hitting her head. Patient states she lost her balance and tripped. Patient states she has not been eating or drinking since . Patient does have history of nausea and does take Zofran outpatient. She also admits to chronic diarrhea. Denies use of nonsteroidals. Denies history of malignancy. Denies excessive fluid intake. Patient has baseline creatinine is 0.8-0.9 and was also noted to be slightly elevated at 1.2. Denies chest pain or shortness of breath. Denies gross hematuria or dysuria. Denies family history of renal disease. No acute fracture noted on imaging. Vital signs are stable. General: No acute distress. HEENT: Head exam is unremarkable. LUNGS: No audible rhonchi or wheezes. HEART: Rate and Rhythm are regular. ABDOMEN: Nontender. EXTREMITITES: No edema. 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 Mother Additional Family Medical History / Comment(s): Mother at the age of 87yrs from either a [place] or a stroke-pt unsure. Medications and Allergies Home Medications Medication Instructions Recorded Confirmed Type Nortriptyline HCl [Pamelor] 100 mg PO HS 12/01/15 02/21/24 History Primidone [Mysoline] 50 mg PO TID 12/01/15 02/21/24 History Zafirlukast 20 mg PO BID 12/01/15 02/21/24 History busPIRone HCL 15 mg PO BID 12/01/15 02/21/24 History estradioL [Estradiol] 0.5 mg PO DAILY 12/01/15 02/21/24 History lamoTRIgine [LaMICtal] 200 mg PO DAILY 12/01/15 02/21/24 History ALPRAZolam [Xanax] 0.5 - 1 mg PO BID PRN 04/14/17 02/21/24 History amLODIPine [Norvasc] 2.5 mg PO DAILY 04/14/17 02/21/24 History Diphenoxylate HCl/Atropine 1 tab PO TID PRN 02/08/21 02/21/24 History [Lomotil 2.5-0.025 mg Tablet] Albuterol Sulfate [Albuterol 2 puff PO RT-Q4H PRN 05/23/23 02/21/24 History Sulfate Hfa] Ergocalciferol (Vitamin D2) 1,250 mcg PO WEEKLY 05/23/23 02/21/24 History [Drisdol (50,000 Iu)] Levothyroxine Sodium [Synthroid] 112 mcg PO DAILY 05/23/23 02/21/24 History guaiFENesin-Coden 100-10MG/5ML 10 ml PO Q4H PRN 05/23/23 02/21/24 History [Robitussin AC] ondansetron HCL [Zofran] 4 mg PO TID 05/23/23 02/21/24 History Acyclovir 400 mg PO BID 02/21/24 02/21/24 History Fluticasone/Umeclidin/Vilanter 1 puff INHALATION RT-DAILY 02/21/24 02/21/24 History [Trelegy Ellipta 200-62.5-25] Montelukast [Singulair] 10 mg PO HS 02/21/24 02/21/24 History cefUROXime axetiL [Ceftin] 500 mg PO BID 02/21/24 02/21/24 History Allergies Allergy/AdvReac Type Severity Reaction Status Date / Time Penicillins Allergy Facial Verified 02/21/24 04:01 Swelling Physical Exam Vitals: Vital Signs Temp Pulse Resp BP Pulse Ox 02/21/24 07:59 50 L 18 95/51 94 L 02/21/24 06:53 51 L 18 102/51 96 02/21/24 05:02 54 L 18 118/56 95 02/21/24 03:50 97.7 F 57 L 16 102/80 92 L Intake and Output 02/20/24 02/21/24 02/21/24 22:59 06:59 14:59 Other: Weight 86.364 kg 86.364 kg Results - Lab Results Most recent lab results Calcium 8.7 mg/dL (8.4-10.2) 02/21/24 04:23 02/21/24 04:23 02/21/24 04:23 Assessment and Plan Plan: Assessment: 1. Hyponatremia, appears hypovolemic. Sodium level 124 on admission. 2. Acute kidney injury secondary to vasomotor nephropathy from poor intake, diarrhea and hypotension. Creatinine 1.2 on admission. Baseline creatinine 0.8-0.9. 3. Status post fall. 4. Metabolic acidosis secondary to acute kidney injury and GI losses. Plan: Maintain IV fluids. Check TSH. Check serum and urine osmolality and urine sodium level. Add oral bicarb. Repeat sodium level this afternoon. Check UA and renal ultrasound. Thank you for the consultation. I will continue to follow the patient with you during her hospital stay.
[2024-02-21] MEDS ORDERED: ALBUTEROL NEB (CONC) 2.5 MG/0.5 ML INHALATION PRN (12:40)
--- NOTE | 2024-02-21 12:41 | P.CNPUL ---
History of Present Illness Consult date: 02/21/24 Requesting physician: Donald Coto Reason for consult: abnormal CXR/CT Chief complaint: Fall, generalized weakness History of present illness: This is a 78-year-old female patient with a history of asthma, gastroesophageal reflux disorder, hearing disorder, hyperlipidemia, hypertension, hypothyroidism, vertigo. Yesterday she states she slipped out of bed though ER report states she tripped while being up with her walker. She was on the ground for an extended period time she was able to call her daughter and then EMS was called and she was brought in. EKG reveals atrial fibrillation with a controlled ventricular response. CT scan of the head and neck revealed age-related atrophic and chronic small vessel ischemia but no acute intercranial process. No evidence of fracture of the cervical spine. Hip and knee x-rays revealed no fracture. Chest x-ray reveals patchy perihilar infiltrates possible pneumonia. White count 8.7. Hemoglobin 13.0. Platelets 211. Sodium 124. Potassium 3.8. Bicarb 17. BUN 25. Creatinine 1.21. Glucose 122. proBNP 611. Troponin negative x 1. She is seen today in consultation on the regular medical floor. She is currently resting comfortably in bed. Awake and alert in no acute distress. She is weak. She has a dry nonproductive cough which she states she has had for years. No fever or chills. No hemoptysis. She is maintaining good O2 saturations in the 90s on 2 L/min per nasal cannula. Afebrile. Hemodynamically stable. Review of Systems REVIEW OF SYSTEMS: CONSTITUTIONAL: Denies any recent significant weight loss or weight gain. EYES: Denies change in vision. EARS, NOSE, MOUTH, THROAT: Denies headaches, denies sore throat. CARDIOVASCULAR: Denies chest pain, palpitations or syncopal episodes. RESPIRATORY: Positive for chronic cough, congestion no hemoptysis. GASTROINTESTINAL: Denies change in appetite, denies abdominal pain GENITOURINARY: Denies hematuria, denies infections. MUSKULOSKELETAL: Lower extremity pain, status post fall. INTEGUMENTARY: Denies rash, denies eczema. NEUROLOGICAL: Denies recent memory loss, no recent seizure activity. PSYCHIATRIC: Denies anxiety, denies depression. HEMATOLOGIC/LYMPHATIC: Denies anemia, denies enlarged lymph nodes. 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 History of Any Multi-Drug Resistant Organisms: MRSA Date of last positivie culture/infection: 2012/MRSA MDRO Source:: Lungs Past Surgical History: Cholecystectomy, Hysterectomy, Joint Replacement, Tonsillectomy Additional Past Surgical History / Comment(s): Recent L elbow lump with drainage, abdominal surgery for "twisted stomach" found during artei fundloplasty, sinus surgery, bilateral total knee arthroplasties, colonoscopy, bilateral cataract removals, past benign tumors removed for RFA and R face- anterior to ear Past Anesthesia/Blood Transfusion Reactions: Motion Sickness Past Psychological History: Anxiety, Depression Smoking Status: Never smoker Past Alcohol Use History: None Reported Past Drug Use History: None Reported - Past Family History Father Additional Family Medical History / Comment(s): Father had heart disease and at the age of 85 yrs. Mother Additional Family Medical History / Comment(s): Mother at the age of 87yrs from either a [place] or a stroke-pt unsure. Medications and Allergies Home Medications Medication Instructions Recorded Confirmed Type Nortriptyline HCl [Pamelor] 100 mg PO HS 12/01/15 02/21/24 History Primidone [Mysoline] 50 mg PO TID 12/01/15 02/21/24 History Zafirlukast 20 mg PO BID 12/01/15 02/21/24 History busPIRone HCL 15 mg PO BID 12/01/15 02/21/24 History estradioL [Estradiol] 0.5 mg PO DAILY 12/01/15 02/21/24 History lamoTRIgine [LaMICtal] 200 mg PO DAILY 12/01/15 02/21/24 History ALPRAZolam [Xanax] 0.5 - 1 mg PO BID PRN 04/14/17 02/21/24 History amLODIPine [Norvasc] 2.5 mg PO DAILY 04/14/17 02/21/24 History Diphenoxylate HCl/Atropine 1 tab PO TID PRN 02/08/21 02/21/24 History [Lomotil 2.5-0.025 mg Tablet] Albuterol Sulfate [Albuterol 2 puff PO RT-Q4H PRN 05/23/23 02/21/24 History Sulfate Hfa] Ergocalciferol (Vitamin D2) 1,250 mcg PO WEEKLY 05/23/23 02/21/24 History [Drisdol (50,000 Iu)] Levothyroxine Sodium [Synthroid] 112 mcg PO DAILY 05/23/23 02/21/24 History guaiFENesin-Coden 100-10MG/5ML 10 ml PO Q4H PRN 05/23/23 02/21/24 History [Robitussin AC] ondansetron HCL [Zofran] 4 mg PO TID 05/23/23 02/21/24 History Acyclovir 400 mg PO BID 02/21/24 02/21/24 History Fluticasone/Umeclidin/Vilanter 1 puff INHALATION RT-DAILY 02/21/24 02/21/24 History [Trelegy Ellipta 200-62.5-25] Montelukast [Singulair] 10 mg PO HS 02/21/24 02/21/24 History cefUROXime axetiL [Ceftin] 500 mg PO BID 02/21/24 02/21/24 History Allergies Allergy/AdvReac Type Severity Reaction Status Date / Time Penicillins Allergy Facial Verified 02/21/24 04:01 Swelling Physical Exam Vitals: Vital Signs Temp Pulse Resp BP Pulse Ox 02/21/24 07:59 50 L 18 95/51 94 L 02/21/24 06:53 51 L 18 102/51 96 02/21/24 05:02 54 L 18 118/56 95 02/21/24 03:50 97.7 F 57 L 16 102/80 92 L Intake and Output 02/20/24 02/21/24 02/21/24 22:59 06:59 14:59 Other: Weight 86.364 kg 86.364 kg GENERAL EXAM: Alert, 78-year-old female, on 2 L nasal cannula, fairly comfortable in no apparent distress. HEAD: Normocephalic. EYES: Normal reaction of pupils, equal size. NOSE: Clear with pink turbinates. THROAT: No erythema or exudates. NECK: No masses, no JVD. CHEST: No chest wall deformity. LUNGS: Equal air entry with no crackles, wheeze, rhonchi or dullness. CVS: S1 and S2 normal with no audible murmur, regular rhythm. ABDOMEN: No hepatosplenomegaly, normal bowel sounds, no guarding or rigidity. SPINE: No scoliosis or deformity SKIN: No rashes CENTRAL NERVOUS SYSTEM: No focal deficits, tone is normal in all 4 extremities. EXTREMITIES: There is no peripheral edema. No clubbing, no cyanosis. Peripheral pulses are intact. Results - Laboratory Findings CBC and BMP: 02/21/24 04:23 02/21/24 04:23 Abnormal lab findings: Abnormal Labs 02/21/24 02/21/24 02/21/24 04:23 04:23 04:23 Neutrophils # 7.9 H Lymphocytes # 0.3 L Sodium 124 L Chloride 96 L Carbon Dioxide 17 L BUN 25 H Creatinine 1.21 H Glucose 122 H Creatine Kinase 407 H TSH 02/21/24 10:41 Neutrophils # Lymphocytes # Sodium Chloride Carbon Dioxide BUN Creatinine Glucose Creatine Kinase TSH 5.970 H - Diagnostic Findings Chest x-ray: image reviewed Assessment and Plan Assessment: Generalized weakness and fall suspect secondary to hyponatremia Acute kidney injury suspect secondary to dehydration Acute hypoxic respiratory failure secondary to right hilar consolidation versus mass History of chronic cough/asthma Lifelong non-smoker Hypothyroidism Anxiety/depression Hypertension Plan: The patient was seen and evaluated Imaging, labs and medications reviewed Add ceftriaxone and azithromycin Check a procalcitonin May need CT scan of the chest Add Symbicort, albuterol Normal saline at 75 MLS per hour We will continue to follow and make further recommendations based on her clini lynn status I have personally seen and examined the patient, performed the documentation and the assessment and plan as written. Number of minutes spent on the visit: 20.
--- NOTE | 2024-02-21 13:28 | US ---
EXAMINATION TYPE: US kidneys/renal and bladder DATE OF EXAM: 02/21/2024 Exam done portable COMPARISON: US 2020, CT 2016 CLINICAL INDICATION: Female, 78 years old with history of liv; EXAM MEASUREMENTS: Right Kidney: 8.9 x 4.7 x 4.3 cm Left Kidney: 10.5 x 4.3 x 4.7 cm Right Kidney: slightly small in size, inferior pole limited by overlying bowel gas Left Kidney: superior pole limited by overlying bowel gas Bladder: wnl Bilateral Jets seen: no There is no evidence for hydronephrosis at this point in time. No nephrolithiasis is seen. No marah s are identified. The urinary bladder is anechoic. Bilateral ureteral jets are seen. IMPRESSION: Slightly diminutive right kidney.
[2024-02-21] MEDS: SODIUM BICARBONATE TAB 650 MG TAB PO SCH (17:43)
[2024-02-21] MEDS ORDERED: DIPHENOX-ATROP 2.5-0.025 MG 1 EACH TAB PO PRN (18:31)
[2024-02-21] MEDS ORDERED: ALPRAZolam 0.5 MG TAB PO PRN (18:31)
[2024-02-21] MEDS ORDERED: ALBUTEROL NEBULIZED 2.5 MG/3 ML INHALATION PRN (18:31)
[2024-02-21 19:05] LABS: Appearance,Urine Clear (Clear); Bilirubin,Urine Negative (Negative); Blood,Urine Negative (Negative); Color,Urine Colorless; Glucose,Urine (UA) Negative (Negative); Ketones,Urine Negative (Negative); Leukocyte Esterase,Urine Negative (Negative); Nitrite,Urine Negative (Negative); Protein,Urine Negative (Negative); Specific Gravity,Urine 1.005 (1.001-1.035); Urobilinogen,Urine <2.0 mg/dL (<2.0)
[2024-02-21] MEDS: busPIRone HCl 5 MG TAB PO SCH (20:21)
[2024-02-21] MEDS: ONDANSETRON 4 MG TAB PO SCH (20:22)
[2024-02-21] MEDS: MONTELUKAST 10 MG TAB PO SCH (20:22)
[2024-02-21] MEDS: NORTRIPTYLINE 25 MG CAP PO SCH (20:22)
[2024-02-21] MEDS: PRIMIDONE 50 MG TAB PO SCH (20:22)
[2024-02-21] MEDS: ACYCLOVIR 200 MG CAP PO SCH (20:24)
[2024-02-21] MEDS: SYMBICORT 160-4.5 MCG INHALER INHALATION SCH (20:57)
[2024-02-21] MEDS ORDERED: ZAFIRLUKAST 20 MG PO SCH (21:00)
[2024-02-21] MEDS ORDERED: NON FORMULARY DRUG (Cefuroxime Axetil [Ceftin] 500 MG Tablet) PO SCH (21:00)
[2024-02-21 22:27] LABS: ALT 21 U/L (4-34); AST 37 U/L (14-36); African American GFR (CKD) >90 (>60 ml/min/1.73 sqM); Albumin 2.6 g/dL (3.5-5.0); Albumin/Globulin Ratio 1.2; Alkaline Phosphatase 106 U/L (38-126); Anion Gap 6 mmol/L; Blood Urea Nitrogen 17 mg/dL (7-17); Calcium 8.4 mg/dL (8.4-10.2); Carbon Dioxide 20 mmol/L (22-30); Chloride 102 mmol/L (98-107); Globulin 2.1 g/dL; Glucose 94 mg/dL (74-99); Non-African American GFR(CKD) 84 (>60 ml/min/1.73 sqM); Potassium 3.9 mmol/L (3.5-5.1); Sodium 128 mmol/L (137-145); Total Bilirubin 0.5 mg/dL (0.2-1.3); Total Protein 4.7 g/dL (6.3-8.2)
[2024-02-21] MEDS: guaiFENesin-Coden 100-10MG/5ML 10 ML CUP PO PRN (22:47)
[2024-02-22] MEDS: LEVOTHYROXINE 112 MCG TAB PO SCH (06:07)
[2024-02-22] MEDS: lamoTRIgine 100 MG TAB PO SCH (08:41)
[2024-02-22] MEDS: amLODIPine 2.5 MG TAB PO SCH (08:41)
[2024-02-22 08:42] LABS: Basophils # (A) 0.04 X 10*3/uL (0.00-0.10); Basophils % (A) 0.5 %; Eosinophils # (A) 0.15 X 10*3/uL (0.04-0.35); Eosinophils % (A) 1.9 %; HCT 31.9 % (37.2-46.3); HGB 10.7 g/dL (12.0-15.0); Lymphocytes # (A) 0.94 X 10*3/uL (0.90-5.00); Lymphocytes % (A) 11.9 %; MCH 29.3 pg (27.0-32.0); MCHC 33.5 g/dL (32.0-37.0); MCV 87.4 FL (80.0-97.0); Mean Platelet Volume 9.6 FL (9.5-12.2); Monocytes # (A) 0.63 X 10*3/uL (0.20-1.00); NRBC Per 100 WBC 0 X 10*3/uL (0.00-0.01); Neutrophils # (A) 6.11 X 10*3/uL (1.80-7.70); Neutrophils % (A) 77.2 %; Platelet Count 228 X 10*3/uL (140-440); RBC 3.65 X 10*6/uL (4.10-5.20); RDW 15.1 % (11.5-14.5); WBC 7.91 X 10*3/uL (4.50-10.00)
[2024-02-22] MEDS: IPRATROPIUM 0.5 MG/2.5 ML NEBU INHALATION SCH (09:08)
[2024-02-22 09:32] LABS: ALT 20 U/L (8-44); AST 27 U/L (13-35); Albumin 2.9 g/dL (3.8-4.9); Albumin/Globulin Ratio 2.23 Ratio (1.60-3.17); Alkaline Phosphatase 112 U/L (41-126); Blood Urea Nitrogen 12.4 mg/dL (9.0-27.0); Calcium 7.9 mg/dL (8.7-10.3); Carbon Dioxide 20.6 mmol/L (21.6-31.8); Chloride 101 mmol/L (96-109); Globulin 1.3 g/dL (1.6-3.3); Glucose 93 mg/dL (70-110); Magnesium 1.6 mg/dL (1.5-2.4); Potassium 3.9 mmol/L (3.5-5.5); Sodium 132 mmol/L (135-145); Total Bilirubin 0.2 mg/dL (0.3-1.2); Total Protein 4.2 g/dL (6.2-8.2)
--- NOTE | 2024-02-22 12:12 | CA ---
Transthoracic Echo Report Name: Stephanie Estevez Age: 78 Gender: F : 1945 Exam Date: 02/22/2024 08:11 Exam Location: [facility] Ht (in): 63 Wt (lb): 190 Ordering Physician: Donald Coto MD Attending/Referring Phys: Lard Mixer Bertha Wallace RDCS Procedure CPT: Indications: pulmonary congestion Cardiac Hx: Technical Quality: Technically difficult study Contrast 1: Definity Total Dose (mL): 2 Contrast 2: Total Dose (mL): MEASUREMENTS (Male / Female) Normal Values 2D ECHO LV Diastolic Diameter PLAX 4.7 cm 4.2 - 5.9 / 3.9 - 5.3 cm LV Systolic Diameter PLAX 3.2 cm IVS Diastolic Thickness 1.0 cm 0.6 - 1.0 / 0.6 - 0.9 cm LVPW Diastolic Thickness 1.0 cm 0.6 - 1.0 / 0.6 - 0.9 cm LV Relative Wall Thickness 0.4 LVOT Diameter 2.1 cm LV Diastolic Volume MOD BP 112.7 cm??? 67 - 155 / 56 - 104 cm??? LV Systolic Volume MOD BP 37.3 cm??? 22 - 58 / 19 - 49 cm??? LV Ejection Fraction MOD BP 66.9 % >= 55 % LV Cardiac Index MOD BP 2647.6 cm???/min???m??? LV Diastolic Volume MOD 4C 113.6 cm??? LV Systolic Volume MOD 4C 37.4 cm??? LV Ejection Fraction MOD 4C 67.1 % LV Cardiac Index MOD 4C 2676.1 cm???/min???m??? LV Diastolic Length 4C 8.5 cm LV Systolic Length 4C 6.4 cm LV Diastolic Volume MOD 2C 101.8 cm??? LV Systolic Volume MOD 2C 37.9 cm??? LV Ejection Fraction MOD 2C 62.7 % LV Cardiac Index MOD 2C 2242.7 cm???/min???m??? LV Diastolic Length 2C 7.8 cm LV Systolic Length 2C 6.4 cm LA Volume 69.2 cm??? 18 - 58 / 22 - 52 cm??? LA Volume Index 34.7 cm???/m??? 16 - 28 cm???/m??? DOPPLER AV Peak Velocity 181.4 cm/s AV Peak Gradient 13.2 mmHg AV Mean Velocity 113.1 cm/s AV Mean Gradient 6.0 mmHg AV Velocity Time Integral 32.1 cm LVOT Peak Velocity 123.6 cm/s LVOT Peak Gradient 6.1 mmHg LVOT Velocity Time Integral 26.0 cm LVOT Stroke Volume 90.5 cm??? LVOT Stroke Volume Index 47.8 ml/m??? LVOT Cardiac Index 3178.3 cm???/min???m??? AV Area Cont Eq vti 2.8 cm??? AV Area Cont Eq pk 2.4 cm??? MV Area PHT 3.3 cm??? Mitral E Point Velocity 84.7 cm/s Mitral A Point Velocity 80.0 cm/s Mitral E to A Ratio 1.1 MV Deceleration Time 231.6 ms TR Peak Velocity 256.2 cm/s TR Peak Gradient 26.3 mmHg Right Atrial Pressure 5.0 mmHg Pulmonary Artery Systolic Pressu 31.3 mmHg Right Ventricular Systolic Press 31.3 mmHg FINDINGS Left Ventricle Left ventricular ejection fraction is estimated at 60-65 %. Mildly increased posterior wall thickness. Mildly increased left ventricular diastolic volume. No obvious regional wall motion abnormalities. Right Ventricle Normal right ventricular size and function. Right ventricular systolic pressure within normal limits. Right Atrium Right atrium not well visualized. Left Atrium Moderately increased left atrial volume. Mildly increased left atrial area. Mitral Valve Structurally normal mitral valve. No mitral stenosis, regurgitation or prolapse. Aortic Valve Trileaflet aortic valve. No aortic valve stenosis or regurgitation. Tricuspid Valve Structurally normal tricuspid valve. No tricuspid stenosis. Trace tricuspid regurgitation. Pulmonic Valve Pulmonic valve not well visualized. No pulmonic stenosis. No pulmonic regurgitation. Pericardium No pericardial effusion. Aorta Aortic annulus normal. Ascending aorta not well visualized. CONCLUSIONS Left ventricular ejection fraction 60-65% Mildly increased left ventricular wall thickness Mildly dilated left atrium Trace tricuspid regurgitation No pericardial effusion Previewed by: Dr. Cuate Bearden DO (Electronically Signed) Final Date: 22 February 2024 12:11
--- NOTE | 2024-02-22 12:30 | P.PN ---
Subjective Progress Note Date: 02/22/24 This is a 78-year-old female patient with a history of asthma, gastroesophageal reflux disorder, hearing disorder, hyperlipidemia, hypertension, hypothyroidism, vertigo. Yesterday she states she slipped out of bed though ER report states she tripped while being up with her walker. She was on the ground for an extended period time she was able to call her daughter and then EMS was called and she was brought in. EKG reveals atrial fibrillation with a controlled ventricular response. CT scan of the head and neck revealed age-related atrophic and chronic small vessel ischemia but no acute intercranial process. No evidence of fracture of the cervical spine. Hip and knee x-rays revealed no fracture. Chest x-ray reveals patchy perihilar infiltrates possible pneumonia. White count 8.7. Hemoglobin 13.0. Platelets 211. Sodium 124. Potassium 3.8. Bicarb 17. BUN 25. Creatinine 1.21. Glucose 122. proBNP 611. Troponin negative x 1. She is seen today in consultation on the regular medical floor. She is currently resting comfortably in bed. Awake and alert in no acute distress. She is weak. She has a dry nonproductive cough which she states she has had for years. No fever or chills. No hemoptysis. She is maintaining good O2 saturations in the 90s on 2 L/min per nasal cannula. Afebrile. Hemodynamically stable. The patient is seen today February 22, 2024 in follow-up on the regular medical floor. She is sitting up in bed. Awake and alert in no acute distress. Maintaining O2 saturations in the 90s on 2 L/min per nasal cannula. She is afebrile. Hemodynamically stable. The kidneys and bladder revealed no evidence of hydronephrosis. No nephrolithiasis. No masses. Cardiogram revealed preserved left ventricular systolic function with an ejection fraction of 60 to 65%. No significant valvular abnormalities. White count 7.9. Hemoglobin 10.7. Platelets 228. Sodium 132. Potassium 3.9. Bicarb 21. BUN 12. Creatinine 0.8. Procalcitonin 0.30. She remains on ceftriaxone and azithromycin. Remains on bronchodilators. Objective - Vital Signs Vital signs: Vital Signs Temp 97.6 F 02/22/24 06:58 Pulse 62 02/22/24 09:26 Resp 16 07/15/24 06:58 BP 106/59 02/22/24 06:58 Pulse Ox 91 L 02/22/24 09:13 FiO2 Intake & Output 02/21/24 02/22/24 02/22/24 18:59 06:59 18:59 Output Total 1 Balance -1 Weight 86.364 kg Output: Urine/Stool Mix 1 Other: Voiding Method Toilet # Voids 5 1 - Exam GENERAL EXAM: Alert, pleasant 78-year-old female, on 2 L, up in a chair, comfortable in no apparent distress. HEAD: Normocephalic. EYES: Normal reaction of pupils, equal size. NOSE: Clear with pink turbinates. THROAT: No erythema or exudates. NECK: No masses, no JVD. CHEST: No chest wall deformity. LUNGS: Equal air entry with no crackles, wheeze, rhonchi or dullness. CVS: S1 and S2 normal with no audible murmur, regular rhythm. ABDOMEN: No hepatosplenomegaly, normal bowel sounds, no guarding or rigidity. SPINE: No scoliosis or deformity SKIN: No rashes CENTRAL NERVOUS SYSTEM: No focal deficits, tone is normal in all 4 extremities. EXTREMITIES: There is no peripheral edema. No clubbing, no cyanosis. Peripheral pulses are intact. - Labs CBC & Chem 7: 02/22/24 04:19 02/22/24 04:19 Labs: Abnormal Lab Results - Last 24 Hours (Table) 02/21/24 02/21/24 02/21/24 Range/Units 10:41 14:08 14:08 RBC (4.10-5.20) X 10*6/uL Hgb (12.0-15.0) g/dL Hct (37.2-46.3) % RDW (11.5-14.5) % Sodium 126 L (137-145) mmol/L Carbon Dioxide (22-30) mmol/L Osmolality 271 L (275-295) mOsm/kg Calcium (8.7-10.3) mg/dL Total Bilirubin (0.3-1.2) mg/dL AST (14-36) U/L Total Protein (6.3-8.2) g/dL Albumin (3.5-5.0) g/dL Globulin (1.6-3.3) g/dL Procalcitonin 0.30 H (0.02-0.09) ng/mL Urine Osmolality (400-1100) mOsm/kg Ur Random Sodium (40-220) mmol/L 02/21/24 02/21/24 02/21/24 Range/Units 18:08 18:08 21:45 RBC (4.10-5.20) X 10*6/uL Hgb (12.0-15.0) g/dL Hct (37.2-46.3) % RDW (11.5-14.5) % Sodium 128 L (137-145) mmol/L Carbon Dioxide 20 L (22-30) mmol/L Osmolality (275-295) mOsm/kg Calcium (8.7-10.3) mg/dL Total Bilirubin (0.3-1.2) mg/dL AST 37 H (14-36) U/L Total Protein 4.7 L (6.3-8.2) g/dL Albumin 2.6 L (3.5-5.0) g/dL Globulin (1.6-3.3) g/dL Procalcitonin (0.02-0.09) ng/mL Urine Osmolality 168 L (400-1100) mOsm/kg Ur Random Sodium <20 L (40-220) mmol/L 02/22/24 02/22/24 Range/Units 04:19 04:19 RBC 3.65 L (4.10-5.20) X 10*6/uL Hgb 10.7 L (12.0-15.0) g/dL Hct 31.9 L (37.2-46.3) % RDW 15.1 H (11.5-14.5) % Sodium 132 L (137-145) mmol/L Carbon Dioxide 20.6 L (22-30) mmol/L Osmolality (275-295) mOsm/kg Calcium 7.9 L (8.7-10.3) mg/dL Total Bilirubin 0.2 L (0.3-1.2) mg/dL AST (14-36) U/L Total Protein 4.2 L (6.3-8.2) g/dL Albumin 2.9 L (3.5-5.0) g/dL Globulin 1.3 L (1.6-3.3) g/dL Procalcitonin (0.02-0.09) ng/mL Urine Osmolality (400-1100) mOsm/kg Ur Random Sodium (40-220) mmol/L Assessment and Plan Assessment: Generalized weakness and fall suspect secondary to hyponatremia Acute kidney injury suspect secondary to dehydration. Ultrasound revealed no evidence of hydronephrosis Acute hypoxic respiratory failure secondary to right hilar consolidation versus mass History of chronic cough/asthma Lifelong non-smoker Hypothyroidism Anxiety/depression Hypertension Plan: The patient was seen and evaluated Echocardiogram, labs and medications reviewed Continue ceftriaxone and azithromycin Continue bronchodilators Follow-up chest x-ray in a.m. May need CT scan of the chest We will continue to follow I have personally seen and examined the patient, performed the documentation and the assessment and plan as written. Number of minutes spent on the visit: 10.
--- NOTE | 2024-02-22 12:32 | P.PN ---
Subjective Patient is seen in follow-up for hyponatremia. Sodium level improved with normal saline. Oral intake improving. No active complaints. Vital signs are stable. General: No acute distress. HEENT: Head exam is unremarkable. LUNGS: No audible rhonchi or wheezes. HEART: Rate and Rhythm are regular. ABDOMEN: Nontender. EXTREMITITES: No edema. Objective - Vital Signs Vital signs: Vital Signs Temp 97.6 F 02/22/24 06:58 Pulse 62 02/22/24 09:26 Resp 16 02/22/24 06:58 BP 106/59 02/22/24 06:58 Pulse Ox 91 L 02/22/24 09:13 FiO2 Intake & Output 02/21/24 02/22/24 02/22/24 18:59 06:59 18:59 Output Total 1 Balance -1 Weight 86.364 kg Output: Urine/Stool Mix 1 Other: Voiding Method Toilet # Voids 5 1 - Labs CBC & Chem 7: 02/22/24 04:19 02/22/24 04:19 Labs: Abnormal Lab Results - Last 24 Hours (Table) 02/21/24 02/21/24 02/21/24 Range/Units 10:41 14:08 14:08 RBC (4.10-5.20) X 10*6/uL Hgb (12.0-15.0) g/dL Hct (37.2-46.3) % RDW (11.5-14.5) % Sodium 126 L (137-145) mmol/L Carbon Dioxide (22-30) mmol/L Osmolality 271 L (275-295) mOsm/kg Calcium (8.7-10.3) mg/dL Total Bilirubin (0.3-1.2) mg/dL AST (14-36) U/L Total Protein (6.3-8.2) g/dL Albumin (3.5-5.0) g/dL Globulin (1.6-3.3) g/dL Procalcitonin 0.30 H (0.02-0.09) ng/mL Urine Osmolality (400-1100) mOsm/kg Ur Random Sodium (40-220) mmol/L 02/21/24 02/21/24 02/21/24 Range/Units 18:08 18:08 21:45 RBC (4.10-5.20) X 10*6/uL Hgb (12.0-15.0) g/dL Hct (37.2-46.3) % RDW (11.5-14.5) % Sodium 128 L (137-145) mmol/L Carbon Dioxide 20 L (22-30) mmol/L Osmolality (275-295) mOsm/kg Calcium (8.7-10.3) mg/dL Total Bilirubin (0.3-1.2) mg/dL AST 37 H (14-36) U/L Total Protein 4.7 L (6.3-8.2) g/dL Albumin 2.6 L (3.5-5.0) g/dL Globulin (1.6-3.3) g/dL Procalcitonin (0.02-0.09) ng/mL Urine Osmolality 168 L (400-1100) mOsm/kg Ur Random Sodium <20 L (40-220) mmol/L 02/22/24 02/22/24 Range/Units 04:19 04:19 RBC 3.65 L (4.10-5.20) X 10*6/uL Hgb 10.7 L (12.0-15.0) g/dL Hct 31.9 L (37.2-46.3) % RDW 15.1 H (11.5-14.5) % Sodium 132 L (137-145) mmol/L Carbon Dioxide 20.6 L (22-30) mmol/L Osmolality (275-295) mOsm/kg Calcium 7.9 L (8.7-10.3) mg/dL Total Bilirubin 0.2 L (0.3-1.2) mg/dL AST (14-36) U/L Total Protein 4.2 L (6.3-8.2) g/dL Albumin 2.9 L (3.5-5.0) g/dL Globulin 1.3 L (1.6-3.3) g/dL Procalcitonin (0.02-0.09) ng/mL Urine Osmolality (400-1100) mOsm/kg Ur Random Sodium (40-220) mmol/L Assessment and Plan Plan: Assessment: 1. Hyponatremia, appears hypovolemic. Sodium level 124 on admission -132 this morning. Urine sodium less than 20 and urine osmolality 168. TSH slightly elevated at 5.97. 2. Acute kidney injury secondary to vasomotor nephropathy from poor intake, diarrhea and hypotension. Creatinine 1.2 on admission -0.8 today. Baseline creatinine 0.8-0.9. 3. Status post fall. 4. Metabolic acidosis secondary to acute kidney injury, IV fluids and GI losses. Better. On oral bicarb. 5. Benign hypertension. Plan: Hep-Lock IV fluids. Encouraged oral intake. Add 1500 cc fluid restriction. Hold amlodipine for systolic blood pressure less than 120.
--- NOTE | 2024-02-22 13:14 | P.HPIM ---
History of Present Illness H&P Date: 02/21/24 Stephanie Estevez, is a 78-year-old female who presented to [facility] emergency room, after sustaining a fall at home, patient stated that she fell at home and was not able to stand up, she lives by herself, she was able to call EMS, and was brought to emergency room, patient stated that she was on the floor for about an hour and a half, she denies any loss of consciousness. Patient was recently seen as outpatient with acute respiratory infection and was diagnosed with acute bronchitis and received a course of oral Ceftin, patient started taking this antibiotic 2 days ago. She was evaluated in the emergency room vital examination on presentation revealed a temperature of 97.7 pulse 57 respirations 16 blood pressure 102/80 pulse ox 92% on room air Laboratory data reveals a white blood count of 8.7 hemoglobin 13.2 platelet count 211 sodium 124 potassium 3.8 chloride 96 CO2 17 BUN 25 creatinine 1.2 glucose level 122 Testing in the emergency room revealed CT scan of the brain revealed chronic atrophic and small vessel ischemic changes without acute intracranial process, CT scan of the cervical spine revealed no evidence for acute fracture or subluxation of the cervical spine, chest x-ray revealed patchy perihilar infiltrate that could reflect pneumonia although pulmonary edema not excluded given cardiomegaly, x-ray of the pelvis revealed no acute fracture or d islocation, x-ray of the bilateral knees did not reveal any evidence of fracture. Patient was admitted to medical floor for further evaluation and treatment On review of systems patient is complaining of generalized weakness, she has occasional cough, she stated that she had poor appetite with very low oral intake in the last 2 to 3 days, otherwise she denies any complaints there is no fever or chills no headache or dizziness no chest pain, no palpitation no nausea or vomiting no abdominal pain no diarrhea and no urinary symptoms. 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 Mother Additional Family Medical History / Comment(s): Mother at the age of 87yrs from either a RI or a stroke-pt unsure. Medications and Allergies Home Medications Medication Instructions Recorded Confirmed Type Nortriptyline HCl [Pamelor] 100 mg PO HS 12/01/15 02/21/24 History Primidone [Mysoline] 50 mg PO TID 12/01/15 02/21/24 History Zafirlukast 20 mg PO BID 12/01/15 02/21/24 History busPIRone HCL 15 mg PO BID 12/01/15 02/21/24 History estradioL [Estradiol] 0.5 mg PO DAILY 12/01/15 02/21/24 History lamoTRIgine [LaMICtal] 200 mg PO DAILY 12/01/15 02/21/24 History ALPRAZolam [Xanax] 0.5 - 1 mg PO BID PRN 04/14/17 02/21/24 History amLODIPine [Norvasc] 2.5 mg PO DAILY 04/14/17 02/21/24 History Diphenoxylate HCl/Atropine 1 tab PO TID PRN 02/08/21 02/21/24 History [Lomotil 2.5-0.025 mg Tablet] Albuterol Sulfate [Albuterol 2 puff PO RT-Q4H PRN 05/23/23 02/21/24 History Sulfate Hfa] Ergocalciferol (Vitamin D2) 1,250 mcg PO WEEKLY 05/23/23 02/21/24 History [Drisdol (50,000 Iu)] Levothyroxine Sodium [Synthroid] 112 mcg PO DAILY 05/23/23 02/21/24 History guaiFENesin-Coden 100-10MG/5ML 10 ml PO Q4H PRN 05/23/23 02/21/24 History [Robitussin AC] ondansetron HCL [Zofran] 4 mg PO TID 05/23/23 02/21/24 History Acyclovir 400 mg PO BID 02/21/24 02/21/24 History Fluticasone/Umeclidin/Vilanter 1 puff INHALATION RT-DAILY 02/21/24 02/21/24 History [Trelegy Ellipta 200-62.5-25] Montelukast [Singulair] 10 mg PO HS 02/21/24 02/21/24 History cefUROXime axetiL [Ceftin] 500 mg PO BID 02/21/24 02/21/24 History Allergies Allergy/AdvReac Type Severity Reaction Status Date / Time Penicillins Allergy Facial Verified 02/21/24 04:01 Swelling Physical Exam Vitals: Vital Signs Temp Pulse Resp BP Pulse Ox 02/21/24 07:59 50 L 18 95/51 94 L 02/21/24 06:53 51 L 18 102/51 96 02/21/24 05:02 54 L 18 118/56 95 02/21/24 03:50 97.7 F 57 L 16 102/80 92 L Intake and Output 02/20/24 02/21/24 02/21/24 22:59 06:59 14:59 Other: Weight 86.364 kg In general patient is alert and oriented x 3 in no distress HEENT head normocephalic and atraumatic Neck is supple no JVD no goiter no lymphadenopathy no carotid bruit Chest examination reveals a few scattered rhonchi bilaterally no wheezing Cardiac exam reveals regular heart sounds S1 and S2 no gallops no murmurs Abdomen is soft nontender no organomegaly with normal bowel sounds Extremity exam reveals no edema no cyanosis or clubbing Neurological examination reveals no gross focal deficits Results CBC & Chem 7: 02/22/24 04:19 02/22/24 04:19 Labs: Abnormal Lab Results - Last 24 Hours (Table) 02/21/24 02/21/24 Range/Units 04:23 04:23 Neutrophils # 7.9 H (1.3-7.7) k/uL Lymphocytes # 0.3 L (1.0-4.8) k/uL Sodium 124 L (137-145) mmol/L Chloride 96 L (98-107) mmol/L Carbon Dioxide 17 L (22-30) mmol/L BUN 25 H (7-17) mg/dL Creatinine 1.21 H (0.52-1.04) mg/dL Glucose 122 H (74-99) mg/dL Assessment and Plan Plan: Fall at home with inability to stand or walk without assistance Prolonged stay on the floor, will check creatinine kinase to rule out rhabdomyolysis Dehydration with acute kidney injury Severe hyponatremia Perihilar infiltrate, possible pneumonia Underlying history of hypertension Underlying history of hypothyroidism Underlying history of asthma Underlying history of essential tremor Underlying history of depression with anxiety disorder At this time patient was seen and examined on the medical floor Home medications reviewed and reordered Nephrology consultation requested Will follow closely
--- NOTE | 2024-02-22 13:33 | P.PN ---
Subjective Progress Note Date: 02/22/24 Stephanie Estevez, is a 78-year-old female who presented to [facility] emergency room, after sustaining a fall at home, patient stated that she fell at home and was not able to stand up, she lives by herself, she was able to call EMS, and was brought to emergency room, patient stated that she was on the floor for about an hour and a half, she denies any loss of consciousness. Patient was recently seen as outpatient with acute respiratory infection and was diagnosed with acute bronchitis and received a course of oral Ceftin, patient started taking this antibiotic 2 days ago. She was evaluated in the emergency room vital examination on presentation revealed a temperature of 97.7 pulse 57 respirations 16 blood pressure 102/80 pulse ox 92% on room air Laboratory data reveals a white blood count of 8.7 hemoglobin 13.2 platelet count 211 sodium 124 potassium 3.8 chloride 96 CO2 17 BUN 25 creatinine 1.2 glucose level 122 Testing in the emergency room revealed CT scan of the brain revealed chronic atrophic and small vessel ischemic changes without acute intracranial process, CT scan of the cervical spine revealed no evidence for acute fracture or subluxation of the cervical spine, chest x-ray revealed patchy perihilar infiltrate that could reflect pneumonia although pulmonary edema not excluded given cardiomegaly, x-ray of the pelvis revealed no acute fracture or disloc ation, x-ray of the bilateral knees did not reveal any evidence of fracture. Patient was admitted to medical floor for further evaluation and treatment On review of systems patient is complaining of generalized weakness, she has occasional cough, she stated that she had poor appetite with very low oral intake in the last 2 to 3 days, otherwise she denies any complaints there is no fever or chills no headache or dizziness no chest pain, no palpitation no nausea or vomiting no abdominal pain no diarrhea and no urinary symptoms. On 02/22/2024 patient was seen and examined on the medical floor, she is alert and oriented x 3 in no apparent distress, she is complaining of generalized body ache related to her recent fall, she is also complaining of cough with thick sputum production, she is complaining of shortness of breath with any activity, otherwise she denies any complaints there is no fever or chills no headache or dizziness no chest pain no nausea vomiting no abdominal pain no diarrhea no urinary symptoms Objective - Vital Signs Vital signs: Vital Signs Temp 97.6 F 02/22/24 06:58 Pulse 64 02/22/24 12:40 Resp 16 02/22/24 06:58 BP 106/59 02/22/24 06:58 Pulse Ox 91 L 02/22/24 09:13 FiO2 Intake & Output 02/21/24 02/22/24 02/22/24 18:59 06:59 18:59 Output Total 1 Balance -1 Weight 86.364 kg Output: Urine/Stool Mix 1 Other: Voiding Method Toilet # Voids 5 1 - Exam In general patient is alert and oriented x 3 in no distress HEENT head normocephalic and atraumatic Neck is supple no JVD no goiter no lymphadenopathy no carotid bruit Chest examination reveals a few scattered rhonchi bilaterally no wheezing Cardiac exam reveals regular heart sounds S1 and S2 no gallops no murmurs Abdomen is soft nontender no organomegaly with normal bowel sounds Extremity exam reveals no edema no cyanosis or clubbing Neurological examination reveals no gross focal deficits - Labs CBC & Chem 7: 02/22/24 04:19 02/22/24 04:19 Labs: Abnormal Lab Results - Last 24 Hours (Table) 02/21/24 02/21/24 02/21/24 Range/Units 10:41 14:08 14:08 RBC (4.10-5.20) X 10*6/uL Hgb (12.0-15.0) g/dL Hct (37.2-46.3) % RDW (11.5-14.5) % Sodium 126 L (137-145) mmol/L Carbon Dioxide (22-30) mmol/L Osmolality 271 L (275-295) mOsm/kg Calcium (8.7-10.3) mg/dL Total Bilirubin (0.3-1.2) mg/dL AST (14-36) U/L Total Protein (6.3-8.2) g/dL Albumin (3.5-5.0) g/dL Globulin (1.6-3.3) g/dL Procalcitonin 0.30 H (0.02-0.09) ng/mL Urine Osmolality (400-1100) mOsm/kg Ur Random Sodium (40-220) mmol/L 07/14/24 07/14/24 07/14/24 Range/Units 18:08 18:08 21:45 RBC (4.10-5.20) X 10*6/uL Hgb (12.0-15.0) g/dL Hct (37.2-46.3) % RDW (11.5-14.5) % Sodium 128 L (137-145) mmol/L Carbon Dioxide 20 L (22-30) mmol/L Osmolality (275-295) mOsm/kg Calcium (8.7-10.3) mg/dL Total Bilirubin (0.3-1.2) mg/dL AST 37 H (14-36) U/L Total Protein 4.7 L (6.3-8.2) g/dL Albumin 2.6 L (3.5-5.0) g/dL Globulin (1.6-3.3) g/dL Procalcitonin (0.02-0.09) ng/mL Urine Osmolality 168 L (400-1100) mOsm/kg Ur Random Sodium <20 L (40-220) mmol/L 02/22/24 02/22/24 Range/Units 04:19 04:19 RBC 3.65 L (4.10-5.20) X 10*6/uL Hgb 10.7 L (12.0-15.0) g/dL Hct 31.9 L (37.2-46.3) % RDW 15.1 H (11.5-14.5) % Sodium 132 L (137-145) mmol/L Carbon Dioxide 20.6 L (22-30) mmol/L Osmolality (275-295) mOsm/kg Calcium 7.9 L (8.7-10.3) mg/dL Total Bilirubin 0.2 L (0.3-1.2) mg/dL AST (14-36) U/L Total Protein 4.2 L (6.3-8.2) g/dL Albumin 2.9 L (3.5-5.0) g/dL Globulin 1.3 L (1.6-3.3) g/dL Procalcitonin (0.02-0.09) ng/mL Urine Osmolality (400-1100) mOsm/kg Ur Random Sodium (40-220) mmol/L Assessment and Plan Plan: Fall at home with inability to stand or walk without assistance Prolonged stay on the floor, will check creatinine kinase to rule out rhabdomyolysis Dehydration with acute kidney injury Severe hyponatremia Perihilar infiltrate, possible pneumonia Underlying history of hypertension Underlying history of hypothyroidism Underlying history of asthma Underlying history of essential tremor Underlying history of depression with anxiety disorder At this time patient was seen and examined on the medical floor Home medications reviewed and reordered Nephrology consultation requested Will follow closely
--- NOTE | 2024-02-22 15:27 | P.CRDCN ---
History of Present Illness History of present illness: HISTORY OF PRESENTING ILLNESS This is a pleasant 78-year-old with past medical history significant for Raynaud's disease, obesity, low blood pressure, vertigo. patient states she was at home and having some vertigo and feeling off balance and then had a mechanical fall where she tripped over the right. She denies any actual lightheadedness or dizziness. She has been off balance however and has vertigo for the last week. She has not been feeling well and also has had a recent cough and was diagnosed with bronchitis. She denies any fevers or chills. Denies any chest pain or pressure. She was found be significantly hyponatremic and therefore nephrology was consulted. EKG was read out as atrial fibrillation however appears to be sinus rhythm with frequent PACs and similar to what has been shown on telemetry with frequent PACs. She denies any history of atrial fibrillation. Currently she is feeling somewhat better. She uses the amlodipine for her Raynaud's. REVIEW OF SYSTEMS At the time of my exam: CONSTITUTIONAL: Denies fever or chills. CARDIOVASCULAR: Denies chest pain, +shortness of breath, no orthopnea, PND or palpitations. RESPIRATORY: Denies cough. GASTROINTESTINAL: Denies abdominal pain, diarrhea, constipation, nausea or vomiting. MUSCULOSKELETAL: Denies myalgias. NEUROLOGIC: Denies numbness, tingling or weakness. ENDOCRINE: Denies fatigue, weight change, polydipsia or polyurina. GENITOURINARY: Denies burning, hematuria or urgency with micturation. HEMATOLOGIC: Denies history of anemia or bleeding. PHYSICAL EXAMINATION Vital signs reviewed. CONSTITUTIONAL: No apparent distress. HEENT: Head is normocephalic. Pupils are equal, round. Sclerae anicteric. Mucous membranes of the mouth are moist. No JVD. No carotid bruit. CHEST EXAMINATION: Lungs are clear to auscultation. No chest wall tenderness is noted on palpation or with deep breathing. HEART EXAMINATION: Regular rate and rhythm. S1, S2 heard. No murmurs, gallops or rub. ABDOMEN: Soft, nontender. Positive bowel sounds. EXTREMITIES: 2+ peripheral pulses, no lower extremity edema and no calf tenderness. NEUROLOGIC EXAMINATION: Patient is awake, alert and oriented x3. ASSESSMENT abnormal EKG, no evidence of atrial fibrillation and appears sinus with PACs Fall mechanical plus component of vertigo, imbalance, hyponatremia Borderline hypotension Raynaud's disease PLAN patient's EKG reviewed and telemetry and consistent with sinus rhythm with frequent PACs. Follow-up. More mechanical in component of hyponatremia. Echo shows preserved EF without significant valvular disease. Continue with amlodipine for her Raynuad's for now however it has continued frequent episodes of lightheadedness may consider addition of Midodrine or longer term monitor. no further workup from a cardiology standpoint. Please call with any questions. Follow-up in office in 1-2 weeks. 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 Mother Additional Family Medical History / Comment(s): Mother at the age of 87yrs from either a [place] or a stroke-pt unsure. Medications and Allergies Home Medications Medication Instructions Recorded Confirmed Type Nortriptyline HCl [Pamelor] 100 mg PO HS 12/01/15 02/21/24 History Primidone [Mysoline] 50 mg PO TID 12/01/15 02/21/24 History Zafirlukast 20 mg PO BID 12/01/15 02/21/24 History busPIRone HCL 15 mg PO BID 12/01/15 02/21/24 History estradioL [Estradiol] 0.5 mg PO DAILY 12/01/15 02/21/24 History lamoTRIgine [LaMICtal] 200 mg PO DAILY 12/01/15 02/21/24 History ALPRAZolam [Xanax] 0.5 - 1 mg PO BID PRN 04/14/17 02/21/24 History amLODIPine [Norvasc] 2.5 mg PO DAILY 04/14/17 02/21/24 History Diphenoxylate HCl/Atropine 1 tab PO TID PRN 02/08/21 02/21/24 History [Lomotil 2.5-0.025 mg Tablet] Albuterol Sulfate [Albuterol 2 puff PO RT-Q4H PRN 05/23/23 02/21/24 History Sulfate Hfa] Ergocalciferol (Vitamin D2) 1,250 mcg PO WEEKLY 05/23/23 02/21/24 History [Drisdol (50,000 Iu)] Levothyroxine Sodium [Synthroid] 112 mcg PO DAILY 05/23/23 02/21/24 History guaiFENesin-Coden 100-10MG/5ML 10 ml PO Q4H PRN 05/23/23 02/21/24 History [Robitussin AC] ondansetron HCL [Zofran] 4 mg PO TID 05/23/23 02/21/24 History Acyclovir 400 mg PO BID 02/21/24 02/21/24 History Fluticasone/Umeclidin/Vilanter 1 puff INHALATION RT-DAILY 02/21/24 02/21/24 History [Trelegy Ellipta 200-62.5-25] Montelukast [Singulair] 10 mg PO HS 02/21/24 02/21/24 History cefUROXime axetiL [Ceftin] 500 mg PO BID 02/21/24 02/21/24 History Allergies Allergy/AdvReac Type Severity Reaction Status Date / Time Penicillins Allergy Facial Verified 02/21/24 04:01 Swelling Physical Exam Vitals: Vital Signs Temp Pulse Pulse Resp BP Pulse Ox 02/22/24 12:40 64 02/22/24 12:32 60 02/22/24 09:26 62 02/22/24 09:13 91 L 02/22/24 09:08 62 02/22/24 06:58 97.6 F 62 16 106/59 97 02/22/24 00:28 98.6 F 63 14 107/51 95 02/21/24 20:38 98.1 F 68 16 115/62 98 02/21/24 19:45 68 16 Intake and Output 02/22/24 02/22/24 02/22/24 06:59 14:59 22:59 Other: Voiding Method Toilet # Voids 1 Results 02/22/24 04:19 02/22/24 04:19 Cardiac Enzymes 02/21/24 02/22/24 Range/Units 21:45 04:19 AST 37 H 27 (14-36) U/L CBC 02/22/24 Range/Units 04:19 WBC 7.91 (4.50-10.00) X 10*3/uL RBC 3.65 L (4.10-5.20) X 10*6/uL Hgb 10.7 L (12.0-15.0) g/dL Hct 31.9 L (37.2-46.3) % Plt Count 228 (140-440) X 10*3/uL Comprehensive Metabolic Panel 02/21/24 02/22/24 Range/Units 21:45 04:19 Sodium 128 L 132 L (137-145) mmol/L Potassium 3.9 3.9 (3.5-5.1) mmol/L Chloride 102 101 (98-107) mmol/L Carbon Dioxide 20 L 20.6 L (22-30) mmol/L BUN 17 12.4 (7-17) mg/dL Creatinine 0.67 0.8 (0.52-1.04) mg/dL Glucose 94 93 (74-99) mg/dL Calcium 8.4 7.9 L (8.4-10.2) mg/dL AST 37 H 27 (14-36) U/L ALT 21 20 (4-34) U/L Alkaline Phosphatase 106 112 (38-126) U/L Total Protein 4.7 L 4.2 L (6.3-8.2) g/dL Albumin 2.6 L 2.9 L (3.5-5.0) g/dL Current Medications Generic Name Dose Route Start Last Admin Trade Name Freq PRN Reason Stop Dose Admin Acyclovir 400 mg 02/21/24 21:00 02/22/24 08:41 Acyclovir 200 Mg Cap PO 400 mg BID DANA Administration Protocol Albuterol Sulfate 2.5 mg 02/21/24 18:31 Albuterol Nebulized 2.5 Mg/3 Ml INHALATION RT-Q4H PRN Shortness Of Breath Alprazolam 0.5 mg 02/21/24 18:31 Alprazolam 0.5 Mg Tab PO BID PRN Anxiety Amlodipine Besylate 2.5 mg 02/22/24 09:00 02/22/24 08:41 Amlodipine 2.5 Mg Tab PO 2.5 mg DAILY DANA Administration Azithromycin 500 mg 02/21/24 10:30 02/22/24 08:41 Azithromycin 500 Mg Tab PO 02/23/24 09:01 500 mg DAILY DANA Administration Protocol Budesonide/Formoterol Fumarate 2 puff 02/21/24 20:00 02/22/24 09:08 Symbicort 160-4.5 Mcg Inhaler INHALATION 2 puff RT-BID DANA Administration Buspirone HCl 15 mg 02/21/24 21:00 02/22/24 08:41 Buspirone Hcl 5 Mg Tab PO 15 mg BID DANA Administration Diphenoxylate HCl/Atropine 1 each 02/21/24 18:31 Diphenox-Atrop 2.5-0.025 Mg 1 Each Tab PO TID PRN Diarrhea Ergocalciferol 1,250 mcg 02/28/24 09:00 Ergocalciferol 1,250 Mcg (50,000 Iu) Capsule PO WEEKLY DANA Estradiol 0.5 mg 02/22/24 09:00 02/22/24 08:41 Estradiol 0.5 Mg Tab PO 0.5 mg DAILY DANA Administration Guaifenesin/Codeine Phosphate 10 ml 02/21/24 18:31 02/22/24 11:17 Guaifenesin-Coden 100-10mg/5ml 10 Ml Cup PO 10 ml Q4H PRN Administration Cough Ceftriaxone Sodium 1 gm/ 50 mls @ 100 mls/hr 02/21/24 10:30 02/22/24 08:40 Sodium Chloride IVPB 100 mls/hr Q24HR DANA Administration Protocol Ipratropium [place] 0.5 mg 02/22/24 08:00 02/22/24 12:32 Ipratropium 0.5 Mg/2.5 Ml Nebu INHALATION 0.5 mg RT-QID DANA Administration Lamotrigine 200 mg 02/22/24 09:00 02/22/24 08:41 Lamotrigine 100 Mg Tab PO 200 mg DAILY DANA Administration Levothyroxine Sodium 112 mcg 02/22/24 06:30 02/22/24 06:07 Levothyroxine 112 Mcg Tab PO 112 mcg 0630 DANA Administration Montelukast Sodium 10 mg 02/21/24 21:00 02/21/24 20:22 Montelukast 10 Mg Tab PO 10 mg HS DANA Administration Nortriptyline HCl 100 mg 02/21/24 21:00 02/21/24 20:22 Nortriptyline 25 Mg Cap PO 100 mg HS DANA Administration Ondansetron HCl 4 mg 02/21/24 22:00 02/22/24 08:41 Ondansetron 4 Mg Tab PO 4 mg TID DANA Administration Primidone 50 mg 02/21/24 22:00 02/22/24 08:41 Primidone 50 Mg Tab PO 50 mg TID DANA Administration Sodium Bicarbonate 650 mg 02/21/24 11:45 02/22/24 08:41 Sodium Bicarbonate Tab 650 Mg Tab PO 650 mg BID DANA Administration Intake and Output 02/22/24 02/22/24 02/22/24 06:59 14:59 22:59 Other: Voiding Method Toilet # Voids 1 02/22/24 04:19 02/22/24 04:19
[2024-02-23 07:01] LABS: African American GFR (CKD) >90 (>60 ml/min/1.73 sqM); Anion Gap 17 mmol/L; Blood Urea Nitrogen 6 mg/dL (7-17); Calcium 8.2 mg/dL (8.4-10.2); Carbon Dioxide 18 mmol/L (22-30); Chloride 109 mmol/L (98-107); Glucose 83 mg/dL (74-99); Non-African American GFR(CKD) 89 (>60 ml/min/1.73 sqM); Sodium 144 mmol/L (137-145)
[2024-02-23 07:09] LABS: Magnesium 1.7 mg/dL (1.6-2.3); Potassium 4.6 mmol/L (3.5-5.1)
--- NOTE | 2024-02-23 08:45 | XR ---
EXAMINATION TYPE: XR chest 1V portable DATE OF EXAM: 02/23/2024 Comparison: 02/21/2024 Clinical History: 78-year-old female Right hilar consolidation Findings: Heart mildly enlarged. Patchy mid and lower lung opacities with shifting densities compared to 2 days ago. The left perihilar opacity has improved and some right basilar opacity has worsened. Possible t race left pleural effusion. Surgical clips GE junction. Impression: Patchy mid and lower lung opacities with some shifting densities as compared to 2 days ago. Consider multifocal pneumonia or patchy pulmonary edema.
--- NOTE | 2024-02-23 10:42 | P.PN ---
Subjective Progress Note Date: 02/23/24 Stephanie Estevez, is a 78-year-old female who presented to [facility] emergency room, after sustaining a fall at home, patient stated that she fell at home and was not able to stand up, she lives by herself, she was able to call EMS, and was brought to emergency room, patient stated that she was on the floor for about an hour and a half, she denies any loss of consciousness. Patient was recently seen as outpatient with acute respiratory infection and was diagnosed with acute bronchitis and received a course of oral Ceftin, patient started taking this antibiotic 2 days ago. She was evaluated in the emergency room vital examination on presentation revealed a temperature of 97.7 pulse 57 respirations 16 blood pressure 102/80 pulse ox 92% on room air Laboratory data reveals a white blood count of 8.7 hemoglobin 13.2 platelet count 211 sodium 124 potassium 3.8 chloride 96 CO2 17 BUN 25 creatinine 1.2 glucose level 122 Testing in the emergency room revealed CT scan of the brain revealed chronic atrophic and small vessel ischemic changes without acute intracranial process, CT scan of the cervical spine revealed no evidence for acute fracture or subluxation of the cervical spine, chest x-ray revealed patchy perihilar infiltrate that could reflect pneumonia although pulmonary edema not excluded given cardiomegaly, x-ray of the pelvis revealed no acute fracture or disloc ation, x-ray of the bilateral knees did not reveal any evidence of fracture. Patient was admitted to medical floor for further evaluation and treatment On review of systems patient is complaining of generalized weakness, she has occasional cough, she stated that she had poor appetite with very low oral intake in the last 2 to 3 days, otherwise she denies any complaints there is no fever or chills no headache or dizziness no chest pain, no palpitation no nausea or vomiting no abdominal pain no diarrhea and no urinary symptoms. On 02/22/2024 patient was seen and examined on the medical floor, she is alert and oriented x 3 in no apparent distress, she is complaining of generalized body ache related to her recent fall, she is also complaining of cough with thick sputum production, she is complaining of shortness of breath with any activity, otherwise she denies any complaints there is no fever or chills no headache or dizziness no chest pain no nausea vomiting no abdominal pain no diarrhea no urinary symptoms On 02/23/2024 patient is alert and oriented x 3 patient remains on IV Rocephin and azithromycin. Chest x-ray ordered per pulmonary services. Sodium 144. Patient denies chest pain or shortness of breath. Patient denies nausea vomiting or diarrhea. Patient denies any urinary burning or frequency Objective - Vital Signs Vital signs: Vital Signs Temp 98.2 F 02/23/24 06:54 Pulse 69 02/23/24 06:54 Resp 15 02/23/24 06:54 BP 134/73 02/23/24 06:54 Pulse Ox 94 L 02/23/24 09:22 FiO2 Intake & Output 02/22/24 02/23/24 02/23/24 18:59 06:59 18:59 Other: Voiding Method Toilet Toilet Toilet # Voids 4 1 - Exam In general patient is alert and oriented x 3 in no distress HEENT head normocephalic and atraumatic Neck is supple no JVD no goiter no lymphadenopathy no carotid bruit Chest examination reveals a few scattered rhonchi bilaterally no wheezing Cardiac exam reveals regular heart sounds S1 and S2 no gallops no murmurs Abdomen is soft nontender no organomegaly with normal bowel sounds Extremity exam reveals no edema no cyanosis or clubbing Neurological examination reveals no gross focal deficits - Labs CBC & Chem 7: 02/22/24 04:19 02/23/24 04:33 Labs: Abnormal Lab Results - Last 24 Hours (Table) 02/21/24 02/21/24 02/23/24 Range/Units 14:08 18:08 04:33 Chloride 109 H (98-107) mmol/L Carbon Dioxide 18 L (22-30) mmol/L BUN 6 L (7-17) mg/dL Osmolality 271 L (275-295) mOsm/kg Calcium 8.2 L (8.4-10.2) mg/dL Urine Osmolality 168 L (400-1100) mOsm/kg Assessment and Plan Plan: Fall at home with inability to stand or walk without assistance Prolonged stay on the floor, will check creatinine kinase to rule out rhabdomyolysis Dehydration with acute kidney injury Severe hyponatremia Perihilar infiltrate, possible pneumonia Underlying history of hypertension Underlying history of hypothyroidism Underlying history of asthma Underlying history of essential tremor Underlying history of depression with anxiety disorder At this time patient was seen and examined on the medical floor Home medications reviewed and reordered Nephrology consultation requested Will follow closely
--- NOTE | 2024-02-23 13:18 | P.PN ---
Subjective Patient is seen in follow-up for hyponatremia. Sodium level 144 today. Currently off IV fluids. Oral intake improving. No active complaints. Vital signs are stable. General: No acute distress. HEENT: Head exam is unremarkable. LUNGS: No audible rhonchi or wheezes. HEART: Rate and Rhythm are regular. ABDOMEN: Nontender. EXTREMITITES: No edema. Objective - Vital Signs Vital signs: Vital Signs Temp 98.2 F 02/23/24 06:54 Pulse 69 02/23/24 06:54 Resp 15 02/23/24 06:54 BP 134/73 02/23/24 06:54 Pulse Ox 94 L 02/23/24 09:22 FiO2 Intake & Output 02/22/24 02/23/24 02/23/24 18:59 06:59 18:59 Other: Voiding Method Toilet Toilet Toilet # Voids 4 1 - Labs CBC & Chem 7: 02/22/24 04:19 02/23/24 04:33 Labs: Abnormal Lab Results - Last 24 Hours (Table) 02/23/24 Range/Units 04:33 Chloride 109 H (98-107) mmol/L Carbon Dioxide 18 L (22-30) mmol/L BUN 6 L (7-17) mg/dL Calcium 8.2 L (8.4-10.2) mg/dL Assessment and Plan Plan: Assessment: 1. Hyponatremia, appears hypovolemic. Sodium level 144 today. Urine sodium less than 20 and urine osmolality 168. TSH slightly elevated at 5.97. 2. Acute kidney injury secondary to vasomotor nephropathy from poor intake, diarrhea and hypotension. Creatinine 1.2 on admission -0.8 today. Baseline creatinine 0.8-0.9. 3. Status post fall. 4. Metabolic acidosis secondary to acute kidney injury, IV fluids and GI losses. On oral bicarb. 5. Benign hypertension. Stable. Plan: Start D5W at 60 cc an hour. Encouraged oral intake. Discontinue fluid restriction. Repeat sodium level this evening. Hold amlodipine for systolic blood pressure less than 120.
[2024-02-23] MEDS: DEXTROSE 5% IN WATER 1,000 ML IV SCH (14:18)
--- NOTE | 2024-02-23 14:25 | P.PN ---
Subjective Progress Note Date: 02/23/24 This is a 78-year-old female patient with a history of asthma, gastroesophageal reflux disorder, hearing disorder, hyperlipidemia, hypertension, hypothyroidism, vertigo. Yesterday she states she slipped out of bed though ER report states she tripped while being up with her walker. She was on the ground for an extended period time she was able to call her daughter and then EMS was called and she was brought in. EKG reveals atrial fibrillation with a controlled ventricular response. CT scan of the head and neck revealed age-related atrophic and chronic small vessel ischemia but no acute intercranial process. No evidence of fracture of the cervical spine. Hip and knee x-rays revealed no fracture. Chest x-ray reveals patchy perihilar infiltrates possible pneumonia. White count 8.7. Hemoglobin 13.0. Platelets 211. Sodium 124. Potassium 3.8. Bicarb 17. BUN 25. Creatinine 1.21. Glucose 122. proBNP 611. Troponin negative x 1. She is seen today in consultation on the regular medical floor. She is currently resting comfortably in bed. Awake and alert in no acute distress. She is weak. She has a dry nonproductive cough which she states she has had for years. No fever or chills. No hemoptysis. She is maintaining good O2 saturations in the 90s on 2 L/min per nasal cannula. Afebrile. Hemodynamically stable. The patient is seen today February 22, 2024 in follow-up on the regular medical floor. She is sitting up in bed. Awake and alert in no acute distress. Maintaining O2 saturations in the 90s on 2 L/min per nasal cannula. She is afebrile. Hemodynamically stable. The kidneys and bladder revealed no evidence of hydronephrosis. No nephrolithiasis. No masses. Cardiogram revealed preserved left ventricular systolic function with an ejection fraction of 60 to 65%. No significant valvular abnormalities. White count 7.9. Hemoglobin 10.7. Platelets 228. Sodium 132. Potassium 3.9. Bicarb 21. BUN 12. Creatinine 0.8. Procalcitonin 0.30. She remains on ceftriaxone and azithromycin. Remains on bronchodilators. The patient is seen today February 23, 2024 in follow-up on the regular medical floor. She is currently sitting up in bed. Awake and alert in no acute distress. Maintaining O2 saturations in the 90s on 2 L/min per nasal cannula. No IV fluids. Chest x-ray reveals patchy mid and lower lung opacities. Sodium 144. Potassium 4.6. Bicarb 18. BUN 6. Creatinine 0.57. Glucose 83. She remains on bronchodilators. Antibiotics in the form of ceftriaxone. Receiving sodium bicarb tablets. Objective - Vital Signs Vital signs: Vital Signs Temp 98.2 F 02/23/24 13:05 Pulse 59 L 02/23/24 13:05 Resp 18 02/23/24 13:05 BP 109/50 02/23/24 13:05 Pulse Ox 93 L 02/23/24 13:05 FiO2 Intake & Output 02/22/24 02/23/24 02/23/24 18:59 06:59 18:59 Other: Voiding Method Toilet Toilet Toilet # Voids 4 1 - Exam GENERAL EXAM: Alert, pleasant 78-year-old female, on 2 L, resting in bed, comfortable in no apparent distress. HEAD: Normocephalic. EYES: Normal reaction of pupils, equal size. NOSE: Clear with pink turbinates. THROAT: No erythema or exudates. NECK: No masses, no JVD. CHEST: No chest wall deformity. LUNGS: Equal air entry with no crackles, wheeze, rhonchi or dullness. CVS: S1 and S2 normal with no audible murmur, regular rhythm. ABDOMEN: No hepatosplenomegaly, normal bowel sounds, no guarding or rigidity. SPINE: No scoliosis or deformity SKIN: No rashes CENTRAL NERVOUS SYSTEM: No focal deficits, tone is normal in all 4 extremities. EXTREMITIES: There is no peripheral edema. No clubbing, no cyanosis. Peripheral pulses are intact. - Labs CBC & Chem 7: 02/22/24 04:19 02/23/24 04:33 Labs: Abnormal Lab Results - Last 24 Hours (Table) 02/23/24 Range/Units 04:33 Chloride 109 H (98-107) mmol/L Carbon Dioxide 18 L (22-30) mmol/L BUN 6 L (7-17) mg/dL Calcium 8.2 L (8.4-10.2) mg/dL Assessment and Plan Assessment: Generalized weakness and fall suspect secondary to hyponatremia Acute kidney injury suspect secondary to dehydration. Ultrasound revealed no evidence of hydronephrosis Acute hypoxic respiratory failure secondary to right hilar consolidation showing clearing on the follow-up chest x-ray History of chronic cough/asthma Lifelong non-smoker Hypothyroidism Anxiety/depression Hypertension Plan: The patient was seen and evaluated Chest x-ray, labs and medications reviewed Continue ceftriaxone, completed azithromycin Continue bronchodilators We will continue to follow I have personally seen and examined the patient, performed the documentation and the assessment and plan as written. Number of minutes spent on the visit: 10.
[2024-02-24 08:42] LABS: HCT 33.9 % (37.2-46.3); HGB 11.1 g/dL (12.0-15.0); MCH 28.9 pg (27.0-32.0); MCHC 32.7 g/dL (32.0-37.0); MCV 88.3 FL (80.0-97.0); Mean Platelet Volume 9.4 FL (9.5-12.2); NRBC Per 100 WBC 0 X 10*3/uL (0.00-0.01); Platelet Count 294 X 10*3/uL (140-440); RBC 3.84 X 10*6/uL (4.10-5.20); RDW 15.4 % (11.5-14.5); WBC 6.33 X 10*3/uL (4.50-10.00)
[2024-02-24 09:10] LABS: Magnesium 1.5 mg/dL (1.5-2.4)
[2024-02-24 09:22] LABS: ALT 20 U/L (8-44); AST 20 U/L (13-35); Alkaline Phosphatase 107 U/L (41-126); BUN/Creat Ratio <5.00 Ratio (12.00-20.00); Blood Urea Nitrogen <3.5 mg/dL (9.0-27.0); Calcium 8.2 mg/dL (8.7-10.3); Carbon Dioxide 24.8 mmol/L (21.6-31.8); Chloride 100 mmol/L (96-109); Globulin 1.5 g/dL (1.6-3.3); Glucose 94 mg/dL (70-110); Potassium 3.9 mmol/L (3.5-5.5); Sodium 134 mmol/L (135-145); Total Bilirubin <0.2 mg/dL (0.3-1.2); Total Protein 4.5 g/dL (6.2-8.2)
[2024-02-24 09:29] LABS: Basophils # (A) 0.05 X 10*3/uL (0.00-0.10); Basophils % (A) 0.8 %; Eosinophils # (A) 0.29 X 10*3/uL (0.04-0.35); Eosinophils % (A) 4.6 %; Lymphocytes # (A) 1.51 X 10*3/uL (0.90-5.00); Lymphocytes % (A) 23.9 %; Monocytes # (A) 0.66 X 10*3/uL (0.20-1.00); Monocytes % (A) 10.4 %; Neutrophils # (A) 3.74 X 10*3/uL (1.80-7.70)
--- NOTE | 2024-02-24 11:30 | P.PN ---
Subjective Patient is seen in follow-up for hyponatremia. Sodium level 134 today. Currently off IV fluids. Oral intake improving. No active complaints. Vital signs are stable. General: No acute distress. HEENT: Head exam is unremarkable. LUNGS: No audible rhonchi or wheezes. HEART: Rate and Rhythm are regular. ABDOMEN: Nontender. EXTREMITITES: No edema. Objective - Vital Signs Vital signs: Vital Signs Temp 98.2 F 02/24/24 07:12 Pulse 60 02/24/24 09:21 Resp 16 02/24/24 07:12 BP 115/55 02/24/24 07:12 Pulse Ox 92 L 02/24/24 09:21 FiO2 21 02/24/24 09:21 Intake & Output 02/23/24 02/24/24 02/24/24 18:59 06:59 18:59 Other: Voiding Method Toilet Toilet # Voids 4 5 - Labs CBC & Chem 7: 02/24/24 03:36 02/24/24 03:36 Labs: Abnormal Lab Results - Last 24 Hours (Table) 02/23/24 02/24/24 02/24/24 Range/Units 17:41 03:36 03:36 RBC 3.84 L (4.10-5.20) X 10*6/uL Hgb 11.1 L (12.0-15.0) g/dL Hct 33.9 L (37.2-46.3) % RDW 15.4 H (11.5-14.5) % MPV 9.4 L (9.5-12.2) FL Immature Gran # 0.08 H (0.00-0.04) X 10*3/uL Sodium 131 L 134 L (137-145) mmol/L BUN <3.5 L (9.0-27.0) mg/dL BUN/Creatinine Ratio <5.00 L (12.00-20.00) Ratio Calcium 8.2 L (8.7-10.3) mg/dL Total Bilirubin <0.2 L (0.3-1.2) mg/dL Total Protein 4.5 L (6.2-8.2) g/dL Albumin 3.0 L (3.8-4.9) g/dL Globulin 1.5 L (1.6-3.3) g/dL Assessment and Plan Plan: Assessment: 1. Hyponatremia, appears hypovolemic. Status post IV fluids. Sodium level 134 today. Urine sodium less than 20 and urine osmolality 168. TSH slightly elevated at 5.97. 2. Acute kidney injury secondary to vasomotor nephropathy from poor intake, diarrhea and hypotension. Creatinine 1.2 on admission - 0.73. 3. Status post fall. 4. Metabolic acidosis secondary to acute kidney injury, IV fluids and GI losses. On oral bicarb. Better. 5. Benign hypertension. Stable. Plan: Encouraged oral intake. Hold amlodipine for systolic blood pressure less than 120. Repeat BMP and magnesium level 2 to 3 days postdischarge. Follow-up outpatient in 1 week.
[2024-02-24] MEDS ORDERED: MECLIZINE 25 MG TAB PO PRN (13:11)
--- NOTE | 2024-02-24 13:40 | P.PN ---
Subjective Progress Note Date: 02/24/24 Stephanie Estevez, is a 78-year-old female who presented to [facility] emergency room, after sustaining a fall at home, patient stated that she fell at home and was not able to stand up, she lives by herself, she was able to call EMS, and was brought to emergency room, patient stated that she was on the floor for about an hour and a half, she denies any loss of consciousness. Patient was recently seen as outpatient with acute respiratory infection and was diagnosed with acute bronchitis and received a course of oral Ceftin, patient started taking this antibiotic 2 days ago. She was evaluated in the emergency room vital examination on presentation revealed a temperature of 97.7 pulse 57 respirations 16 blood pressure 102/80 pulse ox 92% on room air Laboratory data reveals a white blood count of 8.7 hemoglobin 13.2 platelet count 211 sodium 124 potassium 3.8 chloride 96 CO2 17 BUN 25 creatinine 1.2 glucose level 122 Testing in the emergency room revealed CT scan of the brain revealed chronic atrophic and small vessel ischemic changes without acute intracranial process, CT scan of the cervical spine revealed no evidence for acute fracture or subluxation of the cervical spine, chest x-ray revealed patchy perihilar infiltrate that could reflect pneumonia although pulmonary edema not excluded given cardiomegaly, x-ray of the pelvis revealed no acute fracture or disloc ation, x-ray of the bilateral knees did not reveal any evidence of fracture. Patient was admitted to medical floor for further evaluation and treatment On review of systems patient is complaining of generalized weakness, she has occasional cough, she stated that she had poor appetite with very low oral intake in the last 2 to 3 days, otherwise she denies any complaints there is no fever or chills no headache or dizziness no chest pain, no palpitation no nausea or vomiting no abdominal pain no diarrhea and no urinary symptoms. On 02/22/2024 patient was seen and examined on the medical floor, she is alert and oriented x 3 in no apparent distress, she is complaining of generalized body ache related to her recent fall, she is also complaining of cough with thick sputum production, she is complaining of shortness of breath with any activity, otherwise she denies any complaints there is no fever or chills no headache or dizziness no chest pain no nausea vomiting no abdominal pain no diarrhea no urinary symptoms On 02/23/2024 patient is alert and oriented x 3 patient remains on IV Rocephin and azithromycin. Chest x-ray ordered per pulmonary services. Sodium 144. Patient denies chest pain or shortness of breath. Patient denies nausea vomiting or diarrhea. Patient denies any urinary burning or frequency on 02/20/2024 for patient's alert and oriented 3. Sodium improving 134. Pat ient remains on IV Rocephin. Patient will be DC'd on Ceftin per pulmonary recommendation. Patient requesting stay 1 more night. Antivert added for vertigo. current vital signs temp 98.2, heart rate 60, respiratory rate 16, blood pressure 115/55 and pulse ox Objective - Vital Signs Vital signs: Vital Signs Temp 98.2 F 02/24/24 07:12 Pulse 60 02/24/24 09:21 Resp 16 02/24/24 07:12 BP 115/55 02/24/24 07:12 Pulse Ox 92 L 02/24/24 09:21 FiO2 21 02/24/24 09:21 Intake & Output 02/23/24 02/24/24 02/24/24 18:59 06:59 18:59 Other: Voiding Method Toilet Toilet # Voids 4 5 1 - Exam In general patient is alert and oriented x 3 in no distress HEENT head normocephalic and atraumatic Neck is supple no JVD no goiter no lymphadenopathy no carotid bruit Chest examination reveals a few scattered rhonchi bilaterally no wheezing Cardiac exam reveals regular heart sounds S1 and S2 no gallops no murmurs Abdomen is soft nontender no organomegaly with normal bowel sounds Extremity exam reveals no edema no cyanosis or clubbing Neurological examination reveals no gross focal deficits - Labs CBC & Chem 7: 02/24/24 03:36 02/24/24 03:36 Labs: Abnormal Lab Results - Last 24 Hours (Table) 02/23/24 02/24/24 02/24/24 Range/Units 17:41 03:36 03:36 RBC 3.84 L (4.10-5.20) X 10*6/uL Hgb 11.1 L (12.0-15.0) g/dL Hct 33.9 L (37.2-46.3) % RDW 15.4 H (11.5-14.5) % MPV 9.4 L (9.5-12.2) FL Immature Gran # 0.08 H (0.00-0.04) X 10*3/uL Sodium 131 L 134 L (137-145) mmol/L BUN <3.5 L (9.0-27.0) mg/dL BUN/Creatinine Ratio <5.00 L (12.00-20.00) Ratio Calcium 8.2 L (8.7-10.3) mg/dL Total Bilirubin <0.2 L (0.3-1.2) mg/dL Total Protein 4.5 L (6.2-8.2) g/dL Albumin 3.0 L (3.8-4.9) g/dL Globulin 1.5 L (1.6-3.3) g/dL Assessment and Plan Plan: Fall at home with inability to stand or walk without assistance Prolonged stay on the floor, will check creatinine kinase to rule out rhabdomyolysis Dehydration with acute kidney injury Severe hyponatremia Perihilar infiltrate, possible pneumonia Underlying history of hypertension Underlying history of hypothyroidism Underlying history of asthma Underlying history of essential tremor Underlying history of depression with anxiety disorder At this time patient was seen and examined on the medical floor Home medications reviewed and reordered Nephrology consultation requested Will follow closely pulmonary services following
--- NOTE | 2024-02-24 15:46 | P.PN ---
Subjective Progress Note Date: 02/24/24 This is a 78-year-old female patient with a history of asthma, gastroesophageal reflux disorder, hearing disorder, hyperlipidemia, hypertension, hypothyroidism, vertigo. Yesterday she states she slipped out of bed though ER report states she tripped while being up with her walker. She was on the ground for an extended period time she was able to call her daughter and then EMS was called and she was brought in. EKG reveals atrial fibrillation with a controlled ventricular response. CT scan of the head and neck revealed age-related atrophic and chronic small vessel ischemia but no acute intercranial process. No evidence of fracture of the cervical spine. Hip and knee x-rays revealed no fracture. Chest x-ray reveals patchy perihilar infiltrates possible pneumonia. White count 8.7. Hemoglobin 13.0. Platelets 211. Sodium 124. Potassium 3.8. Bicarb 17. BUN 25. Creatinine 1.21. Glucose 122. proBNP 611. Troponin negative x 1. She is seen today in consultation on the regular medical floor. She is currently resting comfortably in bed. Awake and alert in no acute distress. She is weak. She has a dry nonproductive cough which she states she has had for years. No fever or chills. No hemoptysis. She is maintaining good O2 saturations in the 90s on 2 L/min per nasal cannula. Afebrile. Hemodynamically stable. The patient is seen today February 22, 2024 in follow-up on the regular medical floor. She is sitting up in bed. Awake and alert in no acute distress. Maintaining O2 saturations in the 90s on 2 L/min per nasal cannula. She is afebrile. Hemodynamically stable. The kidneys and bladder revealed no evidence of hydronephrosis. No nephrolithiasis. No masses. Cardiogram revealed preserved left ventricular systolic function with an ejection fraction of 60 to 65%. No significant valvular abnormalities. White count 7.9. Hemoglobin 10.7. Platelets 228. Sodium 132. Potassium 3.9. Bicarb 21. BUN 12. Creatinine 0.8. Procalcitonin 0.30. She remains on ceftriaxone and azithromycin. Remains on bronchodilators. The patient is seen today February 23, 2024 in follow-up on the regular medical floor. She is currently sitting up in bed. Awake and alert in no acute distress. Maintaining O2 saturations in the 90s on 2 L/min per nasal cannula. No IV fluids. Chest x-ray reveals patchy mid and lower lung opacities. Sodium 144. Potassium 4.6. Bicarb 18. BUN 6. Creatinine 0.57. Glucose 83. She remains on bronchodilators. Antibiotics in the form of ceftriaxone. Receiving sodium bicarb tablets. The patient is seen today February 24, 2024 in follow-up on the regular medical floor. She is currently resting comfortably in bed. Awake and alert in no acute distress. Maintaining O2 saturations in the 90s on room air. No IV fluids. She is continued on albuterol, Symbicort, Singulair. Remains on antibiotics in the form of ceftriaxone. Remains on sodium bicarbonate tablets. Sodium 134. Potassium 3.9. Bicarb 25. BUN 3.5. Creatinine 0.7. Glucose 94. White count 6.3. Hemoglobin 11.1. Platelets 294. Objective - Vital Signs Vital signs: Vital Signs Temp 98.2 F 02/24/24 13:34 Pulse 113 H 02/24/24 13:34 Resp 17 02/24/24 13:34 BP 120/77 02/24/24 13:34 Pulse Ox 100 02/24/24 13:34 FiO2 21 02/24/24 09:21 Intake & Output 02/23/24 02/24/24 02/24/24 18:59 06:59 18:59 Other: Voiding Method Toilet Toilet # Voids 4 5 1 - Exam GENERAL EXAM: Alert, 78-year-old female, on room air oxygen, comfortable in no apparent distress. HEAD: Normocephalic. EYES: Normal reaction of pupils, equal size. NOSE: Clear with pink turbinates. THROAT: No erythema or exudates. NECK: No masses, no JVD. CHEST: No chest wall deformity. LUNGS: Equal air entry with no crackles, wheeze, rhonchi or dullness. CVS: S1 and S2 normal with no audible murmur, regular rhythm. ABDOMEN: No hepatosplenomegaly, normal bowel sounds, no guarding or rigidity. SPINE: No scoliosis or deformity SKIN: No rashes CENTRAL NERVOUS SYSTEM: No focal deficits, tone is normal in all 4 extremities. EXTREMITIES: There is no peripheral edema. No clubbing, no cyanosis. Peripheral pulses are intact. - Labs CBC & Chem 7: 02/24/24 03:36 02/24/24 03:36 Labs: Abnormal Lab Results - Last 24 Hours (Table) 02/23/24 02/24/24 02/24/24 Range/Units 17:41 03:36 03:36 RBC 3.84 L (4.10-5.20) X 10*6/uL Hgb 11.1 L (12.0-15.0) g/dL Hct 33.9 L (37.2-46.3) % RDW 15.4 H (11.5-14.5) % MPV 9.4 L (9.5-12.2) FL Immature Gran # 0.08 H (0.00-0.04) X 10*3/uL Sodium 131 L 134 L (137-145) mmol/L BUN <3.5 L (9.0-27.0) mg/dL BUN/Creatinine Ratio <5.00 L (12.00-20.00) Ratio Calcium 8.2 L (8.7-10.3) mg/dL Total Bilirubin <0.2 L (0.3-1.2) mg/dL Total Protein 4.5 L (6.2-8.2) g/dL Albumin 3.0 L (3.8-4.9) g/dL Globulin 1.5 L (1.6-3.3) g/dL Assessment and Plan Assessment: Generalized weakness and fall suspect secondary to hyponatremia Acute kidney injury suspect secondary to dehydration. Ultrasound revealed no evidence of hydronephrosis Acute hypoxic respiratory failure secondary to right hilar consolidation showing clearing on the follow-up chest x-ray History of chronic cough/asthma Lifelong non-smoker Hypothyroidism Anxiety/depression Hypertension Plan: The patient was seen and evaluated Chest x-ray, labs and medications reviewed Currently stable and on room air Continue ceftriaxone, completed azithromycin Continue bronchodilators Stable for discharge from the pulmonary standpoint I have personally seen and examined the patient, performed the documentation and the assessment and plan as written. Number of minutes spent on the visit: 10.
[2024-02-25 10:27] LABS: HCT 34.5 % (37.2-46.3); HGB 11.3 g/dL (12.0-15.0); MCHC 32.8 g/dL (32.0-37.0); MCV 88.5 FL (80.0-97.0); Mean Platelet Volume 9.5 FL (9.5-12.2); NRBC Per 100 WBC 0 X 10*3/uL (0.00-0.01); Platelet Count 335 X 10*3/uL (140-440); RDW 15.4 % (11.5-14.5); WBC 5.96 X 10*3/uL (4.50-10.00)
[2024-02-25 10:46] LABS: ALT 19 U/L (8-44); AST 23 U/L (13-35); Albumin/Globulin Ratio 1.76 Ratio (1.60-3.17); Alkaline Phosphatase 101 U/L (41-126); BUN/Creat Ratio <5.00 Ratio (12.00-20.00); Blood Urea Nitrogen <3.5 mg/dL (9.0-27.0); Calcium 8.2 mg/dL (8.7-10.3); Carbon Dioxide 25.4 mmol/L (21.6-31.8); Chloride 100 mmol/L (96-109); Globulin 1.7 g/dL (1.6-3.3); Glucose 98 mg/dL (70-110); Potassium 4.1 mmol/L (3.5-5.5); Sodium 135 mmol/L (135-145); Total Bilirubin 0.2 mg/dL (0.3-1.2); Total Protein 4.7 g/dL (6.2-8.2)
[2024-02-25 11:37] LABS: Basophils # (M) 0 X 10*3/uL (0.00-0.10); Eosinophils # (M) 0.24 X 10*3/uL (0.04-0.35); Lymphocytes # (M) 2.26 X 10*3/uL (0.90-5.00); Monocytes # (M) 0.24 X 10*3/uL (0.20-1.00); Neutrophils # (M) 3.22 X 10*3/uL (1.80-7.70); Neutrophils % (M) 54 %; RBC Morphology Normal (Normal)
--- NOTE | 2024-02-25 12:01 | P.PN ---
Subjective Patient is seen in follow-up for hyponatremia. Sodium level 135 today. Remains off IV fluids. Oral intake fair. No active complaints. Vital signs are stable. General: No acute distress. HEENT: Head exam is unremarkable. LUNGS: No audible rhonchi or wheezes. HEART: Rate and Rhythm are regular. ABDOMEN: Nontender. EXTREMITITES: No edema. Objective - Vital Signs Vital signs: Vital Signs Temp 98.3 F 02/25/24 06:54 Pulse 67 02/25/24 08:34 Resp 18 02/25/24 06:54 BP 124/57 02/25/24 06:54 Pulse Ox 94 L 02/25/24 08:18 FiO2 21 02/24/24 09:21 Intake & Output 02/24/24 02/25/24 02/25/24 18:59 06:59 18:59 Intake Total 240 Balance 240 Intake: Oral 240 Other: # Voids 1 3 1 - Labs CBC & Chem 7: 02/25/24 06:11 02/25/24 06:11 Labs: Abnormal Lab Results - Last 24 Hours (Table) 02/25/24 02/25/24 Range/Units 06:11 06:11 RBC 3.90 L (4.10-5.20) X 10*6/uL Hgb 11.3 L (12.0-15.0) g/dL Hct 34.5 L (37.2-46.3) % RDW 15.4 H (11.5-14.5) % BUN <3.5 L (9.0-27.0) mg/dL BUN/Creatinine Ratio <5.00 L (12.00-20.00) Ratio Calcium 8.2 L (8.7-10.3) mg/dL Total Bilirubin 0.2 L (0.3-1.2) mg/dL Total Protein 4.7 L (6.2-8.2) g/dL Albumin 3.0 L (3.8-4.9) g/dL Assessment and Plan Plan: Assessment: 1. Hyponatremia, appears hypovolemic. Status post IV fluids. Sodium level 135 today. Urine sodium less than 20 and urine osmolality 168. TSH slightly elevated at 5.97. 2. Acute kidney injury secondary to vasomotor nephropathy from poor intake, diarrhea and hypotension. Resolved. 3. Status post fall. 4. Metabolic acidosis secondary to acute kidney injury, IV fluids and GI losses. On oral bicarb. Better. 5. Benign hypertension. Stable. Plan: Encouraged oral intake. Hold amlodipine for systolic blood pressure less than 120. Repeat BMP and magnesium level 2 to 3 days postdischarge. Follow-up outpatient in 1 week.
--- NOTE | 2024-02-25 13:18 | P.PN ---
Subjective Progress Note Date: 02/25/24 Principal diagnosis: Weakness, falls, vertigo. This is a 78-year-old female patient with a history of asthma, gastroesophageal reflux disorder, hearing disorder, hyperlipidemia, hypertension, hypothyroidism, vertigo. Yesterday she states she slipped out of bed though ER report states she tripped while being up with her walker. She was on the ground for an extended period time she was able to call her daughter and then EMS was called and she was brought in. EKG reveals atrial fibrillation with a controlled ventricular response. CT scan of the head and neck revealed age-related atrophic and chronic small vessel ischemia but no acute intercranial process. No evidence of fracture of the cervical spine. Hip and knee x-rays revealed no fracture. Chest x-ray reveals patchy perihilar infiltrates possible pneumonia. White count 8.7. Hemoglobin 13.0. Platelets 211. Sodium 124. Potassium 3.8. Bicarb 17. BUN 25. Creatinine 1.21. Glucose 122. proBNP 611. Troponin negative x 1. She is seen today in consultation on the regular medical floor. She is currently resting comfortably in bed. Awake and alert in no acute distress. She is weak. She has a dry nonproductive cough which she states she has had for years. No fever or chills. No hemoptysis. She is maintaining good O2 saturations in the 90s on 2 L/min per nasal cannula. Afebrile. Hemodynamically stable. The patient is seen today February 22, 2024 in follow-up on the regular medical floor. She is sitting up in bed. Awake and alert in no acute distress. Maintaining O2 saturations in the 90s on 2 L/min per nasal cannula. She is afebrile. Hemodynamically stable. The kidneys and bladder revealed no evidence of hydronephrosis. No nephrolithiasis. No masses. Cardiogram revealed preserved left ventricular systolic function with an ejection fraction of 60 to 65%. No significant valvular abnormalities. White count 7.9. Hemoglobin 10.7. Platelets 228. Sodium 132. Potassium 3.9. Bicarb 21. BUN 12. Creatinine 0.8. Procalcitonin 0.30. She remains on ceftriaxone and azithromycin. Remains on bronchodilators. The patient is seen today February 23, 2024 in follow-up on the regular medical floor. She is currently sitting up in bed. Awake and alert in no acute distress. Maintaining O2 saturations in the 90s on 2 L/min per nasal cannula. No IV fluids. Chest x-ray reveals patchy mid and lower lung opacities. Sodium 144. Potassium 4.6. Bicarb 18. BUN 6. Creatinine 0.57. Glucose 83. She remains on bronchodilators. Antibiotics in the form of ceftriaxone. Receiving sodium bicarb tablets. The patient is seen today February 24, 2024 in follow-up on the regular medical f bobbi. She is currently resting comfortably in bed. Awake and alert in no acute distress. Maintaining O2 saturations in the 90s on room air. No IV fluids. She is continued on albuterol, Symbicort, Singulair. Remains on antibiotics in the form of ceftriaxone. Remains on sodium bicarbonate tablets. Sodium 134. Potassium 3.9. Bicarb 25. BUN 3.5. Creatinine 0.7. Glucose 94. White count 6.3. Hemoglobin 11.1. Platelets 294. Progress note dated February 25, 2024. The patient was seen again in room 460. Her sodium was 134. She is on room air. No fluids. Not sure why she still here in the hospital. Clinically, she is very stable. Today's labs include a white count 5.9 hemoglobin 11.3 hematocrit 34.5, and a platelet count of 335,000. Sodium is up to 135, potassium 4.1, chlorides 100, CO2 25, BUN less than 3.5, creatinine 0.7. Calcium 8.2 and the rest of the labs look pretty good. She was tested for coronavirus, but tested negative. Objective - Vital Signs Vital signs: Vital Signs Temp 98.3 F 02/25/24 06:54 Pulse 67 02/25/24 08:34 Resp 18 02/25/24 06:54 BP 124/57 02/25/24 06:54 Pulse Ox 94 L 02/25/24 08:18 FiO2 21 02/24/24 09:21 Intake & Output 02/24/24 02/25/24 02/25/24 18:59 06:59 18:59 Intake Total 240 237 Balance 240 237 Intake: Oral 240 237 Other: # Voids 1 3 1 - Exam No acute distress, oriented 3. On room air. HEENT examination is grossly unremarkable. Mucous membranes are moist. No oral lesions. Neck supple. Full range of motion. No adenopathy thyromegaly or neck vein distention. Cardiovascular examination reveals regular rhythm rate. S1-S2 normal. No S3 or S4. No discernible murmur noted. Heart rate 67 bpm. Lungs reveal clear breath sounds. Breath sounds are equal bilaterally. No adventitious lung sounds including wheezes rhonchi or crackles. Room air saturation 94 to 95%. Abdomen soft bowel sounds are heard. No masses or tenderness. Extremities are intact. No cyanosis clubbing or edema. Skin is without rash or lesion. Neurologic examination is brief but nonfocal. - Labs CBC & Chem 7: 02/25/24 06:11 02/25/24 06:11 Labs: Abnormal Lab Results - Last 24 Hours (Table) 02/25/24 02/25/24 Range/Units 06:11 06:11 RBC 3.90 L (4.10-5.20) X 10*6/uL Hgb 11.3 L (12.0-15.0) g/dL Hct 34.5 L (37.2-46.3) % RDW 15.4 H (11.5-14.5) % BUN <3.5 L (9.0-27.0) mg/dL BUN/Creatinine Ratio <5.00 L (12.00-20.00) Ratio Calcium 8.2 L (8.7-10.3) mg/dL Total Bilirubin 0.2 L (0.3-1.2) mg/dL Total Protein 4.7 L (6.2-8.2) g/dL Albumin 3.0 L (3.8-4.9) g/dL Assessment and Plan Assessment: Generalized weakness and fall suspect secondary to hyponatremia. Acute kidney injury suspect secondary to dehydration. Acute hypoxic respiratory failure secondary to right hilar consolidation, resolved. History of chronic cough/asthma. Lifelong non-smoker. Hypothyroidism. Anxiety/depression. Hypertension. Plan: Plan dated February 25, 2024. This patient is stable for discharge from this hospital. She has not been in the hospital for 4 days. She has been stable the entire time. Her sodium is up to 135. She is not having any major issues, including respiratory issues. Labs, x-rays, and medications are reviewed. Prognosis is thought to be good. Time with Patient: Less than 30
[2024-02-25 14:01] VITALS: BP 115/83; PULSE 80; RESP 20; TEMP 97.9
[2024-02-28] MEDS ORDERED: ERGOCALCIFEROL 1,250 MCG (50,000 IU) CAPSULE PO SCH (09:00)
== END 2024-02-25 14:46 | disposition home or self-care (01) | DRG 682 ==
LOC: EC 03:50 → 4SSUR 07:55
PROVIDERS: ADMIT Internal Medicine; ATTEND Internal Medicine
DX: N17.0 Acute kidney failure with tubular necrosis (principal); J18.9 Pneumonia, unspecified organism; J96.01 Acute respiratory failure with hypoxia; E87.1 Hypo-osmolality and hyponatremia; E87.20 Acidosis, unspecified; E86.0 Dehydration; G25.0 Essential tremor; Z79.890 Hormone replacement therapy; J45.909 Unspecified asthma, uncomplicated; I10 Essential (primary) hypertension; E86.1 Hypovolemia; F32.A Depression, unspecified; F41.9 Anxiety disorder, unspecified; E78.5 Hyperlipidemia, unspecified; J20.9 Acute bronchitis, unspecified; I07.1 Rheumatic tricuspid insufficiency; H91.90 Unspecified hearing loss, unspecified ear; K21.9 Gastro-esophageal reflux disease without esophagitis; I95.9 Hypotension, unspecified; E03.9 Hypothyroidism, unspecified; I48.91 Unspecified atrial fibrillation; I73.00 Raynaud's syndrome without gangrene; E66.9 Obesity, unspecified; W06.XXXA Fall from bed, initial encounter; Y92.009 Unspecified place in unspecified non-institutional (private) residence as the place of occurrence of the external cause; Z77.22 Contact with and (suspected) exposure to environmental tobacco smoke (acute) (chronic); Z79.899 Other long term (current) drug therapy; K52.9 Noninfective gastroenteritis and colitis, unspecified; Z82.49 Family history of ischemic heart disease and other diseases of the circulatory system; Z87.19 Personal history of other diseases of the digestive system; Z90.710 Acquired absence of both cervix and uterus; Z96.653 Presence of artificial knee joint, bilateral; Z98.42 Cataract extraction status, left eye; Z98.41 Cataract extraction status, right eye; Z90.49 Acquired absence of other specified parts of digestive tract; Z88.0 Allergy status to penicillin; Z68.33 Body mass index [BMI] 33.0-33.9, adult; Z86.14 Personal history of Methicillin resistant Staphylococcus aureus infection
CPT/HCPCS: 36415; 70450; 71045; 71046; 72125; 72170; 76770; 80048; 80053; 81003; 82550; 83735; 83880; 83930; 83935; 84145; 84295; 84300; 84443; 84484; 85025; 87635; 93005; 93306; 94640; 94760; 96361; 96374; 99285

== ENCOUNTER 2024-02-28 23:37 | Emergency (ER) | payer MEDICARE ==
[2024-02-28 23:48] VITALS: TEMP 98.2
[2024-02-29 00:15] LABS: Basophils % (A) 1 %; Eosinophils # (A) 0.1 k/uL (0-0.7); Eosinophils % (A) 3 %; HCT 37.8 % (34.0-46.0); HGB 12.2 gm/dL (11.4-16.0); Lymphocytes # (A) 0.8 k/uL (1.0-4.8); Lymphocytes % (A) 15 %; MCH 29.6 pg (25.0-35.0); MCHC 32.4 g/dL (31.0-37.0); MCV 91.5 fL (80.0-100.0); Mean Platelet Volume 7.1; Monocytes # (A) 0.3 k/uL (0-1.0); Monocytes % (A) 7 %; Neutrophils # (A) 3.8 k/uL (1.3-7.7); Neutrophils % (A) 74 %; RBC 4.13 m/uL (3.80-5.40); RDW 15.4 % (11.5-15.5); WBC 5.2 k/uL (3.8-10.6)
[2024-02-29 00:23] LABS: Platelet Count 432 k/uL (150-450)
--- NOTE | 2024-02-29 00:28 | ED ---
Nausea/Vomiting/Diarrhea HPI - General Chief complaint: Abdominal Pain Stated complaint: Nausea Time Seen by Provider: 02/28/24 23:44 Source: patient, EMS, RN notes reviewed Mode of arrival: EMS Limitations: no limitations - History of Present Illness Initial comments: This is a 78-year-old female who presents to the emergency department for nausea and vomiting. Patient was discharged from this facility a few days ago for problems related to falls, vertigo, and hyponatremia. States that shortly after being discharged she started to feel generally unwell with nausea and vomiting. States that this is making her feel weak as a result. Her daughter did test positive for COVID. Denies any coughing, congestion, chest pain, shortness of breath, fevers, or chills. She has generalized abdominal discomfort from the vomiting. Denies any diarrhea or constipation. MD complaint: nausea, vomiting - Related Data Home Medications Medication Instructions Recorded Confirmed Nortriptyline HCl [Pamelor] 100 mg PO HS 12/01/15 02/21/24 Primidone [Mysoline] 50 mg PO TID 12/01/15 02/21/24 Zafirlukast 20 mg PO BID 12/01/15 02/21/24 busPIRone HCL 15 mg PO BID 12/01/15 02/21/24 estradioL [Estradiol] 0.5 mg PO DAILY 12/01/15 02/21/24 lamoTRIgine [LaMICtal] 200 mg PO DAILY 12/01/15 02/21/24 ALPRAZolam [Xanax] 0.5 - 1 mg PO BID PRN 04/14/17 02/21/24 amLODIPine [Norvasc] 2.5 mg PO DAILY 04/14/17 02/21/24 Diphenoxylate HCl/Atropine 1 tab PO TID PRN 02/08/21 02/21/24 [Lomotil 2.5-0.025 mg Tablet] Albuterol Sulfate [Albuterol 2 puff PO RT-Q4H PRN 05/23/23 02/21/24 Sulfate Hfa] Ergocalciferol (Vitamin D2) 1,250 mcg PO WEEKLY 05/23/23 02/21/24 [Drisdol (50,000 Iu)] Levothyroxine Sodium [Synthroid] 112 mcg PO DAILY 05/23/23 02/21/24 guaiFENesin-Coden 100-10MG/5ML 10 ml PO Q4H PRN 05/23/23 02/21/24 [Robitussin AC] ondansetron HCL [Zofran] 4 mg PO TID 05/23/23 02/21/24 Acyclovir 400 mg PO BID 02/21/24 02/21/24 Fluticasone/Umeclidin/Vilanter 1 puff INHALATION RT-DAILY 02/21/24 02/21/24 [Trelegy Ellipta 200-62.5-25] Montelukast [Singulair] 10 mg PO HS 02/21/24 02/21/24 cefUROXime axetiL [Ceftin] 500 mg PO BID 02/21/24 02/21/24 Previous Rx's Medication Instructions Recorded Budesonide-Formot 160-4.5 Mcg 2 puff INHALATION RT-BID 1 Days 02/25/24 [Symbicort 160-4.5 Mcg Inhaler] #30 each Sodium Bicarbonate Tab 650 mg PO BID 30 Days #60 tab 02/25/24 Metoclopramide [Reglan] 5 - 10 mg PO Q6H PRN #30 tab 02/29/24 Allergies Allergy/AdvReac Type Severity Reaction Status Date / Time Penicillins Allergy Facial Verified 02/28/24 23:48 Swelling Review of Systems ROS Statement: Those systems with pertinent positive or pertinent negative responses have been documented in the HPI. ROS Other: All systems not noted in ROS Statement are negative. 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 Mother Additional Family Medical History / Comment(s): Mother at the age of 87yrs from either a KS or a stroke-pt unsure. General Exam Limitations: no limitations General appearance: alert, in no apparent distress Head exam: Present: atraumatic, normocephalic, normal inspection Respiratory exam: Present: normal lung sounds bilaterally. Absent: respiratory distress, wheezes, rales, rhonchi, stridor Cardiovascular Exam: Present: regular rate, normal rhythm, normal heart sounds. Absent: systolic murmur, diastolic murmur, rubs, gallop, clicks GI/Abdominal exam: Present: soft, tenderness (generalized). Absent: distended Neurological exam: Present: alert, oriented X3, CN II-XII intact Psychiatric exam: Present: normal affect, normal mood Skin exam: Present: warm, dry, intact, normal color. Absent: rash Course Vital Signs 02/28/24 02/29/24 02/29/24 23:45 02:39 04:18 Temperature 98.2 F Pulse Rate 60 66 62 Respiratory 16 18 18 Rate Blood Pressure 179/70 175/74 168/64 O2 Sat by Pulse 95 96 95 Oximetry Medical Decision Making - Medical Decision Making This is a 78-year-old female who presents to the emergency department for nausea and vomiting. Was pt. sent in by a medical professional or institution? @ -No Did you speak to anyone other than the patient for history? @ -No Did you review nursing and triage notes? @ -Yes, and I agree, it is accurate with regards to the patient's symptoms. Were old charts reviewed? @ -No Differential Diagnosis? @ -Differential Nausea and Vomiting: Gastroenteritis, cholecystitis, appendicitis, pancreatitis, migraine, benign positional vertigo, food borne illness, pyelonephritis, irritable bowel syndrome, influenza, Covid, GERD, incarcerated hernia, intestinal obstruction, this is not meant to be an all-inclusive list. EKG interpreted by me (3pts min.)? @ -EKG interpreted by me demonstrating the following: Sinus bradycardia. Ventricular rate 56 bpm, CO interval 185 ms, QRS 101 ms, QTc 465 ms. X-rays interpreted by me (1pt min.)? @ -KUB x-ray obtained. My interpretation identifies no dilation of large or small bowel loops. CT interpreted by me (1pt min.)? @ -Not obtained U/S interpreted by me (1pt. min.)? @ -Not obtained What testing was considered but not performed? (CT, X-rays, U/S, labs)? Why? @ -None What meds were considered but not given? Why? @ -None Did you discuss the management of the patient with other professionals? @ -No Did you reconcile home meds? @ -No Was smoking cessation discussed for >3mins.? @ -No Was critical care preformed (if so, how long)? @ -No Were there social determinants of health that impacted care today? How? (Homelessness, low income, unemployed, alcoholism, drug addiction, transportation, low edu. Level, literacy, decrease access to med. care, halfway, rehab)? @ -No Was there de-escalation of care discussed even if they declined? (Discuss DNR or withdrawal of care, Hospice)? @ -No What co-morbidities impacted this encounter? (DM, HTN, Smoking, COPD, CAD, Cancer, CVA, Hep., AIDS, mental health diagnosis, sleep apnea, morbid obesity)? @ -GERD, HLD, HTN Was patient admitted / discharged? @ -Discharged. Lab work demonstrates slightly low magnesium and phosphorus. COVID, influenza, and RSV testing negative. Urinalysis negative for signs of infection. KUB x-ray obtained revealing no acute process. She had already been given Zofran by EMS without much improvement in nausea. She was subsequently given a dose of Reglan which she found more beneficial. She was tolerating oral intake without difficulty. She was given a liter bolus of IV fluids as well as famotidine for any GI upset from the vomiting. 400 mg of magnesium oxide administered for hypomagnesemia. She was also given a dose of Antivert due to her vertigo acting up. She states that she takes this at home as needed. After being given all medications, she did begin to feel improved enough to where she was comfortable with discharge home. Prescription for Reglan provided with dosing instructions reviewed. Advised to slowly advance her diet as tolerated and remain well hydrated. Also advised close follow-up with her primary care provider. Undiagnosed new problem with uncertain prognosis? @ -None Drug Therapy requiring intensive monitoring for toxicity (Heparin, Nitro, Insulin, Cardizem)? @ -None Were any procedures done? @ -None Diagnosis/symptom? @ -Nausea and vomiting, hypomagnesemia Acute, or Chronic, or Acute on Chronic? @ -Acute Uncomplicated (without systemic symptoms) or Complicated (systemic symptoms)? @ -Uncomplicated Side effects of treatment? @ -None Exacerbation, Progression, or Severe Exacerbation] @ -Not applicable Poses a threat to life or bodily function? @ -No Return precautions reviewed in depth, the patient is instructed to return to the emergency department with any new, worsening, or concerning symptoms. Patient verbalized understanding. This case was discussed in detail with the attending ED physician, Dr. Brandt. Presentation, findings, and treatment plan discussed in detail as well. - Lab Data Result diagrams: 02/29/24 00:04 02/29/24 00:04 Lab Results 02/29/24 02/29/24 02/29/24 Range/Units 00:04 00:04 00:04 WBC 5.2 (3.8-10.6) k/uL RBC 4.13 (3.80-5.40) m/uL Hgb 12.2 (11.4-16.0) gm/dL Hct 37.8 (34.0-46.0) % MCV 91.5 (80.0-100.0) fL MCH 29.6 (25.0-35.0) pg MCHC 32.4 (31.0-37.0) g/dL RDW 15.4 (11.5-15.5) % Plt Count 432 D (150-450) k/uL MPV 7.1 Neutrophils % 74 % Lymphocytes % 15 % Monocytes % 7 % Eosinophils % 3 % Basophils % 1 % Neutrophils # 3.8 (1.3-7.7) k/uL Lymphocytes # 0.8 L (1.0-4.8) k/uL Monocytes # 0.3 (0-1.0) k/uL Eosinophils # 0.1 (0-0.7) k/uL Basophils # 0.0 (0-0.2) k/uL Sodium 131 L (137-145) mmol/L Potassium 4.0 (3.5-5.1) mmol/L Chloride 103 (98-107) mmol/L Carbon Dioxide 24 (22-30) mmol/L Anion Gap 4 mmol/L BUN 5 L (7-17) mg/dL Creatinine 0.54 (0.52-1.04) mg/dL Est GFR (CKD-EPI)AfAm >90 (>60 ml/min/1.73 sqM) Est GFR (CKD-EPI)NonAf >90 (>60 ml/min/1.73 sqM) Glucose 106 H (74-99) mg/dL Plasma Lactic Acid Ramiro 0.8 (0.7-2.0) mmol/L Calcium 8.7 (8.4-10.2) mg/dL Phosphorus 2.3 L (2.5-4.5) mg/dL Magnesium 1.4 L (1.6-2.3) mg/dL Total Bilirubin 0.6 (0.2-1.3) mg/dL AST 30 (14-36) U/L ALT 16 (4-34) U/L Alkaline Phosphatase 72 (38-126) U/L Total Protein 5.3 L (6.3-8.2) g/dL Albumin 3.0 L (3.5-5.0) g/dL Amylase <30 L (30-110) U/L Lipase <10 L (23-300) U/L Urine Color Urine Appearance (Clear) Urine pH (5.0-8.0) Ur Specific Minerva (1.001-1.035) Urine Protein (Negative) Urine Glucose (UA) (Negative) Urine Ketones (Negative) Urine Blood (Negative) Urine Nitrite (Negative) Urine Bilirubin (Negative) Urine Urobilinogen (<2.0) mg/dL Ur Leukocyte Esterase (Negative) Influenza Type A (PCR) (Not Detectd) Influenza Type B (PCR) (Not Detectd) RSV (PCR) (Not Detectd) SARS-CoV-2 (PCR) (Not Detectd) 02/29/24 02/29/24 Range/Units 00:04 01:20 WBC (3.8-10.6) k/uL RBC (3.80-5.40) m/uL Hgb (11.4-16.0) gm/dL Hct (34.0-46.0) % MCV (80.0-100.0) fL MCH (25.0-35.0) pg MCHC (31.0-37.0) g/dL RDW (11.5-15.5) % Plt Count (150-450) k/uL MPV Neutrophils % % Lymphocytes % % Monocytes % % Eosinophils % % Basophils % % Neutrophils # (1.3-7.7) k/uL Lymphocytes # (1.0-4.8) k/uL Monocytes # (0-1.0) k/uL Eosinophils # (0-0.7) k/uL Basophils # (0-0.2) k/uL Sodium (137-145) mmol/L Potassium (3.5-5.1) mmol/L Chloride (98-107) mmol/L Carbon Dioxide (22-30) mmol/L Anion Gap mmol/L BUN (7-17) mg/dL Creatinine (0.52-1.04) mg/dL Est GFR (CKD-EPI)AfAm (>60 ml/min/1.73 sqM) Est GFR (CKD-EPI)NonAf (>60 ml/min/1.73 sqM) Glucose (74-99) mg/dL Plasma Lactic Acid Ramiro (0.7-2.0) mmol/L Calcium (8.4-10.2) mg/dL Phosphorus (2.5-4.5) mg/dL Magnesium (1.6-2.3) mg/dL Total Bilirubin (0.2-1.3) mg/dL AST (14-36) U/L ALT (4-34) U/L Alkaline Phosphatase (38-126) U/L Total Protein (6.3-8.2) g/dL Albumin (3.5-5.0) g/dL Amylase (30-110) U/L Lipase (23-300) U/L Urine Color Colorless Urine Appearance Clear (Clear) Urine pH 7.5 (5.0-8.0) Ur Specific Minerva 1.004 (1.001-1.035) Urine Protein Negative (Negative) Urine Glucose (UA) Negative (Negative) Urine Ketones Trace H (Negative) Urine Blood Negative (Negative) Urine Nitrite Negative (Negative) Urine Bilirubin Negative (Negative) Urine Urobilinogen <2.0 (<2.0) mg/dL Ur Leukocyte Esterase Negative (Negative) Influenza Type A (PCR) Not Detected (Not Detectd) Influenza Type B (PCR) Not Detected (Not Detectd) RSV (PCR) Not Detected (Not Detectd) SARS-CoV-2 (PCR) Not Detected (Not Detectd) - Radiology Data Radiology results: report reviewed, image reviewed Disposition Clinical Impression: Nausea and vomiting Disposition: HOME SELF-CARE Instructions (If sedation given, give patient instructions): Acute Nausea and Vomiting (ED) Additional Instructions: Return to the emergency department with any new, worsening, or concerning symptoms. You can take the Reglan as 1 to 2 tablets up to every 6 hours as needed for nausea and vomiting. Try taking your Antivert as needed for vertigo. Slowly advance your diet as tolerated and remain well-hydrated. Follow up with your primary care provider in 1-2 days. Prescriptions: Metoclopramide [Reglan] 5 - 10 mg PO Q6H PRN #30 tab PRN Reason: Nausea And Vomiting Is patient prescribed a controlled substance at d/c from ED?: No Referrals: Donald Coto MD [Primary Care Provider] - 1-2 days Time of Disposition: 03:36
[2024-02-29 00:36] LABS: ALT 16 U/L (4-34); African American GFR (CKD) >90 (>60 ml/min/1.73 sqM); Anion Gap 4 mmol/L; Blood Urea Nitrogen 5 mg/dL (7-17); Calcium 8.7 mg/dL (8.4-10.2); Carbon Dioxide 24 mmol/L (22-30); Chloride 103 mmol/L (98-107); Glucose 106 mg/dL (74-99); Lipase <10 U/L (23-300); Non-African American GFR(CKD) >90 (>60 ml/min/1.73 sqM); Sodium 131 mmol/L (137-145); Total Bilirubin 0.6 mg/dL (0.2-1.3); Total Protein 5.3 g/dL (6.3-8.2)
[2024-02-29] MEDS: SODIUM CHLORIDE 0.9% 1,000 ML IV STA (00:40)
[2024-02-29] MEDS: METOCLOPRAMIDE 5 MG/ML 2 ML VIAL IVP STA ×2 (00:41→04:04)
[2024-02-29 00:42] LABS: Phosphorus 2.3 mg/dL (2.5-4.5)
[2024-02-29 00:43] LABS: AST 30 U/L (14-36); Alkaline Phosphatase 72 U/L (38-126); Amylase <30 U/L (30-110); Magnesium 1.4 mg/dL (1.6-2.3)
[2024-02-29 01:33] LABS: Appearance,Urine Clear (Clear); Bilirubin,Urine Negative (Negative); Blood,Urine Negative (Negative); Color,Urine Colorless; Glucose,Urine (UA) Negative (Negative); Ketones,Urine Trace (Negative); Leukocyte Esterase,Urine Negative (Negative); Nitrite,Urine Negative (Negative); PH, Urine 7.5 (5.0-8.0); Protein,Urine Negative (Negative); Specific Gravity,Urine 1.004 (1.001-1.035); Urobilinogen,Urine <2.0 mg/dL (<2.0)
[2024-02-29] MEDS: MECLIZINE 12.5 MG TAB PO STA (02:34)
[2024-02-29] MEDS: MAGNESIUM OXIDE 400 MG TAB PO STA (02:34)
[2024-02-29] MEDS: FAMOTIDINE 20 MG/2 ML VIAL IV STA (02:35)
[2024-02-29 02:40] VITALS: RESP 18
--- NOTE | 2024-02-29 03:11 | XR ---
EXAM: XR Abdomen, 1 View CLINICAL HISTORY: ITS.REASON XR Reason: Abdominal pain TECHNIQUE: Frontal supine view of the abdomen/pelvis. COMPARISON: No relevant prior studies available. FINDINGS: Gastrointestinal tract: Nonspecific, nonobstructive bowel gas pattern. Organs: Cholecystectomy clips right upper quadrant. Bones/joints: No acute fracture. No dislocation. Soft tissues: Upper abdominal surgical clips. IMPRESSION: Nonspecific, nonobstructive bowel gas pattern.
[2024-02-29] MEDS: METOCLOPRAMIDE 5 MG TAB PO STA (04:06)
[2024-02-29 04:19] VITALS: BP 168/64; PULSE 62
== END 2024-02-29 04:19 | disposition home or self-care (01) ==
LOC: EC 23:37
DX: R11.2 Nausea with vomiting, unspecified (principal); E83.42 Hypomagnesemia; R10.84 Generalized abdominal pain; R00.1 Bradycardia, unspecified; I10 Essential (primary) hypertension; E78.5 Hyperlipidemia, unspecified; K21.9 Gastro-esophageal reflux disease without esophagitis; Z20.822 Contact with and (suspected) exposure to COVID-19; Z88.0 Allergy status to penicillin; Z79.899 Other long term (current) drug therapy
CPT/HCPCS: 36415; 93005; 80053; 82150; 83605; 83690; 83735; 84100; 85025; 81003; 87636; 74018; 99285; 96374; 96375; 96376; 96361 ×2; J2765; J3490

== ENCOUNTER → 2024-04-08 | Outpatient (CLI) | payer MEDICARE ==
[2024-04-08 13:07] LABS: African American GFR (CKD) 75 (>60 ml/min/1.73 sqM); Blood Urea Nitrogen 8 mg/dL (7-17); Non-African American GFR(CKD) 65 (>60 ml/min/1.73 sqM)
--- NOTE | 2024-04-08 15:00 | CT ---
EXAMINATION TYPE: CT ChestAbdPelvis w con DATE OF EXAM: 04/08/2024 COMPARISON: None HISTORY: stomach pains CT DLP: 2207 mGycm Automated exposure control for dose reduction was used. CONTRAST: CT scan of the chest, abdomen and pelvis is performed with Oral Contrast and with IV Contrast, patien t injected with 100 mL of Isovue 300. FINDINGS: CT chest: There is no suspicious lung mass or nodule. There is no airspace consolidation. There is mild fine interstitial density in the lung bases posteri dangelo likely reflecting mild interstitial changes or atelectasis.. There is no pleural effusion, pleural thickening or pneumothorax. The great vessels and chest are normal there is no mediastinal, hilar or axillary adenopathy. No focal osseous lesions are seen. CT abdomen and pelvis: There is a moderate hiatal hernia. There is surgical absent gallbladder. There is no biliary ductal dilatation. There is no focal mass or organomegaly involving the liver, pancreas, spleen or adrenal glands. The c ontour of the liver appears slightly lobulated raising the question of cirrhosis and clinical correla tion is recommended. The pancreas is markedly atrophic. There is no solid renal mass or hydronephrosis. There is no retroperitoneal adenopathy or hemorrhage in the caliber of the abdominal aorta is normal. The bowel loops are normal in caliber and there is no dilatation or obstruction. No inflammatory bird ges identified in the bowel wall and mesentery. There is no free intracranial air or fluid. There is no pelvic mass or adenopathy. There is no free fluid within the pelvis. No focal osseous lesions are seen. There is a small midline ventral hernia containing only fat. IMPRESSION: 1. No acute cardiopulmonary disease or suspicious mass or nodule. 2. Moderate hiatal hernia. 3. Questionable lobulated liver contour suggesting possible cirrhosis. Therefore markedly atrophic pa ncreas. 5. Small midline hernia containing only fat. 6. No acute changes within the abdomen or pelvis.
== END | disposition home or self-care (01) ==
LOC: RADCTMAIN 12:13
PROVIDERS: ATTEND Internal Medicine
DX: K44.9 Diaphragmatic hernia without obstruction or gangrene (principal); K43.9 Ventral hernia without obstruction or gangrene; K86.89 Other specified diseases of pancreas; R06.4 Hyperventilation; R05.3 Chronic cough
CPT/HCPCS: 36415; 71260; 74177; 82565; 84520

== ENCOUNTER → 2024-04-21 | Outpatient (CLI) | payer MEDICARE ==
--- NOTE | 2024-04-21 18:41 | FL ---
EXAMINATION TYPE: FL barium swallow DATE OF EXAM: 04/21/2024 CLINICAL INDICATION: 78-year-old female R05.9, dysphagia, complaining of nausea, vomiting, food getti ng stuck, worsening over the last 4 years. History of previous surgery about 25 years ago. COMPARISON: Correlation CT 04/08/2024 Total Fluoroscopy Time: 35 seconds Total DAP: 10 mGycm2 44 images obtained. FINDINGS: Hypopharyngeal anatomy is preserved. However, there are episodes of martinez silent aspiration demonstrated with contrast extending down the tracheal column. Moderate tertiary peristaltic contractions are demonstrated. The thoracic esophagus is slightly patul ous. There is possible short segment stricture at the distal third esophagus located above a moderate size hiatal hernia involving approximately a third of the stomach in the lower chest. No mucosal irregula rity otherwise any suspicious filling defect is encountered. Prone/supine imaging with Valsalva was not performed due to the visualized aspiration. IMPRESSION: 1. Episodes of martinez silent aspiration. Prone and supine imaging not performed for this reason. 2. Mildly distended esophagus with moderate esophageal dysmotility and possible short segment strictu re along the distal third segment. Given the lack of mucosal irregularity, a benign stricture is favo red. Recommend direct visualization to further evaluate. 3. Moderate-sized hiatal hernia with a third of the stomach located in the lower chest. Given prior s urgery, consider failed hiatal hernia repair.
== END | disposition home or self-care (01) ==
LOC: RADFLMAIN 10:05
PROVIDERS: ATTEND Internal Medicine
DX: K44.9 Diaphragmatic hernia without obstruction or gangrene (principal); K22.4 Dyskinesia of esophagus; K22.89 Other specified disease of esophagus; R06.4 Hyperventilation
CPT/HCPCS: 74220

== ENCOUNTER 2024-05-03 20:54 | Emergency (ER) | payer MEDICARE ==
--- NOTE | 2024-05-03 21:26 | XR ---
EXAMINATION TYPE: XR KUB DATE OF EXAM: 05/03/2024 COMPARISON: 02/29/2024 INDICATION: Constipation TECHNIQUE: Single view abdomen frontal projection supine view FINDINGS: Some contrast appears to be within the descending colon. Normal colonic bowel gas is present. Psoas margins are normal. No organomegaly is present. IMPRESSION: 1. Nonspecific abdomen X-Ray Mari De La Cruz, , 05/03/2024 9:24 PM
--- NOTE | 2024-05-03 23:10 | ED ---
General Adult HPI - General Chief complaint: Abdominal Pain Stated complaint: Abd Pain Time Seen by Provider: 05/03/24 22:28 Source: patient, family, RN notes reviewed, old records reviewed Mode of arrival: wheelchair Limitations: no limitations - History of Present Illness Initial comments: 79-year-old female presents for evaluation of generalized abdominal pain and cramping and constipation for the past 5 days. Patient reports she has not had a bowel movement and does not believe she has had any flatus over the past 5 days. She has had no vomiting. No fever. Patient did have a barium swallow study a little over a week ago. She deals with chronic nausea and gastrointestinal issues. - Related Data Home Medications Medication Instructions Recorded Confirmed Nortriptyline HCl [Pamelor] 100 mg PO HS 12/01/15 02/21/24 Primidone [Mysoline] 50 mg PO TID 12/01/15 02/21/24 Zafirlukast 20 mg PO BID 12/01/15 02/21/24 busPIRone HCL 15 mg PO BID 12/01/15 02/21/24 estradioL [Estradiol] 0.5 mg PO DAILY 12/01/15 02/21/24 lamoTRIgine [LaMICtal] 200 mg PO DAILY 12/01/15 02/21/24 ALPRAZolam [Xanax] 0.5 - 1 mg PO BID PRN 04/14/17 02/21/24 amLODIPine [Norvasc] 2.5 mg PO DAILY 04/14/17 02/21/24 Diphenoxylate HCl/Atropine 1 tab PO TID PRN 02/08/21 02/21/24 [Lomotil 2.5-0.025 mg Tablet] Albuterol Sulfate [Albuterol 2 puff PO RT-Q4H PRN 05/23/23 02/21/24 Sulfate Hfa] Ergocalciferol (Vitamin D2) 1,250 mcg PO WEEKLY 05/23/23 02/21/24 [Drisdol (50,000 Iu)] Levothyroxine Sodium [Synthroid] 112 mcg PO DAILY 05/23/23 02/21/24 guaiFENesin-Coden 100-10MG/5ML 10 ml PO Q4H PRN 05/23/23 02/21/24 [Robitussin AC] ondansetron HCL [Zofran] 4 mg PO TID 05/23/23 02/21/24 Acyclovir 400 mg PO BID 02/21/24 02/21/24 Fluticasone/Umeclidin/Vilanter 1 puff INHALATION RT-DAILY 02/21/24 02/21/24 [Trelegy Ellipta 200-62.5-25] Montelukast [Singulair] 10 mg PO HS 02/21/24 02/21/24 cefUROXime axetiL [Ceftin] 500 mg PO BID 02/21/24 02/21/24 Previous Rx's Medication Instructions Recorded Budesonide-Formot 160-4.5 Mcg 2 puff INHALATION RT-BID 1 Days 02/25/24 [Symbicort 160-4.5 Mcg Inhaler] #30 each Sodium Bicarbonate Tab 650 mg PO BID 30 Days #60 tab 02/25/24 Metoclopramide [Reglan] 5 - 10 mg PO Q6H PRN #30 tab 02/29/24 Allergies Allergy/AdvReac Type Severity Reaction Status Date / Time Penicillins Allergy Facial Verified 02/28/24 23:48 Swelling Review of Systems ROS Statement: Those systems with pertinent positive or pertinent negative responses have been documented in the HPI. ROS Other: All systems not noted in ROS Statement are negative. 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 Mother Additional Family Medical History / Comment(s): Mother at the age of 87yrs from either a IN or a stroke-pt unsure. General Exam Limitations: no limitations General appearance: alert, in no apparent distress Head exam: Present: atraumatic, normocephalic Eye exam: Present: normal appearance, PERRL ENT exam: Present: normal exam Neck exam: Present: normal inspection. Absent: tenderness, meningismus Respiratory exam: Present: normal lung sounds bilaterally. Absent: respiratory distress, wheezes Cardiovascular Exam: Present: regular rate, normal rhythm GI/Abdominal exam: Present: soft, distended, tenderness. Absent: guarding, rebound, rigid Extremities exam: Present: normal inspection Neurological exam: Present: alert, oriented X3, CN II-XII intact. Absent: motor sensory deficit Psychiatric exam: Present: normal affect, normal mood Skin exam: Present: warm, dry, intact Course Vital Signs 05/03/24 05/04/24 20:58 02:20 Temperature 98.4 F Pulse Rate 82 85 Respiratory 18 16 Rate Blood Pressure 140/65 130/78 O2 Sat by Pulse 98 98 Oximetry Medical Decision Making - Medical Decision Making Was pt. sent in by a medical professional or institution (, PA, IMPORT EXPORT COORDINATOR, urgent care, hospital, or fpc...) When possible be specific @ -No Did you speak to anyone other than the patient for history (EMS, parent, family, police, friend...)? What history was obtained from this source @ -No Did you review nursing and triage notes (agree or disagree)? Why? @ -I reviewed and agree with nursing and triage notes Were old charts reviewed (outside hosp., previous admission, EMS record, old EKG, old radiological studies, urgent care reports/EKG's, fpc records)? Report findings @ -No old charts were reviewed Differential Abdominal Pain Women: Appendicitis, Cholecystitis, diverticulosis, ischemic bowel, pancreatitis, hepatitis, UTI, gastroenteritis, AAA, incarcerated hernia, bowel obstruction, constipation, inflammatory bowel, hepatitis, peptic ulcer disease, splenic infarction, perforated viscus, vulvitis, ovarian torsion, PID, kidney stone, placenta abruption, this is not meant to be an all-inclusive list EKG interpreted by me (3pts min.). @ -As above X-rays interpreted by me (1pt min.). @X-ray of the abdomen showing contrast in the transverse and descending colon without obstruction CT interpreted by me (1pt min.). @ -CT abdomen pelvis negative for obstruction, no acute abnormality U/S interpreted by me (1pt. min.). @ -None done What testing was considered but not performed or refused? (CT, X-rays, U/S, labs)? Why? @ -None What meds were considered but not given or refused? Why? @ -None Did you discuss the management of the patient with other professionals (professionals i.e. , PA, IMPORT EXPORT COORDINATOR, lab, RT, psych nurse, rn social services, family day care provider, teacher, executive officer special warfare team, continuous pillowcase cutter)? Give summary @ -No Was smoking cessation discussed for >3mins.? @ -No Was critical care preformed (if so, how long)? @ -No Were there social determinants of health that impacted care today? How? (Homelessness, low income, unemployed, alcoholism, drug addiction, transportation, low edu. Level, literacy, decrease access to med. care, fpc, rehab)? @ -No Was there de-escalation of care discussed even if they declined (Discuss DNR or withdrawal of care, Hospice)? DNR status @ -No What co-morbidities impacted this encounter? (DM, HTN, Smoking, COPD, CAD, Cancer, CVA, ARF, Chemo, Hep., AIDS, mental health diagnosis, sleep apnea, morbid obesity)? @ -None Was patient admitted / discharged? Hospital course, mention meds given and route, prescriptions, significant lab abnormalities, going to OR and other p ertinent info. @ -79-year-old female with abdominal pain, nausea, constipation. Laboratory studies show no significant abnormality. CT is obtained which is negative for acute findings but does show a contrast bolus at the splenic flexure, may be the cause of the patient's pain. Patient given enema in the emergency department. Undiagnosed new problem with uncertain prognosis? @ -No Drug Therapy requiring intensive monitoring for toxicity (Heparin, Nitro, Insulin, Cardizem)? @ -No Were any procedures done? @ -No Diagnosis/symptom? @ -Abdominal pain Acute, or Chronic, or Acute on Chronic? @Acute Uncomplicated (without systemic symptoms) or Complicated (systemic symptoms)? @ -Default Side effects of treatment? @ -No Exacerbation, Progression, or Severe Exacerbation? @ -No Poses a threat to life or bodily function? How? (Chest pain, [place], [place], pneumonia, PE, COPD, DKA, ARF, appy, cholecystitis, CVA, Diverticulitis, Homicidal, Suicidal, threat to staff... and all critical care pts) @ -No - Lab Data Result diagrams: 05/04/24 00:28 05/04/24 00:28 Lab Results 05/04/24 05/04/24 Range/Units 00:28 00:28 WBC 12.5 H (3.8-10.6) k/uL RBC 3.86 (3.80-5.40) m/uL Hgb 11.5 (11.4-16.0) gm/dL Hct 35.2 (34.0-46.0) % MCV 91.2 (80.0-100.0) fL MCH 29.8 (25.0-35.0) pg MCHC 32.7 (31.0-37.0) g/dL RDW 14.0 (11.5-15.5) % Plt Count 207 (150-450) k/uL MPV 7.3 Neutrophils % 85 % Lymphocytes % 8 % Monocytes % 5 % Eosinophils % 0 % Basophils % 0 % Neutrophils # 10.6 H (1.3-7.7) k/uL Lymphocytes # 1.0 (1.0-4.8) k/uL Monocytes # 0.6 (0-1.0) k/uL Eosinophils # 0.0 (0-0.7) k/uL Basophils # 0.1 (0-0.2) k/uL Sodium 131 L (137-145) mmol/L Potassium 3.7 (3.5-5.1) mmol/L Chloride 106 (98-107) mmol/L Carbon Dioxide 19 L (22-30) mmol/L Anion Gap 6 mmol/L BUN 15 (7-17) mg/dL Creatinine 0.53 (0.52-1.04) mg/dL Est GFR (CKD-EPI)AfAm >90 (>60 ml/min/1.73 sqM) Est GFR (CKD-EPI)NonAf >90 (>60 ml/min/1.73 sqM) Glucose 104 H (74-99) mg/dL Calcium 8.1 L (8.4-10.2) mg/dL Total Bilirubin 0.5 (0.2-1.3) mg/dL AST 17 (14-36) U/L ALT 7 (4-34) U/L Alkaline Phosphatase 64 (38-126) U/L Total Protein 5.0 L (6.3-8.2) g/dL Albumin 2.9 L (3.5-5.0) g/dL Disposition Clinical Impression: Abdominal pain Disposition: HOME SELF-CARE Condition: Fair Is patient prescribed a controlled substance at d/c from ED?: No Referrals: Donald Coto MD [Primary Care Provider] - 1-2 days Time of Disposition: 02:27
[2024-05-03] MEDS: ONDANSETRON 4 MG/2 ML VIAL IVP STA (23:52)
[2024-05-03] MEDS: MORPHINE SULFATE 2 MG/ML SYRINGE IVP STA (23:53)
[2024-05-04 01:04] LABS: ALT 7 U/L (4-34); AST 17 U/L (14-36); African American GFR (CKD) >90 (>60 ml/min/1.73 sqM); Albumin 2.9 g/dL (3.5-5.0); Alkaline Phosphatase 64 U/L (38-126); Anion Gap 6 mmol/L; Blood Urea Nitrogen 15 mg/dL (7-17); Calcium 8.1 mg/dL (8.4-10.2); Carbon Dioxide 19 mmol/L (22-30); Chloride 106 mmol/L (98-107); Glucose 104 mg/dL (74-99); Non-African American GFR(CKD) >90 (>60 ml/min/1.73 sqM); Potassium 3.7 mmol/L (3.5-5.1); Sodium 131 mmol/L (137-145); Total Bilirubin 0.5 mg/dL (0.2-1.3)
[2024-05-04 01:11] LABS: Basophils # (A) 0.1 k/uL (0-0.2); Basophils % (A) 0 %; Eosinophils % (A) 0 %; HCT 35.2 % (34.0-46.0); HGB 11.5 gm/dL (11.4-16.0); Lymphocytes % (A) 8 %; MCH 29.8 pg (25.0-35.0); MCHC 32.7 g/dL (31.0-37.0); MCV 91.2 fL (80.0-100.0); Mean Platelet Volume 7.3; Monocytes # (A) 0.6 k/uL (0-1.0); Monocytes % (A) 5 %; Neutrophils # (A) 10.6 k/uL (1.3-7.7); Neutrophils % (A) 85 %; Platelet Count 207 k/uL (150-450); RBC 3.86 m/uL (3.80-5.40); WBC 12.5 k/uL (3.8-10.6)
--- NOTE | 2024-05-04 02:08 | CT ---
EXAM: CT Abdomen and Pelvis Without Intravenous Contrast CLINICAL HISTORY: ITS.REASON CT Reason: ab pain TECHNIQUE: Axial computed tomography images of the abdomen and pelvis without intravenous contrast. This CT exam was performed using one or more of the following dose reduction techniques: automated exposure control, adjustment of the mA and/or kV according to patient size, and/or use of iterative reconstruction technique. COMPARISON: CT abdomen and pelvis April 08, 2044. FINDINGS: Lung bases: Unremarkable. No mass. No consolidation. ABDOMEN: Liver: Unremarkable. Gallbladder and bile ducts: Unremarkable. No calcified stones. No ductal dilation. Pancreas: Unremarkable. No ductal dilation. Spleen: Unremarkable. No splenomegaly. Adrenals: Unremarkable. No mass. Kidneys and ureters: Unremarkable. No obstructing stones. No hydronephrosis. Stomach and bowel: Dense contrast in the descending colon, which causes streak artifact. Diverticulosis, without acute diverticulitis. No small bowel obstruction. No free intraperitoneal air. PELVIS: Appendix: No findings to suggest acute appendicitis. Bladder: Unremarkable. No stones. Reproductive: Hysterectomy. ABDOMEN and PELVIS: Intraperitoneal space: Unremarkable. No free air. No significant fluid collection. Bones/joints: Degenerative changes of the spine. No acute fracture. No dislocation. Soft tissues: Fat-containing umbilical hernia. Vasculature: Atherosclerotic changes of the aorta. No abdominal aortic aneurysm. Lymph nodes: Unremarkable. No enlarged lymph nodes. IMPRESSION: 1. Hysterectomy. 2. Diverticulosis, without acute diverticulitis. No small bowel obstruction. No free intraperitoneal air.
[2024-05-04] MEDS: ACETAMINOPHEN TAB 325 MG TAB PO STA (02:26)
[2024-05-04] MEDS: MORPHINE SULFATE 2 MG/ML SYRINGE IVP STA (02:28)
[2024-05-04 04:18] VITALS: BP 132/81; PULSE 81; RESP 18; TEMP 98.1
== END 2024-05-04 03:56 | disposition home or self-care (01) ==
LOC: EC 20:54
CPT/HCPCS: 36415; 74018; 74176; 80053; 85025; 96374; 96375; 96376; 99284

== ENCOUNTER 2024-06-11 18:33 | Emergency (ER) | payer MEDICARE ==
[2024-06-11 18:38] VITALS: RESP 18; TEMP 98.6
[2024-06-11 20:07] LABS: Basophils % (A) 1 %; Eosinophils # (A) 0.1 k/uL (0-0.7); Eosinophils % (A) 2 %; HCT 45.1 % (34.0-46.0); Lymphocytes % (A) 16 %; MCH 28.1 pg (25.0-35.0); MCHC 31.1 g/dL (31.0-37.0); MCV 90.1 fL (80.0-100.0); Mean Platelet Volume 6.8; Monocytes # (A) 0.4 k/uL (0-1.0); Monocytes % (A) 6 %; Neutrophils % (A) 74 %; Platelet Count 311 k/uL (150-450); RBC 5.01 m/uL (3.80-5.40); RDW 13.6 % (11.5-15.5); WBC 6.7 k/uL (3.8-10.6)
[2024-06-11 20:18] LABS: ALT 15 U/L (4-34); African American GFR (CKD) 89 (>60 ml/min/1.73 sqM); Anion Gap 7 mmol/L; Blood Urea Nitrogen 16 mg/dL (7-17); Calcium 9.4 mg/dL (8.4-10.2); Carbon Dioxide 24 mmol/L (22-30); Chloride 101 mmol/L (98-107); Glucose 92 mg/dL (74-99); Non-African American GFR(CKD) 77 (>60 ml/min/1.73 sqM); Sodium 132 mmol/L (137-145); Total Bilirubin 0.7 mg/dL (0.2-1.3)
[2024-06-11 20:19] LABS: AST 32 U/L (14-36); Albumin 4.5 g/dL (3.5-5.0); Alkaline Phosphatase 98 U/L (38-126); Potassium 4.9 mmol/L (3.5-5.1)
[2024-06-11 20:20] LABS: INR 0.9 (<1.2); Partial Thromboplastin Time 23.5 sec (22.0-30.0); Prothrombin Time 10.2 sec (10.0-12.5)
[2024-06-11] MEDS: NA PHOS,M-B/NA PHOS,DI-BA 133 ML ENEMA RECTAL STA (23:08)
--- NOTE | 2024-06-11 23:19 | ED ---
General Adult HPI - General Chief complaint: GI Bleed Stated complaint: Rectal bleeding Time Seen by Provider: 06/11/24 18:46 Source: patient Mode of arrival: wheelchair Limitations: no limitations - History of Present Illness Initial comments: This patient is an 79-year-old woman who presents with concern that she noted some bright red blood when she attempted to have bowel movement. The patient relates that she has been feeling somewhat constipated over the past couple of days. She states that she was not able to have a bowel movement for the that time and then when she tried tonight she passed a small amount of hard stool and had associated red blood with wiping and in the toilet. Patient denies abdominal pain. There was a some perianal pain with the bowel movement. Patient denies symptoms of anemia, no palpitations, chest pain, dyspnea, diaphoresis, syncope or lightheadedness. -: hour(s) Location: buttocks (Perianal) Radiation: non-radiation Quality: sharp Consistency: now resolved Improves with: none Worsens with: cold therapy Associated Symptoms: denies other symptoms - Related Data Home Medications Medication Instructions Recorded Confirmed Nortriptyline HCl [Pamelor] 100 mg PO HS 12/01/15 02/21/24 Primidone [Mysoline] 50 mg PO TID 12/01/15 02/21/24 Zafirlukast 20 mg PO BID 12/01/15 02/21/24 busPIRone HCL 15 mg PO BID 12/01/15 02/21/24 estradioL [Estradiol] 0.5 mg PO DAILY 12/01/15 02/21/24 lamoTRIgine [LaMICtal] 200 mg PO DAILY 12/01/15 02/21/24 ALPRAZolam [Xanax] 0.5 - 1 mg PO BID PRN 04/14/17 02/21/24 amLODIPine [Norvasc] 2.5 mg PO DAILY 04/14/17 02/21/24 Diphenoxylate HCl/Atropine 1 tab PO TID PRN 02/08/21 02/21/24 [Lomotil 2.5-0.025 mg Tablet] Albuterol Sulfate [Albuterol 2 puff PO RT-Q4H PRN 05/23/23 02/21/24 Sulfate Hfa] Ergocalciferol (Vitamin D2) 1,250 mcg PO WEEKLY 05/23/23 02/21/24 [Drisdol (50,000 Iu)] Levothyroxine Sodium [Synthroid] 112 mcg PO DAILY 05/23/23 02/21/24 guaiFENesin-Coden 100-10MG/5ML 10 ml PO Q4H PRN 05/23/23 02/21/24 [Robitussin AC] ondansetron HCL [Zofran] 4 mg PO TID 05/23/23 02/21/24 Acyclovir 400 mg PO BID 02/21/24 02/21/24 Fluticasone/Umeclidin/Vilanter 1 puff INHALATION RT-DAILY 02/21/24 02/21/24 [Trelegy Ellipta 200-62.5-25] Montelukast [Singulair] 10 mg PO HS 02/21/24 02/21/24 cefuroxime axetiL [Ceftin] 500 mg PO BID 02/21/24 02/21/24 Previous Rx's Medication Instructions Recorded Budesonide-Formot 160-4.5 Mcg 2 puff INHALATION RT-BID 1 Days 02/25/24 [Symbicort 160-4.5 Mcg Inhaler] #30 each Sodium Bicarbonate Tab 650 mg PO BID 30 Days #60 tab 02/25/24 Metoclopramide [Reglan] 5 - 10 mg PO Q6H PRN #30 tab 02/29/24 Allergies Allergy/AdvReac Type Severity Reaction Status Date / Time Penicillins Allergy Facial Verified 06/11/24 18:38 Swelling Review of Systems ROS Statement: Those systems with pertinent positive or pertinent negative responses have been documented in the HPI. ROS Other: All systems not noted in ROS Statement are negative. Constitutional: Denies: fever, chills, weakness Respiratory: Denies: cough, dyspnea Cardiovascular: Denies: chest pain, palpitations, edema Gastrointestinal: Reports: constipation. Denies: abdominal pain, nausea, vomiting, diarrhea, melena, hematochezia Genitourinary: Denies: dysuria, hematuria Musculoskeletal: Denies: back pain Skin: Denies: rash Neurological: Denies: headache Hematological/Lymphatic: Denies: easy bleeding Past Medical History Past Medical History: Asthma, GERD/Reflux, Hearing Disorder / Deafness, Hyperlipidemia, Hypertension, Liver Disease, Osteoarthritis (OA), Pneumonia, Thyroid Disorder Additional Past Medical History / Comment(s): Vertigo, bronchitis , hiatal hernia, IBS, SBO in 2013 thought d/t viral enteritis and had hepatitis at that time thought possibly d/t viral infection, 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 Mother Additional Family Medical History / Comment(s): Mother at the age of 87yrs from either a RI or a stroke-pt unsure. General Exam Limitations: no limitations General appearance: alert, in no apparent distress Head exam: Present: atraumatic, normocephalic Eye exam: Present: normal appearance. Absent: scleral icterus, conjunctival injection ENT exam: Present: normal oropharynx Neck exam: Present: normal inspection Respiratory exam: Present: normal lung sounds bilaterally. Absent: respiratory distress, wheezes, rales, rhonchi, stridor, accessory muscle use Cardiovascular Exam: Present: regular rate, normal rhythm, normal heart sounds. Absent: systolic murmur, diastolic murmur, rubs, gallop GI/Abdominal exam: Present: soft. Absent: distended, tenderness, guarding, rebound, rigid, mass, pulsatile mass, hernia Rectal exam: Present: normal rectal tone, fecal impaction, other (Small anal fissure). Absent: heme (+) stool, black stool, hemorrhoids, mass Extremities exam: Present: normal inspection, normal capillary refill. Absent: pedal edema, calf tenderness Back exam: Present: normal inspection. Absent: CVA tenderness (R), CVA tenderness (L) Neurological exam: Present: alert Skin exam: Present: warm, dry, intact, normal color. Absent: rash Course Vital Signs 06/11/24 06/11/24 18:35 23:30 Temperature 98.6 F Pulse Rate 70 78 Respiratory 18 18 Rate Blood Pressure 137/74 140/70 O2 Sat by Pulse 97 97 Oximetry Procedures - Rectal Disimpaction Consent Obtained: verbal consent Indication: fecal impaction Procedural Sedation: No Sedation/Analgesia: none Technique: manual disimpaction with gloved finger Result: significant stool output Complications: bleeding (Trace of bleeding) Patient Tolerated Procedure: well, no complications Medical Decision Making - Medical Decision Making Was pt. sent in by a medical professional or institution ([facility]ARM[facility] Small, COSTING MANAGER, urgent care, hospital, or fci...) When possible be specific @ -[No] Did you speak to anyone other than the patient for history (EMS, parent, family, police, friend...)? What history was obtained from this source @ -[No] Did you review nursing and triage notes (agree or disagree)? Why? @ -[I reviewed and agree with nursing and triage notes] Were old charts reviewed (outside hosp., previous admission, EMS record, old EKG, old radiological studies, urgent care reports/EKG's, fci records)? Report findings @ -[No old charts were reviewed] Differential Diagnosis (chest pain, altered mental status, abdominal pain women, abdominal pain men, vaginal bleeding, weakness, fever, dyspnea, syncope, headache, dizziness, GI bleed, back pain, seizure, CVA, palpatations, mental health, musculoskeletal)? @ -[Differential GI Bleed: Esophageal varices, aortoenteric fistula, Elisabeth-Wynn, gastritis, peptic ulcer disease, diverticulosis, inflammatory bowel disease, hemorrhoids, fissure, colitis, malignancy, Meckel's diverticulum, this is not meant to be an all- inclusive list. EKG interpreted by me (3pts min.). @ -[As above] X-rays interpreted by me (1pt min.). @ -[None done] CT interpreted by me (1pt min.). @ -[None done] U/S interpreted by me (1pt. min.). @ -[None done] What testing was considered but not performed or refused? (CT, X-rays, U/S, labs)? Why? @ -[None] What meds were considered but not given or refused? Why? @ -[None] Did you discuss the management of the patient with other professionals (pr ofessionals i.e. , PA, COSTING MANAGER, lab, RT, psych nurse, social sciences instructor, analyst programmer, teacher, chief information security officer, briefcase sewer)? Give summary @ -[No] Was smoking cessation discussed for >3mins.? @ -[No] Was critical care preformed (if so, how long)? @ -[No] Were there social determinants of health that impacted care today? How? (Homelessness, low income, unemployed, alcoholism, drug addiction, transportation, low edu. Level, literacy, decrease access to med. care, intermediate, rehab)? @ -[No] Was there de-escalation of care discussed even if they declined (Discuss DNR or withdrawal of care, Hospice)? DNR status @ -[No] What co-morbidities impacted this encounter? (DM, HTN, Smoking, COPD, CAD, Cancer, CVA, ARF, Chemo, Hep., AIDS, mental health diagnosis, sleep apnea, morbid obesity)? @ -[None] Was patient admitted / discharged? Hospital course, mention meds given and route, prescriptions, significant lab abnormalities, going to OR and other pertinent info. @ -[Patient is 79-year-old woman who presents to have evaluation for passing some bright red blood. The patient does have fecal impaction. I did perform bedside disimpaction with moderate amount of hard stool removed. The patient then able to have bowel movement at the bedside commode. There is small anal fissure that is the source of bleeding. Discussed appropriate further care and follow-up as well as return parameters. Undiagnosed new problem with uncertain prognosis? @ -[No] Drug Therapy requiring intensive monitoring for toxicity (Heparin, Nitro, Insulin, Cardizem)? @ -[No] Were any procedures done? @ -[Bedside disimpaction Diagnosis/symptom? @ -[Acute constipation Acute anal fissure Acute, or Chronic, or Acute on Chronic? @ -[Acute Uncomplicated (without systemic symptoms) or Complicated (systemic symptoms)? @ -[Uncomplicated Side effects of treatment? @ -[No] Exacerbation, Progression, or Severe Exacerbation? @ -[No] Poses a threat to life or bodily function? How? (Chest pain, USA, RI, pneumonia, PE, COPD, DKA, ARF, appy, cholecystitis, CVA, Diverticulitis, Homicidal, Suicidal, threat to staff... and all critical care pts) @ -[No] - Lab Data Result diagrams: 06/11/24 19:43 06/11/24 19:43 Lab Results 06/11/24 06/11/24 06/11/24 Range/Units 19:43 19:43 19:43 WBC 6.7 (3.8-10.6) k/uL RBC 5.01 (3.80-5.40) m/uL Hgb 14.0 (11.4-16.0) gm/dL Hct 45.1 (34.0-46.0) % MCV 90.1 (80.0-100.0) fL MCH 28.1 (25.0-35.0) pg MCHC 31.1 (31.0-37.0) g/dL RDW 13.6 (11.5-15.5) % Plt Count 311 (150-450) k/uL MPV 6.8 Neutrophils % 74 % Lymphocytes % 16 % Monocytes % 6 % Eosinophils % 2 % Basophils % 1 % Neutrophils # 5.0 (1.3-7.7) k/uL Lymphocytes # 1.0 (1.0-4.8) k/uL Monocytes # 0.4 (0-1.0) k/uL Eosinophils # 0.1 (0-0.7) k/uL Basophils # 0.0 (0-0.2) k/uL PT 10.2 (10.0-12.5) sec INR 0.9 (<1.2) APTT 23.5 (22.0-30.0) sec Sodium 132 L (137-145) mmol/L Potassium 4.9 (3.5-5.1) mmol/L Chloride 101 (98-107) mmol/L Carbon Dioxide 24 (22-30) mmol/L Anion Gap 7 mmol/L BUN 16 (7-17) mg/dL Creatinine 0.74 (0.52-1.04) mg/dL Est GFR (CKD-EPI)AfAm 89 (>60 ml/min/1.73 sqM) Est GFR (CKD-EPI)NonAf 77 (>60 ml/min/1.73 sqM) Glucose 92 (74-99) mg/dL Plasma Lactic Acid Ramiro (0.7-2.0) mmol/L Calcium 9.4 (8.4-10.2) mg/dL Total Bilirubin 0.7 (0.2-1.3) mg/dL AST 32 (14-36) U/L ALT 15 (4-34) U/L Alkaline Phosphatase 98 (38-126) U/L Troponin I (0.000-0.034) ng/mL Total Protein 7.0 (6.3-8.2) g/dL Albumin 4.5 (3.5-5.0) g/dL Blood Type Blood Type Confirm Blood Type Recheck Bld Type Recheck Status Antibody Screen Spec Expiration Date 06/11/24 06/11/24 06/11/24 Range/Units 19:43 19:43 19:43 WBC (3.8-10.6) k/uL RBC (3.80-5.40) m/uL Hgb (11.4-16.0) gm/dL Hct (34.0-46.0) % MCV (80.0-100.0) fL MCH (25.0-35.0) pg MCHC (31.0-37.0) g/dL RDW (11.5-15.5) % Plt Count (150-450) k/uL MPV Neutrophils % % Lymphocytes % % Monocytes % % Eosinophils % % Basophils % % Neutrophils # (1.3-7.7) k/uL Lymphocytes # (1.0-4.8) k/uL Monocytes # (0-1.0) k/uL Eosinophils # (0-0.7) k/uL Basophils # (0-0.2) k/uL PT (10.0-12.5) sec INR (<1.2) APTT (22.0-30.0) sec Sodium (137-145) mmol/L Potassium (3.5-5.1) mmol/L Chloride (98-107) mmol/L Carbon Dioxide (22-30) mmol/L Anion Gap mmol/L BUN (7-17) mg/dL Creatinine (0.52-1.04) mg/dL Est GFR (CKD-EPI)AfAm (>60 ml/min/1.73 sqM) Est GFR (CKD-EPI)NonAf (>60 ml/min/1.73 sqM) Glucose (74-99) mg/dL Plasma Lactic Acid Ramiro 1.8 (0.7-2.0) mmol/L Calcium (8.4-10.2) mg/dL Total Bilirubin (0.2-1.3) mg/dL AST (14-36) U/L ALT (4-34) U/L Alkaline Phosphatase (38-126) U/L Troponin I <0.012 (0.000-0.034) ng/mL Total Protein (6.3-8.2) g/dL Albumin (3.5-5.0) g/dL Blood Type O Positive Blood Type Confirm Blood Type Recheck No Previous Record Bld Type Recheck Status CABO Indicated Antibody Screen NEGATIVE Spec Expiration Date 06/14/2024 - 234206/11/24 Range/Units 21:04 WBC (3.8-10.6) k/uL RBC (3.80-5.40) m/uL Hgb (11.4-16.0) gm/dL Hct (34.0-46.0) % MCV (80.0-100.0) fL MCH (25.0-35.0) pg MCHC (31.0-37.0) g/dL RDW (11.5-15.5) % Plt Count (150-450) k/uL MPV Neutrophils % % Lymphocytes % % Monocytes % % Eosinophils % % Basophils % % Neutrophils # (1.3-7.7) k/uL Lymphocytes # (1.0-4.8) k/uL Monocytes # (0-1.0) k/uL Eosinophils # (0-0.7) k/uL Basophils # (0-0.2) k/uL PT (10.0-12.5) sec INR (<1.2) APTT (22.0-30.0) sec Sodium (137-145) mmol/L Potassium (3.5-5.1) mmol/L Chloride (98-107) mmol/L Carbon Dioxide (22-30) mmol/L Anion Gap mmol/L BUN (7-17) mg/dL Creatinine (0.52-1.04) mg/dL Est GFR (CKD-EPI)AfAm (>60 ml/min/1.73 sqM) Est GFR (CKD-EPI)NonAf (>60 ml/min/1.73 sqM) Glucose (74-99) mg/dL Plasma Lactic Acid Ramiro (0.7-2.0) mmol/L Calcium (8.4-10.2) mg/dL Total Bilirubin (0.2-1.3) mg/dL AST (14-36) U/L ALT (4-34) U/L Alkaline Phosphatase (38-126) U/L Troponin I (0.000-0.034) ng/mL Total Protein (6.3-8.2) g/dL Albumin (3.5-5.0) g/dL Blood Type Blood Type Confirm O Positive Blood Type Recheck Bld Type Recheck Status Antibody Screen Spec Expiration Date Disposition Clinical Impression: Constipation, Anal fissure Disposition: HOME SELF-CARE Condition: Good Instructions (If sedation given, give patient instructions): Constipation (DC) Is patient prescribed a controlled substance at d/c from ED?: No Referrals: Donald Coto MD [Primary Care Provider] - 1-2 days
[2024-06-11 23:31] VITALS: BP 140/70; PULSE 78
[2024-06-11] MEDS: PEG 3350 (236 GM/BTL) + LYTES 4,000 ML BOTTLE PO ONE (23:49)
== END 2024-06-11 23:49 | disposition home or self-care (01) ==
LOC: EC 18:33
DX: K59.00 Constipation, unspecified (principal); Z88.0 Allergy status to penicillin
CPT/HCPCS: 36415; 80053; 83605; 84484; 85025; 85610; 85730; 86850; 86900; 86901; 99284